=== PATIENT | male | born 1965 | race African-American/Black ===

== ENCOUNTER 2024-10-04 14:06 | Outpatient (NON) | payer SELFPAY ==
--- OUTSIDE RECORDS SUMMARY | 2024-10-04 14:43 | XMS_ITS | Encounter Summary ---
Author Organization [facility] Address [facility] [place] [address] Care Team Providers Care President Of [place] Name Role Phone Ngozi Collier NP Primary Care Provider [phone] Reason for Referral * Surgical (Routine) - New Request Specialty Diagnoses / Procedures Referred By Contac t Referred To Contact Diagnoses PVD (peripheral vascular disease) ([facility]) Procedures Case request operating room: AMPUTATION TOE (LEFT SECOND TOE) Dae Corrales MD [address] [address] Phone: tel: fax: Referral ID Status Reason Start Date Expiration Date V isits Requested Visits Authorized [id number] New Request 06/08/2024 06/08/2025 1 1 Encounter Details Date Type Department Care Team (Late st Contact Info) Description 06/08/2024 Prep for Procedure [facility] [address] [place], [place] [id number] Dae Corrales MD [facility] [address] [place] [address] Social History Tobacco Use Types Packs/Day Years Used Date Smoking Tobacco: Every Day Cigars Smokeless Tobacco: Never Alcohol Use Standard Drinks/Week Comments Not Currently 0 (1 standard drink = 0.6 oz pur e alcohol) [facility] Utilities Answer Date Recorded In the past 12 months has th e electric, gas, oil, or water company threatened to shut off services in your home? No 06/06/2024 Humiliation, Afraid, Rape, and Kick questionnair e Answer Date Recorded Within the last year, have y ou been afraid of your partner or ex-partner? No 06/06/2024 Within the last year, have y ou been humiliated or emotionally abused in other ways by your partner or ex-partner? No Within the last year, have y ou been kicked, hit, slapped, or otherwise physically hurt by your partner or ex-partner? No 06/06/2024 Within the last year, have y ou been raped or forced to have any kind of sexual activity by your partner or ex-partner? No 06/06/2024 Overall Financial Resource Strain (CARDIA) Answe r Date Recorded How hard is it for you to pa y for the very basics like food, housing, medical care, and heating? Not hard at all 06/06/2024 Hunger Vital Sign Answer Date Recorded Within the past 12 months, y ou worried that your food would run out before you got the money to buy more. Never true 06/06/20 24 Within the past 12 months, t he food you bought just didn't last and you didn't have money to get more. Never true 06/06/2024 PRAPARE - Transportation Answer Date Re corded In the past 12 months, has l ack of transportation kept you from medical appointments or from getting medications? No 05/25 In the past 12 months, has l ack of transportation kept you from meetings, work, or from getting things needed for daily living? No 06/06/2024 Housing Stability Vital Sign Answer Segundo e Recorded In the last 12 months, was t here a time when you were not able to pay the mortgage or rent on time? No 06/06/2024 In the past 12 months, how m any times have you moved where you were living? 0 06/06/2024 At any time in the past 12 m [facility], were you homeless or living in a detention (including now)? No 06/06/2024 Sex and Gender Information Value Date Recorded Sex Assigned at Male 09/23/2024 1:10 AM [employer] Legal Sex Male 8:29 PM CDT Gender Identity Not on file Sexual Orientation Not on file documented as of this encounter Functional Status * Are you deaf or do you have serious difficulty hearing Answer Date of Assessment Author Status No 06/06/2024 11:27 PM CDT Phong Whitney , RN Active * Are you blind or do you have serious difficulty seeing, even when wearing glasses? Answer Date of Assessment Author Status No 06/06/2024 11:27 PM KINGT Phong Whitney RN Active * Do you have serious difficulty walking or climbing stairs? Answer Date of Assessment Author Status No 06/06/2024 11:27 PM KINGT Phong Whitney RN Active * Do you have difficulty dressing or bathing? Answer Date of Assessment Author Status No 06/06/2024 11:27 PM KINGT Phong Whitney RN Active * Because of a physical, mental, or emotional condition, do you have difficulty doing errands alone such as visiting a doctor's office or shopping? Answer Date of Assessment Author Status No 06/06/2024 11:27 PM KINGT Phong Whitney RN Active documented as of this encounter Mental Status * Because of a physical, mental, or emotional condition, do you have serious difficulty concentrating, remembering, or making decisions? Answer Entry Date Author Status No 06/06/2024 11:27 PM Phong Maynard RN Active documented in this encounter Plan of Treatment Scheduled Orders Name Type Priority Associated Diagnoses Orde r Schedule Case request operating room: AMPUTATION TOE (LEFT SECOND TOE) Case Request Routine PVD (peripheral vascular disease) ([facility]) Once for 1 Occurrences starting 06/08/2024 until 06/08/2024 documented as of this encounter Goals Goal Patient Goal Type Associated Problems Recent Progress Patient-Stated? Author Health - patient able to perform ADLs independently Lifestyle No 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 RN documented as of this encounter Visit Diagnoses Diagnosis PVD (peripheral vascular disease) (CMS/HCC)- Primary Peripheral vascular disease, unspecified documented in this encounter Care Teams President [employer] [place] Relationship Specialty [place] [address] [place] [id number] PCP - General 02/13/18 documented as of this encounter
--- OUTSIDE RECORDS SUMMARY | 2024-10-04 14:43 | XMS_ITS | Clinical Summary ---
Author Organization [facility] Address [address] [place] [id number] Care Team Providers Care Pan Cleaner Name Role Phone Ngozi Collier NP Primary Care Provider [phone] Allergies Active Allergy Reactions Criticality Noted Date Comments Amoxicillin Nausea and Vomiting 11/25/2017 Amoxicillin-Pot Clavulanate Nausea and Vomiting 11/17/2017 Atorvastatin Nausea and Vomiting 05/11/2019 Clavulanic Acid Nausea and Vomiting 11/17/2017 Diclofenac Nausea and Vomiting 11/21/2017 Fentanyl Other (see comment) 11/25/2017 Can't see straight Gabapentin Nausea and Vomiting 11/21/2017 Meloxicam Anxiety Low 01/14/2019 Metformin Nausea and Vomiting 11/25/2017 Methadone Other (see comment) 11/25/2017 Can't see straight Morphine Other (see comment) 11/25/2017 Can't see straight Nortriptyline Nausea Only 07/10/2018 Pitavastatin Nausea and Vomiting 07/07/2023 Rosuvastatin Nausea Only Low 12/24/2022 Sildenafil Other (see comment) 05/28/2021 Medications capsaicin (ABSORBINE ARTHRITIS) 0.025 % cream Apply topically 4 (four) times daily as needed (pain). Active lidocaine (LIDODERM) 5 % Place 1 patch onto the skin every 12 (twelve) hours. APPLY 1 PATCH TO SKIN SITE ONCE A DAY APPLY PATCH AND PRESS FIRMLY FOR 10-15 SECONDS. KEEP ON FOR 12 HOURS THEN REMOVE PATCH FOR 12 HOURS. Active insulin degludec (TRESIBA) 100 UNIT/ML Solution Pen-injector injection Inject 80 Units into the skin every morning. Active Cholecalciferol 50 MCG (1999 UT) Cap Take 50 mcg by mouth daily. Active Multiple Vitamin (MULTIVITAMIN ADULT OR) Take 1 tablet by mouth daily. Active losartan (COZAAR) 50 MG tablet Take 1 tablet (50 mg total) by mouth daily. Replaces hctz/lisinopril Active vitamin B-12 (CYANOCOBALAMIN ) 100 MCG tablet Take 1 tablet (100 mcg total) by mouth daily. Active rivaroxaban (XARELTO) 20 MG Tab tabletIndicatio ns:Deep Vein Thrombosis,Adre nal infarct Take 1 tablet (20 mg total) by mouth daily with supper for 30 days. Indications: Blood Clot in a Deep Vein, Adrenal infarct Take with food 30 tablet 025 2024 Active cefTRIAXone 2 g in sodium chloride 0.9 % SOLN 50 mLIndications:O steomyelitis Inject 2 g into the vein daily for 36 days. Indications: Infection of Bone and Bone Marrow 1 Bag 025 2024 Active metroNIDAZOLE (FLAGYL) 500 MG tabletIndicatio ns:Osteomyeliti s Take 1 tablet (500 mg total) by mouth 2 (two) times a day for 13 days. Indications: Infection of Bone and Bone Marrow 26 tablet 025 2024 Active vancomycin 1,250 mg in sodium chloride 0.9 % SOLN 262.5 mLIndications:O steomyelitis Inject 1,250 mg into the vein every 12 (twelve) hours for 37 days. Indications: Infection of Bone and Bone Marrow 1 Bag 025 2024 Active oxyCODONE-aceta minophen (PERCOCET) 10-325 MG tabletIndicatio ns:Acute Pain < 7 Day Supply Take 1 tablet by mouth every 6 (six) hours as needed for Pain. Indications: Acute Pain < 7 Day Supply 15 tablet Active naloxone (NARCAN) 4 MG/0.1ML nasal sprayIndication s:Opioid Toxicity 1 spray by Nasal route as needed for Opioid reversal. Indications: Toxic Amount of Codeine/Morphine -Like Drugs in the Body may repeat every 2 to 3 minutes in alternating nostrils until medical assistance becomes available 1 each 025 2025 Active sildenafil 100 MG tablet Take 1 tablet (100 mg total) by mouth daily as needed for Erectile Dysfunction. 020 2024 Discontinued(E rror) venlafaxine XR (EFFEXOR-XR) 37.5 MG 24 hr capsule Take 1 capsule (37.5 mg total) by mouth daily. 024 2024 Discontinued(E rror) rivaroxaban (XARELTO) 20 MG Tab tablet Take 1 tablet (20 mg total) by mouth daily with supper. Take with food. Start on 06/18 30 tablet 2 2024 Discontinued(E rror) losartan (COZAAR) 25 MG tablet Take 1 tablet (25 mg total) by mouth daily. 30 tablet 2024 Discontinued(E rror) oxyCODONE immediate release (ROXICODONE) 10 MG immediate release tablet Take 1 tablet (10 mg total) by mouth every 6 (six) hours as needed for Pain. 2024 Discontinued(E rror) lisinopril-hydr oCHLOROthiazide (ZESTORETIC) 10-12.5 MG tablet Take 0.5 tablets by mouth every morning. 023 2024 Discontinued(E rror) oxyCODONE-aceta minophen (PERCOCET) 10-325 MG tablet Take 1 tablet by mouth every 6 (six) hours as needed for Pain. TAKE 1 TABLET BY MOUTH EVERY 6 HOURS NEEDED FOR 1 WEEK, THEN TAKE 1 TABLET THREE TIMES A DAY NEEDED - NOTE: DO NOT EXCEED 4000MG PER DAY ACETAMINOPHEN (APAP) 024 2024 Discontinued silver sulfADIAZINE (SILVADENE) 1 % cream APPLY LIGHTLY TO AFFECTED AREA(S) ONCE A DAY FOR WOUND CARE (EXTERNAL USE ONLY) 024 2024 Discontinued(E rror) Active Problems Problem Noted Date Diagnosed Date Osteomyelitis ([facility]) 09/23/2024 Osteomyelitis of foot, left, acute ([facility]) 09/23/2024 Abnormal liver function 06/28/2024 Acute osteomyelitis of phalanx of foot ([facility]) 06/28/2024 Overview (06/28/2024): Dec 22, 2019 Entered By: SOLEDAD MIRANDA Comment: R great toe amputation 10/2017 Age-related nuclear cataract, bilateral 06/28/20 Benign essential hypertension 06/28/2024 Carpal tunnel syndrome 06/28/2024 Complete traumatic amputatio n of left great toe, subsequent encounter ([facility]) 06/28/2024 Depression 06/28/2024 Encounter for observation fo r other suspected diseases and conditions ruled out 06/28/2024 Erectile dysfunction 06/28/2024 Exposure to potentially hazardous substance 11/2023 Gastroesophageal reflux disease 06/28/2024 History of total right knee replacement 06/28/20 Hyperlipidemia, unspecified 06/28/2024 Localized edema 06/28/2024 care home (current) use of opiate analgesic 11/2023 Narcotic drug use 06/28/2024 Non-pressure chronic ulcer o f other part of left foot limited to breakdown of skin ([facility]) 06/28/2024 Obesity 06/28/2024 Osteoarthritis of knee 06/28/2024 Other chronic pain 06/28/2024 Other specified diabetes marshall litus with unspecified complications ([facility]) 06/28/2024 Pain in right shoulder 06/28/2024 Type 1 diabetes mellitus wit h diabetic neuropathy, unspecified ([facility]) 06/28/2024 Type 2 diabetes 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 without macular edema, bilateral ([facility]) 06/28/2024 Type 2 diabetes mellitus wit h foot ulcer (CODE) ([facility]) 06/28/2024 Vitamin D deficiency 06/28/2024 Elevated liver function tests 06/21/2024 PVD (peripheral vascular disease) 06/08/2024 Osteomyelitis of left foot ([facility]) SIRS (systemic inflammatory response syndrome) ([facility]) 05/27/2024 Nausea and vomiting 03/20/2020 Open wound of left foot 03/17/2020 Nausea & vomiting 03/17/2020 S/P amputation of lesser toe, left ([facility]) 02/03/2018 Hypertension 07/14/2015 Low back pain 07/14/2015 Right knee pain 07/14/2015 Resolved Problems Problem Noted Date Diagnosed Date Resolved Date Encounter for other preprocedural examination 06/28/20 24 07/05/2024 Encounters Date Type Department Care Team Description 10/04/2024 Hospital Follow-up Call [facility] [place] [address] Melonie Mei LPN Follow Up Call ([facility] 09/23-10/01/24) 09/28/2024 9:45 AM POOL HAND Home Care Visit [facility] [address] [address] Trice Nava GENDER STUDIES PROFESSOR VISIT 09/25/2024 10:00 AM POOL HAND - 09/25/2024 11:03 AM POOL HAND [place] [address] Dae Marie DPM TRANS METATARSAL AMPUTATION; LEFT FOOT 09/25/2024 9:45 AM POOL HAND Anesthesia [place] [address] Alfonso Eagle MD 09/23/2024 1:45 AM POOL HAND - 10/01/2024 2:19 PM POOL HAND Hospital Encounter [facility] [place] [address] Lucius Johnson DO Malcolm, Ashley Helen, MD McHale, MD Antoinette Leblanc Gregory T, MD Suresh, MD Gil Vidal, Claudia Gill, Spencer Vergara PA Helmholt, Jennifer, NP Foot Swelling Discharge Disposition: Home with Home Health Care 09/23/2024 Travel 07/28/2024 Telephone [facility] Multispecialty Care - [facility] [address] [facility], [address] [place] [address] Negin Adkins NP Reschedule 07/23/2024 Telephone [facility], [address] [place] [address] Neema Hampton FNP Schedule Test 07/23/2024 Orders Only [facility], [address] [place] [address] Neema Hampton FNP from Last 3 Months Immunizations Name Administration Dates Next Due Influenza (Generic) 05/16/2015, 4,06/25/2013, 012,05/23/2011 Influenza Adult (Generic) 06/09/2017 PFIZER COVID-19 (ORIGINAL FORMULATION, PURPLE CAP) mRNA, LNP-S, PF, 30 MCG/0.3 ML DOSE 07/25/2021,11/23/2020,11/02/2020 Tdap (Generic) 11/27/2021,01/03/2011 Family History Medical History Relation Comments Diabetes Paternal Grandmother Relation Status Comments Paternal Grandmother Social History Tobacco Use Types Packs/Day Years Used Date Smoking Tobacco: Some Days Cigars Smokeless Tobacco: Never Tobacco Cessation:Ready to Q uit: Not Asked; Counseling Given: Not Answered Alcohol Use Standard Drinks/Week Comments Not Currently 0 (1 standard drink = 0.6 oz pur e alcohol) 2 bottles wine/month B1300 Health Literacy Answer Date Recor ded How often do you need to hav e someone help you when you read instructions, pamphlets, or other written material from your doctor or pharmacy? Never 09/23/2024 [facility] Utilities Answer Date Recorded In the past 12 months has e [employer], gas, oil, or water [employer] threatened to shut off services in your home? No 09/23/2024 Humiliation, Afraid, Rape, and Kick questionnair e Answer Date Recorded Within the last year, have y ou been afraid of your partner or ex-partner? No 09/23/2024 Within the last year, have y ou been humiliated or emotionally abused in other ways by your partner or ex-partner? No Within the last year, have y ou been kicked, hit, slapped, or otherwise physically hurt by your partner or ex-partner? No 09/23/2024 Within the last year, have y ou been raped or forced to have any kind of sexual activity by your partner or ex-partner? No 09/23/2024 Social Connection and Isolat ion Panel [NHANES] Answer Date Recorded In a typical week, how many times do you talk on the phone with family, friends, or neighbors? Never 09/23/2024 How often do you get togethe r with friends or relatives? Never 09/23/2024 How often do you attend chur ch or buddhist services? Never 09/23/2024 Do you belong to any clubs o r organizations such as pentecostal groups, unions, fraternal or athletic groups, or school groups? Yes 09/23/2024 How often do you attend meet ings of the clubs or organizations you belong to? More than 4 times per year 09/23/2024 Are you , , di vorced, , never , or living with a partner? Never 09/23/2024 AUDIT-C Answer Date Recorded Q1: How often do you have a drink containing alc ohol? 2-4 times a month 09/23/2024 Q2: How many drinks containi ng alcohol do you have on a typical day when you are drinking? 1 or 2 09/23/2024 Q3: How often do you have si x or more drinks on one occasion? Less than monthly 09/23/2024 Overall Financial Resource Strain (CARDIA) Answe r Date Recorded How hard is it for you to pa y for the very basics like food, housing, medical care, and heating? Not hard at all 09/23/2024 PHQ-2 Answer Date Recorded Patient Health Questionnaire-2 Score 0 09/23/2024 [facility] Occupat ional Health - Occupational Stress Questionnaire Answer Date Recorded Do you feel stress - tense, restless, nervous, or anxious, or unable to sleep at night because your mind is troubled all the time - these days? Only a little 09/23/2024 Exercise Vital Sign Answer Date Recorde d On average, how many days pe r week do you engage in moderate to strenuous exercise (like a brisk walk)? 3 days 09/23/2024 On average, how many minutes do you engage in exercise at this level? 30 min 09/23/2024 Hunger Vital Sign Answer Date Recorded Within the past 12 months, y ou worried that your food would run out before you got the money to buy more. Never true 09/23/19 25 Within the past 12 months, t he food you bought just didn't last and you didn't have money to get more. Never true 09/23/2024 PRAPARE - Transportation Answer Date Re corded In the past 12 months, has l ack of transportation kept you from medical appointments or from getting medications? No 08/27 In the past 12 months, has l ack of transportation kept you from meetings, work, or from getting things needed for daily living? No 09/23/2024 Housing Stability Vital Sign Answer Segundo e Recorded In the last 12 months, was t here a time when you were not able to pay the mortgage or rent on time? No 09/23/2024 In the past 12 months, how m any times have you moved where you were living? 0 09/23/2024 At any time in the past 12 m [facility], were you homeless or living in a alf (including now)? No 09/23/2024 Sex and Gender Information Value Date Recorded Sex Assigned at Male 09/23/2024 1:10 AM POOL HAND Legal Sex Male 8:29 PM CDT Gender Identity Not on file Sexual Orientation Not on file Last Filed Vital Signs Vital Sign Reading Time Taken Comments Blood Pressure 154/89 10/01/2024 11:15 AM POOL HAND Pulse 86 09/30/2024 7:40 PM POOL HAND Temperature 36.9 C (98.5 F) 10/01/2024 11:15 AM POOL HAND Respiratory Rate 17 10/01/2024 11:1 5 AM POOL HAND Oxygen Saturation 94% 10/01/2024 11: 15 AM POOL HAND Inhaled Oxygen Concentration - - Weight 119.2 kg (262 lb 12.6 oz) 09/29/2024 5:01 AM POOL HAND Height 182.9 cm (6') 09/23/2024 3:48 PM POOL HAND Body Mass Index 35.64 09/23/2024 3:48 PM POOL HAND Plan of Treatment Health Maintenance Due Date Last Done Comments Colorectal Cancer Screening Colonoscopy (10 Years) 1967 Kidney Health Evaluation 1967 Annual Physical 1970 Pneumococcal Vaccine: Pediatrics (0 to 5 Years) and At-Risk Patients (6 to 64 Years) (1 of 2 - PCV) 1973 Diabetes: Retinopathy Eye Exam 1985 Hepatitis B Vaccines (1 of 3 - 19+ 3-dose series) 1986 Zoster Vaccines (1 of 2) 2017 COVID-19 Vaccine ( season) 2024 07/25/2021, 11/23/2020, 11/02/2020 Influenza Adult (#1) 2024 06/09/2017, 05/16/2015, 05/19/2014, Additional history exists Hemoglobin A1C 03/25/2025 09/25/2024, 08/27, 05/27/2024, Additional history exists Lipid Panel 05/27/2025 05/27/2024 DTaP, Tdap and Td Vaccines (3 - Td or Tdap) 11/28/2031 11/27/2021, 01/03/2011 Hepatitis C Completed 06/01/2024 PHQ-2 (Physician [place]) Completed 09/23/2024 Meningococcal B Vaccine Aged Out No l onger eligible based on patient's age to complete this topic Meningococcal Vaccine Aged Out No ember malik eligible based on patient's age to complete this topic RSV Immunizations Under 20 Months Aged Out No longer eligible based on patient's age to complete this topic Goals Goal Patient Goal Type Associated Problems Recent Progress Patient-Stated? Author Health - patient able to perform ADLs independently Lifestyle No 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, client partner Procedure Name Priority Date/Time Associated Diagnosis Comments POCT GLUCOSE - MARIE DOCKED DEVICE Routine 10/01/2024 11:21 AM POOL HAND CBC W/DIFF AUTOMATED Routine 10/01/2024 5:44 AM POOL HAND BASIC METABOLIC PANEL Routine 10/01/2024 5:44 AM POOL HAND POCT GLUCOSE - MARIE DOCKED DEVICE Routine 10/01/2024 5:16 AM POOL HAND POCT GLUCOSE - MARIE DOCKED DEVICE Routine 09/30/2024 8:18 PM POOL HAND POCT GLUCOSE - MARIE DOCKED DEVICE Routine 09/30/2024 4:18 PM POOL HAND POCT GLUCOSE - MARIE DOCKED DEVICE Routine 09/30/2024 11:40 AM POOL HAND HC URINALYSIS AUTO W/O MICRO Routine 09/30/2024 10:13 AM POOL HAND POCT GLUCOSE - MARIE DOCKED DEVICE Routine 09/30/2024 6:06 AM POOL HAND CBC W/DIFF AUTOMATED Routine 09/30/2024 5:30 AM POOL HAND BASIC METABOLIC PANEL Routine 09/30/2024 5:30 AM POOL HAND POCT GLUCOSE - MARIE DOCKED DEVICE Routine 09/29/2024 8:20 PM POOL HAND POCT GLUCOSE - MARIE DOCKED DEVICE Routine 09/29/2024 4:35 PM POOL HAND POCT GLUCOSE - MARIE DOCKED DEVICE Routine 09/29/2024 11:32 AM POOL HAND BASIC METABOLIC PANEL Routine 09/29/2024 7:15 AM POOL HAND POCT GLUCOSE - MARIE DOCKED DEVICE Routine 09/29/2024 6:21 AM POOL HAND CBC W/DIFF AUTOMATED Routine 09/29/2024 5:05 AM POOL HAND BASIC METABOLIC PANEL Routine 09/29/2024 5:05 AM POOL HAND POCT GLUCOSE - MARIE DOCKED DEVICE Routine 09/28/2024 9:12 PM POOL HAND POCT GLUCOSE - MARIE DOCKED DEVICE Routine 09/28/2024 3:50 PM POOL HAND POCT GLUCOSE - MARIE DOCKED DEVICE Routine 09/28/2024 11:37 AM POOL HAND POCT GLUCOSE - MARIE DOCKED DEVICE Routine 09/28/2024 5:57 AM POOL HAND CBC W/DIFF AUTOMATED Routine 09/28/2024 4:48 AM POOL HAND BASIC METABOLIC PANEL Routine 09/28/2024 4:48 AM POOL HAND POCT GLUCOSE - MARIE DOCKED DEVICE Routine 09/27/2024 7:47 PM POOL HAND POCT GLUCOSE - MARIE DOCKED DEVICE Routine 09/27/2024 4:53 PM POOL HAND POCT GLUCOSE - MARIE DOCKED DEVICE Routine 09/27/2024 11:38 AM POOL HAND POCT GLUCOSE - MARIE DOCKED DEVICE Routine 09/27/2024 6:27 AM POOL HAND BASIC METABOLIC PANEL Routine 09/27/2024 5:27 AM POOL HAND CBC W/DIFF AUTOMATED Routine 09/27/2024 5:27 AM POOL HAND POCT GLUCOSE - MARIE DOCKED DEVICE Routine 09/26/2024 8:39 PM POOL HAND POCT GLUCOSE - MARIE DOCKED DEVICE Routine 09/26/2024 4:51 PM POOL HAND BASIC METABOLIC PANEL Routine 09/26/2024 1:28 PM POOL HAND CBC W/DIFF AUTOMATED Routine 09/26/2024 1:28 PM POOL HAND POCT GLUCOSE - MARIE DOCKED DEVICE Routine 09/26/2024 12:26 PM POOL HAND POCT GLUCOSE - MARIE DOCKED DEVICE Routine 09/26/2024 6:13 AM POOL HAND VANCOMYCIN Routine 09/26/2024 4:34 AM POOL HAND BASIC METABOLIC PANEL Routine 09/26/2024 4:34 AM POOL HAND CBC W/DIFF AUTOMATED Routine 09/26/2024 4:34 AM POOL HAND POCT GLUCOSE - MARIE DOCKED DEVICE Routine 09/25/2024 8:14 PM POOL HAND POCT GLUCOSE - MARIE DOCKED DEVICE Routine 09/25/2024 4:18 PM POOL HAND POCT GLUCOSE - MARIE DOCKED DEVICE Routine 09/25/2024 11:36 AM POOL HAND POCT GLUCOSE - MARIE DOCKED DEVICE Routine 09/25/2024 10:37 AM POOL HAND CULTURE, TISSUE W/GRAM STAIN Routine 09/25/2024 10:12 AM POOL HAND CULTURE, ANAEROBIC Routine 09/25/2024 10 :12 AM POOL HAND AMPUTATION TOE 09/25/2024 9:45 AM POOL HAND Osteomyelitis of foot, left, acute ([facility]) POCT GLUCOSE - MARIE DOCKED DEVICE Routine 09/25/2024 8:04 AM POOL HAND CBC W/DIFF AUTOMATED Routine 09/25/2024 5:43 AM POOL HAND BASIC METABOLIC PANEL Routine 09/25/2024 5:43 AM POOL HAND HEMOGLOBIN, GLYCOSYLATED Routine 09/25/2024 5:43 AM POOL HAND POCT GLUCOSE - MARIE DOCKED DEVICE Routine 09/25/2024 5:39 AM POOL HAND PATHOLOGY Routine 09/25/2024 12:00 AM POOL HAND POCT GLUCOSE - MARIE DOCKED DEVICE Routine 09/24/2024 8:10 PM POOL HAND POCT GLUCOSE - MARIE DOCKED DEVICE Routine 09/24/2024 3:46 PM POOL HAND POCT GLUCOSE - MARIE DOCKED DEVICE Routine 09/24/2024 11:20 AM POOL HAND VANCOMYCIN Routine 09/24/2024 6:00 AM POOL HAND C-REACTIVE PROTEIN Routine 09/24/2024 6: 00 AM POOL HAND HEMOGLOBIN, GLYCOSYLATED Routine 09/24/2024 6:00 AM POOL HAND MAGNESIUM Routine 09/24/2024 6:00 AM POOL HAND COMPREHENSIVE METABOLIC PANEL Routine 09/24/2024 6:00 AM POOL HAND CBC W/DIFF AUTOMATED Routine 09/24/2024 6:00 AM POOL HAND POCT GLUCOSE - MARIE DOCKED DEVICE Routine 09/24/2024 5:55 AM POOL HAND POCT GLUCOSE - MARIE DOCKED DEVICE Routine 09/23/2024 7:59 PM POOL HAND MRI FOOT LT WO CON Today 09/23/2024 6: 47 PM POOL HAND POCT GLUCOSE - MARIE DOCKED DEVICE Routine 09/23/2024 3:43 PM POOL HAND POCT GLUCOSE - MARIE DOCKED DEVICE Routine 09/23/2024 12:12 PM POOL HAND MRSA SCREENING STAT 09/23/2024 10:24 AM POOL HAND USV ART REST W BLANCO LOW EXT STAT 09/23/2024 10:09 AM POOL HAND CULTURE, BACTERIA, BLOOD STAT 09/23/2024 2:55 AM POOL HAND LACTIC ACID W REFLEX (SEPSIS) STAT 09/23/2024 2:55 AM POOL HAND HC BODY FLUID CULTURE STAT 09/23/2024 2:11 AM POOL HAND C-REACTIVE PROTEIN Routine 09/23/2024 2: 11 AM POOL HAND COMPREHENSIVE METABOLIC PANEL STAT 09/23/2024 2:11 AM POOL HAND CBC W/DIFF AUTOMATED STAT 09/23/2024 2:11 AM POOL HAND XR FOOT LT 3V STAT 09/23/2024 1:54 AM POOL HAND HC EIA QL HEPATITIS ABC B AG Routine 06/01/2024 3:47 AM CDT LIPID PANEL STAT 05/27/2024 8:35 AM CDT from Last 3 Months or Most Recently Relevant to Health Maintenance Results * (ABNORMAL) POCT glucose (10/01/2024 11:21 AM POOL HAND) Only the most recent of35 resultswithin the time period is included. GLUCOSE POC 201(H) 70 - 99 mg/dL 10/01/2024 11:[address] [facility] 10/01/2024 11:2 1 AM POOL HAND Ashtyn Lynch NP POCT ORDERABLES - DEVICE Fi nal Result [facility] [address] [place] [address], * (ABNORMAL) BASIC METABOLIC PANEL (10/01/2024 5:44 AM POOL HAND) Only the most recent of9 resultswithin the time period is included. GLUCOSE 90 70 - 99 MG/DL 10/01/2024 6:[address] [facility] BUN 13 7 - 18 MG/DL 10/01/2024 6:[address] [facility] CREATININE S/P/B 0.75 0.7 - 1.3 MG/DL 10/01/2024 6:30 AM [facility] SODIUM S/P/B 139 136 - 145 MMOL/L 10/01/2024 6:30 AM [facility] POTASSIUM S/P/B 4.0 3.5 - 5.1 MMOL/L 10/01/2024 6:30 AM [facility] CHLORIDE S/P/B 108 97 - 115 MMOL/L 10/01/2024 6:30 AM [facility] CO2 33.0(H) 21 - 32 MMOL/L 10/01/2024 6:30 AM [facility] CALCIUM S/P/B 8.5 8.5 - 10.1 MG/DL 10/01/2024 6:30 AM [facility] ANION GAP NOT CALCULATED 2 - 10 MMOL/L 10/01/2024 6:30 AM [facility] BUN CREATININE RATIO 17.3 6 - 26 10/01/2024 6:30 AM [facility] GFR ESTIMATE >90 >90 ML/MIN/1. 73 M2 10/01/2024 6:30 AM [facility] Comment: NOTE: eGFR is not calculated for patients <18 years of age or gender unknown. This is an estimated GFR calculation using the new CKD EPI creatinine equation without race and so does not require a correction factor for race. This estimated GFR should not be used for calculating drug doses. 10/01/2024 5:44 AM POOL HAND [facility] Final Result [facility] [address] [place] [address], [place] [phone] * (ABNORMAL) CBC W/DIFF AUTOMATED (10/01/2024 5:44 AM POOL HAND) Only the most recent of10 resultswithin the time period is included. [facility] Signature WBC 6.78 4.5 - 11.0 x10'3/uL 10/01/2024 6:18 AM [facility] RBC 3.24(L) 4.70 - 6.10 x10'6/uL 10/01/2024 6:18 AM [facility] HGB 9.8(L) 14.0 - 18.0 G/DL 10/01/2024 6:18 AM [facility] HCT 30.6(L) 43.0 - 54.0 % 10/01/2024 6:18 AM [facility] MCV 94.4(H) 80.0 - 94.0 FL 10/01/2024 6:18 AM [facility] MCH 30.2 27.0 - 31.0 PG 10/01/2024 6:18 AM [facility] MCHC 32.0 32.0 - 36.0 G/DL 10/01/2024 6:18 AM [facility] RDW 12.1 11.5 - 14.5 % 10/01/2024 6:18 AM [facility] PLT 374 130 - 400 x10'3/uL 10/01/2024 6:18 AM [facility] MPV 9.1(L) 9.3 - 12.2 FL 10/01/2024 6:18 AM [facility] DIFFERENTIAL TYPE AUTOMATED DIFFERENTIAL 10/01/2024 6:18 AM [facility] NEUTROPHILS % 75.0 % 10/01/2024 6:18 AM [facility] LYMPHOCYTES % 11.5 % 10/01/2024 6:18 AM [facility] MONOCYTES % 10.9 % 10/01/2024 6:18 AM [facility] EOSINOPHILS 1.6 % 10/01/2024 6:18 AM [facility] BASOPHILS 0.3 % 10/01/2024 6:18 AM [facility] IMMATURE GRANS % 0.7 % 10/01/19 6:18 AM [facility] ABS. NEUTROPHILS 5.08 1.80 - 7.70 x10'3/uL 10/01/2024 6:18 AM [facility] ABS. LYMPHOCYTES 0.78(L) 1.00 - 4.80 x10'3/uL 10/01/2024 6:18 AM [facility] ABS. MONOCYTES 0.74 0.30 - 0.82 x10'3/uL 10/01/2024 6:18 AM [facility] ABS. EOSINOPHILS 0.11 0.04 - 0.54 x10'3/uL 10/01/2024 6:18 AM [facility] ABS. BASOPHILS 0.02 0.01 - 0.08 x10'3/uL 10/01/2024 6:18 AM [facility] ABS. IMMATURE GRANULOCYTES 0.05 0.00 - 0.49 x10'3/uL 10/01/2024 6:18 AM [facility] 10/01/2024 5:44 AM POOL HAND us Spencer HENDERSON LABORATORY Final Result [facility] [address] [place] [address], [place] [phone] * (ABNORMAL) URINALYSIS (09/30/2024 10:13 AM POOL HAND) SPECIMEN TYPE URINE CLEAN CATCH 09/30/2024 10:14 AM [facility] COLOR (U) LIGHT YELLOW 09/30/2024 10:25 AM [facility] TRANSPARENCY CLEAR 09/30/2024 10:25 AM [facility] SPECIFIC GRAVITY (U) 1.011 1.001 - 1.030 09/30/2024 10:25 AM [facility] U PH 6.0 5.0 - 9.0 09/30/2024 10:25 AM [facility] LEUKOCYTES (U) NEGATIVE NEGATIVE 09/30/2024 10:25 AM [facility] NITRITES NEGATIVE NEGATIVE 09/30/2024 10:25 AM [facility] PROTEIN RANDOM (U) NEGATIVE <30 MG/DL 09/30/2024 10:25 AM [facility] GLUCOSE (U) NORMAL NORMAL MG/DL 09/30/2024 10:25 AM [facility] KETONES MG/DL (U) NEGATIVE NEGATIVE MG/DL 09/30/2024 10:25 AM [facility] UROBILINOGEN 2.0(A) NORMAL MG/DL 09/30/2024 10:25 AM [facility] BILIRUBIN (U) NEGATIVE NEGATIVE MG/DL 09/30/2024 10:25 AM [facility] BLOOD (U) NEGATIVE NEGATIVE 09/30/2024 10:25 AM [facility] URINE SPECIMEN OBTAINED BY CLEAN CATCH PROCEDURE / Unknown 09/30/2024 10:13 AM [facility] us Spencer HENDERSON URINE ORDERABLES Final Result [facility] [address] [place] [address], [place] [phone] * Vancomycin Random Level (09/26/2024 4:34 AM POOL HAND) Only the most recent of2 resultswithin the time period is included. VANCOMYCIN RANDOM 17.4 MCG/ML 09/26/2024 5:[address] [facility] Comment:NO THERAPEUTIC RANGE AVAILABLE LAST DOSE UNKNOWN LAST DOSE 09/26/2024 4:[address] [facility] 09/26/2024 4:34 AM POOL HAND [facility] Final Result [facility] [address] [place] [address], [place] [phone] * (ABNORMAL) CULTURE, TISSUE W/GRAM STAIN (09/25/2024 10:12 AM POOL HAND) SPEC DESCRIPTION FOOT,LEFT 09/25/2024 10:[address] [facility] SPECIAL REQUESTS NO SPECIAL REQUEST 09/25/2024 10:17 AM [facility] GRAM STAIN RESULT FEW WHITE BLOOD CELLS SEEN 09/25/2024 4:[address] [facility] GRAM STAIN RESULT MANY RED BLOOD CELLS SEEN 09/25/2024 4:58 PM [facility] GRAM STAIN RESULT MANY GRAM POSITIVE COCCI 09/25/2024 4:58 PM [facility] CULTURE RESULT LIGHT GROWTH OF ESCHERICHIA COLI (A) 09/27/2024 8:33 AM [facility] CULTURE RESULT MODERATE GROWTH OF STREPTOCOCCI, BETA HEMOLYTIC GROUP B SUSCEPTIBILTY NOT ROUTINELY PERFORMED. SAVING ISOLATE FOR 5 DAYS. CONTACT MICROBIOLOGY DEPARTMENT IF FURTHER WORKUP IS INDICATED. (A) 09/27/2024 8:[address] [facility] TISSUE STRUCTURE OF LEFT FOOT / Unknown 09/25/2024 10:12 AM POOL HAND Narrative Organism Antibiotic Method Susceptibility Escherichia coli AMPICILLIN REMY (VITEK) 4: Sensitive Escherichia coli AMPICILLIN/SULBACTAM REMY (VITEK) <=2: Sensitive Escherichia coli CEFTRIAXONE REMY (VITEK) <=1: Sensitive Escherichia coli CEFTAZIDIME REMY (VITEK) <=1: Sensitive Escherichia coli CEFAZOLIN REMY (VITEK) <=4: Sensitive Escherichia coli ESBL REMY (VITEK) NEG: Sensitive Escherichia coli GENTAMICIN REMY (VITEK) <=1: Sensitive Escherichia coli LEVOFLOXACIN REMY (VITEK) <=0.12: Sensitive Escherichia coli PIPRACIL/TAZO REMY (VITEK) <=4: Sensitive Escherichia coli TRIMETH-SULFAMETH. REMY (VITEK) <=20: Sensitive Dae Marie DPM MICROBIOLOGY - GENERAL OR DERABLES Final Result [facility] [address] [place] [address], * (ABNORMAL) CULTURE, ANAEROBIC (09/25/2024 10:12 AM POOL HAND) SPEC DESCRIPTION FOOT,LEFT 09/25/2024 10:17 AM [facility] SPECIAL REQUESTS NO SPECIAL REQUEST 09/25/2024 10:17 AM [facility] GRAM STAIN RESULT FEW WHITE BLOOD CELLS SEEN 09/25/2024 4:58 PM [facility] GRAM STAIN RESULT MANY RED BLOOD CELLS SEEN 09/25/2024 4:58 PM [facility] GRAM STAIN RESULT MANY GRAM POSITIVE COCCI 09/25/2024 4:58 PM [facility] CULTURE RESULT HEAVY GROWTH OF PREVOTELLA BIVIA BETA LACTAMASE POSITIVE SUSCEPTIBILTY NOT ROUTINELY PERFORMED. SAVING ISOLATE FOR 5 DAYS. CONTACT MICROBIOLOGY DEPARTMENT IF FURTHER WORKUP IS INDICATED. (A) 09/27/2024 11:[address] [facility] TISSUE STRUCTURE OF LEFT FOOT / Unknown 09/25/2024 10:12 AM POOL HAND Dae Marie DPM MICROBIOLOGY - GENERAL OR DERABLES Final Result Performing Organization Address [facility] Co de Phone Number [facility] [address] [place] [phone], * (ABNORMAL) HEMOGLOBIN, GLYCOSYLATED (09/25/2024 5:43 AM POOL HAND) Only the most recent of2 resultswithin the time period is included. HGB A1C 6.6(H) <5.7 % 09/25/2024 11:[address] [facility] Comment: ADA GUIDELINES 2010 5.7 TO 6.4% INCREASED RISK OF DIABETES > OR = 6.5% CONSISTENT WITH DIABETES ESTIMATED AVG GLUCOSE 143 mg/dL 09/25/2024 11:[address] [facility] 09/25/2024 5:43 AM POOL HAND Turner Curry MD LABORATORY Final Resul t Performing Organization Address [facility] Co de Phone Number [facility] [address] [place] [address], * Pathology (09/25/2024 12:00 AM POOL HAND) PATHOLOGY [facility] Department of Laboratory Medicine [address] [place] [address] , extension [phone] Pathology Report Surgical Pathology Report Name: TAJ SMITH Specimen #: [id number] Age: 2 1965 (Age: 58) Location: [facility] Sex: M Procedure Date: 09/25/2024 [facility] #: [id number] Date Received: 09/27/2024 Date Reported: 09/28/2024 Provider: DAE MARIE DPM Source: Left 5th metatarsal Clinical History: Osteomyelitis. FINAL DIAGNOSIS: Bone, left fifth metatarsal, excision: -Chronic osteomyelitis extending to the surgical margin. Gross Description: Received in formalin, labeled with a patient label and as left fifth metatarsal is a 2.7 x 1.2 x 1.2 cm piece of bone. 1 end is rounded and covered with smooth street cartilage. The opposite end is consistent with the surgical margin. The specimen is sectioned to reveal the bone is dusky lazcano and disrupted near the distal end. The surgical margin is shaved. Pump Tender tissue is submitted as follows: 1 section through distal end of bone 2 surgical margin. Cassettes 1 and 2 are submitted following decalcification in immuno decal. Gross examination (when applicable), interpretation, and sign out were performed at [facility], [address] [place] [address]. Electronically Signed Out LONNIE FARIAS MD [facility] TISSUE STRUCTURE OF LEFT FOOT / Unknown 09/25/2024 10:13 AM POOL HAND us Dae Marie DPM PATHOLOGY/CYTOLOGY ORDERA BLES Final Result [facility] [address] [place] [address], [id number] * (ABNORMAL) COMPREHENSIVE METABOLIC PANEL (09/24/2024 6:00 AM POOL HAND) Only the most recent of2 resultswithin the time period is included. GLUCOSE 203(H) 70 - 99 MG/DL 09/24/2024 6:[address] [facility] BUN 16 7 - 18 MG/DL 09/24/2024 6:[address] [facility] CREATININE S/P/B 1.02 0.7 - 1.3 MG/DL 09/24/2024 6:[address] [facility] SODIUM S/P/B 136 136 - 145 MMOL/L 09/24/2024 6:47 AM [facility] POTASSIUM S/P/B 4.2 3.5 - 5.1 MMOL/L 09/24/2024 6:47 AM [facility] CHLORIDE S/P/B 105 97 - 115 MMOL/L 09/24/2024 6:47 AM [facility] CO2 29.9 21 - 32 MMOL/L 09/24/2024 6:47 AM [facility] CALCIUM S/P/B 8.0(L) 8.5 - 10.1 MG/DL 09/24/2024 6:47 AM [facility] BILIRUBIN TOTAL S/P/B 0.9 0.2 - 1.2 MG/DL 09/24/2024 6:47 AM [facility] Comment: THIS ASSAY IS NOT RECOMMENDED FOR PATIENTS UNDERGOING TREATMENT WITH ELTROMBOPAG DUE TO THE POTENTIAL FOR FALSELY ELEVATED RESULTS. TOTAL PROTEIN S/P/B 5.6(L) 6.4 - 8.2 G/DL 09/24/2024 6:47 AM [facility] ALBUMIN S/P/B 1.8(L) 3.4 - 5.0 G/DL 09/24/2024 6:47 AM [facility] AST 114(H) 15 - 37 U/L 09/24/2024 6:47 AM [facility] ALT 61(H) 16 - 60 U/L 09/24/2024 6:47 AM [facility] ALKALINE PHOSPHATASE S/P/B 256(H) 50 - 136 U/L 09/24/2024 6:47 AM [facility] ANION GAP 1.1(L) 2 - 10 MMOL/L 09/24/2024 6:47 AM [facility] BUN CREATININE RATIO 15.7 6 - 26 09/24/2024 6:47 AM [facility] A/G RATIO 0.5(L) 1.0 - 2.0 RATIO 09/24/2024 6:47 AM [facility] GFR ESTIMATE 86(L) >90 ML/MIN/1.7 3 M2 09/24/2024 6:47 AM [facility] Comment: NOTE: eGFR is not calculated for patients <18 years of age or gender unknown. This is an estimated GFR calculation using the new CKD EPI creatinine equation without race and so does not require a correction factor for race. This estimated GFR should not be used for calculating drug doses. 09/24/2024 6:00 AM POOL HAND [facility]END[facility] Final Result Performing Organization Address City/[facility]/ZIP Co de Phone Number [facility] [address] [place] [address], [place] [phone] * (ABNORMAL) C-REACTIVE PROTEIN (09/24/2024 6:00 AM POOL HAND) Only the most recent of2 resultswithin the time period is included. C-REACTIVE PROTEIN 10.10(H) <0.29 mg/dL 09/24/2024 6:[address] [facility] 09/24/2024 6:00 AM POOL HAND [facility] Final Result [facility] [address] [place] [phone], * (ABNORMAL) MAGNESIUM (09/24/2024 6:00 AM POOL HAND) MAGNESIUM 2.5(H) 1.8 - 2.4 MG/DL 09/24/2024 6:[address] [facility] 09/24/2024 6:00 AM POOL HAND [facility] Final Result [facility] [address] [place] [address], * MRI FOOT LT WO CON (09/23/2024 6:47 PM POOL HAND) Anatomical Region Laterality Modality Foot Magnetic Resonan ce 09/24/2024 8:19 AM POOL HAND Impressions 09/24/2024 8:54 AM POOL HAND =====IMPRESSION:===== 1. Osteomyelitis greatest in the fifth digit throughout the metatarsal and proximal phalanx. Associated fifth MTP septic arthritis, overlying wound and associated sinus tract/fistula. 2. Osteomyelitis of the third digit proximal, middle and distal phalanges. Associated comminuted fracture of the middle phalanx, potentially pathologic or posttraumatic. 3. Also minimal osteomyelitis of the first, second and fourth metatarsal heads. 4. Marked diffuse soft tissue swelling/edema. 5. Degenerative and neuropathic changes. Ordered By: SPENCER OLIVEIRA Interpreted By: Dae Phillip MD, 09/24/2024 8:19 AM Narrative 09/24/2024 8:54 AM POOL HAND [facility] [address] [place], [place] [address] EXAMINATION: MRI left foot without contrast EXAM DATE/TIME: 09/23/2024 6:42 PM REASON FOR EXAM: Left foot osteomyelitis, left foot wound COMPARISON: Correlated with foot radiographs 09/23/2024, 06/06/2024. Prior MRI 06/08/2024 TECHNIQUE: Mutiplanar, multisequence MRI of the left foot was obtained without the use of an IV contrast agent. FINDINGS: First digit prior amputation at the level of the MTP joint. Residual mild contour deformity of the metatarsal head. Tiny focus of subcortical edema distally suggesting residual osteomyelitis. Overlying surgical wound extending to the bone surface. Second digit prior amputation at the level of the MTP joint. Mild bone marrow edema of the second metatarsal head compatible with osteomyelitis. Associated cortical erosion. Minimal overlying fluid and soft tissue swelling. Third digit abnormal bone marrow edema of the proximal, middle and distal phalanges compatible with osteomyelitis. Superimposed comminuted fracture of the middle phalanx, potentially pathologic. Metatarsal is relatively unremarkable. Small fluid of the MTP joint. Moderate diffuse soft tissue swelling. Fourth digit demonstrating mild edema of the fourth metatarsal head, likely very early osteomyelitis in this setting. The phalanges are relatively unremarkable. Moderate soft tissue swelling. Fifth digit demonstrating extensive bone marrow edema of the metatarsal and proximal phalanx compatible with osteomyelitis. Metatarsal and edema greatest in the head extending to the base. Associated septic arthritis of the fifth MTP with small erosions and joint effusion. Overlying ulcerated wound laterally with sinus tract/fistula from the joint to the skin surface. Moderate degenerative changes in the midfoot most severe in the tarsometatarsal joints where there are scattered subcortical cysts, patchy subcortical edema and osteophytes. Small joint effusion in the intertarsal joints. Moderate diffuse soft subcutaneous edema. 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 Procedure Note Dae Phillip MD - 09/24/[address] [address] EXAMINATION: MRI left foot without contrast EXAM DATE/TIME: 09/23/2024 6:42 PM REASON FOR EXAM: Left foot osteomyelitis, left foot wound COMPARISON: Correlated with foot radiographs 09/23/2024, 06/06/2024. PriorMRI 06/08/2024 TECHNIQUE: Mutiplanar, multisequence MRI of the left foot was obtainedwithout the use of an IV contrast agent. FINDINGS: First digit prior amputation at the level of the MTP joint. Residual mildcontour deformity of the metatarsal head. Tiny focus of subcortical edemadistally suggesting residual osteomyelitis. Overlying surgical woundextending to the bone surface. Second digit prior amputation at the level of the MTP joint. Mild bonemarrow edema of the second metatarsal head compatible with osteomyelitis.Associated cortical erosion. Minimal overlying fluid and soft tissueswelling. Third digit abnormal bone marrow edema of the proximal, middle and distalphalanges compatible with osteomyelitis. Superimposed comminuted fractureof the middle phalanx, potentially pathologic. Metatarsal is relativelyunremarkable. Small fluid of the MTP joint. Moderate diffuse soft tissueswelling. Fourth digit demonstrating mild edema of the fourth metatarsal head,likely very early osteomyelitis in this setting. The phalanges arerelatively unremarkable. Moderate soft tissue swelling. Fifth digit demonstrating extensive bone marrow edema of the metatarsaland proximal phalanx compatible with osteomyelitis. Metatarsal and edemagreatest in the head extending to the base. Associated septic arthritis ofthe fifth MTP with small erosions and joint effusion. Overlying ulceratedwound laterally with sinus tract/fistula from the joint to the skinsurface. Moderate degenerative changes in the midfoot most severe in thetarsometatarsal joints where there are scattered subcortical cysts, patchysubcortical edema and osteophytes. Small joint effusion in the intertarsaljoints. Moderate diffuse soft subcutaneous edema. 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 =====IMPRESSION:===== 1. Osteomyelitis greatest in the fifth digit throughout the metatarsal andproximal phalanx. Associated fifth MTP septic arthritis, overlying woundand associated sinus tract/fistula. 2. Osteomyelitis of the third digit proximal, middle and distal phalanges.Associated comminuted fracture of the middle phalanx, potentiallypathologic or posttraumatic. 3. Also minimal osteomyelitis of the first, second and fourth metatarsalheads. 4. Marked diffuse soft tissue swelling/edema. 5. Degenerative and neuropathic changes. Ordered By: SPENCER OLIVEIRA Interpreted By: Dae Phillip MD, 09/24/2024 8:19 AM us Spencer [facility]ENDERSON MRI Final Result * MRSA SCREENING (09/23/2024 10:24 AM POOL HAND) SPEC DESCRIPTION NASAL 09/23/2024 10:[address] [facility] SPECIAL REQUESTS NO SPECIAL REQUEST 09/23/2024 10:[address] [facility] CULTURE RESULT NO METHICILLIN RESISTANT STAPHYLOCOCCUS AUREUS ISOLATED 09/24/2024 6:[address] [facility] SPECIMEN FROM INTERNAL NOSE / Unknown 09/23/2024 10:24 AM POOL HAND 09/23/2024 10:36 AM POOL HAND Spencer HENDERSON MICROBIOLOGY - GENERAL ORDERAB LES Final Result [facility] [address] [place] [id number], * USV ART REST W BLANCO LOW EXT (09/23/2024 10:09 AM POOL HAND) Anatomical Region Laterality Modality Extremity Vascular Ultraso und 09/23/2024 9:38 AM POOL HAND Narrative 09/23/2024 11:10 AM POOL HAND ARTERIAL DOPPLER - BLANCO BILATERAL LOWER EXTREMITY [facility] Pat.Name: TAJ SMITH Pat.ID: [id number] .Date: 09/23/2024 Refer.MD: Ngozi Collier Exam Time: 9:38:00 AM Study Type:JORDAN VS Arterial Doppler Legs FORD Height: 72 in Age: 2 1965,58Y Sex: M Sonogrphr: Julito Parsons RVT Pat. Stat.:Inpatient Room: ER 22 History / Clinical:left lateral foot ulcer, DM, HTN, S/P left 1,2 toe amputation Procedures: Doppler waveforms, Digit PPG, Systolic Pressures w/BLANCO Race: B ++++++++++++++++++++++++++++++++++++ SUMMARY: ++++++++++++++++++++++++++++++++++++ Raine BLANCO Criteria: >1.30 = falsely elevated, calcified vessels; 1.00-1.29 = no signif ischemia at rest ; .80-.99 = mild PAD, asymptomatic; .50-.79 = moderate PAD, claudication; <.50 = severe PAD, rest pain; <.30 = critical PAD, necrosis, poor healing (Digits: DBI >.60 Normal; <.60 Abnormal) (Positive Stress eval: BLANCO decrease of >.20 or >20% pressure drop) Right leg: Common Femoral waveform is triphasic, high amplitude; Popliteal triphasic, high amplitude; Posterior Tibial triphasic, high amplitude with BLANCO 1.3 ; DP/Anterior Tibial triphasic, high amplitude with BLANCO 1.09 . Digit flow by PPG is high amplitude with DBI 1.29 . Left leg: Common Femoral waveform is triphasic, high amplitude; Popliteal triphasic, high amplitude; Posterior Tibial triphasic, high amplitude with BLANCO 1.34 ; DP/Anterior Tibial triphasic, high amplitude with BLANCO 1.2 . 3rd digit flow by PPG is high amplitude with DBI 0.906 . CONCLUSION: No evidence of hemodynamically significant lower extremity disease at rest. ++++++++++++++++++++++++++++++++++++ MEASUREMENTS: ++++++++++++++++++++++++++++++++++++ PRESSURES Right Brachial Brach P 128 mmHg Right Ankle DP AnkleDP P 140 mmHg Right Ankle PT AnklePT P 166 mmHg Right Great Toe GreatToe P 165 mmHg Right BLANCO PT BLANCO PT 1.3 Right BLANCO DP BLANCO DP 1.09 Right TBI TBI 1.29 Left Brachial Brach P 123 mmHg Left Ankle DP AnkleDP P 154 mmHg Left Ankle PT AnklePT P 171 mmHg Left Great Toe GreatToe P 116 mmHg Left BLANCO PT BLANCO PT 1.34 Left BLANCO DP BLANCO DP 1.2 Left TBI TBI 0.906 <Electronic Signature> 09/23/2024 11:10 AM Elle White M.D. Procedure Note Elle White MD - 01/30/2025 ARTERIAL DOPPLER - BLANCO BILATERAL LOWER EXTREMITY [facility]ASC[facility] LAB Pat.Name: TAJ SMITH Pat.ID: [id number] .Date: 09/23/2024 Refer.MD: Ngozi Collier Exam Time: 9:38:00 AM Study Type:JORDAN VS Arterial Doppler Legs FORD Height: 72 in Age: 2 1965,58Y Sex: M Sonogrphr: Julito Parsons RVT Pat. Stat.:Inpatient Room: ER 22 History / Clinical:left lateral foot ulcer, DM, HTN, S/P left 1,2 toe amputation Procedures: Doppler waveforms, Digit PPG, Systolic Pressures w/BLANCO Race: B ++++++++++++++++++++++++++++++++++++ SUMMARY: ++++++++++++++++++++++++++++++++++++ Raine BLANCO Criteria: >1.30 = falsely elevated, calcified vessels; 1.00-1.29 = no signif ischemia at rest ; .80-.99 = mild PAD, asymptomatic; .50-.79 = moderate PAD, claudication; <.50 = severe PAD, rest pain; <.30 = critical PAD, necrosis, poor healing (Digits: DBI >.60 Normal; <.60 Abnormal) (Positive Stress eval: BLANCO decrease of >.20 or >20% pressure drop) Right leg: Common Femoral waveform is triphasic, high amplitude; Popliteal triphasic, high amplitude; Posterior Tibial triphasic, high amplitude with BLANCO 1.3 ; DP/Anterior Tibial triphasic, high amplitude with BLANCO 1.09 . Digit flow by PPG is high amplitude with DBI 1.29 . Left leg: Common Femoral waveform is triphasic, high amplitude; Popliteal triphasic, high amplitude; Posterior Tibial triphasic, high amplitude with BLANCO 1.34 ; DP/Anterior Tibial triphasic, high amplitude with BLANCO 1.2 . 3rd digit flow by PPG is high amplitude with DBI 0.906 . CONCLUSION: No evidence of hemodynamically significant lower extremity disease at rest. ++++++++++++++++++++++++++++++++++++ MEASUREMENTS: ++++++++++++++++++++++++++++++++++++ PRESSURES Right Brachial Brach P 128 mmHg Right Ankle DP AnkleDP P 140 mmHg Right Ankle PT AnklePT P 166 mmHg Right Great Toe GreatToe P 165 mmHg Right BLANCO PT BLANCO PT 1.3 Right BLANCO DP BLANCO DP 1.09 Right TBI TBI 1.29 Left Brachial Brach P 123 mmHg Left Ankle DP AnkleDP P 154 mmHg Left Ankle PT AnklePT P 171 mmHg Left Great Toe GreatToe P 116 mmHg Left BLANCO PT BLANCO PT 1.34 Left BLANCO DP BLANCO DP 1.2 Left TBI TBI 0.906 <Electronic Signature> 09/23/2024 11:10 AM Elle White M.D. [facility] Final Result * LACTIC ACID W REFLEX (SEPSIS) (09/23/2024 2:55 AM POOL HAND) LACTIC ACID VENOUS 1.2 0.4 - 2.0 MMOL/L 09/23/2024 3:[address] [facility] 09/23/2024 2:55 AM POOL HAND Lucius Johnson DO LABORATORY Final Result [facility] [address] [place] [address], [place] [phone] * CULTURE BACTERIA, BLOOD (09/23/2024 2:55 AM POOL HAND) SPEC DESCRIPTION BLOOD 09/23/2024 2:[address] [facility] SPECIAL REQUESTS NO SPECIAL REQUEST 09/23/2024 2:[address] [facility] CULTURE RESULT NO GROWTH 5 DAYS 09/28/2024 7:[address] [facility] BLOOD SPECIMEN OBTAINED FOR BLOOD CULTURE / Unknown 09/23/2024 2:55 AM POOL HAND 09/23/2024 3:10 AM POOL HAND Lucius Johnson DO MICROBIOLOGY - GENERAL ORDERAB LES Final Result [facility] [address] [place] [address], * (ABNORMAL) CULTURE, WOUND, W/GRAM STAIN (09/23/2024 2:11 AM POOL HAND) SPEC DESCRIPTION FOOT,LEFT 09/23/2024 2:[address] [facility] SPECIAL REQUESTS NO SPECIAL REQUEST 09/23/2024 2:13 AM [facility] GRAM STAIN RESULT NO WHITE BLOOD CELLS SEEN 09/23/2024 1:[address] [facility] GRAM STAIN RESULT NO ORGANISMS SEEN 09/23/2024 1:18 PM [facility] CULTURE RESULT SPARSE GROWTH OF ESCHERICHIA COLI (A) 09/27/2024 7:[address] [facility] CULTURE RESULT SPARSE GROWTH OF STREPTOCOCCI, BETA HEMOLYTIC GROUP B SUSCEPTIBILTY NOT ROUTINELY PERFORMED. SAVING ISOLATE FOR 5 DAYS. CONTACT MICROBIOLOGY DEPARTMENT IF FURTHER WORKUP IS INDICATED. (A) 09/27/2024 7:[address] [facility] CULTURE RESULT SPARSE GROWTH OF STAPHYLOCOCCUS AUREUS (A) 09/27/2024 7:29 AM [facility] CULTURE RESULT SPARSE GROWTH OF STREPTOCOCCUS VIRIDANS SPECIES ORGANISM IS CONSISTENT WITH NORMAL SKIN BETTYE. SUSCEPTIBILITIES NOT ROUTINELY PERFORMED. (A) 09/27/2024 7:29 AM [facility] STRUCTURE OF LEFT FOOT / Unknown 09/23/2024 2:11 AM POOL HAND 09/23/2024 2:19 AM POOL HAND Narrative Organism Antibiotic Method Susceptibility Escherichia coli AMPICILLIN REMY (VITEK) 4: Sensitive Escherichia coli AMPICILLIN/SULBACTAM REMY (VITEK) <=2: Sensitive Escherichia coli CEFTRIAXONE REMY (VITEK) <=1: Sensitive Escherichia coli CEFTAZIDIME REMY (VITEK) <=1: Sensitive Escherichia coli CEFAZOLIN REMY (VITEK) <=4: Sensitive Escherichia coli ESBL REMY (VITEK) NEG: Sensitive Escherichia coli GENTAMICIN REMY (VITEK) <=1: Sensitive Escherichia coli LEVOFLOXACIN REMY (VITEK) <=0.12: Sensitive Escherichia coli PIPRACIL/TAZO REMY (VITEK) <=4: Sensitive Escherichia coli TRIMETH-SULFAMETH. REMY (VITEK) <=20: Sensitive Staphylococcus aureus CLINDAMYCIN REMY (VITEK) <=0.25: Sensitive Staphylococcus aureus ERYTHROMYCIN REMY (VITEK) 0.5: Sensitive Staphylococcus aureus OXACILLIN REMY (VITEK) 0.5: Sensitive Staphylococcus aureus PENICILLIN G REMY (VITEK) >=0.5: Resistant Staphylococcus aureus TRIMETH-SULFAMETH. REMY (VITEK) <=10: Sensitive Staphylococcus aureus TETRACYCLINE REMY (VITEK) <=1: Sensitive Gustavo Rivera PA-C MICROBIOLOGY - GENERAL ORDDenilson MCQUEEN Final Result [facility] [address] [place] [address], * XR FOOT LT 3V (09/23/2024 1:54 AM POOL HAND) Anatomical Region Laterality Modality Foot Radiographic Isis ging 09/23/2024 1:56 AM POOL HAND Impressions 09/23/2024 1:59 AM POOL HAND IMPRESSION: ===== 1. Comminuted fracture of third toe middle phalanx. 2. Subtle erosion of distal second metatarsal head medially. Osteomyelitis not excluded. 3. 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 4. 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 Prior trauma or infection not excluded. Referred By: Interpreted By: Nishant Urban MD, 09/23/2024 1:56 AM Narrative 09/23/2024 1:59 AM POOL HAND [address] [address] Examination: Left foot 3 views Exam Date/Time: 09/23/2024 1:32 AM Reason For Exam: wound Comparison: Left foot radiographs 06/06/2024 Technique: AP, oblique, and lateral views of the left foot were obtained. Findings: Interval amputation of the second ray at level of MTP joint since the comparison exam. Prior amputation of the first ray again noted. Acroosteolysis of distal phalanges of the remaining third fourth and fifth toes. Midfoot degenerative spurring. Comminuted fracture of the third toe middle phalanx. Subtle erosion of the distal second metatarsal head medially. No radiopaque foreign bodies. No ankle joint effusion. ===== Procedure Note Nishant Urban MD - 09/23/[address] [address] Examination: Left foot 3 views Exam Date/Time: 09/23/2024 1:32 AM Reason For Exam: wound Comparison: Left foot radiographs 06/06/2024 Technique: AP, oblique, and lateral views of the left foot wereobtained. Findings: Interval amputation of the second ray at level of MTP jointsince the comparison exam. Prior amputation of the first ray again noted.Acroosteolysis of distal phalanges of the remaining third fourth andfifth toes. Midfoot degenerative spurring. Comminuted fracture of thethird toe middle phalanx. Subtle erosion of the distal second metatarsalhead medially. No radiopaque foreign bodies. No ankle joint effusion. ===== IMPRESSION: ===== 1. Comminuted fracture of third toe middle phalanx. 2. Subtle erosion of distal second metatarsal head medially.Osteomyelitis not excluded. 3. 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 4. Acroosteolysis of remaining distal phalanges daryl of uncertainetiology. Prior trauma or infection not excluded. Referred By: Interpreted By: Nishant Urban MD, 09/23/2024 1:56 AM us Gustavo Rivera PA-C GENERAL IMAGING Final Resul t * HEPATITIS A,B,& C (06/01/2024 3:47 AM CDT) HEPATITIS B SURFACE AG NON-REACTI VE NON-REACTI VE 06/01/2024 7:[address] [facility] HEP B CORE TOTAL AB NON-REACTI VE NON-REACTI VE 06/01/2024 7:[address] [facility] HAV IGM NON-REACTI VE NON-REACTI VE 06/01/2024 7:[address] [facility] HEPATITIS C AB NON-REACTI VE NON-REACTI VE 06/01/2024 7:[address] [facility] 06/01/2024 3:47 AM CDT us William Del Rosario MD LABORATORY Final Result [facility] [address] [place] [address], [place] [phone] * LIPID PANEL (05/27/2024 8:35 AM CDT) CHOLESTEROL 145 <200 MG/DL 05/27/2024 9:[address] [facility] TRIGLYCERIDES 56 <150 MG/DL 05/27/2024 9:[address] [facility] HDL 72 >40.0 MG/DL 05/27/2024 9:[address] [facility] LDL (CALCULATED) 62 <100 MG/DL 05/27/20 9:[address] [facility] NON HDL CHOLESTEROL 73 <130 MG/DL 05/27 9:[address] [facility] CHOL/HDL RATIO 2.0 0.0 - 4.5 05/27/2024 9:[address] [facility] VLDL CALCULATION 11 5 - 55 MG/DL 05/27/2024 9:[address] [facility] LIPID INTERPRETATION 05/27/2024 9:[address] [facility] Comment: NIH CONCENSUS REPORT RECOMMENDATIONS: ADULT CHILD LOW RISK: CHOLESTEROL <200 <170 TRIGLYCERIDE <150 --- HDL >=60 --- LDL <100 <110 BORDERLINE: CHOLESTEROL 200-239 170-199 TRIGLYCERIDE 150-199 --- HDL 40-59 --- LDL 100-159 110-129 HIGH RISK: CHOLESTEROL >=240 >=200 TRIGLYCERIDE >=200 --- HDL <40 --- LDL >=160 >=130 05/27/2024 8:35 AM CDT Damon Mendez MD LABORATORY Final Resul t [facility] [address] [place] [address], from Last 3 Months or Most Recently Relevant to Health Maintenance Insurance [place] [address] Advance Directives * Full Code (Latest Code Status on File) Date Activated Date Inactivated Comments 09/23/2024 9:11 AM 10/01/2024 4:44 PM * Full Code Date Activated Date Inactivated Comments 06/06/2024 7:29 PM 06/11/2024 1:01 PM * Full Code Date Activated Date Inactivated Comments 05/27/2024 5:34 AM 06/02/2024 1:49 PM * Full Code Date Activated Date Inactivated Comments 03/17/2020 10:40 PM 03/21/2020 12:49 PM Care Teams Pan Cleaner Relationship Specialty Start Date End Date Ngozi Collier NP [address] [place] [address] PCP - General 02/13/18
--- OUTSIDE RECORDS SUMMARY | 2024-10-04 14:43 | XMS_ITS | Continuity of Care Document ---
Author Organization [facility] Address [address] [facility] [address] [place] [address] Phone Care Team Providers Care Reliability Technician Name Role Phone Gustavo Pires MD Unavailable Unavailable Allergies, Adverse Reactions, Alerts Substance Reaction Status Criticality No Known Allergies Active No Inform ation Medications Medication Instructions Dosage Effective Dates (start - stop) Status Comments Ultram 50 mg tablet take 1 tablet by oral route every 8 hours as needed - Active Ultram 50 mg tablet take 1 tablet by oral route every 6 hours as needed - Active Ultram 50 mg tablet take 1 tablet by oral route every 6 hours as needed - Active Ultram 50 mg tablet take 1 tablet by oral route every 6 hours as needed - Active Ultram 50 mg tablet 1-2 Q6H PRN PAIN - Active Ultram 50 mg tablet take 1 tablet by oral route every 6 hours as needed - Active Ultram 50 mg tablet take 1 tablet by oral route every 6 hours as needed - Active Ultram 50 mg tablet take 1 tablet by oral route every 6 hours as needed - Active Ultram 50 mg tablet 1-2 Q6H PRN PAIN - Active Ultram 50 mg tablet 2 TABS Q6H PRN PAIN - Active Ultram 50 mg tablet take 1 tablet by oral route every 6 hours as needed - Active Ultram 50 mg tablet take 1 tablet by oral route every 6 hours as needed - Active Ultram 50 mg tablet take 1 tablet by oral route every 6 hours as needed - Active METFORMIN HCL (unknown strength) Not Available - Active Advance Directives Directive Yes / No Effective Date File Name No Information Encounters Encounter Description Practice Location Reason(s) For Visit Diagnoses Date Provider Providers Copied on Encounter [facility], [address], [place], [address], [place] tel:[phone] [facility] Pain in right kneeQuadriceps weakness Jun- 2-201 6 Pranay Chen. [address] [place], [place], [id number] . tel: [phone] [facility], [address], [place], [address], [place] tel:[phone] [facility] [place] Status post total right knee replacement 3-201 6 Pranay Chen. [address] [place], [place], [id number] . tel: [phone] [facility], [address] [facility], [place], [address], [place] tel:[phone] [facility] [place] Status post total right knee replacement 6-201 6 Pranay Chen. [address] [place], [place], [id number] . tel: [phone] [facility], [address], [place], [address], [place] tel:[phone] [facility] Status post total right knee replacement 5 6 Pranay Chen. [address] [place], [place], [id number] . tel: [phone] [facility], [address], [place], [address], [place] tel:[phone] [facility] Pain in right kneeAftercare following right knee joint replacement surgeryStatus post total right knee replacement 0 8-201 5 Pranay Chen. [address] [place], [place], [id number] . tel: [phone] [facility], [address], [place], [address], [place] tel:[phone] [facility] [place] No Information Jul-0 5 Pranay Chen. [address] [place], [place], [id number] . tel:[phone] [facility], [address] [facility], [place], [address], [place] tel:[phone] [facility] [place] Status post total right knee replacementAfterc are following right knee joint replacement surgery 5 Pranay Chen. [address] [place], [place], [id number] . tel:[phone] [facility], [address] [address], [place], [address], [place] tel:[phone] [facility] [place] Pain in joint involving lower legKnee joint replacementPost Op joint replacement 5 Pranay Chen. [address], [place], [id number] . tel: [phone] [facility], [address] [facility], [place], [address], [place] tel:[phone] [facility] Pain in joint involving lower legKnee joint replacementPost Op joint replacement Apr-0 5 Pranay Cehn. [address] [place], [place], [id number] . tel: [phone] [facility], [address] [address], [place], [address], [place] tel:[phone] [facility] [place] Knee joint replacementPain in joint involving lower leg 5 Pranay Chen. [address], [place], [id number] . tel:[phone] Family History Family Member Type Diagnosis Age At Onset No Information Payers Payer name Insurance type Covered green party ID Authoriza tion(s) No Information Social History Type Description Quantity Date Captured Comments Sex Male Smoking Status No Information Chief Complaint And Reason For Visit No Information Reason For Referral Reason For Referral No Information History Of Present Illness Encounter Date Complaint History Of Prese nt Illness No Information Functional Status Date Functional Assessmen t No Information Instructions Date Instruction Additional Infor mation No Information Assessments Type Assessment Date No Information Patient Care Teams Name Effective Dates (start - stop) Status Members No Information
--- OUTSIDE RECORDS SUMMARY | 2024-10-04 14:43 | XMS_ITS | Encounter Summary ---
Author Organization [facility] Address [facility] [place] [address] Care Team Providers Care Consumer Education Specialist Name Role Phone Ngozi Collier NP Primary Care Provider [phone] Encounter Details Date Type Department Care Team (Late st Contact Info) Description 03/22/2020 Hospital Follow-up Call [facility] [place] [address] Ashley Lora RN Social History Tobacco Use Types Packs/Day Years Used Date Smoking Tobacco: Every Day Cigars Smokeless Tobacco: Never Sex and Gender Information Value Date Recorded Sex Assigned at Male 09/23/2024 1:10 AM EXTENSION COURSE COORDINATOR Legal Sex Male 8:29 PM CDT Gender Identity Not on file Sexual Orientation Not on file documented as of this encounter Functional Status * RETIRED Are you deaf or do you have serious difficulty hearing Answer Date of Assessment Author Status No 03/17/2020 11:54 PM CDT Acti ve * RETIRED Are you blind or do you have serious difficulty seeing, even when wearing glasses? Answer Date of Assessment Author Status No 03/17/2020 11:54 PM CDT Acti ve * Do you have serious difficulty walking or climbing stairs? Answer Date of Assessment Author Status No 03/17/2020 11:54 PM KINGT Chelo Jaffe RN Active * Do you have difficulty dressing or bathing? Answer Date of Assessment Author Status No 03/17/2020 11:54 PM KINGT Chelo Jaffe RN Active * Because of a physical, mental, or emotional condition, do you have difficulty doing errands alone such as visiting a doctor's office or shopping? Answer Date of Assessment Author Status No 03/17/2020 11:54 PM Chelo Mayers RN Active documented as of this encounter Mental Status * Because of a physical, mental, or emotional condition, do you have serious difficulty concentrating, remembering, or making decisions? Answer Entry Date Author Status No 03/17/2020 11:54 PM Chelo Mayers RN Active documented in this encounter Plan of Treatment Not on file documented as of this encounter Visit Diagnoses Not on filedocumented in this encounter Care Teams Consumer Education Specialist Relationship Specialty Start Date End Date Ngozi Collier NP [address] [place] [address] PCP - General 02/13/18 documented as of this encounter
--- OUTSIDE RECORDS SUMMARY | 2024-10-04 14:43 | XMS_ITS | Continuity of Care Document ---
Author Organization [facility] Address [address] [place] [address] Phone Care Team Providers Care Appointment Specialist Name Role Phone Administrative, Provider Unavailable Unavail able Allergies, Adverse Reactions, Alerts Substance Reaction Status Criticality No Known Drug Allergies Active No I nformation Medications Medication Instructions Dosage Effective Dates (start - stop) Status Comments cyclobenzaprine 10 mg tablet take 1 tablet by oral route qhs - Active tramadol 50 mg tablet take 1 - 2 (50MG) by oral route every 4 - 6 hours as needed 50 MG - Active Procedures Procedure Date Medical Record Copy Medical Record Copy Per Page Affidavit Xray Copy Xray Copy Office/outpatient visit,est, mod 2015 No Show Legal Established Patient Office/outpatient visit,est, mod 2015 X-ray exam both knees, standing 016 X-ray exam knee, 1 or 2 views 6 Independent Medical Examination ARGELIA Prolonged serv, w/o contact, 1st hr Prolonged serv, w/o contact, add'l 30 Mi n Office/outpatient visit,est, mod 2015 Office/outpatient visit,est, mod 2015 Medical Record Copy Medical Record Copy Per Page Affidavit Office/outpatient visit,est, mod 2015 Office/outpatient visit,est, mod 2014 Office/outpatient visit,est, mod 2014 No Show Legal Established Patient Office/outpatient visit,new, mod 2014 No Show Legal Established Patient Advance Directives Directive Yes / No Effective Date File Name No Information Encounters Encounter Description Practice Location Reason(s) For Visit Diagnoses Date Provider Providers Copied on Encounter [facility], [address] [place] [address], [id number], tel:[phone] [facility] No Information 8 Administrati ve Provider. [address] [place] [address], [id number], . tel:[phone] [facility], [address] [place] [address], [id number], tel:[phone] [facility] No Information 8 Administrati ve Provider. [address] [place] [address], [id number], [place]. tel:[phone] [facility], [address] [place] [address], [id number], [place] tel:[phone] [facility] No Information 6 Administrati ve Provider. [address] [place] [address], [id number], [place]. tel:[phone] Office/outpa tient visit,est, mod [facility], [address] [place] [address], [id number], tel:[phone] [facility] lumbar (chief complaint) Other intervertebral disc degeneration, lumbar region 6 Abeln Hallie. [address] [facility] [address], [place], [place], [id number], [place]. tel:[phone] No Show Legal Established Patient [facility], [address] [address], [place], [place], [id number], [place] tel:[phone] [facility] No Information 6 Lissett Thompson. [address] [address], [place], [place], [id number], [place]. tel:[phone] Office/outpa tient visit,est, mod [facility], [address] [address], [place], [place], [id number], [place] tel:[phone] [facility] lumbar spine (chief complaint) Other intervertebral disc degeneration, lumbar region 6 Abeln Hallie. [address], [id number], [place]. tel:[phone] Independent Medical Examination ARGELIA [facility], [address] [address], [place], [place], [id number], [place] tel:[phone] [facility] Pain in right knee 6 Nogalski Franky. [address], [id number], [place]. tel:[phone] Office/outpa tient visit,est, mod [facility], [address], [id number], [place] tel:[phone] [facility] Other intervertebral disc displacement, lumbar region 6 Lissett Thompson. [address], [id number], [place]. tel:[phone] [facility], [address], [id number], [place] tel:[phone] [facility] No Information 6 Lissett Thompson. [address] [place], [id number], [place]. tel:[phone] Office/outpa tient visit,est, Anne Fogarty [facility], [address] [address], [place], [place], [id number], [place] tel:[phone] [facility] Other intervertebral disc degeneration, lumbar regionOther intervertebral disc displacement, lumbar region 5 6 Abeln Hallie. [address] [address], [place], [place], [id number], [place]. tel:[phone] [facility], [address] [address], [place], [place], [id number], [place] tel:[phone] [facility] No Information 6 Administrati ve Provider. [address], [id number], [place]. tel:[phone] Office/outpa tient visit,est, Anne Fogarty [facility], [address] [address], [place], [place], [id number], [place] tel:[phone] [facility] Other intervertebral disc degeneration, lumbar region 6 Lissett Jay. [address] [address], [place], [place], [id number], [place]. tel:[phone] Office/outpa tient visit,est, Anne Fogarty [facility], [address] [address], [place], [place], [id number], [place] tel:[phone] [facility] [facility] Other intervertebral disc displacement, lumbar region 5 Abeln Hallie. [address] [address], [place], [place], [id number], [place]. tel:[phone] Office/outpa tient visit,est, Anne Fogarty [facility], [address], [id number], [place] tel:[phone] [facility] [facility] Other intervertebral disc displacement, lumbar region 8 5 Abeln Hallie. [address], [address], [id number], [place]. tel:[phone] No Show Legal Established Patient [facility], [facility] [address], [id number], tel:[phone] [facility] No Information 1 5 Ankit Sterling. [address] [place] [address], [address], [id number], [place]. tel:[phone] Office/outpa tient visit,new, [facility], [address], [id number], tel:[phone] [facility] Other intervertebral disc degeneration, lumbar region 0- 5 Lissett Jay. [address] [place] [address], [address], [id number], . tel:[phone] No Show Legal Established Patient [facility], [address], [id number], tel:[phone] [facility] No Information 5 Lissett Thompson. [address] [place] [address], [id number], [place]. tel:[phone] Family History Family Member Type Diagnosis Age At Onset No Information Immunizations Vaccine Date Status Comments Flu (split) (3 yrs or older) administered Source: Other Provider Payers Payer name Insurance type Covered constitution party ID Authoriza tion(s) No Information Social History Type Description Quantity Date Captured Comments Sex Male Smoking Status No Information Chief Complaint And Reason For Visit No Information Reason For Referral Reason For Referral No Information Plan Of Treatment Date Type Action Status Referral Ordered: X-ray exam knee, 1 or 2 views RT ordered Referral Ordered: X-ray exam both knees, standing ordered Referral Ordered: MRI lumbar spine Wo Contrast Appointment date/timeframe: 08/15/2015 ordered Referral Ordered: Other ordered Patient Education Body Mass Index: After Your Visit completed Patient Education Low Back Pain: Exercise s completed Patient Education Low Back Pain: Exercise s completed Patient Education Body Mass Index: After Your Visit completed Patient Education Body Mass Index: After Your Visit completed Patient Education Low Back Pain: Exercise s completed Patient Education Low Back Pain: Exercise s completed Patient Education Body Mass Index: After Your Visit completed Patient Education Body Mass Index: After Your Visit completed History Of Present Illness Encounter Date Complaint History Of Prese nt Illness lumbar Follows up lumba r spine lumbar spine Mr Burrows is a 6 8 year old male who complains of lumbar spine. He presents with pain. The problem is better. Functional Status Date Functional Assessmen t No Information Instructions Date Instruction Additional Infor mation No Information Assessments Type Assessment Date No Information Patient Care Teams Name Effective Dates (start - stop) Status Members No Information
--- OUTSIDE RECORDS SUMMARY | 2024-10-04 14:43 | XMS_ITS | Encounter Summary ---
Author Organization [facility] Address [facility] [place] [address] Care Team Providers Care Earth Sciences Professor Name Role Phone Ngozi Collier NP Primary Care Provider Reason for Visit * Reason Onset Date Comments Follow Up Call 09/23/2024 PETERSON 09/23-10/01/24 Encounter Details Date Type Department Care Team (Latest Contact Info) Description 10/04/2024 Hospital Follow-up Call [facility] [place] [address] Melonie Mei LPN Follow Up Call (PETERSON 09/23-10/01/24) Social History Tobacco Use Types Packs/Day Years Used Date Smoking Tobacco: Some Days Cigars Smokeless Tobacco: Never Alcohol Use Standard Drinks/Week Comments Not Currently 0 (1 standard drink = 0.6 oz pur e alcohol) 2 bottles wine/month B1300 Health Literacy Answer Date Recor ded How often do you need to hav e someone help you when you read instructions, pamphlets, or other written material from your doctor or pharmacy? Never 09/23/2024 [facility] Utilities Answer Date Recorded In the past 12 months has e electric, gas, oil, or water company [...] 09/23/2024 How often do you attend chur or confucianist services? Never 09/23/2024 Do you belong to any clubs o r organizations such as samaritan groups, unions, fraternal or athletic groups, or [...] Recorded Patient Health Questionnaire-2 Score 0 09/23/2024 [facility] of Occupat ional Health - Occupational Stress [...] any time in the past 12 m [facility], were you homeless or living in a custodial (including now)? 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 Answer Date of Assessment Author Status No 10/01/2024 1:31 PM Mamta Loredo RN Active * Do you have serious difficulty walking or climbing stairs? Answer Date of Assessment Author Status No 10/01/2024 1:31 PM Mamta Loredo RN Active * Do you have difficulty dressing or bathing? Answer Date of Assessment Author Status No 10/01/2024 1:31 PM Mamta Loredo RN Active * Because of a physical, mental, or emotional condition, do you have difficulty doing errands alone such as visiting a doctor's office or shopping? Answer Date of Assessment Author Status No 10/01/2024 1:31 PM Mamta Loredo RN Active documented as of this encounter Mental Status * Because of a physical, mental, or emotional condition, do you have serious difficulty concentrating, remembering, or making decisions? Answer Entry Date Author Status No 10/01/2024 1:31 PM Mamta Loredo RN Active documented in this encounter Plan of Treatment Not on file documented as of this encounter Goals Goal Patient Goal Type Associated Problems Recent Progress Patient-Stated? Author Health - patient able to perform ADLs independently Lifestyle No 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 RN documented as of this encounter Visit Diagnoses Not on filedocumented in this encounter Care Teams Earth Sciences Professor Relationship Specialty [place] [address] [place] [address] PCP - General 02/13/18 documented as of this encounter
[2024-10-04 15:22] LABS: Hematocrit 31.3 % (40.0-49.0); Hemoglobin 9.9 g/dL; Mean Corpuscular HGB Conc 31.6 g/dL (32-36); Mean Corpuscular Hemoglobin 30.4 pg (27.0-31.0); Mean Platelet Volume 9.6 fl (8.7-11.0); Platelet Count Result 237 K/mm3 (150-420); Red Blood Count 3.26 M/mm3 (4.70-6.10); Red Cell Distribution Width 12.9 % (11.6-14.4); White Blood Count 9.2 K/mm3 (4.8-10.8)
[2024-10-04 15:56] LABS: Alanine Aminotransferase 63 U/L (16-59); Alkaline Phosphatase 420 U/L; Anion Gap 6 mmol/L (4-12); Aspartate Amino Transferase 36 U/L (15-37); Bilirubin,Total 0.3 mg/dL (0.00-1.00); Blood Urea Nitrogen 11 mg/dL (7-18); Calcium 7.7 mg/dL (8.5-10.1); Carbon Dioxide 30 mmol/L (21-32); Chloride 106 mmol/L (98-108); Estimated Glomerular Filt Rate > 60; Glucose 203 mg/dL (70-99); Osmolality Calculated 299 mOsm/kg (285-295); Potassium 4.7 mmol/L (3.5-5.1); Sodium 142 mmol/L (136-145); Total Protein 5.5 g/dL (6.4-8.2); Vancomycin Trough 3.9 ug/mL (10.0-15.0)
== END 2024-10-04 14:07 | disposition home or self-care (01) ==
LOC: CHSLAB 14:27
DX: M86.172 Other acute osteomyelitis, left ankle and foot (principal)
CPT/HCPCS: 36415; 80053; 80202; 85027

== ENCOUNTER 2024-10-11 11:51 | Outpatient (NON) | payer SELFPAY ==
[2024-10-11 12:08] LABS: Hematocrit 38.1 % (40.0-49.0); Hemoglobin 12.1 g/dL; Mean Corpuscular HGB Conc 31.8 g/dL (32-36); Mean Corpuscular Hemoglobin 30.3 pg (27.0-31.0); Mean Corpuscular Volume 95.3 fL (78.0-102.0); Mean Platelet Volume 9.5 fl (8.7-11.0); Platelet Count Result 297 K/mm3 (150-420); White Blood Count 8.2 K/mm3 (4.8-10.8)
[2024-10-11 12:26] LABS: Alanine Aminotransferase 18 U/L (16-59); Albumin Level 2.1 g/dL (3.4-5.0); Alkaline Phosphatase 218 U/L; Anion Gap 7 mmol/L (4-12); Aspartate Amino Transferase 17 U/L (15-37); Bilirubin,Total 0.2 mg/dL (0.00-1.00); Blood Urea Nitrogen 15 mg/dL (7-18); Calcium 8.1 mg/dL (8.5-10.1); Carbon Dioxide 29 mmol/L (21-32); Chloride 107 mmol/L (98-108); Estimated Glomerular Filt Rate > 60; Glucose 195 mg/dL (70-99); Osmolality Calculated 301 mOsm/kg (285-295); Potassium 4.4 mmol/L (3.5-5.1); Sodium 143 mmol/L (136-145); Total Protein 5.8 g/dL (6.4-8.2); Vancomycin Random 25.1 ug/mL (10-20)
--- OUTSIDE RECORDS SUMMARY | 2024-10-11 14:38 | XMS_ITS | Continuity of Care Document ---
Author Organization [facility] Address [address] [place] [address] Phone Care Team Providers Care Hogshead Hand Name Role Phone Administrative, Provider Unavailable Unavail [...] Date Provider Providers Copied on Encounter [facility], [address] [place] [address], [id number], tel:[phone] [facility] No Information 8 Administrati ve Provider. [address] [place] [address], [id number], . tel:[phone] [facility], [address] [place] [address], [id number], tel:[phone] [facility] No Information 8 Administrati ve Provider. [address] [place] [address], [id number], [place]. tel:[phone] [facility], [address] [place] [address], [id number], [place] tel:[phone] [facility] No Information 6 Administrati ve Provider. [address] [place] [address], [id number], [place]. tel:[phone] Office/outpa tient visit,est, mod [facility], [address] [place] [address], [id number], tel:[phone] [facility] lumbar (chief complaint) Other intervertebral disc degeneration, lumbar region 6 Abeln Hallie. [address] [place] [place] [address], [place], [place], [id number], [place]. tel:[phone] No Show Legal Established Patient [facility], [address] [address], [place], [place], [id number], [place] tel:[phone] [facility] No Information 6 Lissett Thompson. [address] [address], [place], [place], [id number], [place]. tel:[phone] Office/outpa tient visit,est, mod [facility], [address] [address], [place], [place], [id number], [place] tel:[phone] [facility] lumbar spine (chief complaint) Other intervertebral disc degeneration, lumbar region 6 Abeln Hallie. [address], [id number], [place]. tel:[phone] Independent Medical Examination ARGELIA [facility], [address] [address], [place], [place], [id number], [place] tel:[phone] [facility] Pain in right knee 6 Nogalski Franky. [address], [id number], [place]. tel:[phone] Office/outpa tient visit,est, mod [facility], [address], [id number], [place] tel:[phone] [facility] Other intervertebral disc displacement, lumbar region 6 Lissett Thompson. [address], [id number], [place]. tel:[phone] [facility], [address], [id number], [place] tel:[phone] [facility] No Information 6 Lissett Thompson. [address] [place], [id number], [place]. tel:[phone] Office/outpa tient visit,est, [facility], [address] [address], [place], [place], [id number], [place] tel:[phone] [facility] Other intervertebral disc degeneration, lumbar regionOther intervertebral disc displacement, lumbar region 5 6 Abeln Hallie. [address] [address], [place], [place], [id number], [place]. tel:[phone] [facility], [address] [address], [place], [place], [id number], [place] tel:[phone] [facility] No Information 6 Administrati ve Provider. [address], [id number], [place]. tel:[phone] Office/outpa tient visit,est, [facility], [address] [address], [place], [place], [id number], [place] tel:[phone] [facility] Other intervertebral disc degeneration, lumbar region 6 Lissett Jay. [address] [address], [place], [place], [id number], [place]. tel:[phone] Office/outpa tient visit,est, [facility], [address] [address], [place], [place], [id number], [place] tel:[phone] [facility] Other intervertebral disc displacement, lumbar region 5 Abeln Hallie. [address] [address], [place], [place], [id number], [place]. tel:[phone] Office/outpa tient visit,est, [facility], [address], [id number], [place] tel:[phone] [facility] Other intervertebral disc displacement, lumbar region 8 5 Abeln Hallie. [address], [address], [id number], [place]. tel:[phone] No Show Legal Established Patient [facility], [facility] [address], [id number], tel:[phone] [facility] No Information 1 5 Ankit Sterling. [address] [place] [address], [address], [id number], [place]. tel:[phone] Office/outpa tient visit,new, [facility], [address], [id number], tel:[phone] [facility] Other intervertebral disc degeneration, lumbar region 0- 5 Lissett Jay. [address] [place] [address], [address], [id number], . tel:[phone] No Show Legal Established Patient [facility], [address], [id number], tel:[phone] [facility] No Information 5 Lissett Thompson. [address] [place] [address], [id number], [place]. tel:[phone] Family History Family Member Type Diagnosis Age At Onset No Information Immunizations Vaccine Date Status Comments Flu (split) (3 yrs or older) administered Source: Other Provider Payers Payer name Insurance type Covered green [...]
--- OUTSIDE RECORDS SUMMARY | 2024-10-11 14:38 | XMS_ITS | Continuity of Care Document ---
Author Organization [facility] Address [address] [facility] [address] [place] [address] Phone Care Team Providers Care Sinter Feeder Name Role Phone Gustavo Pires MD Unavailable [...] Providers Copied on Encounter [facility], [address], [place], [address], [place] tel:[phone] [facility] [place] Pain in right kneeQuadriceps weakness Jun- 2-201 6 Pranay Chen. [address] [place], [place], [id number] . tel: [phone] [facility], [address], [place], [address], [place] tel:[phone] [facility] [place] Status post total right knee replacement 3-201 6 Pranay Chen. [address] [place], [place], [id number] . tel: [phone] [facility], [address] [facility], [place], [address], [place] tel:[phone] [facility] [place] Status post total right knee replacement 6-201 6 Pranay Chen. [address] [place], [place], [id number] . tel: [phone] [facility], [address], [place], [address], [place] tel:[phone] [facility] [place] Status post total right knee replacement 5 6 Pranay Chen. [address] [place], [place], [id number] . tel: [phone] [facility], [address], [place], [address], [place] tel:[phone] [facility] [place] Pain in right kneeAftercare following right knee joint replacement surgeryStatus post total right knee replacement 0 8-201 5 Pranay Chne. [address] [place], [place], [id number] . tel: [phone] [facility], [address], [place], [address], [place] tel:[phone] [facility] [place] No Information Jul-0 5 Pranay Chen. [address] [place], [place], [id number] . tel:[phone] [facility], [address] [facility], [place], [address], [place] tel:[phone] [facility] [place] Status post total right knee replacementAfterc are following right knee joint replacement surgery 5 Pranay Chen. [address] [place], [place], [id number] . tel:[phone] [facility], [address] [address], [place], [address], [place] tel:[phone] [facility] [place] Pain in joint involving lower legKnee joint replacementPost Op joint replacement 5 Pranay Chen. [address] [place], [place], [id number] . tel: [phone] [facility], [address] [facility], [place], [address], [place] tel:[phone] [facility] [place] Pain in joint involving lower legKnee joint replacementPost Op joint replacement Apr-0 5 Pranay Chen. [address] [place], [place], [id number] . tel: [phone] [facility], [address] [address], [place], [address], [place] tel:[phone] [facility] [place] Knee joint replacementPain in joint involving lower leg 5 Pranay Chen. [address] [place], [place], [id number] . tel:[phone] Family History Family Member Type Diagnosis Age At Onset No Information Payers Payer name Insurance type Covered alliance party ID Authoriza tion(s) No Information Social [...]
--- OUTSIDE RECORDS SUMMARY | 2024-10-11 14:38 | XMS_ITS | Encounter Summary ---
Author Organization [facility] Address [facility] [place] [address] Care Team Providers Care Commercial Escrow Assistant Name Role Phone Ngozi Collier NP Primary Care Provider [phone] Reason for Referral * Surgical (Routine) - New Request Specialty Diagnoses / Procedures Referred By Contac t Referred To Contact Diagnoses PVD (peripheral vascular disease) ([facility]/HCC) Procedures Case request operating room: AMPUTATION TOE (LEFT SECOND TOE) Dae Corrales MD [address] [address] Phone: tel: fax: Referral ID Status Reason Start Date Expiration Date V isits Requested Visits Authorized [id number] New Request 06/08/2024 06/08/2025 1 1 Encounter Details Date Type Department Care Team (Late st Contact Info) Description 06/08/2024 Prep for Procedure [facility] [address] [place], [place] [id number] Dae Corrales MD [facility] [address] [place] [address] Social History Tobacco Use Types Packs/Day Years Used Date Smoking Tobacco: Every Day Cigars Smokeless Tobacco: Never Alcohol Use Standard Drinks/Week Comments Not Currently 0 (1 standard drink = 0.6 oz pur e alcohol) [facility] Utilities Answer Date Recorded In the [...] any time in the past 12 m [facility], were you homeless or living in a mcc (including now)? No 06/06/2024 Sex and Gender Information Value Date Recorded Sex Assigned at Male 09/23/2024 1:10 AM COURTESY VAN DRIVER Legal Sex Male 8:29 PM CDT Gender [...] CDT Phong Whitney , RN Active * Do you have serious difficulty walking or climbing stairs? Answer Date of Assessment Author Status No 06/06/2024 11:27 PM CDT Phong Whitney RN Active * Do you have difficulty dressing or bathing? Answer Date of Assessment Author Status No 06/06/2024 11:27 PM CDT Phong Whitney , RN Active * Because of a physical, mental, or emotional condition, do you have difficulty doing errands alone such as visiting a doctor's office or shopping? Answer Date of Assessment Author Status No 06/06/2024 11:27 PM CDT Phong Whitney , RN Active documented as of this encounter Mental Status * Because of a physical, mental, or emotional condition, do you have serious difficulty concentrating, remembering, or making decisions? Answer Entry Date Author Status No 06/06/2024 11:27 PM KINGT Phong Whitney , RN Active documented in this encounter Plan of Treatment Upcoming Encounters Date Type Department Care Team (Late st Contact Info) Description 10/18/2024 11:20 AM COURTESY VAN DRIVER Office Visit [facility] Medical Group Multispecialty Care - [facility] [address] [facility], [facility] [address] [place] [address] Negin Adkins NP 3 [facility]. [facility] [address] [place] [address] Scheduled Orders Name Type Priority Associated Diagnoses Orde r Schedule Case request operating room: AMPUTATION TOE (LEFT SECOND TOE) Case Request Routine PVD (peripheral vascular disease) ([facility]) Once for 1 Occurrences starting 06/08/2024 until 06/08/2024 documented as of this encounter Goals Goal Patient Goal Type Associated Problems Recent Progress Patient-Stated? Author Health - patient able to perform ADLs independently Lifestyle No 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 RN documented as of this encounter Visit Diagnoses Diagnosis PVD (peripheral vascular disease) ([facility])- Primary Peripheral vascular disease, unspecified documented in this encounter Care Teams Commercial Escrow Assistant Relationship Specialty Start Date End Date Ngozi Collier NP [address] [place] [address] PCP - General 02/13/18 documented as of this encounter
--- OUTSIDE RECORDS SUMMARY | 2024-10-11 14:38 | XMS_ITS | Encounter Summary ---
Author Organization [facility] Address [facility] [place] [address] Care Team Providers Care Branch Office Manager Name Role Phone Ngozi Collier NP Primary Care Provider [phone] Reason for Visit * Reason Comments Lab (SCAN) Encounter Details Date Type Department Care Team (Latest Contact Info) Description 10/04/2024 Scan [facility] Scanned, Doc [facility] Lab (SCAN) Social History Tobacco Use Types Packs/Day Years [...] from your doctor or pharmacy? Never 09/23/2024 [facility] Utilities Answer Date Recorded In the past 12 months has [facility] [employer], oil, or water [employer] threatened to shut off services in your [...] often do you attend chur ch or worship services? Never 09/23/2024 Do you belong to any clubs o r organizations such as synagogue groups, unions, fraternal or athletic groups, or [...] Recorded Patient Health Questionnaire-2 Score 0 09/23/2024 [facility] Health - Occupational Stress Questionnaire Answer Date [...] any time in the past 12 m [place], were you homeless or living in a skilled nursing (including now)? No 09/23/2024 Sex and Gender Information Value Date Recorded Sex Assigned at Male 09/23/2024 1:10 AM COMMUNICATIONS TOWER TECHNICIAN Legal Sex Male 8:29 PM CDT Gender [...] Assessment Author Status No 10/01/2024 1:31 PM Matma Loredo RN Active * Because of a [...] Date Author Status No 10/01/2024 1:31 PM COMMUNICATIONS TOWER TECHNICIAN Mamta Lyn RN Active documented in this encounter Plan of Treatment Upcoming Encounters Date Type Department Care Team (Late st Contact Info) Description 10/18/2024 11:20 AM COMMUNICATIONS TOWER TECHNICIAN Office Visit [facility] Medical Group Multispecialty Care - [facility] [address] [facility] [address] [place] [address] [place] [address] Negin Adkins NP 3 [facility]. [place] [address] [place] [address] documented as of this encounter Goals Goal Patient Goal Type Associated Problems Recent Progress Patient-Stated? Author Health - patient able to perform ADLs independently Lifestyle No 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 RN documented as of this encounter Procedures Procedure Name Priority Date/Time Associated Diagnosis Comments OUTSIDE LAB (SCAN ORDER) 10/04/2024 OUTSIDE LAB (SCAN ORDER) 10/04/2024 documented in this encounter Results * OUTSIDE LAB (SCAN ORDER) (10/04/2024) 10/04/2024 [facility] Scanned SCANNING Final Resu lt * OUTSIDE LAB (SCAN ORDER) (10/04/2024) 10/04/2024 [facility] Scanned SCANNING Final Resu lt documented in this encounter Visit Diagnoses Not on filedocumented in this encounter Care Teams Branch Office Manager Relationship Specialty Start Date End Date Ngozi Collier NP [address] [place] [address] PCP - General 02/13/18 documented as of this encounter
--- OUTSIDE RECORDS SUMMARY | 2024-10-11 14:38 | XMS_ITS | Encounter Summary ---
Author Organization [facility] Address [facility] [place] [address] Care Team Providers Care Bag Shaker Name Role Phone Ngozi Collier NP Primary Care Provider [phone] Encounter Details Date Type Department Care Team (Late st Contact Info) Description 03/22/2020 Hospital Follow-up Call [facility] [place] [address] Ashley Lora RN Social History Tobacco Use Types Packs/Day Years Used Date Smoking Tobacco: Every Day Cigars Smokeless Tobacco: Never Sex and Gender Information Value Date Recorded Sex Assigned at Male 09/23/2024 1:10 AM SUBSYSTEMS ENGINEER Legal Sex Male 8:29 PM CDT Gender [...] st Contact Info) Description 10/18/2024 11:20 AM SUBSYSTEMS ENGINEER Office Visit [facility] Medical Group Multispecialty Care - [facility] 3 [facility], [facility] [address] [place] [id number] Negin Adkins NP 3 [facility]. [facility] [address] [place] [address] documented as of this encounter Visit Diagnoses Not on filedocumented in this encounter Care Teams Bag Shaker Relationship Specialty Start Date End Date Ngozi Collier NP [address] [place], [place] [id number] PCP - General 02/13/18 documented as of this encounter
--- OUTSIDE RECORDS SUMMARY | 2024-10-11 14:38 | XMS_ITS | Encounter Summary ---
Author Organization [facility] Address [facility] [place] [address] Care Team Providers Care Salt Washer Name Role Phone Ngozi Collier NP Primary Care Provider [phone] Reason for Visit * Reason Comments Lab (SCAN) Encounter Details Date Type Department Care Team (Latest Contact Info) Description 10/07/2024 Scan [facility] SRV[facility] Scanned, Doc [...] from your doctor or pharmacy? Never 09/23/2024 [facility] Utilities Answer Date Recorded In the past 12 months has [facility] [employer], [employer], oil, or water [employer] threatened to shut off services in your [...] often do you attend chur ch or temple services? Never 09/23/2024 Do you belong to any clubs o r organizations such as sikhism groups, unions, fraternal or athletic groups, or [...] Recorded Patient Health Questionnaire-2 Score 0 09/23/2024 [facility] - Occupational Stress Questionnaire Answer Date [...] living in a detention (including now)? No 09/23/2024 Sex and Gender Information Value Date Recorded Sex Assigned at Male 09/23/2024 1:10 AM COMPOSITION STONE APPLICATOR Legal Sex Male 8:29 PM CDT Gender [...] Date Author Status No 10/01/2024 1:31 PM COMPOSITION STONE APPLICATOR Mamta Lyn RN Active documented in this encounter Plan of Treatment Upcoming Encounters Date Type Department Care Team (Late st Contact Info) Description 10/18/2024 11:20 AM COMPOSITION STONE APPLICATOR Office Visit [facility] - [facility] [address], [address] [place] [address] Negin Adkins NP [address] [facility] [place] [address] documented as of this encounter Goals Goal Patient Goal Type Associated Problems Recent Progress Patient-Stated? Author Health - patient able to perform ADLs independently Lifestyle No 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 RN documented as of this encounter Procedures Procedure Name Priority Date/Time Associated Diagnosis Comments OUTSIDE LAB (SCAN ORDER) 10/07/2024 documented in this encounter Results * OUTSIDE LAB (SCAN ORDER) (10/07/2024) 10/07/2024 [facility] Scanned SCANNING Final Resu lt documented in this encounter Visit Diagnoses Not on filedocumented in this encounter Care Teams Salt Washer Relationship Specialty Start Date End Date Ngozi Collier NP [address] [place] [address] PCP - General 02/13/18 documented as of this encounter
--- OUTSIDE RECORDS SUMMARY | 2024-10-11 14:38 | XMS_ITS | Clinical Summary ---
Author Organization Unknown Care Team Providers Care Investigator Claims Name Role Phone OMER ACUNA, SHARMILA Unavailable Unavailable KM BLACK, PETE Unavailable Unavailable Payers Payer Name Policy Type Policy Number Effective Date Expira tion Date [facility]UM PROGRAM - PDGM Problems Condition Name Condition Details Condition Category Status Onset Date Resolution Date Last Treatment Date Treating Clinician Comments TYPE 2 DIABETES MELLITUS WITH OTHER SPECIFIED COMPLICATION Active 08-25 00:00: 00 OTHER ACUTE OSTEOMYELITI S, LEFT ANKLE AND FOOT Active 08-25 00:00: 00 UNSP ESCHERICHIA COLI THE CAUSE OF DISEASES CLASSD ELSWHR Active 08-25 00:00: 00 TYPE 2 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 Active 08-25 00:00: 00 ENCOUNTER FOR ORTHOPEDIC AFTERCARE FOLLOWING SURGICAL AMP Active 08-25 00:00: 00 ACQUIRED ABSENCE OF LEFT FOOT Active 08-25 00:00: 00 ACQUIRED ABSENCE OF OTHER LEFT TOE(S) Active 08-25 00:00: 00 GROUP HOME (CURRENT) USE OF INSULIN Active 08-25 00:00: 00 DEPRESSION, UNSPECIFIED Active 08-25 00:00: 00 ESSENTIAL (PRIMARY) HYPERTENSION Active 08-25 00:00: 00 OBESITY, UNSPECIFIED Active 08-25 00:00: 00 HYPERKALEMIA Active 08-25 00:00: 00 BODY MASS INDEX [BMI] 35.0-35.9, ADULT Active 08-25 00:00: 00 ENCOUNTER FOR ADJUSTMENT AND MANAGEMENT OF VAD Active 08-25 00:00: 00 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 Active 08-25 00:00: 00 Allergies, Adverse Reactions, Alerts Allergy Name Allergy Type Status Severity Reaction(s) Onset Date Inactive Date Treating Clinician Comments AMOXICILLIN Propensity to adverse reactions Inactive 10-04 14:44: 26 2024-09-25 09:38:57 AMOXICILLIN /CLAVULANIC ACID Propensity to adverse reactions Inactive 10-04 14:45: 03 2024-09-25 09:38:57 ATROVASTATI N Propensity to adverse reactions Active 10-04 14:44: 43 DICLOFENAC Propensity to adverse reactions Active 10-04 14:45: 19 FENTANYL Propensity to adverse reactions Active 10-04 14:45: 29 GABAPENTIN Propensity to adverse reactions Active 10-04 14:45: 38 MELOXICAM Propensity to adverse reactions Active 10-04 14:57: 55 METHADONE Propensity to adverse reactions Active 10-04 14:56: 45 MORPHINE Propensity to adverse reactions Active 10-04 14:56: 57 PITAVASTATI N Propensity to adverse reactions Active 10-04 14:57: 28 ROSUVASTATI N Propensity to adverse reactions Active 10-04 14:58: 11 SILDENAFIL Propensity to adverse reactions Active 10-04 14:57: 46 VENLAFAXINE Propensity to adverse reactions Active 10-04 14:58: 58 METFORMIN Propensity to adverse reactions Active 10-05 08:24: 11 NORTRIPTYLI NE Propensity to adverse reactions Active 10-05 08:24: 21 AUGMENTIN Propensity to adverse reactions Active 10-05 09:38: 57 INSULIN GLARGINE Propensity to adverse reactions Active 10-05 09:38: 57 Immunizations Ordered Immunization Name Filled Immunization Name Date Status Comments Refusal Reason REFUSED PNEUMONIA, PPV 2024-10-04 00:00:00 INFLUENZA, TIV (INACTIVATED) 2024-05-19 00:00:00 Vital Signs Vital Name Observation Time Observation Value Commen ts Temperature 2024-10-07 09:47:00.000 98.2 [degF] Temperature 2024-10-04 14:38:00.000 98 [degF] BMI (%) 2024-10-04 09:41:54.000 35 kg/m2 Height 2024-10-04 09:41:38.000 72 [in_us] Pulse 2024-10-07 09:47:00.000 90 /min Pulse 2024-10-04 14:38:00.000 68 /min O2 Saturation (%) 2024-10-07 09:47:00.000 96 % O2 Saturation (%) 2024-10-04 14:38:00.000 97 % Respirations 2024-10-07 09:47:00.000 16 /min Respirations 2024-10-04 14:38:00.000 16 /min Weight (lbs) 2024-10-04 09:41:54.000 260 [lb_av] Systolic Blood Pressure 2024-10-07 09:47:00.000 140 mm [Hg] Systolic Blood Pressure 2024-10-04 14:38:00.000 160 mm [Hg] Diastolic Blood Pressure 2024-10-07 09:47:00.000 82 mm [Hg] Diastolic Blood Pressure 2024-10-04 14:38:00.000 62 mm [Hg] Plan of Treatment Planned Activity Planned Date Details Comments Future Scheduled Test SKILLED NU RSE TO EVALUATE PATIENT, IDENTIFY PRIMARY AND CO-MORBID CONDITIONS CODED PER CODING GUIDELINES, AND DEVELOP PATIENT SPECIFIC PLAN OF CARE THAT INCLUDES PATIENT GOAL FOR HOME HEALTH. [code = SKILLED NURSE TO EVALUATE PATIENT, IDENTIFY PRIMARY AND CO-MORBID CONDITIONS CODED PER CODING GUIDELINES, AND DEVELOP PATIENT SPECIFIC PLAN OF CARE THAT INCLUDES PATIENT GOAL FOR HOME HEALTH.] Future Scheduled Test HOME [facility] MAY ACCEPT ORDERS FROM THE FOLLOWING PHYSICIANS: PODIATRY: DR. ABEL HOMEMAKING REHABILITATION CONSULTANT/TREATING PROVIDERS [code = HOME HEALTH AGENCY MAY ACCEPT ORDERS FROM THE FOLLOWING PHYSICIANS: PODIATRY: DR. ABEL HOMEMAKING REHABILITATION CONSULTANT/TREATING PROVIDERS] Future Scheduled Test SKILLED NU RSE TO REVIEW PATIENT MEDICATIONS. INSTRUCT PATIENT/CAREGIVER ON MONITORING OF EFFECTIVENESS, ADVERSE DRUG REACTIONS, SIDE EFFECTS OF ALL MEDICATIONS (PRESCRIPTION/-OTC), AND HOW AND WHEN TO REPORT PROBLEMS. [code = SKILLED NURSE TO REVIEW PATIENT MEDICATIONS. INSTRUCT PATIENT/CAREGIVER ON MONITORING OF EFFECTIVENESS, ADVERSE DRUG REACTIONS, SIDE EFFECTS OF ALL MEDICATIONS (PRESCRIPTION/-OTC), AND HOW AND WHEN TO REPORT PROBLEMS.] Future Scheduled Test SKILLED NU RSE FOR INSTRUCTION/ REINFORCEMENT OF NEEDS RELATED TO NUTRITION/HYDRATION. [code = SKILLED NURSE FOR INSTRUCTION/ REINFORCEMENT OF NEEDS RELATED TO NUTRITION/HYDRATION. ] Future Scheduled Test SKILLED NU RSE FOR O/A AND SKILLED TEACHING RELATED TO SIGNS AND SYMPTOMS OF INFECTION AND INFECTION CONTROL MEASURES. [code = SKILLED NURSE FOR O/A AND SKILLED TEACHING RELATED TO SIGNS AND SYMPTOMS OF INFECTION AND INFECTION CONTROL MEASURES.] Future Scheduled Test NEED FOR S KILLED TEACHING AND INTERVENTION RELATED TO A SURGICAL WOUND TO LEFT FOOT. LEAVE DRESSING IN PLACE UNTIL F/U WITH PODIATRY. UPDATED ORDERS TO BE OBTAINED AFTER APPOINTMENT 10/08/24. [code = NEED FOR SKILLED TEACHING AND INTERVENTION RELATED TO A SURGICAL WOUND TO LEFT FOOT. LEAVE DRESSING IN PLACE UNTIL F/U WITH PODIATRY. UPDATED ORDERS TO BE OBTAINED AFTER APPOINTMENT 10/08/24.] Future Scheduled Test SKILLED NU RSE TO PERFORM AND RECORD BLOOD SUGAR READING PRN FOR SIGNS AND SYMPTOMS OF HYPO/HYPERGLYCEMIA. [code = SKILLED NURSE TO PERFORM AND RECORD BLOOD SUGAR READING PRN FOR SIGNS AND SYMPTOMS OF HYPO/HYPERGLYCEMIA.] Future Scheduled Test SKILLED NU RSE FOR O/A AND SKILLED TEACHING IN MANAGEMENT OF PVD. [code = SKILLED NURSE FOR O/A AND SKILLED TEACHING IN MANAGEMENT OF PVD.] Future Scheduled Test SKILLED NU RSE FOR O/A AND TEACHING OF DIABETIC MANAGEMENT INCLUDING BLOOD SUGAR MONITORING/USE OF GLUCOMETER, DIABETIC DIET, LOWER EXTREMITY SKIN INSPECTION, PROPER SKIN/FOOT CARE, AND SIGNS AND SYMPTOMS HYPO/HYPERGLYCEMIA TO REPORT. [code = SKILLED NURSE FOR O/A AND TEACHING OF DIABETIC MANAGEMENT INCLUDING BLOOD SUGAR MONITORING/USE OF GLUCOMETER, DIABETIC DIET, LOWER EXTREMITY SKIN INSPECTION, PROPER SKIN/FOOT CARE, AND SIGNS AND SYMPTOMS HYPO/HYPERGLYCEMIA TO REPORT.] Future Scheduled Test SKILLED NU RSE TO INSTRUCT PATIENT/CAREGIVER ON PREVENTION OF SEPSIS, AND SIGNS AND SYMPTOMS OF SEPSIS TO REPORT. [code = SKILLED NURSE TO INSTRUCT PATIENT/CAREGIVER ON PREVENTION OF SEPSIS, AND SIGNS AND SYMPTOMS OF SEPSIS TO REPORT.] Future Scheduled Test SKILLED NU RSE FOR O/A AND TEACHING ON IV SITE CARE, INFUSION PROCEDURE, SIGNS AND SYMPTOMS OF INFECTION/COMPLICATIONS. SKILLED NURSE TO OBTAIN IV ACCESS TO CENTRAL LINE VIA A DOUBLE-LUMEN PICC LINE TO RIGHT UPPER ARM. SKILLED NURSE OR TRAINED PATIENT/CAREGIVER TO ADMINISTER IV THERAPY OF VANCOMYCIN 1.25G EVERY 12 HOURS VIA ELASTOMERE DEVICE AND CEFTRIAXONE 2G EVERY 24 HOURS VIA IV PUSH OVER 10 MINUTES. FLUSH PICC LINE WITH 10ML NORMAL SALINE BEFORE/AFTER MEDICATIONS/LAB DRAWS AND 5ML HEPARIN AFTER LAST SALINE FLUSH. SKILLED NURSE TO CHANGE DRESSING USING STERILE TECHNIQUE WEEKLY AND PRN FOR SOILED OR LOOSE DRESSING. [code = SKILLED NURSE FOR O/A AND TEACHING ON IV SITE CARE, INFUSION PROCEDURE, SIGNS AND SYMPTOMS OF INFECTION/COMPLICATIONS. SKILLED NURSE TO OBTAIN IV ACCESS TO CENTRAL LINE VIA A DOUBLE-LUMEN PICC LINE TO RIGHT UPPER ARM. SKILLED NURSE OR TRAINED PATIENT/CAREGIVER TO ADMINISTER IV THERAPY OF VANCOMYCIN 1.25G EVERY 12 HOURS VIA ELASTOMERE DEVICE AND CEFTRIAXONE 2G EVERY 24 HOURS VIA IV PUSH OVER 10 MINUTES. FLUSH PICC LINE WITH 10ML NORMAL SALINE BEFORE/AFTER MEDICATIONS/LAB DRAWS AND 5ML HEPARIN AFTER LAST SALINE FLUSH. SKILLED NURSE TO CHANGE DRESSING USING STERILE TECHNIQUE WEEKLY AND PRN FOR SOILED OR LOOSE DRESSING.] Future Scheduled Test SKILLED NU RSE TO OBTAIN BLOOD SPECIMEN VIA PICC OR VENIPUNCTURE USING ASEPTIC TECHNIQUE: WEEKLY ON MONDAYS: CBC, CMP BIWEEKLY (FRIDAY AND FRIDAY OR FRIDAY): BMP AND VANCO TROUGH. OBTAIN LAB RESULTS AND REPORT TO PHYSICIAN NUPUR TELLO AT [phone] AND [phone]. [code = SKILLED NURSE TO OBTAIN BLOOD SPECIMEN VIA PICC OR VENIPUNCTURE USING ASEPTIC TECHNIQUE: WEEKLY ON MONDAYS: CBC, CMP BIWEEKLY (FRIDAY AND FRIDAY OR FRIDAY): BMP AND VANCO TROUGH. OBTAIN LAB RESULTS AND REPORT TO PHYSICIAN DOMINGUEZPAYTON HICKSI AT [phone] AND [phone].] Future Scheduled Test SKILLED NU RSE FOR O/A AND SKILLED TEACHING RELATED TO SIGNS AND SYMPTOMS AND MANAGEMENT OF LEFT FOOT OSTEOMYELITIS S/P TRANSMETATARSAL AMPUTATION. [code = SKILLED NURSE FOR O/A AND SKILLED TEACHING RELATED TO SIGNS AND SYMPTOMS AND MANAGEMENT OF LEFT FOOT OSTEOMYELITIS S/P TRANSMETATARSAL AMPUTATION.] Future Scheduled Test PATIENT EDGE S A RISK OF HOSPITALIZATION AND ED USE. SKILLED NURSE TO ESTABLISH SUPPORT MEASURES TO MINIMIZE RISK OF HOSPITALIZATION AND ED USE, AND INSTRUCT PATIENT/CAREGIVER ON METHODS TO REDUCE AVOIDABLE HOSPITALIZATION AND ED USE. [code = PATIENT HAS A RISK OF HOSPITALIZATION AND ED USE. SKILLED NURSE TO ESTABLISH SUPPORT MEASURES TO MINIMIZE RISK OF HOSPITALIZATION AND ED USE, AND INSTRUCT PATIENT/CAREGIVER ON METHODS TO REDUCE AVOIDABLE HOSPITALIZATION AND ED USE.] Future Scheduled Test SKILLED NU RSE TO PROVIDE INSTRUCTION TO PATIENT/CAREGIVER RELATED TO DISCHARGE PLANNING. [code = SKILLED NURSE TO PROVIDE INSTRUCTION TO PATIENT/CAREGIVER RELATED TO DISCHARGE PLANNING.] Future Scheduled Test SKILLED NU RSE TO PERFORM ENVIRONMENTAL SAFETY RISK ASSESSMENT AND FALL RISK ASSESSMENT AND PROVIDE INSTRUCTION TO IMPLEMENT ENVIRONMENTAL SAFETY AND FALL PREVENTION STRATEGIES THROUGHOUT THE CERTIFICATION PERIOD. SKILLED NURSE WILL MAINTAIN SITUATIONAL AWARENESS AND WILL NOTIFY CLINICAL DIRECTOR GLOBAL MARKET RESEARCH AND PHYSICIAN/PROVIDER WITH ANY CHANGE IN CONDITION. [code = SKILLED NURSE TO PERFORM ENVIRONMENTAL SAFETY RISK ASSESSMENT AND FALL RISK ASSESSMENT AND PROVIDE INSTRUCTION TO IMPLEMENT ENVIRONMENTAL SAFETY AND FALL PREVENTION STRATEGIES THROUGHOUT THE CERTIFICATION PERIOD. SKILLED NURSE WILL MAINTAIN SITUATIONAL AWARENESS AND WILL NOTIFY CLINICAL DIRECTOR GLOBAL MARKET RESEARCH AND PHYSICIAN/PROVIDER WITH ANY CHANGE IN CONDITION.] Future Scheduled Test SKILLED NU RSE FOR OBSERVATION AND ASSESSMENT OF PATIENTS PAIN LEVEL AND EFFECTIVENESS OF PAIN MANAGEMENT REGIMEN. SKILLED NURSE TO INSTRUCT PATIENT/CAREGIVER REGARDING PHARMACOLOGIC AND NON-PHARMACOLOGIC PAIN CONTROL MEASURES. SKILLED NURSE TO REPORT TO PHYSICIAN IF PAIN IS UNCONTROLLED WITH CURRENT PAIN MANAGEMENT REGIMEN. [code = SKILLED NURSE FOR OBSERVATION AND ASSESSMENT OF PATIENTS PAIN LEVEL AND EFFECTIVENESS OF PAIN MANAGEMENT REGIMEN. SKILLED NURSE TO INSTRUCT PATIENT/CAREGIVER REGARDING PHARMACOLOGIC AND NON-PHARMACOLOGIC PAIN CONTROL MEASURES. SKILLED NURSE TO REPORT TO PHYSICIAN IF PAIN IS UNCONTROLLED WITH CURRENT PAIN MANAGEMENT REGIMEN.] Future Scheduled Test SKILLED NU RSE TO ASSESS PATIENT'S SKIN INTEGRITY AND INSTRUCT PATIENT/CAREGIVER ON MEASURES TO PREVENT PRESSURE ULCERS. [code = SKILLED NURSE TO ASSESS PATIENT'S SKIN INTEGRITY AND INSTRUCT PATIENT/CAREGIVER ON MEASURES TO PREVENT PRESSURE ULCERS.] Future Scheduled Test SKILLED NU RSE TO PROVIDE ASSESSMENT AND TEACHING/REINFORCEMENT OF MANAGEMENT OF DEPRESSION INCLUDING DISEASE PROCESS, MEDICATION MANAGEMENT, COPING SKILLS AND IDENTIFY CHANGES ASSOCIATED WITH DEPRESSIVE DISORDERS FOR EARLY INTERVENTION. [code = SKILLED NURSE TO PROVIDE ASSESSMENT AND TEACHING/REINFORCEMENT OF MANAGEMENT OF DEPRESSION INCLUDING DISEASE PROCESS, MEDICATION MANAGEMENT, COPING SKILLS AND IDENTIFY CHANGES ASSOCIATED WITH DEPRESSIVE DISORDERS FOR EARLY INTERVENTION. ] Goal Patient Goal - T O GET BACK TO MY USUAL SELF Goal Provider Goal - A PLAN OF CARE WILL BE ESTABLISHED THAT MEETS PATIENT'S [facility] NEEDS AND INCLUDES PATIENT GOAL FOR HOME HEALTH. Goal Provider Goal - ADDITIONAL ORDERS WILL BE RECEIVED FROM ALTERNATE PHYSICIAN IN A TIMELY MANNER THROUGHOUT THE CERTIFICATION PERIOD. Goal Provider Goal - PATIENT/CAREGIVER WILL VERBALIZE UNDERSTANDING OF EDUCATION PROVIDED ON MEDICATIONS BY THE END OF THE CERTIFICATION PERIOD. Goal Provider Goal - PATIENT/CAREGIVER WILL DEMONSTRATE ABILITY TO SELF MANAGE NEEDS RELATED TO NUTRITION/HYDRATION THROUGHOUT THE EPISODE. Goal Provider Goal - PATIENT/CAREGIVER WILL VERBALIZE/DEMONSTRATE UNDERSTANDING OF S/S OF INFECTION AND INFECTION CONTROL MEASURES. SIGNS AND SYMPTOMS OF INFECTION WILL BE IDENTIFIED AND PHYSICIAN NOTIFIED FOR PROMPT INTERVENTION THROUGHOUT THE CERTIFICATION PERIOD. Goal Provider Goal - WOUND CARE WILL BE COMPLETED AND PATIENT WILL HAVE IMPROVED WOUND STATUS EVIDENCED BY NO SIGNS AND SYMPTOMS OF INFECTION, DECREASED WOUND SIZE, AND/OR NO COMPLICATIONS BY THE END OF THE CERTIFICATION PERIOD. Goal Provider Goal - BLOOD SUGAR READING WILL BE OBTAINED ORDERED THROUGHOUT CERTIFICATION PERIOD. Goal Provider Goal - PATIENT/CAREGIVER WILL VERBALIZE/DEMONSTRATE THE ABILITY TO MANAGE CIRCULATORY DISEASE PROCESS AND EXACERBATIONS WILL BE IDENTIFIED FOR EARLY INTERVENTION THROUGHOUT THE CERTIFICATION PERIOD. Goal Provider Goal - PATIENT/CAREGIVER WILL VERBALIZE/DEMONSTRATE KNOWLEDGE OF DIABETIC MANAGEMENT. CHANGES IN DIABETIC STATUS WILL BE IDENTIFIED AND REPORTED TO PHYSICIAN FOR PROMPT INTERVENTION THROUGHOUT THE CERTIFICATION PERIOD. Goal Provider Goal - PATIENT WILL BE FREE FROM INFECTION AND PATIENT/CAREGIVER WILL VERBALIZE UNDERSTANDING OF SIGNS AND SYMPTOMS AND METHODS TO PREVENT SEPSIS BY END OF THE EPISODE. Goal Provider Goal - PATIENT WILL VERBALIZE/DEMONSTRATE TOLERANCE TO CENTRAL LINE ACCESS PROCEDURE, IV MEDICATION ADMINISTRATION, AND DRESSING CHANGES ORDERED THROUGH CERTIFICATION PERIOD. Goal Provider Goal - SKILLED NURSE TO PERFORM LAB PROCEDURE AND REPORT RESULTS TO PHYSICIAN. Goal Provider Goal - PATIENT/CAREGIVER WILL VERBALIZE UNDERSTANDING OF MUSCULOSKELETAL DISEASE INCLUDING SIGNS AND SYMPTOMS, MANAGEMENT, AND PRESCRIBED TREATMENT REGIMEN BY END OF EPISODE. Goal Provider Goal - PATIENT WILL HAVE SUPPORT MEASURES ESTABLISHED TO PREVENT HOSPITALIZATION AND ED USE AND PATIENT/CAREGIVER WILL VERBALIZE/DEMONSTRATE METHODS TO REDUCE AVOIDABLE HOSPITALIZATION AND ED USE BY END OF EPISODE. Goal Provider Goal - PATIENT/CAREGIVER WILL VERBALIZE UNDERSTANDING OF DISCHARGE PLANNING INSTRUCTIONS BY DATE OF DISCHARGE. Goal Provider Goal - PATIENT/CAREGIVER WILL VERBALIZE/DEMONSTRATE EFFECTIVE ENVIRONMENTAL SAFETY AND FALL PREVENTION STRATEGIES, WILL REMAIN SAFE IN THE COMMUNITY, AND WILL BE FREE OF DANGER TO SELF AND OTHERS THROUGHOUT THE CERTIFICATION PERIOD. Goal Provider Goal - PATIENT/CAREGIVER WILL DEMONSTRATE UNDERSTANDING OF PHARMACOLOGIC AND NONPHARMACOLOGIC PAIN CONTROL MEASURES AND PATIENT WILL HAVE IMPROVEMENT IN PAIN INTERFERING WITH ACTIVITY EVIDENCED BY PAIN CONTROLLED AT LEVEL OF 7 OR LESS BY END OF CERTIFICATION PERIOD. Goal Provider Goal - PATIENT/CAREGIVER WILL VERBALIZE UNDERSTANDING OF PRESSURE ULCER PREVENTION BY END OF THE EPISODE. Goal Provider Goal - PATIENT/CAREGIVER WILL VERBALIZE/DEMONSTRATE UNDERSTANDING OF THE MANAGEMENT OF DEPRESSION THROUGHOUT THE CERTIFICATION PERIOD AND SYMPTOMS ARE IDENTIFIED AND MANAGED TO MAINTAIN PATIENT SAFETY IN THE HOME. Progress Notes Progress Notes <paragraph>[Visit Date: 2024 by PETE BARBOUR RN]:</paragraph><paragraph>PATIENT WAS SEEN TODAY FOR SKILLED NURSE VISIT. PATIENT INITIALLY OBSERVED SITTING ON COUCH IN NO ACUTE DISTRESS. PATIENT ALERT AND COOPERATIVE NURSE EXPLAINED THAT SHE WAS HERE TO COLLECT A VANCOMYCIN TROUGH THAT WE HAD DISCUSSED THE NIGHT BEFORE THAT MY VISIT WOULD BE QUIETER INFUSION OF 8 O'CLOCK NURSE OBTAINED ANKLE MYCIN TROUGH AND BMP USING A SEPTIC TECHNIQUE PATIENT TRANSFERRED THESE LABS AFTER COLLECTION TO [facility] AT [facility]. NURSE ALSO PERFORMED IV INFUSION OVER 10 MINUTES USING A SEPTIC TECHNIQUE.NURSE FLUSHED BEFORE AND AFTER INFUSION PER DOCTOR'S ORDER. USING STERILE TECHNIQUE, AND FACE MASK ON BOTH NURSE AND PATIENT, NURSE DONNED STERILE GLOVES AND REMOVED OLD DRESSING NURSE SCOURED WHERE PICC LINE INSERTION WAS WITH CLEANSER SWABS INCLUDED IN HY-VEE CHANGE PACK PROVIDED BY PHARMACY NURSE SECURED PICC LINE THAT HAD ADVANCED PRIOR TO NURSE PERFORMING DRESSING CHEST NURSE SECURED UNSUTURED PICC LINE. NURSE COVERED AREA WITH TEGADERM ALSO PROVIDED AN IV KIT 5 PHARMACY SHE DATED DATE CHANGE PATIENT STATES THAT HE TOLERATED IT WELL NURSE WENT OVER WHAT TYPES OF LABS WILL BE COLLECTED AT THE NEXT VISIT WHICH IS SCHEDULED FOR FRIDAY VITAL SIGNS WERE STABLE PAIN WAS 7 PATIENT HAD TAKEN PAIN MEDICATION STATING THAT ONCE HE TAKES IT KNOCKED OUT AFTER NURSE LEFT SHE REMINDED HIM TO MAKE SURE HE TAKES HIS PAIN MEDICATION. ...</paragraph> Encounters Start Date/Time End Date/Time Encounter Type Admission Type Attending Clinicians Care Facility Care Department Encounter ID Discharge Date Discharge Status Discharge Condition Discharge Reason Percent Goals Met 2024-10-04 00:00:00 2024-12-02 00:00:00 Outpatient NEW ADMISSION PETE BARBOUR [facility] [id number] 55.88
--- OUTSIDE RECORDS SUMMARY | 2024-10-11 14:38 | XMS_ITS | Clinical Summary ---
Author Organization [facility] Address [address] [place] [id number] Care Team Providers Care Lab Head Name Role Phone Ngozi Collier NP Primary Care Provider [phone] Allergies Active Allergy Reactions Criticality Noted Date [...] skin every morning. Active Cholecalciferol 50 MCG (2000 UT) Cap Take 50 mcg by mouth [...] Bone Marrow 26 tablet 025 2024 Active oxyCODONE-aceta minophen (PERCOCET) 10-325 [...] becomes available 1 each 025 2025 Active vancomycin 1,500 mg in sodium chloride 0.9 % SOLN 265 mLIndications:O steomyelitis Inject 1,500 mg into the vein every 12 (twelve) hours for 27 days. Indications: Infection of Bone and Bone Marrow 1 Bag 53 025 2024 Active sildenafil 100 MG tablet Take 1 [...] (EXTERNAL USE ONLY) 024 2024 Discontinued(E rror) vancomycin 1,250 mg in sodium chloride 0.9 % SOLN 262.5 mLIndications:O steomyelitis Inject 1,250 mg into the vein every 12 (twelve) hours for 37 days. Indications: Infection of Bone and Bone Marrow 1 Bag 025 2024 Discontinued(R eorder) Active Problems Problem Noted Date Diagnosed Date Osteomyelitis ([facility]) 09/23/2024 Osteomyelitis of foot, left, acute ([facility]) 09/23/2024 Abnormal liver function 06/28/2024 Acute osteomyelitis of phalanx of foot ([facility]) 06/28/2024 Overview (06/28/2024): Dec 22, 2019 Entered By: SOLEDAD MIRANDA Comment: R great toe amputation 10/2017 Age-related nuclear cataract, bilateral 06/28/20 24 Benign essential hypertension 06/28/2024 Carpal tunnel syndrome 06/28/2024 Complete traumatic amputatio n of left great toe, subsequent encounter ([facility]) 06/28/2024 Depression 06/28/2024 Encounter for observation fo r other suspected diseases and conditions ruled out 06/28/2024 Erectile dysfunction 06/28/2024 Exposure to potentially hazardous substance 11/2023 Gastroesophageal reflux disease 06/28/2024 History of total right knee replacement 06/28/20 Hyperlipidemia, unspecified 06/28/2024 Localized edema 06/28/2024 FPC (current) use of opiate analgesic 11/2023 Narcotic drug use 06/28/2024 Non-pressure chronic ulcer o f other part of left foot limited to breakdown of skin ([facility]) 06/28/2024 Obesity 06/28/2024 Osteoarthritis of knee 06/28/2024 Other chronic pain 06/28/2024 Other specified diabetes marshall litus with unspecified complications ([facility]) 06/28/2024 Pain in right shoulder 06/28/2024 Type 1 diabetes mellitus wit h diabetic neuropathy, unspecified ([facility]) 06/28/2024 Type 2 diabetes 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 without macular edema, bilateral ([facility]) 06/28/2024 Type 2 diabetes mellitus wit h foot ulcer (CODE) ([facility]) 06/28/2024 Vitamin D deficiency 06/28/2024 Elevated liver function tests 06/21/2024 PVD (peripheral vascular disease) 06/08/2024 Osteomyelitis of left foot ([facility]) SIRS (systemic inflammatory response syndrome) ([facility]) 05/27/2024 Nausea and vomiting 03/20/2020 Open wound of left foot 03/17/2020 Nausea & vomiting 03/17/2020 S/P amputation of lesser toe, left ([facility]) 02/03/2018 Hypertension 07/14/2015 Low back pain 07/14/2015 Right knee pain 07/14/2015 Resolved Problems Problem Noted Date Diagnosed Date Resolved Date Encounter for other preprocedural examination 06/28/2007/05/2024 Encounters Date Type Department Care Team Description 10/11/2024 Telephone [facility] - [facility] [address] [facility], [facility] [address] [place] [phone] Negin Adkins, ERAN Medication; Lab Results 10/07/2024 Scan HEALTH INFO SRVCS Scanned, [facility] (SCAN) 10/07/2024 Telephone [facility] [address] [facility], [facility] [address] [place] [phone] Negin Adkins, ERAN Lab Results 10/04/2024 Scan [facility] HEALTH INFO SRVCS Scanned, [facility] (SCAN) 10/04/2024 Hospital Follow-up Call [facility] [place] [address] Melonie Mei LPN Follow Up Call ([facility] 09/23-10/01/24) 09/28/2024 9:45 AM ELECTRIC BRAIN WAVE EQUIPMENT MECHANIC Home Care Visit [facility] Home Care [address] [place] [address] Trice Nava, CHIEF CLOTH FINISHING RANGE OPERATOR VISIT 09/25/2024 10:00 AM ELECTRIC BRAIN WAVE EQUIPMENT MECHANIC - 09/25/2024 11:03 AM ELECTRIC BRAIN WAVE EQUIPMENT MECHANIC Surgery [facility] OR [facility] [place] [phone] Dae Marie, NIM TRANS METATARSAL AMPUTATION; LEFT FOOT 09/25/2024 9:45 AM ELECTRIC BRAIN WAVE EQUIPMENT MECHANIC Anesthesia Event [facility] [place] [address] Alfonso Eagle MD 09/23/2024 1:45 AM ELECTRIC BRAIN WAVE EQUIPMENT MECHANIC - 10/01/2024 2:19 PM ELECTRIC BRAIN WAVE EQUIPMENT MECHANIC Hospital Encounter [facility] [place] [address] Lucius Johnson, DO Iraheta, MD Veronica Khan, MD Antoinette Leblanc, Turner Esqueda, MD Lake, Solomon Tyler, MD Cordero, Claudia Gill, BIAS CUTTER Spencer Oliveira, Ashtyn Ling NP Foot Swelling Discharge Disposition: Home with Home Health Care 09/23/2024 Travel 07/28/2024 Telephone [facility] Medical Group Multispecialty Care - [facility] 3 [facility], [facility] [address] [place] [phone] Negin Adkins NP Reschedule 07/23/2024 Telephone [facility] [address] [place] [address] Neema Hampton FNP Schedule Test 07/23/2024 Orders Only [facility] [address] [place] [address] Neema Hampton FNP from Last 3 Months [...] from your doctor or pharmacy? Never 09/23/2024 [facility] Utilities Answer Date Recorded In the past 12 months has e [employer], gas, oil, or water [employer] threatened to shut off services in your [...] often do you attend chur ch or faith services? Never 09/23/2024 Do you belong to any clubs o r organizations such as mu-ism groups, unions, fraternal or athletic groups, or [...] Recorded Patient Health Questionnaire-2 Score 0 09/23/2024 [facility] [place] [facility] Occup[facility] - Occupational Stress [...] any time in the past 12 m [facility], were you homeless or living in a skilled nursing (including now)? No 09/23/2024 Sex and Gender Information Value Date Recorded Sex Assigned at Male 09/23/2024 1:10 AM ELECTRIC BRAIN WAVE EQUIPMENT MECHANIC Legal Sex Male 8:29 PM CDT Gender Identity Not on file Sexual Orientation Not on file Last Filed Vital Signs Vital Sign Reading Time Taken Comments Blood Pressure 154/89 10/01/2024 11:15 AM ELECTRIC BRAIN WAVE EQUIPMENT MECHANIC Pulse 86 09/30/2024 7:40 PM ELECTRIC BRAIN WAVE EQUIPMENT MECHANIC Temperature 36.9 C (98.5 F) 10/01/2024 11:15 AM ELECTRIC BRAIN WAVE EQUIPMENT MECHANIC Respiratory Rate 17 10/01/2024 11:1 5 AM ELECTRIC BRAIN WAVE EQUIPMENT MECHANIC Oxygen Saturation 94% 10/01/2024 11: 15 AM ELECTRIC BRAIN WAVE EQUIPMENT MECHANIC Inhaled Oxygen Concentration - - Weight 119.2 kg (262 lb 12.6 oz) 09/29/2024 5:01 AM ELECTRIC BRAIN WAVE EQUIPMENT MECHANIC Height 182.9 cm (6') 09/23/2024 3:48 PM ELECTRIC BRAIN WAVE EQUIPMENT MECHANIC Body Mass Index 35.64 09/23/2024 3:48 PM ELECTRIC BRAIN WAVE EQUIPMENT MECHANIC Plan of Treatment Upcoming Encounters Date Type Department Care Team (Late st Contact Info) Description 10/18/2024 11:20 AM ELECTRIC BRAIN WAVE EQUIPMENT MECHANIC Office Visit [facility] Medical Group Multispecialty Care - [facility] 3 [facility], [address] [phone] Negin Adkins NP [facility]. 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 Procedure Name Priority Date/Time Associated Diagnosis Comments OUTSIDE LAB (SCAN ORDER) 10/07/2024 OUTSIDE LAB (SCAN ORDER) 10/04/2024 OUTSIDE LAB (SCAN ORDER) 10/04/2024 POCT GLUCOSE - MARIE DOCKED DEVICE Routine 10/01/2024 11:21 AM ELECTRIC BRAIN WAVE EQUIPMENT MECHANIC CBC W/DIFF AUTOMATED Routine 10/01/2024 5:44 AM ELECTRIC BRAIN WAVE EQUIPMENT MECHANIC BASIC METABOLIC PANEL Routine 10/01/2024 5:44 AM ELECTRIC BRAIN WAVE EQUIPMENT MECHANIC POCT GLUCOSE - MARIE DOCKED DEVICE Routine 10/01/2024 5:16 AM ELECTRIC BRAIN WAVE EQUIPMENT MECHANIC POCT GLUCOSE - MARIE DOCKED DEVICE Routine 09/30/2024 8:18 PM ELECTRIC BRAIN WAVE EQUIPMENT MECHANIC POCT GLUCOSE - MARIE DOCKED DEVICE Routine 09/30/2024 4:18 PM ELECTRIC BRAIN WAVE EQUIPMENT MECHANIC POCT GLUCOSE - MARIE DOCKED DEVICE Routine 09/30/2024 11:40 AM ELECTRIC BRAIN WAVE EQUIPMENT MECHANIC HC URINALYSIS AUTO W/O MICRO Routine 09/30/2024 10:13 AM ELECTRIC BRAIN WAVE EQUIPMENT MECHANIC POCT GLUCOSE - MARIE DOCKED DEVICE Routine 09/30/2024 6:06 AM ELECTRIC BRAIN WAVE EQUIPMENT MECHANIC CBC W/DIFF AUTOMATED Routine 09/30/2024 5:30 AM ELECTRIC BRAIN WAVE EQUIPMENT MECHANIC BASIC METABOLIC PANEL Routine 09/30/2024 5:30 AM ELECTRIC BRAIN WAVE EQUIPMENT MECHANIC POCT GLUCOSE - MARIE DOCKED DEVICE Routine 09/29/2024 8:20 PM ELECTRIC BRAIN WAVE EQUIPMENT MECHANIC POCT GLUCOSE - MARIE DOCKED DEVICE Routine 09/29/2024 4:35 PM ELECTRIC BRAIN WAVE EQUIPMENT MECHANIC POCT GLUCOSE - MARIE DOCKED DEVICE Routine 09/29/2024 11:32 AM ELECTRIC BRAIN WAVE EQUIPMENT MECHANIC BASIC METABOLIC PANEL Routine 09/29/2024 7:15 AM ELECTRIC BRAIN WAVE EQUIPMENT MECHANIC POCT GLUCOSE - MARIE DOCKED DEVICE Routine 09/29/2024 6:21 AM ELECTRIC BRAIN WAVE EQUIPMENT MECHANIC CBC W/DIFF AUTOMATED Routine 09/29/2024 5:05 AM ELECTRIC BRAIN WAVE EQUIPMENT MECHANIC BASIC METABOLIC PANEL Routine 09/29/2024 5:05 AM ELECTRIC BRAIN WAVE EQUIPMENT MECHANIC POCT GLUCOSE - MARIE DOCKED DEVICE Routine 09/28/2024 9:12 PM ELECTRIC BRAIN WAVE EQUIPMENT MECHANIC POCT GLUCOSE - MARIE DOCKED DEVICE Routine 09/28/2024 3:50 PM ELECTRIC BRAIN WAVE EQUIPMENT MECHANIC POCT GLUCOSE - MARIE DOCKED DEVICE Routine 09/28/2024 11:37 AM ELECTRIC BRAIN WAVE EQUIPMENT MECHANIC POCT GLUCOSE - MARIE DOCKED DEVICE Routine 09/28/2024 5:57 AM ELECTRIC BRAIN WAVE EQUIPMENT MECHANIC CBC W/DIFF AUTOMATED Routine 09/28/2024 4:48 AM ELECTRIC BRAIN WAVE EQUIPMENT MECHANIC BASIC METABOLIC PANEL Routine 09/28/2024 4:48 AM ELECTRIC BRAIN WAVE EQUIPMENT MECHANIC POCT GLUCOSE - MARIE DOCKED DEVICE Routine 09/27/2024 7:47 PM ELECTRIC BRAIN WAVE EQUIPMENT MECHANIC POCT GLUCOSE - MARIE DOCKED DEVICE Routine 09/27/2024 4:53 PM ELECTRIC BRAIN WAVE EQUIPMENT MECHANIC POCT GLUCOSE - MARIE DOCKED DEVICE Routine 09/27/2024 11:38 AM ELECTRIC BRAIN WAVE EQUIPMENT MECHANIC POCT GLUCOSE - MARIE DOCKED DEVICE Routine 09/27/2024 6:27 AM ELECTRIC BRAIN WAVE EQUIPMENT MECHANIC BASIC METABOLIC PANEL Routine 09/27/2024 5:27 AM ELECTRIC BRAIN WAVE EQUIPMENT MECHANIC CBC W/DIFF AUTOMATED Routine 09/27/2024 5:27 AM ELECTRIC BRAIN WAVE EQUIPMENT MECHANIC POCT GLUCOSE - MARIE DOCKED DEVICE Routine 09/26/2024 8:39 PM ELECTRIC BRAIN WAVE EQUIPMENT MECHANIC POCT GLUCOSE - MARIE DOCKED DEVICE Routine 09/26/2024 4:51 PM ELECTRIC BRAIN WAVE EQUIPMENT MECHANIC BASIC METABOLIC PANEL Routine 09/26/2024 1:28 PM ELECTRIC BRAIN WAVE EQUIPMENT MECHANIC CBC W/DIFF AUTOMATED Routine 09/26/2024 1:28 PM ELECTRIC BRAIN WAVE EQUIPMENT MECHANIC POCT GLUCOSE - MARIE DOCKED DEVICE Routine 09/26/2024 12:26 PM ELECTRIC BRAIN WAVE EQUIPMENT MECHANIC POCT GLUCOSE - MARIE DOCKED DEVICE Routine 09/26/2024 6:13 AM ELECTRIC BRAIN WAVE EQUIPMENT MECHANIC VANCOMYCIN Routine 09/26/2024 4:34 AM ELECTRIC BRAIN WAVE EQUIPMENT MECHANIC BASIC METABOLIC PANEL Routine 09/26/2024 4:34 AM ELECTRIC BRAIN WAVE EQUIPMENT MECHANIC CBC W/DIFF AUTOMATED Routine 09/26/2024 4:34 AM ELECTRIC BRAIN WAVE EQUIPMENT MECHANIC POCT GLUCOSE - MARIE DOCKED DEVICE Routine 09/25/2024 8:14 PM ELECTRIC BRAIN WAVE EQUIPMENT MECHANIC POCT GLUCOSE - MARIE DOCKED DEVICE Routine 09/25/2024 4:18 PM ELECTRIC BRAIN WAVE EQUIPMENT MECHANIC POCT GLUCOSE - MARIE DOCKED DEVICE Routine 09/25/2024 11:36 AM ELECTRIC BRAIN WAVE EQUIPMENT MECHANIC POCT GLUCOSE - MARIE DOCKED DEVICE Routine 09/25/2024 10:37 AM ELECTRIC BRAIN WAVE EQUIPMENT MECHANIC CULTURE, TISSUE W/GRAM STAIN Routine 09/25/2024 10:12 AM ELECTRIC BRAIN WAVE EQUIPMENT MECHANIC CULTURE, ANAEROBIC Routine 09/25/2024 10 :12 AM ELECTRIC BRAIN WAVE EQUIPMENT MECHANIC AMPUTATION TOE 09/25/2024 9:45 AM ELECTRIC BRAIN WAVE EQUIPMENT MECHANIC Osteomyelitis of foot, left, acute ([facility]) POCT GLUCOSE - MARIE DOCKED DEVICE Routine 09/25/2024 8:04 AM ELECTRIC BRAIN WAVE EQUIPMENT MECHANIC CBC W/DIFF AUTOMATED Routine 09/25/2024 5:43 AM ELECTRIC BRAIN WAVE EQUIPMENT MECHANIC BASIC METABOLIC PANEL Routine 09/25/2024 5:43 AM ELECTRIC BRAIN WAVE EQUIPMENT MECHANIC HEMOGLOBIN, GLYCOSYLATED Routine 09/25/2024 5:43 AM ELECTRIC BRAIN WAVE EQUIPMENT MECHANIC POCT GLUCOSE - MARIE DOCKED DEVICE Routine 09/25/2024 5:39 AM ELECTRIC BRAIN WAVE EQUIPMENT MECHANIC PATHOLOGY Routine 09/25/2024 12:00 AM ELECTRIC BRAIN WAVE EQUIPMENT MECHANIC POCT GLUCOSE - MARIE DOCKED DEVICE Routine 09/24/2024 8:10 PM ELECTRIC BRAIN WAVE EQUIPMENT MECHANIC POCT GLUCOSE - MARIE DOCKED DEVICE Routine 09/24/2024 3:46 PM ELECTRIC BRAIN WAVE EQUIPMENT MECHANIC POCT GLUCOSE - MARIE DOCKED DEVICE Routine 09/24/2024 11:20 AM ELECTRIC BRAIN WAVE EQUIPMENT MECHANIC VANCOMYCIN Routine 09/24/2024 6:00 AM ELECTRIC BRAIN WAVE EQUIPMENT MECHANIC C-REACTIVE PROTEIN Routine 09/24/2024 6: 00 AM ELECTRIC BRAIN WAVE EQUIPMENT MECHANIC HEMOGLOBIN, GLYCOSYLATED Routine 09/24/2024 6:00 AM ELECTRIC BRAIN WAVE EQUIPMENT MECHANIC MAGNESIUM Routine 09/24/2024 6:00 AM ELECTRIC BRAIN WAVE EQUIPMENT MECHANIC COMPREHENSIVE METABOLIC PANEL Routine 09/24/2024 6:00 AM ELECTRIC BRAIN WAVE EQUIPMENT MECHANIC CBC W/DIFF AUTOMATED Routine 09/24/2024 6:00 AM ELECTRIC BRAIN WAVE EQUIPMENT MECHANIC POCT GLUCOSE - MARIE DOCKED DEVICE Routine 09/24/2024 5:55 AM ELECTRIC BRAIN WAVE EQUIPMENT MECHANIC POCT GLUCOSE - MARIE DOCKED DEVICE Routine 09/23/2024 7:59 PM ELECTRIC BRAIN WAVE EQUIPMENT MECHANIC MRI FOOT LT WO CON Today 09/23/2024 6: 47 PM ELECTRIC BRAIN WAVE EQUIPMENT MECHANIC POCT GLUCOSE - MARIE DOCKED DEVICE Routine 09/23/2024 3:43 PM ELECTRIC BRAIN WAVE EQUIPMENT MECHANIC POCT GLUCOSE - MARIE DOCKED DEVICE Routine 09/23/2024 12:12 PM ELECTRIC BRAIN WAVE EQUIPMENT MECHANIC MRSA SCREENING STAT 09/23/2024 10:24 AM ELECTRIC BRAIN WAVE EQUIPMENT MECHANIC USV ART REST W BLANCO LOW EXT STAT 09/23/2024 10:09 AM ELECTRIC BRAIN WAVE EQUIPMENT MECHANIC CULTURE, BACTERIA, BLOOD STAT 09/23/2024 2:55 AM ELECTRIC BRAIN WAVE EQUIPMENT MECHANIC LACTIC ACID W REFLEX (SEPSIS) STAT 09/23/2024 2:55 AM ELECTRIC BRAIN WAVE EQUIPMENT MECHANIC HC BODY FLUID CULTURE STAT 09/23/2024 2:11 AM ELECTRIC BRAIN WAVE EQUIPMENT MECHANIC C-REACTIVE PROTEIN Routine 09/23/2024 2: 11 AM ELECTRIC BRAIN WAVE EQUIPMENT MECHANIC COMPREHENSIVE METABOLIC PANEL STAT 09/23/2024 2:11 AM ELECTRIC BRAIN WAVE EQUIPMENT MECHANIC CBC W/DIFF AUTOMATED STAT 09/23/2024 2:11 AM ELECTRIC BRAIN WAVE EQUIPMENT MECHANIC XR FOOT LT 3V STAT 09/23/2024 1:54 AM ELECTRIC BRAIN WAVE EQUIPMENT MECHANIC HC EIA QL HEPATITIS ABC B AG Routine 06/01/2024 3:47 AM CDT LIPID PANEL STAT 05/27/2024 8:35 AM CDT from Last 3 Months or Most Recently Relevant to Health Maintenance Results * OUTSIDE LAB (SCAN ORDER) (10/07/2024) Only the most recent of3 resultswithin the time period is included. 10/07/2024 [facility] Scanned SCANNING Final Resu lt * (ABNORMAL) POCT glucose (10/01/2024 11:21 AM ELECTRIC BRAIN WAVE EQUIPMENT MECHANIC) Only the most recent of35 resultswithin the time period is included. GLUCOSE POC 201(H) 70 - 99 mg/dL 10/01/2024 11:57 AM ELECTRIC BRAIN WAVE EQUIPMENT MECHANIC [facility] 10/01/2024 11:2 1 AM ELECTRIC BRAIN WAVE EQUIPMENT MECHANIC Ashtyn Lynch NP POCT ORDERABLES - DEVICE Fi nal Result [facility] [address] [place] [address], [place] [phone] * (ABNORMAL) BASIC METABOLIC PANEL (10/01/2024 5:44 AM ELECTRIC BRAIN WAVE EQUIPMENT MECHANIC) Only the most recent of9 resultswithin the time period is included. GLUCOSE 90 70 - 99 MG/DL 10/01/2024 6:30 AM ELECTRIC BRAIN WAVE EQUIPMENT MECHANIC [facility] BUN 13 7 - 18 MG/DL 10/01/2024 6:30 AM ELECTRIC BRAIN WAVE EQUIPMENT MECHANIC [facility] CREATININE S/P/B 0.75 0.7 - 1.3 MG/DL 10/01/2024 6:30 AM [facility] SODIUM S/P/B 139 136 - 145 MMOL/L 10/01/2024 6:30 AM [facility] POTASSIUM S/P/B 4.0 3.5 - 5.1 MMOL/L 10/01/2024 6:30 AM [facility] CHLORIDE S/P/B 108 97 - 115 MMOL/L 10/01/2024 6:30 AM [facility] CO2 33.0(H) 21 - 32 MMOL/L 10/01/2024 6:30 AM [facility] CALCIUM S/P/B 8.5 8.5 - 10.1 MG/DL 10/01/2024 6:30 AM [facility] ANION GAP NOT CALCULATED 2 - 10 MMOL/L 10/01/2024 6:30 AM [facility] BUN CREATININE RATIO 17.3 6 - 26 10/01/2024 6:30 AM [facility] GFR ESTIMATE >90 >90 ML/MIN/1. 73 M2 10/01/2024 6:30 AM [facility] Comment: NOTE: eGFR is not calculated for patients <18 years of age or gender unknown. This is an estimated GFR calculation using the new CKD EPI creatinine equation without race and so does not require a correction factor for race. This estimated GFR should not be used for calculating drug doses. 10/01/2024 5:44 AM ELECTRIC BRAIN WAVE EQUIPMENT MECHANIC us [facility] Final Result [facility] [address] [place] [address], [place] [phone] * (ABNORMAL) CBC W/DIFF AUTOMATED (10/01/2024 5:44 AM ELECTRIC BRAIN WAVE EQUIPMENT MECHANIC) Only the most recent of10 resultswithin the time period is included. WBC 6.78 4.5 - 11.0 x10'3/uL 10/01/2024 6:18 AM [facility] RBC 3.24(L) 4.70 - 6.10 x10'6/uL 10/01/2024 6:18 AM [facility] HGB 9.8(L) 14.0 - 18.0 G/DL 10/01/2024 6:18 AM [facility] HCT 30.6(L) 43.0 - 54.0 % 10/01/2024 6:18 AM [facility] MCV 94.4(H) 80.0 - 94.0 FL 10/01/2024 6:18 AM [facility] MCH 30.2 27.0 - 31.0 PG 10/01/2024 6:18 AM [facility] MCHC 32.0 32.0 - 36.0 G/DL 10/01/2024 6:18 AM [facility] RDW 12.1 11.5 - 14.5 % 10/01/2024 6:18 AM [facility] PLT 374 130 - 400 x10'3/uL 10/01/2024 6:18 AM [facility] MPV 9.1(L) 9.3 - 12.2 FL 10/01/2024 6:18 AM [facility] DIFFERENTIAL TYPE AUTOMATED DIFFERENTIAL 10/01/2024 6:18 AM [facility] NEUTROPHILS % 75.0 % 10/01/2024 6:18 AM [facility] LYMPHOCYTES % 11.5 % 10/01/2024 6:18 AM [facility] MONOCYTES % 10.9 % 10/01/2024 6:18 AM [facility] EOSINOPHILS 1.6 % 10/01/2024 6:18 AM [facility] BASOPHILS 0.3 % 10/01/2024 6:18 AM [facility] IMMATURE GRANS % 0.7 % 10/01/19 6:18 AM [facility] ABS. NEUTROPHILS 5.08 1.80 - 7.70 x10'3/uL 10/01/2024 6:18 AM [facility] ABS. LYMPHOCYTES 0.78(L) 1.00 - 4.80 x10'3/uL 10/01/2024 6:18 AM [facility] ABS. MONOCYTES 0.74 0.30 - 0.82 x10'3/uL 10/01/2024 6:18 AM [facility] ABS. EOSINOPHILS 0.11 0.04 - 0.54 x10'3/uL 10/01/2024 6:18 AM [facility] ABS. BASOPHILS 0.02 0.01 - 0.08 x10'3/uL 10/01/2024 6:18 AM [facility] ABS. IMMATURE GRANULOCYTES 0.05 0.00 - 0.49 x10'3/uL 10/01/2024 6:18 AM [facility] 10/01/2024 5:44 AM ELECTRIC BRAIN WAVE EQUIPMENT MECHANIC us [facility] Final Result [facility] [address] [place] [address], [place] [phone] * (ABNORMAL) URINALYSIS (09/30/2024 10:13 AM ELECTRIC BRAIN WAVE EQUIPMENT MECHANIC) SPECIMEN TYPE URINE CLEAN CATCH 09/30/2024 10:14 AM [facility] COLOR (U) LIGHT YELLOW 09/30/2024 10:25 AM [facility] TRANSPARENCY CLEAR 09/30/2024 10:25 AM [facility] SPECIFIC GRAVITY (U) 1.011 1.001 - 1.030 09/30/2024 10:25 AM [facility] U PH 6.0 5.0 - 9.0 09/30/2024 10:25 AM [facility] LEUKOCYTES (U) NEGATIVE NEGATIVE 09/30/2024 10:25 AM [facility] NITRITES NEGATIVE NEGATIVE 09/30/2024 10:25 AM [facility] PROTEIN RANDOM (U) NEGATIVE <30 MG/DL 09/30/2024 10:25 AM [facility] GLUCOSE (U) NORMAL NORMAL MG/DL 09/30/2024 10:25 AM [facility] KETONES MG/DL (U) NEGATIVE NEGATIVE MG/DL 09/30/2024 10:25 AM [facility] UROBILINOGEN 2.0(A) NORMAL MG/DL 09/30/2024 10:25 AM [facility] BILIRUBIN (U) NEGATIVE NEGATIVE MG/DL 09/30/2024 10:25 AM [facility] BLOOD (U) NEGATIVE NEGATIVE 09/30/2024 10:25 AM [facility] URINE SPECIMEN OBTAINED BY CLEAN CATCH PROCEDURE / Unknown 09/30/2024 10:13 AM [facility] us Spencer HENDERSON URINE ORDERABLES Final Result [facility] [address] [place] [address], [place] [phone] * Vancomycin Random Level (09/26/2024 4:34 AM [employer]) Only the most recent of2 resultswithin the time period is included. VANCOMYCIN RANDOM 17.4 MCG/ML 09/26/2024 5:29 AM [employer] [facility] Comment:NO THERAPEUTIC RANGE AVAILABLE LAST DOSE UNKNOWN LAST DOSE 09/26/2024 4:38 AM [employer] [facility] 09/26/2024 4:34 AM [employer] Spencer HENDERSON LABORATORY Final Result [facility] [address] [place] [address], [place] [phone] * (ABNORMAL) CULTURE, TISSUE W/GRAM STAIN (09/25/2024 10:12 AM [employer]) SPEC DESCRIPTION FOOT,LEFT 09/25/2024 10:17 AM [employer] [facility] SPECIAL REQUESTS NO SPECIAL REQUEST 09/25/2024 10:17 AM [facility] GRAM STAIN RESULT FEW WHITE BLOOD CELLS SEEN 09/25/2024 4:58 PM [employer] [facility] GRAM STAIN RESULT MANY RED BLOOD CELLS SEEN 09/25/2024 4:58 PM [employer] [facility] GRAM STAIN RESULT MANY GRAM POSITIVE COCCI 09/25/2024 4:58 PM [facility] CULTURE RESULT LIGHT GROWTH OF ESCHERICHIA COLI (A) 09/27/2024 8:33 AM [facility] CULTURE RESULT MODERATE GROWTH OF STREPTOCOCCI, BETA HEMOLYTIC GROUP B SUSCEPTIBILTY NOT ROUTINELY PERFORMED. SAVING ISOLATE FOR 5 DAYS. CONTACT MICROBIOLOGY DEPARTMENT IF FURTHER WORKUP IS INDICATED. (A) 09/27/2024 8:33 AM [facility] TISSUE STRUCTURE OF LEFT FOOT / Unknown 09/25/2024 10:12 AM [employer] Narrative Organism Antibiotic Method Susceptibility Escherichia coli [...] - GENERAL OR DERABLES Final Result [facility] [address] [place] [address], [place] [phone] * (ABNORMAL) CULTURE, ANAEROBIC (09/25/2024 10:12 AM [employer]) SPEC DESCRIPTION FOOT,LEFT 09/25/2024 10:17 AM [facility] SPECIAL REQUESTS NO SPECIAL REQUEST 09/25/2024 10:17 AM [facility] GRAM STAIN RESULT FEW WHITE BLOOD CELLS SEEN 09/25/2024 4:58 PM [employer] [facility] GRAM STAIN RESULT MANY RED BLOOD CELLS SEEN 09/25/2024 4:58 PM [employer] [facility] GRAM STAIN RESULT MANY GRAM POSITIVE COCCI 09/25/2024 4:58 PM [facility] CULTURE RESULT HEAVY GROWTH OF PREVOTELLA BIVIA BETA LACTAMASE POSITIVE SUSCEPTIBILTY NOT ROUTINELY PERFORMED. SAVING ISOLATE FOR 5 DAYS. CONTACT MICROBIOLOGY DEPARTMENT IF FURTHER WORKUP IS INDICATED. (A) 09/27/2024 11:12 AM ELECTRIC BRAIN WAVE EQUIPMENT MECHANIC [facility] TISSUE STRUCTURE OF LEFT FOOT / Unknown 09/25/2024 10:12 AM ELECTRIC BRAIN WAVE EQUIPMENT MECHANIC Dae Marie DPM MICROBIOLOGY - GENERAL OR DERABLES Final Result Performing Organization Address [facility] de Phone Number [facility] [address] [place] [phone], * (ABNORMAL) HEMOGLOBIN, GLYCOSYLATED (09/25/2024 5:43 AM ELECTRIC BRAIN WAVE EQUIPMENT MECHANIC) Only the most recent of2 resultswithin the time period is included. HGB A1C 6.6(H) <5.7 % 09/25/2024 11:14 AM ELECTRIC BRAIN WAVE EQUIPMENT MECHANIC [facility] Comment: ADA GUIDELINES 2010 5.7 TO 6.4% INCREASED RISK OF DIABETES > OR = 6.5% CONSISTENT WITH DIABETES ESTIMATED AVG GLUCOSE 143 mg/dL 09/25/2024 11:14 AM ELECTRIC BRAIN WAVE EQUIPMENT MECHANIC [facility] 09/25/2024 5:43 AM ELECTRIC BRAIN WAVE EQUIPMENT MECHANIC Turner Curry MD LABORATORY Final Resul t Performing Organization Address City/[facility] Co de Phone Number [facility] [address] [place] [phone], * Pathology (09/25/2024 12:00 AM ELECTRIC BRAIN WAVE EQUIPMENT MECHANIC) PATHOLOGY [facility] Department of Laboratory Medicine [address] [place] [address] , extension [phone] Pathology Report Surgical Pathology Report Name: TAJ SMITH Specimen #: [id number] Age: 2 1965 (Age: 58) Location: [facility] Sex: M Procedure Date: 09/25/2024 Hospital #: [id number] Date Received: 09/27/2024 Date Reported: 09/28/2024 Provider: [...] distal end. The surgical margin is shaved. Boring Machine Set Up Operator Jig tissue is submitted as follows: 1 section through distal end of bone 2 surgical margin. Cassettes 1 and 2 are submitted following decalcification in immuno decal. Gross examination (when applicable), interpretation, and sign out were performed at [facility], [address] [place] [address]. Electronically Signed Out LONNIE FARIAS MD [facility] TISSUE STRUCTURE OF LEFT FOOT / Unknown 09/25/2024 10:13 AM ELECTRIC BRAIN WAVE EQUIPMENT MECHANIC us Dae Marie DPM PATHOLOGY/CYTOLOGY ORDERA BLES Final Result [facility] [address] [place] [address], [id number] * (ABNORMAL) COMPREHENSIVE METABOLIC PANEL (09/24/2024 6:00 AM ELECTRIC BRAIN WAVE EQUIPMENT MECHANIC) Only the most recent of2 resultswithin the time period is included. GLUCOSE 203(H) 70 - 99 MG/DL 09/24/2024 6:47 AM ELECTRIC BRAIN WAVE EQUIPMENT MECHANIC [facility] BUN 16 7 - 18 MG/DL 09/24/2024 6:47 AM ELECTRIC BRAIN WAVE EQUIPMENT MECHANIC [facility] CREATININE S/P/B 1.02 0.7 - 1.3 MG/DL 09/24/2024 6:47 AM ELECTRIC BRAIN WAVE EQUIPMENT MECHANIC [facility] SODIUM S/P/B 136 136 - 145 MMOL/L 09/24/2024 6:47 AM [facility] POTASSIUM S/P/B 4.2 3.5 - 5.1 MMOL/L 09/24/2024 6:47 AM [facility] CHLORIDE S/P/B 105 97 - 115 MMOL/L 09/24/2024 6:47 AM [facility] CO2 29.9 21 - 32 MMOL/L 09/24/2024 6:47 AM [facility] CALCIUM S/P/B 8.0(L) 8.5 - 10.1 MG/DL 09/24/2024 6:47 AM [facility] BILIRUBIN TOTAL S/P/B 0.9 0.2 - 1.2 MG/DL 09/24/2024 6:47 AM [facility] Comment: THIS ASSAY IS NOT RECOMMENDED FOR PATIENTS UNDERGOING TREATMENT WITH ELTROMBOPAG DUE TO THE POTENTIAL FOR FALSELY ELEVATED RESULTS. TOTAL PROTEIN S/P/B 5.6(L) 6.4 - 8.2 G/DL 09/24/2024 6:47 AM [facility] ALBUMIN S/P/B 1.8(L) 3.4 - 5.0 G/DL 09/24/2024 6:47 AM [facility] AST 114(H) 15 - 37 U/L 09/24/2024 6:47 AM [facility] ALT 61(H) 16 - 60 U/L 09/24/2024 6:47 AM [facility] ALKALINE PHOSPHATASE S/P/B 256(H) 50 - 136 U/L 09/24/2024 6:47 AM [facility] ANION GAP 1.1(L) 2 - 10 MMOL/L 09/24/2024 6:47 AM [facility] BUN CREATININE RATIO 15.7 6 - 26 09/24/2024 6:47 AM ELECTRIC BRAIN WAVE EQUIPMENT MECHANIC [facility] A/G RATIO 0.5(L) 1.0 - 2.0 RATIO 09/24/2024 6:47 AM ELECTRIC BRAIN WAVE EQUIPMENT MECHANIC [facility] GFR ESTIMATE 86(L) >90 ML/MIN/1.7 3 M2 09/24/2024 6:47 AM ELECTRIC BRAIN WAVE EQUIPMENT MECHANIC [facility] Comment: NOTE: eGFR is not calculated for patients <18 years of age or gender unknown. This is an estimated GFR calculation using the new CKD EPI creatinine equation without race and so does not require a correction factor for race. This estimated GFR should not be used for calculating drug doses. 09/24/2024 6:00 AM ELECTRIC BRAIN WAVE EQUIPMENT MECHANIC Spencer HENDERSON LABORATORY Final Result [facility] [address] [place] [address], * (ABNORMAL) C-REACTIVE PROTEIN (09/24/2024 6:00 AM ELECTRIC BRAIN WAVE EQUIPMENT MECHANIC) Only the most recent of2 resultswithin the time period is included. C-REACTIVE PROTEIN 10.10(H) <0.29 mg/dL 09/24/2024 6:47 AM ELECTRIC BRAIN WAVE EQUIPMENT MECHANIC [facility] 09/24/2024 6:00 AM ELECTRIC BRAIN WAVE EQUIPMENT MECHANIC Spencer HENDERSON LABORATORY Final Result [facility] [address] [place] [address], * (ABNORMAL) MAGNESIUM (09/24/2024 6:00 AM ELECTRIC BRAIN WAVE EQUIPMENT MECHANIC) MAGNESIUM 2.5(H) 1.8 - 2.4 MG/DL 09/24/2024 6:47 AM ELECTRIC BRAIN WAVE EQUIPMENT MECHANIC [facility] 09/24/2024 6:00 AM ELECTRIC BRAIN WAVE EQUIPMENT MECHANIC Spencer HENDERSON LABORATORY Final Result [facility] [address] [place] [address], * MRI FOOT LT WO CON (09/23/2024 6:47 PM ELECTRIC BRAIN WAVE EQUIPMENT MECHANIC) Anatomical Region Laterality Modality Foot Magnetic Resonan ce 09/24/2024 8:19 AM ELECTRIC BRAIN WAVE EQUIPMENT MECHANIC Impressions 09/24/2024 8:54 AM ELECTRIC BRAIN WAVE EQUIPMENT MECHANIC =====IMPRESSION:===== 1. Osteomyelitis greatest in the fifth [...] 09/24/2024 8:19 AM Narrative 09/24/2024 8:54 AM ELECTRIC BRAIN WAVE EQUIPMENT MECHANIC [facility] [address] [place], [place] [address] EXAMINATION: MRI left foot without contrast EXAM [...] Procedure Note Dae Phillip MD - 09/24/[address] [address] EXAMINATION: MRI left foot without contrast EXAM [...] By: Dae Phillip MD, 09/24/2024 8:19 AM Spencer HENDERSON MRI Final Result * MRSA SCREENING (09/23/2024 10:24 AM ELECTRIC BRAIN WAVE EQUIPMENT MECHANIC) SPEC DESCRIPTION NASAL 09/23/2024 10:36 AM ELECTRIC BRAIN WAVE EQUIPMENT MECHANIC [facility] SPECIAL REQUESTS NO SPECIAL REQUEST 09/23/2024 10:36 AM ELECTRIC BRAIN WAVE EQUIPMENT MECHANIC [facility] CULTURE RESULT NO METHICILLIN RESISTANT STAPHYLOCOCCUS AUREUS ISOLATED 09/24/2024 6:41 AM ELECTRIC BRAIN WAVE EQUIPMENT MECHANIC [facility] SPECIMEN FROM INTERNAL NOSE / Unknown 09/23/2024 10:24 AM ELECTRIC BRAIN WAVE EQUIPMENT MECHANIC 09/23/2024 10:36 AM ELECTRIC BRAIN WAVE EQUIPMENT MECHANIC Spencer HENDERSON MICROBIOLOGY - GENERAL ORDERAB LES Final Result [facility] [address] [place] [address], * USV ART REST W BLANCO LOW EXT (09/23/2024 10:09 AM ELECTRIC BRAIN WAVE EQUIPMENT MECHANIC) Anatomical Region Laterality Modality Extremity Vascular Ultraso und 09/23/2024 9:38 AM ELECTRIC BRAIN WAVE EQUIPMENT MECHANIC Narrative 09/23/2024 11:10 AM ELECTRIC BRAIN WAVE EQUIPMENT MECHANIC ARTERIAL DOPPLER - BLANCO BILATERAL LOWER EXTREMITY VASCULAR LAB Pat.Name: TAJ SMITH Pat.ID: [id number] .Date: 09/23/2024 Refer.MD: Ngozi Collier Exam Time: 9:38:00 AM Study Type:JORDAN VS Arterial Doppler Legs OFRD Height: 72 in Age: 2 1965,58Y Sex: [...] M.D. Procedure Note Elle White MD - 09/23/2024 ARTERIAL DOPPLER - BLANCO BILATERAL LOWER EXTREMITY VASCULAR LAB Pat.Name: TAJ SMITH Pat.ID: [id number] .Date: 09/23/2024 Refer.MD: Ngozi Collier Exam Time: [...] ACID W REFLEX (SEPSIS) (09/23/2024 2:55 AM ELECTRIC BRAIN WAVE EQUIPMENT MECHANIC) LACTIC ACID VENOUS 1.2 0.4 - 2.0 MMOL/L 09/23/2024 3:40 AM ELECTRIC BRAIN WAVE EQUIPMENT MECHANIC [facility] 09/23/2024 2:55 AM ELECTRIC BRAIN WAVE EQUIPMENT MECHANIC Lucius Johnson DO LABORATORY Final Result [facility] [address] [place] [address], [place] [phone] * CULTURE BACTERIA, BLOOD (09/23/2024 2:55 AM ELECTRIC BRAIN WAVE EQUIPMENT MECHANIC) SPEC DESCRIPTION BLOOD 09/23/2024 2:33 AM ELECTRIC BRAIN WAVE EQUIPMENT MECHANIC [facility] SPECIAL REQUESTS NO SPECIAL REQUEST 09/23/2024 2:33 AM ELECTRIC BRAIN WAVE EQUIPMENT MECHANIC [facility] CULTURE RESULT NO GROWTH 5 DAYS 09/28/2024 7:14 AM ELECTRIC BRAIN WAVE EQUIPMENT MECHANIC [facility] BLOOD SPECIMEN OBTAINED FOR BLOOD CULTURE / Unknown 09/23/2024 2:55 AM ELECTRIC BRAIN WAVE EQUIPMENT MECHANIC 09/23/2024 3:10 AM ELECTRIC BRAIN WAVE EQUIPMENT MECHANIC Lucius Johnson DO MICROBIOLOGY - GENERAL ORDERAB LES Final Result [facility] [address] [place] [address], [place] [phone] * (ABNORMAL) CULTURE, WOUND, W/GRAM STAIN (09/23/2024 2:11 AM ELECTRIC BRAIN WAVE EQUIPMENT MECHANIC) SPEC DESCRIPTION FOOT,LEFT 09/23/2024 2:13 AM ELECTRIC BRAIN WAVE EQUIPMENT MECHANIC [facility] SPECIAL REQUESTS NO SPECIAL REQUEST 09/23/2024 2:13 AM ELECTRIC BRAIN WAVE EQUIPMENT MECHANIC [facility] GRAM STAIN RESULT NO WHITE BLOOD CELLS SEEN 09/23/2024 1:18 PM ELECTRIC BRAIN WAVE EQUIPMENT MECHANIC [facility] GRAM STAIN RESULT NO ORGANISMS SEEN 09/23/2024 1:18 PM [facility] CULTURE RESULT SPARSE GROWTH OF ESCHERICHIA COLI (A) 09/27/2024 7:29 AM ELECTRIC BRAIN WAVE EQUIPMENT MECHANIC [facility] CULTURE RESULT SPARSE GROWTH OF STREPTOCOCCI, BETA HEMOLYTIC GROUP B SUSCEPTIBILTY NOT ROUTINELY PERFORMED. SAVING ISOLATE FOR 5 DAYS. CONTACT MICROBIOLOGY DEPARTMENT IF FURTHER WORKUP IS INDICATED. (A) 09/27/2024 7:29 AM ELECTRIC BRAIN WAVE EQUIPMENT MECHANIC [facility] CULTURE RESULT SPARSE GROWTH OF STAPHYLOCOCCUS AUREUS (A) 09/27/2024 7:29 AM ELECTRIC BRAIN WAVE EQUIPMENT MECHANIC [facility] CULTURE RESULT SPARSE GROWTH OF STREPTOCOCCUS VIRIDANS SPECIES ORGANISM IS CONSISTENT WITH NORMAL SKIN BETTYE. SUSCEPTIBILITIES NOT ROUTINELY PERFORMED. (A) 09/27/2024 7:29 AM [facility] STRUCTURE OF LEFT FOOT / Unknown 09/23/2024 2:11 AM ELECTRIC BRAIN WAVE EQUIPMENT MECHANIC 09/23/2024 2:19 AM ELECTRIC BRAIN WAVE EQUIPMENT MECHANIC Narrative Organism Antibiotic Method Susceptibility Escherichia coli [...] MICROBIOLOGY - GENERAL ORDDenilson MCQUEEN Final Result [facility] [address] [place] [address], * XR FOOT LT 3V (09/23/2024 1:54 AM ELECTRIC BRAIN WAVE EQUIPMENT MECHANIC) Anatomical Region Laterality Modality Foot Radiographic Isis ging 09/23/2024 1:56 AM ELECTRIC BRAIN WAVE EQUIPMENT MECHANIC Impressions 09/23/2024 1:59 AM ELECTRIC BRAIN WAVE EQUIPMENT MECHANIC IMPRESSION: ===== 1. Comminuted fracture of third toe middle phalanx. 2. Subtle erosion of distal second metatarsal head medially. Osteomyelitis not excluded. 3. 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 4. 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 Prior trauma or infection not excluded. Referred By: Interpreted By: Nishant Urban MD, 09/23/2024 1:56 AM Narrative 09/23/2024 1:59 AM ELECTRIC BRAIN WAVE EQUIPMENT MECHANIC [address] [address] Examination: Left foot 3 views Exam Date/Time: [...] Procedure Note Nishant Urban MD - 09/23/[address] [address] Examination: Left foot 3 views Exam Date/Time: [...] NON-REACTI VE 06/01/2024 7:[address] [facility] HEP B CORE TOTAL AB NON-REACTI VE NON-REACTI VE 06/01/2024 7:[address] [facility] HAV IGM NON-REACTI VE NON-REACTI VE 06/01/2024 7:[address] [facility] HEPATITIS C AB NON-REACTI VE NON-REACTI VE 06/01/2024 7:[address] [facility] 06/01/2024 3:47 AM CDT us William Del Rosario MD LABORATORY Final Result [facility] [address] [place] [address], [place] [phone] * LIPID PANEL (05/27/2024 8:35 AM CDT) CHOLESTEROL 145 <200 MG/DL 05/27/2024 9:[address] [facility] TRIGLYCERIDES 56 <150 MG/DL 05/27/2024 9:[address] [facility] HDL 72 >40.0 MG/DL 05/27/2024 9:[address] [facility] LDL (CALCULATED) 62 <100 MG/DL 05/27/20 9:[address] [facility] NON HDL CHOLESTEROL 73 <130 MG/DL 05/27 9:[address] [facility] CHOL/HDL RATIO 2.0 0.0 - 4.5 05/27/2024 9:[address] [facility] VLDL CALCULATION 11 5 - 55 MG/DL 05/27/2024 9:[address] [facility] LIPID INTERPRETATION 05/27/2024 9:[address] [facility] Comment: NIH CONCENSUS REPORT RECOMMENDATIONS: ADULT CHILD LOW RISK: CHOLESTEROL <200 <170 TRIGLYCERIDE <150 --- HDL >=60 --- LDL <100 <110 BORDERLINE: CHOLESTEROL 200-239 170-199 TRIGLYCERIDE 150-199 --- HDL 40-59 --- LDL 100-159 110-129 HIGH RISK: CHOLESTEROL >=240 >=200 TRIGLYCERIDE >=200 --- HDL <40 --- LDL >=160 >=130 05/27/2024 8:35 AM CDT us Damon Mendez MD LABORATORY Final Resul t [facility] [address] [place] [address], [place] [phone] from Last 3 Months or Most Recently Relevant to Health Maintenance Insurance Advance Directives * Full Code (Latest Code [...] 10:40 PM 03/21/2020 12:49 PM Care Teams Lab Head Relationship Specialty Start Date End Date Ngozi Collier NP [address] [place] [address] PCP - General 02/13/18
--- OUTSIDE RECORDS SUMMARY | 2024-10-11 14:38 | XMS_ITS | Encounter Summary ---
Author Organization [facility] Address [facility] [place] [address] Care Team Providers Care Vehicle Cost Engineer Name Role Phone Ngozi Collier NP Primary Care Provider [phone] Reason for Visit * Reason Onset Date Comments Medication 10/11/2024 Lab Results 10/11/2024 Encounter Details Date Type Department Care Team (Late st Contact Info) Description 10/11/2024 Telephone [facility] Medical Group Multispecialty Care - [facility] 3 [facility], [address] [address] Negin Adkins NP [address] [place] [address]. [address] [address] Medication; Lab Results Social History Tobacco Use Types Packs/Day Years [...] doctor or pharmacy? Never 09/23/[address] [facility] Utilities Answer Date Recorded In [...] often do you attend chur ch or advent services? Never 09/23/2024 Do you belong to any clubs o r organizations such as methodist groups, unions, fraternal or athletic groups, or [...] Recorded Patient Health Questionnaire-2 Score 0 09/23/2024 [facility] - Occupational Stress [...] any time in the past 12 m [facility], were you homeless or living in a senior living (including now)? No 09/23/2024 Sex and Gender Information Value Date Recorded Sex Assigned at Male 09/23/2024 1:10 AM VEHICLE DYNAMICS ENGINEER Legal Sex Male 8:29 PM CDT [...] Assessment Author Status No 10/01/2024 1:31 PM VEHICLE DYNAMICS ENGINEER Mamta Lyn RN Active * Because of a physical, mental, or emotional condition, do you have difficulty doing errands alone such as visiting a doctor's office or shopping? Answer Date of Assessment Author Status No 10/01/2024 1:31 PM VEHICLE DYNAMICS ENGINEER Mamta Lyn RN Active documented as of this encounter Mental Status * Because of a physical, mental, or emotional condition, do you have serious difficulty concentrating, remembering, or making decisions? Answer Entry Date Author Status No 10/01/2024 1:31 PM VEHICLE DYNAMICS ENGINEER Mamta Lyn RN Active documented in this encounter Progress Notes * Negin Adkins NP - 10/11/2024 7:48 AM CST Demetrius Bustillo D [facility] care called to discuss vancomycin trough of <5, she spoke with pt who notes he has been compliant to the medication and wanted vancomycin changed to 1.5 g every 12 hrs. This was agreed upone CLE DYNAMICS ENGINEER * Negin Adkins NP - 10/11/2024 7:46 AM CST ----- Message from Brigida Ndiaye sent at 10/08/2024 3:33 PM VEHICLE DYNAMICS ENGINEER ----- Lab just came in. BUN 11 Creatine 0.81 Potassium 4.3 VANC T <5.0 ----- Message ----- From: Negin Adkins NP Sent: 10/07/2024 3:42 PM VEHICLE DYNAMICS ENGINEER To: Brigida Armstrong LPN CLE DYNAMICS ENGINEER documented in this encounter Plan of Treatment Upcoming Encounters Date Type Department Care Team (Late st Contact Info) Description 10/18/2024 11:20 AM VEHICLE DYNAMICS ENGINEER Office Visit [facility] Medical Group Multispecialty Care - [facility] 3 [facility], [address] [phone] Negin Adkins NP 3 [facility] [address] [place] [address] documented as of this encounter Goals Goal Patient Goal Type Associated Problems Recent Progress Patient-Stated? Author Health - patient able to perform ADLs independently Lifestyle No 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 RN documented as of this encounter Visit Diagnoses Diagnosis Other acute osteomyelitis of left foot ([facility])- Primary documented in this encounter Care Teams Vehicle Cost Engineer Relationship Specialty Start Date End Date Ngozi Collier NP [address] [place] [address] PCP - General 02/13/18 documented as of this encounter
== END 2024-10-11 11:52 | disposition home or self-care (01) ==
LOC: CHSLAB 11:57
DX: M86.172 Other acute osteomyelitis, left ankle and foot (principal)
CPT/HCPCS: 36415; 80053; 80202; 85027

== ENCOUNTER 2024-10-18 12:35 | Outpatient (NON) | payer OTHER, SELFPAY ==
[2024-10-18 13:34] LABS: Hematocrit 34.8 % (40.0-49.0); Hemoglobin 10.9 g/dL; Mean Corpuscular HGB Conc 31.3 g/dL (32-36); Mean Corpuscular Hemoglobin 30.4 pg (27.0-31.0); Mean Corpuscular Volume 96.9 fL (78.0-102.0); Mean Platelet Volume 9.8 fl (8.7-11.0); Platelet Count Result 283 K/mm3 (150-420); Red Blood Count 3.59 M/mm3 (4.70-6.10); Red Cell Distribution Width 13.2 % (11.6-14.4); White Blood Count 6.1 K/mm3 (4.8-10.8)
[2024-10-18 13:59] LABS: Alanine Aminotransferase 20 U/L (16-59); Albumin Level 2.1 g/dL (3.4-5.0); Alkaline Phosphatase 162 U/L; Anion Gap 6 mmol/L (4-12); Aspartate Amino Transferase 16 U/L (15-37); Bilirubin,Total 0.3 mg/dL (0.00-1.00); Blood Urea Nitrogen 14 mg/dL (7-18); Calcium 7.7 mg/dL (8.5-10.1); Carbon Dioxide 29 mmol/L (21-32); Chloride 107 mmol/L (98-108); Estimated Glomerular Filt Rate > 60; Glucose 231 mg/dL (70-99); Osmolality Calculated 301 mOsm/kg (285-295); Potassium 4.6 mmol/L (3.5-5.1); Sodium 142 mmol/L (136-145); Total Protein 5.2 g/dL (6.4-8.2); Vancomycin Trough 10.1 ug/mL (10.0-15.0)
--- OUTSIDE RECORDS SUMMARY | 2024-10-18 14:15 | XMS_ITS | Continuity of Care Document ---
Author Organization [facility] Address [address] [place] [address] Phone Care Team Providers Care Run Lead Name Role Phone Administrative, Provider Unavailable Unavail [...] Date Provider Providers Copied on Encounter [facility], [address] [place] [address], [id number], tel:[phone] [facility] No Information 8 Administrati ve Provider. [address] [place] [address], [id number], . tel:[phone] [facility], [address] [place] [address], [id number], tel:[phone] [facility] No Information 8 Administrati ve Provider. [address] [place] [address], [id number], [place]. tel:[phone] [facility], [address] [place] [address], [id number], [place] tel:[phone] [facility] No Information 6 Administrati ve Provider. [address] [place] [address], [id number], [place]. tel:[phone] Office/outpa tient visit,est, mod [facility], [address] [place] [address], [id number], tel:[phone] [facility] lumbar (chief complaint) Other intervertebral disc degeneration, lumbar region 6 Abeln Hallie. [address] [facility] [place] [address], [place], [place], [id number], [place]. tel:[phone] No Show Legal Established Patient [facility], [address] [address], [place], [place], [id number], [place] tel:[phone] [facility] No Information 6 Lissett Thompson. [address] [address], [place], [place], [id number], [place]. tel:[phone] Office/outpa tient visit,est, mod [facility], [address] [address], [place], [place], [id number], [place] tel:[phone] [facility] lumbar spine (chief complaint) Other intervertebral disc degeneration, lumbar region 6 Abeln Hallie. [address], [id number], [place]. tel:[phone] Independent Medical Examination ARGELIA [facility], [address] [address], [place], [place], [id number], [place] tel:[phone] [facility] Pain in right knee 6 Nogalski Franky. [address], [id number], [place]. tel:[phone] Office/outpa tient visit,est, mod [facility], [address], [id number], [place] tel:[phone] [facility] Other intervertebral disc displacement, lumbar region 6 Lissett Thompson. [address], [id number], [place]. tel:[phone] [facility], [address], [id number], [place] tel:[phone] [facility] No Information 6 Lissett Thompson. [address] [place], [id number], [place]. tel:[phone] Office/outpa tient visit,est, [facility], [address] [address], [place], [place], [id number], [place] tel:[phone] [facility] Other intervertebral disc degeneration, lumbar regionOther intervertebral disc displacement, lumbar region 5 6 Abeln Hallie. [address] [address], [place], [place], [id number], [place]. tel:[phone] [facility], [address] [address], [place], [place], [id number], [place] tel:[phone] [facility] No Information 6 Administrati ve Provider. [address], [id number], [place]. tel:[phone] Office/outpa tient visit,est, [facility], [address] [address], [place], [place], [id number], [place] tel:[phone] [facility] Other intervertebral disc degeneration, lumbar region 6 Lissett Jay. [address] [address], [place], [place], [id number], [place]. tel:[phone] Office/outpa tient visit,est, [facility], [address] [address], [place], [place], [id number], [place] tel:[phone] [email or web address] Other intervertebral disc displacement, lumbar region 5 Abeln Hallie. [address] [address], [place], [place], [id number], [place]. tel:[phone] Office/outpa tient visit,est, [facility], [address], [id number], [place] tel:[phone] [email or web address] Other intervertebral disc displacement, lumbar region 8 5 Abeln Hallei. [address], [address], [id number], [place]. tel:[phone] No Show Legal Established Patient [facility], [facility] [address], [id number], tel:[phone] [facility] No Information 1 5 Ankit Sterling. [address] [place] [address], [address], [id number], [place]. tel:[phone] Office/outpa tient visit,new, [facility], [address], [id number], tel:[phone] [facility] Other intervertebral disc degeneration, lumbar region 0- 5 Lissett Jay. [address] [place] [address], [address], [id number], . tel:[phone] No Show Legal Established Patient [facility], [address], [id number], tel:[phone] [facility] No Information 5 Lissett Thompson. [address] [place] [address], [id number], [place]. tel:[phone] Family History Family Member Type Diagnosis Age [...]
--- OUTSIDE RECORDS SUMMARY | 2024-10-18 14:15 | XMS_ITS | Clinical Summary ---
Author Organization Unknown Care Team Providers Care Commercial Makeup Artist Name Role Phone OMER ACUNA, SHARMILA Unavailable Unavailable KM BLACK, PETE Unavailable Unavailable Payers Payer Name Policy Type Policy Number Effective Date Expira tion Date [facility] OPTUM PROGRAM - PDGM Problems Condition Name [...] OTHER LEFT TOE(S) Active 08-25 00:00: 00 CUSTODIAL (CURRENT) USE OF INSULIN Active 08-25 00:00: 00 DEPRESSION, UNSPECIFIED Active 08-25 00:00: 00 ESSENTIAL (PRIMARY) HYPERTENSION Active 08-25 00:00: 00 OBESITY, UNSPECIFIED Active 08-25 00:00: 00 HYPERKALEMIA Active 08-25 00:00: 00 BODY MASS INDEX [BMI] 35.0-35.9, ADULT Active 08-25 00:00: 00 ENCOUNTER FOR ADJUSTMENT AND MANAGEMENT OF VAD Active 08-25 00:00: 00 MANAGER QUALITY COMPLIANCE (CURRENT) USE OF ANTIBIOTICS Active 08-25 00:00: [...] to adverse reactions Active 10-05 09:38: 57 Medications Ordered Medication Name Filled Medication Name Start Date Stop Date Current Medication? Ordering Clinician Indication Dosage Frequency Signature (SIG) Comments Components capsaicin 0.025 % topical cream 10-04 00:00: 00 Yes [id number] 1 inch 4 TIMES DAILY 1 inch 4 TIMES DAILY (route: topical) Med Classific ation: Dermatolo gical ceftriaxone 2 gram intravenous solution 10-01 00:00: 00 Yes [id number] 2 g DAILY 2 g DAILY (route: intravenou s) Med Classific ation: Anti-Infe ctive Agents cholecalcif neftali (vitamin D3) 50 mcg (2,000 unit) capsule 2- 00:00: 00 Yes [id number] 1 capsule DAILY 1 capsule DAILY (route: oral) Med Classific ation: Electroly te Balance-N utritiona l Products cyanocobala min (vit B-12) 100 mcg tablet - 00:00: 00 Yes [id number] 1 tablet DAILY 1 tablet DAILY (route: oral) Med Classific ation: Electroly te Balance-N utritiona l Products insulin degludec (U-100) 100 unit/mL subcutaneou s solution - 00:00: 00 Yes [id number] 80 unit DAILY 80 unit DAILY (route: subcutaneo us) Med Classific ation: Endocrine lidocaine 5 % topical patch - 00:00: 00 Yes [id number] 1 adhesiv e patch, medicat ed DAILY 1 adhesive patch, medicated DAILY (route: topical) Med Classific ation: Dermatolo gical losartan 50 mg tablet 10-04 00:00: 00 Yes [id number] 1 tablet DAILY 1 tablet DAILY (route: oral) Med Classific ation: Cardiovas cular Therapy Agents metronidazo le 500 mg tablet 10-01 00:00: 00 10-14 23:59 :00 No [id number] 500 mg 2 TIMES DAILY 500 mg 2 TIMES DAILY (route: oral) Med Classific ation: Anti-Infe ctive Agents Multivitami n 50 Plus tablet - 00:00: 00 Yes [id number] 1 tablet DAILY 1 tablet DAILY (route: oral) Med Classific ation: Electroly te Balance-N utritiona l Products Narcan 4 mg/actuatio n nasal spray 2- 00:00: 00 Yes [id number] 1 spray NEEDED 1 spray A S NEEDED (route: nasal) Med Classific ation: Antidotes and other Reversal Agents oxycodone-a cetaminophe n 10 mg-325 mg tablet 10-04 00:00: 00 10-11 23:59 :00 No [id number] 1 tablet EVERY 6 HOURS 1 tablet EVERY 6 HOURS (route: oral) Med Classific ation: Analgesic , Anti-infl ammatory or Antipyret ic vancomycin 1.25 gram intravenous solution 10-01 00:00: 00 Yes [id number] 1.25 g 2 TIMES DAILY 1.25 g 2 TIMES DAILY (route: intravenou s) Med Classific ation: Anti-Infe ctive Agents Xarelto 20 mg tablet 10-04 00:00: 00 Yes [id number] 1 tablet EVERY PM 1 tablet EVERY PM (route: oral) Med Classific ation: Hematolog ical Agents Normal Saline Flush 0.9 % injection syringe 10-04 00:00: 00 Yes [id number] 10 mL DIRECTED 10 mL DIRECTED (route: injection) Med Classific ation: Electroly te Balance-N utritiona l Products heparin lock flush (porcine) 10 unit/mL intravenous solution 10-04 00:00: 00 Yes [id number] 5 mL DIRECTED 5 mL DIRECTED (route: intravenou s) Med Classific ation: Hematolog ical Agents Betadine 10 % topical solution 10-12 00:00: 00 Yes [id number] Per instruc tions DIRECTED Per instructio ns DIRECTED (route: topical) Med Classific ation: Dermatolo gical Immunizations Ordered Immunization Name Filled Immunization Name Date Status Comments Refusal Reason PNEUMOCOCCAL (PPV), PPV 2024-10-11 00:00:00 REFUSED PNEUMONIA, PPV 2024-10-04 00:00:00 INFLUENZA, TIV (INACTIVATED) 2024-05-19 00:00:00 INFLUENZA, TIV (INACTIVATED) 2024-05-12 00:00:00 Vital Signs Vital Name Observation Time Observation Value Commen ts Temperature 2024 09:37:00.000 97.1 [degF] Temperature 2024-10-11 10:34:00.000 98 [degF] Temperature 2024-10-07 09:47:00.000 98.2 [degF] Temperature 2024-10-04 14:38:00.000 98 [degF] BMI (%) 2024-10-04 09:41:54.000 35 kg/m2 Height 2024-10-04 09:41:38.000 72 [in_us] Pulse 2024 09:37:00.000 82 /min Pulse 2024-10-11 10:34:00.000 80 /min Pulse 2024-10-07 09:47:00.000 90 /min Pulse 2024-10-04 14:38:00.000 68 /min O2 Saturation (%) 2024 09:37:00.000 95 % O2 Saturation (%) 2024-10-11 10:34:00.000 99 % O2 Saturation (%) 2024-10-07 09:47:00.000 96 % O2 Saturation (%) 2024-10-04 14:38:00.000 97 % Respirations 2024 09:37:00.000 18 /min Respirations 2024-10-11 10:34:00.000 16 /min Respirations 2024-10-07 09:47:00.000 16 /min Respirations 2024-10-04 14:38:00.000 16 /min Weight (lbs) 2024-10-04 09:41:54.000 260 [lb_av] Systolic Blood Pressure 2024 09:37:00.000 128 mm [Hg] Systolic Blood Pressure 2024-10-11 10:34:00.000 142 mm [Hg] Systolic Blood Pressure 2024-10-07 09:47:00.000 140 mm [Hg] Systolic Blood Pressure 2024-10-04 14:38:00.000 160 mm [Hg] Diastolic Blood Pressure 2024 09:37:00.000 80 mm [Hg] Diastolic Blood Pressure 2024-10-11 10:34:00.000 64 mm [Hg] Diastolic Blood Pressure 2024-10-07 09:47:00.000 [...] FOR HOME HEALTH.] Future Scheduled Test HOME [facility] AGENCY MAY ACCEPT ORDERS FROM THE FOLLOWING PHYSICIANS: PODIATRY: DR. ABEL [employer] OPERATIONS MANAGER/TREATING PROVIDERS [code = HOME HEALTH AGENCY MAY ACCEPT ORDERS FROM THE FOLLOWING PHYSICIANS: PODIATRY: DR. ABEL [employer] OPERATIONS MANAGER/TREATING PROVIDERS] Future Scheduled Test SKILLED NU RSE [...] AND REPORT TO PHYSICIAN NUPUR TELLO AT [phone] AND [phone]. [code = SKILLED NURSE TO OBTAIN BLOOD SPECIMEN VIA PICC OR VENIPUNCTURE USING ASEPTIC TECHNIQUE: WEEKLY ON MONDAYS: CBC, CMP BIWEEKLY (FRIDAY AND FRIDAY OR FRIDAY): BMP AND VANCO TROUGH. OBTAIN LAB RESULTS AND REPORT TO PHYSICIAN NUPUR TELLO AT [phone] AND [phone].] Future Scheduled Test SKILLED NU RSE FOR [...] MAINTAIN SITUATIONAL AWARENESS AND WILL NOTIFY CLINICAL JUNIOR LOAN PROCESSOR AND PHYSICIAN/PROVIDER WITH ANY CHANGE IN CONDITION. [code = SKILLED NURSE TO PERFORM ENVIRONMENTAL SAFETY RISK ASSESSMENT AND FALL RISK ASSESSMENT AND PROVIDE INSTRUCTION TO IMPLEMENT ENVIRONMENTAL SAFETY AND FALL PREVENTION STRATEGIES THROUGHOUT THE CERTIFICATION PERIOD. SKILLED NURSE WILL MAINTAIN SITUATIONAL AWARENESS AND WILL NOTIFY CLINICAL JUNIOR LOAN PROCESSOR AND PHYSICIAN/PROVIDER WITH ANY CHANGE IN CONDITION.] [...] Notes <paragraph>[Visit Date: 2024 by PETE BARBOUR RN]:</paragraph><paragraph>RN VISIT TO PATIENT'S HOME FOR SN VISIT. PATIENT INITALLY OBSERVED SITTING ON LIVING ROOM COUCH. BOX CONTAINING ICED IV SOLUTIONS STILL IN BOX DELIVERED 10/13 IN THE EVENING. NURSE ASSISTED PATIENT IN REMOVAL OF ELASTOMERIC BALL VANCOMYCIN BALL AND CEFTRIAXONE IV PUSH SYRINGE FOR MORNING INFUSION. NURSE RE-EDUCATED PATIENT THAT IV SOLUTIONS WHEN DELIVERED WOULD NEED TO GO DIRECTLY INTO THE REFRIGERATOR AND TAKEN OUT 1 HR PRIOR TO ADMINISTRATION. HE WAITED INTIL BALL WAS AT ROOM TEMPERATURE. NURSE OBTAINED VANC TROUGH IN RED TUBING FROM [facility] AND GOLD TOP FROM CAR STOCK. USING ASECPTIC TECHNIQUE WITH GLOVES, NURSE FLUSHED RED LUMEN, WASTED 6ML OF BLOOD, WITHDREW 8 ML OF BLOOD AND USING 10ML SYRINGE AND . NURSE WASHED HANDS WITH SOAP AND WATER. USING STERILE TECHNIQUE, NURSE AND PATIENT DONNED FACE MASK. DONNED 1ST PAIR OF STERILE GLOVES, REMOVED OLD DRESSING, STABALIZED IV CATHETER, REMOVED STAT LOC. CLEANSED HANDS DONNED 2ND PAIR OF STERILE GLOVES NURSE REMOVED OLD DRESSING. CLEANSED UP AND DOWN WITH CLOROHEXIDINE AND BETADINE SWABS. APPLIED STAT LOC APPLIED SKIN PROTECTIVE BOARDER TRANSPARENT DRESSING. DISPOSED OF WASTE. PATIENT INFORMED NURSE THAT FRIDAY HE HAD A NEW ORDER FOR WOUND CARE FROM MENTAL HEALTH AIDES TEACHER. PATIENT THOUGHT THAT WOUND CARE SHOULD BE 3 X WEEKLY, NURSE LOOKED AT ORDER, NURSE INFORMED PATIENT THAT ORDER IS DAILY. NURSE STATED SHE NEEDED TO DROP OFF LABS AT [facility] 5 MILES AWAY. NURSE ALSO ADD SHE WOULD RETURN TO DO DRESSING CHANGE. NURSE WENT TO [facility] PICKED UP BETADINE WOUND ANTISEPTIC, AND DROVE TO [facility]. UPON ARRIVAL, INFORMED BY [employer] THAT CAR STOCK GOLD GEL HAD 09/24 AND WOULD HAVE TO BE REDRAWN. NURSE ASKED [facility] FOR SOME TUBES AND NURSE RETURNED TO PATIENT'S HOME. [facility] LAB USING ASEPTIC TECHNIQUE. PROCEEDED TO [facility]. LABS ACCEPTED,. NURSE PICKED UP BETADINE AT [facility] AND RETURNED TO PATIENT'S HOME. OUTSIDE UPON NURSE RETURN WAS BOX OF SUPPLIES FROM [facility]. NURSE SET UP NEEDED SUPPLIES, WITH THE HELP OF PATIENT AND WHAT MENTAL HEALTH AIDES TEACHER HAD TOLD HIM TO DO WELL, NURSE REMOVED OUTER DRESSING NEPTALI WRAP, USED NS FLUSH TO LOOSEN DRIED DRESSING. SKIN AROUND FOOT EXTREMELY DRY AND SHEDING DRY SKIN. NURSE WASHED AROUND FOOT APPLYING VASOLINE AT PATIENT REQUEST. TO HEEL AND DORSUM FOOT. NURSE REMOVED DRIED 4X4 DRESSING TO REVIEW AMPUTATED TOES REVEALING A PARTIAL SUTURED WOUND. BETADINE SOAKED 4X4 SATURATED THE TOP OF THE FOOT. REMOVED AND DISPOSED. APPLIED LAYERED GUAZE FOR DRAINAGE, WRAPPED AND SECURED WITH SARAH DRESSING, PRIMARY DRESSING 2 SMALL NEPTALI WRAPS. PLACED SOCK. PATIENT CALLED NEIGHBOR WHO IS A NURSE, IF SHE WOULD HELP WITH WOUND CARE. SHE AGREED TO HELP 4X WEEKLY UNTIL PATIENT CAN DO HIMSELF. PATIENT STATES HE DOES NOT WANT TO MESS UP ANYTHING. NURSE PUT UP SUPPLIES AND WISHED PATIENT WELL ON HIS BIRTHDAY. CARE FOR NEXT VISIT - FRIDAY VANC TROUGH LAB (PRIOR TO MORNING INFUSION. USUALLY AT 8:15 AM), CBC W DIF, CMP. WOUND CARE.</paragraph> Encounters Start Date/Time End Date/Time Encounter Type Admission Type Attending Clinicians Care Facility Care Department Encounter ID Discharge Date Discharge Status Discharge Condition Discharge Reason Percent Goals Met 2024-10-04 00:00:00 2024-12-02 00:00:00 Outpatient NEW ADMISSION PETE BARBOUR [facility] [id number] 68.57
--- OUTSIDE RECORDS SUMMARY | 2024-10-18 14:15 | XMS_ITS | Encounter Summary ---
Author Organization [facility] Address [facility] [place] [address] Care Team Providers Care Marketing Production Manager Name Role Phone Ngozi Collier NP Primary Care Provider [phone] Reason for Referral * Surgical (Routine) - New Request Specialty Diagnoses / Procedures Referred By Contac t Referred To Contact Diagnoses PVD (peripheral vascular disease) ([facility]) Procedures Case request operating room: AMPUTATION TOE (LEFT SECOND TOE) Dae Corrales MD [address] [address] Phone: tel: fax: Referral ID Status Reason Start Date Expiration Date V isits Requested Visits Authorized [id number] New Request 06/08/2024 06/08/2025 1 1 Encounter Details Date Type Department Care Team (Late st Contact Info) Description 06/08/2024 Prep for Procedure [facility] [address] [place], [place] [id number] Dae Corrales MD [facility] [address] [place] [address] Social History Tobacco Use Types Packs/Day Years Used Date Smoking Tobacco: Every Day Cigars Smokeless Tobacco: Never Alcohol Use Standard Drinks/Week Comments Not Currently 0 (1 standard drink = 0.6 oz pur e alcohol) [facility] Utilities Answer Date Recorded In [...] any time in the past 12 m [facility], were you homeless or living in a fpc (including now)? No 06/06/2024 Sex and Gender Information Value Date Recorded Sex Assigned at Male 09/23/2024 1:10 AM MEDICAL OFFICER Legal Sex Male 8:29 PM CDT Gender [...] Care Team (Late st Contact Info) Description 10/19/2024 11:20 AM MEDICAL OFFICER Office Visit [facility] Multispecialty Care - [facility] [address] [facility], [facility] [address] [place] [address] Negin Adkins NP 3 [facility]. [facility] [address] [place] [address] Scheduled Orders Name Type Priority Associated Diagnoses Orde r Schedule Case request operating room: AMPUTATION TOE (LEFT SECOND TOE) Case Request Routine PVD (peripheral vascular disease) ([facility]) Once for 1 Occurrences starting 06/08/2024 until 06/08/2024 documented as of this encounter Goals Goal Patient Goal Type Associated Problems Recent Progress Patient-Stated? Author Health - patient able to perform ADLs independently Lifestyle No 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 RN documented as of this encounter Visit Diagnoses Diagnosis PVD (peripheral vascular disease) ([facility])- Primary Peripheral vascular disease, unspecified documented in this encounter Care Teams Marketing Production Manager Relationship Specialty Start Date End Date Ngozi Collier NP [address] [place] [address] PCP - General 02/13/18 documented as of this encounter
--- OUTSIDE RECORDS SUMMARY | 2024-10-18 14:16 | XMS_ITS | Encounter Summary ---
Author Organization [facility] Address [facility] [place] [address] Care Team Providers Care Product Accountant Name Role Phone Ngozi Collier NP Primary Care Provider [phone] Encounter Details Date Type Department Care Team (Late st Contact Info) Description 03/22/2020 Hospital Follow-up Call [facility] [place] [address] Ashley Lora RN Social History Tobacco Use Types Packs/Day Years Used Date Smoking Tobacco: Every Day Cigars Smokeless Tobacco: Never Sex and Gender Information Value Date Recorded Sex Assigned at Male 09/23/2024 1:10 AM CONTRACT MANAGER Legal Sex Male 8:29 PM CDT Gender [...] st Contact Info) Description 10/19/2024 11:20 AM CONTRACT MANAGER Office Visit [facility] Multispecialty Care - [facility] 3 [facility], [facility] [address] [place] [id number] Negin Adkins NP 3 [facility]. [facility] [address] [place] [address] documented as of this encounter Visit Diagnoses Not on filedocumented in this encounter Care Teams Product Accountant Relationship Specialty Start Date End Date Ngozi Collier NP [address] [place], [place] [id number] PCP - General 02/13/18 documented as of this encounter
--- OUTSIDE RECORDS SUMMARY | 2024-10-18 14:16 | XMS_ITS | Continuity of Care Document ---
Author Organization [facility] Address [address] [facility] [address] [place] [address] Phone Care Team Providers Care Core Composer Feeder Name Role Phone Gustavo Pires MD [...] Providers Copied on Encounter [facility], [address], [place], [address], [place] tel:[phone] [facility] [place] Pain in right kneeQuadriceps weakness Jun- 2-201 6 Pranay Chen. [address] [place], [place], [id number] . tel: [phone] [facility], [address], [place], [address], [place] tel:[phone] [facility] [place] Status post total right knee replacement 3-201 6 Pranay Chen. [address] [place], [place], [id number] . tel: [phone] [facility], [address] [facility], [place], [address], [place] tel:[phone] [facility] [place] Status post total right knee replacement 6-201 6 Pranay Chen. [address] [place], [place], [id number] . tel: [phone] [facility], [address], [place], [address], [place] tel:[phone] [facility] [place] Status post total right knee replacement 5 6 Pranay Chen. [address] [place], [place], [id number] . tel: [phone] [facility], [address], [place], [address], [place] tel:[phone] [facility] [place] Pain in right kneeAftercare following right knee joint replacement surgeryStatus post total right knee replacement 0 8-201 5 Pranay Chen. [address] [place], [place], [id number] . tel: [phone] [facility], [address], [place], [address], [place] tel:[phone] [facility] [place] No Information Jul-0 5 Pranay Chen. [address] [place], [place], [id number] . tel:[phone] [facility], [address] [facility], [place], [address], [place] tel:[phone] [facility] [place] Status post total right knee replacementAfterc are following right knee joint replacement surgery 5 Pranay Chen. [address] [place], [place], [id number] . tel:[phone] [facility], [address] [address], [place], [address], [place] tel:[phone] [facility] [place] Pain in joint involving lower legKnee joint replacementPost Op joint replacement 5 Pranay Chen. [address] [place], [place], [id number] . tel: [phone] [facility], [address], [place], [address], [place] tel:[phone] [facility] [place] Pain in joint involving lower legKnee joint replacementPost Op joint replacement Apr-0 5 Pranay Chen. [address] [place], [place], [id number] . tel: [phone] [facility], [address] [address], [place], [address], [place] tel:[phone] [facility] [place] Knee joint replacementPain in joint involving lower leg 5 Pranay Chen. [address] [place], [place], [id number] . tel:[phone] Family History Family Member Type Diagnosis Age At Onset No Information Payers Payer name Insurance type Covered libertarian ID Authoriza tion(s) No Information Social History [...]
--- OUTSIDE RECORDS SUMMARY | 2024-10-18 14:16 | XMS_ITS | Clinical Summary ---
Author Organization [facility] Address [address] [place] [id number] Care Team Providers Care Boom Boss Name Role Phone Ngozi Collier NP Primary Care Provider [phone] Allergies Active Allergy Reactions Criticality Noted Date [...] mouth daily. Replaces hctz/lisinopril Active vitamin B-12 (CYANOCOBALAMIN) 100 MCG tablet Take 1 tablet (100 mcg total) by mouth daily. Active rivaroxaban (XARELTO) 20 MG Tab tabletIndication s:Deep Vein Thrombosis,Adren al infarct Take 1 tablet (20 mg total) by mouth daily with supper for 30 days. Indications: Blood Clot in a Deep Vein, Adrenal infarct Take with food 30 tablet 025 2024 Active cefTRIAXone 2 g in sodium chloride 0.9 % SOLN 50 mLIndications:Os teomyelitis Inject 2 g into the vein daily for 36 days. Indications: Infection of Bone and Bone Marrow 1 Bag 025 2024 Active oxyCODONE-acetam inophen (PERCOCET) 10-325 MG tabletIndication s:Acute Pain < 7 Day Supply Take 1 tablet by mouth every 6 (six) hours as needed for Pain. Indications: Acute Pain < 7 Day Supply 15 tablet Active naloxone (NARCAN) 4 MG/0.1ML nasal sprayIndications :Opioid Toxicity 1 spray by Nasal route as needed for Opioid reversal. Indications: Toxic Amount of Codeine/Morphine -Like Drugs in the Body may repeat every 2 to 3 minutes in alternating nostrils until medical assistance becomes available 1 each 025 2025 Active Vancomycin HCl 1.75 g Recon SolnIndications: Other acute osteomyelitis of left foot ([facility]) Inject 1.75 g into the vein every 12 (twelve) hours for 3 days. Dose change per [place], Pharm D on 10/15/2024 with anticipated stop date of 11/07/2024 1 each 45 025 2024 Active sildenafil 100 MG tablet [...] as needed for Pain. 2024 Discontinued(E rror) lisinopril-hydro CHLOROthiazide (ZESTORETIC) 10-12.5 MG tablet Take 0.5 tablets by mouth every morning. 023 2024 Discontinued(E rror) oxyCODONE-acetam inophen (PERCOCET) 10-325 MG tablet Take 1 tablet [...] (EXTERNAL USE ONLY) 024 2024 Discontinued(E rror) metroNIDAZOLE (FLAGYL) 500 MG tabletIndication s:Osteomyelitis Take 1 tablet (500 mg total) by mouth 2 (two) times a day for 13 days. Indications: Infection of Bone and Bone Marrow 26 tablet 025 2024 vancomycin 1,250 mg in sodium chloride 0.9 % SOLN 262.5 mLIndications:Os teomyelitis Inject 1,250 mg into the vein every 12 (twelve) hours for 37 days. Indications: Infection of Bone and Bone Marrow 1 Bag 10/01/2 025 2024 Discontinued(R eorder) vancomycin 1,500 mg in sodium chloride 0.9 % SOLN 265 mLIndications:Os teomyelitis Inject 1,500 mg into the vein every 12 (twelve) hours for 27 days. Indications: Infection of Bone and Bone Marrow 1 Bag 53 025 2024 Discontinued(A lternate therapy) Active Problems Problem Noted Date Diagnosed Date Osteomyelitis ([facility]) 09/23/2024 Osteomyelitis of foot, left, acute ([facility]) 09/23/2024 Abnormal liver function 06/28/2024 Acute osteomyelitis of phalanx of foot ([facility]) 06/28/2024 Overview (06/28/2024): Dec 22, 2019 Entered By: SOLEDAD MIRANDA Comment: R great toe amputation 10/2017 Age-related nuclear cataract, bilateral 06/28/20 Benign essential hypertension 06/28/2024 Carpal tunnel syndrome 06/28/2024 Complete traumatic amputatio n of left great toe, subsequent encounter ([facility]) 06/28/2024 Depression 06/28/2024 Encounter for observation fo r other suspected diseases and conditions ruled out 06/28/2024 Erectile dysfunction 06/28/2024 Exposure to potentially hazardous substance 11/2023 Gastroesophageal reflux disease 06/28/2024 History of total right knee replacement 06/28/20 Hyperlipidemia, unspecified 06/28/2024 Localized edema 06/28/2024 retirement (current) use of opiate analgesic 11/2023 Narcotic drug use 06/28/2024 Non-pressure chronic ulcer o f other part of left foot limited to breakdown of skin ([facility]) 06/28/2024 Obesity 06/28/2024 Osteoarthritis of knee 06/28/2024 Other chronic pain 06/28/2024 Other specified diabetes marshall litus with unspecified complications ([facility]) 06/28/2024 Pain in right shoulder 06/28/2024 Type 1 diabetes mellitus wit h diabetic neuropathy, unspecified ([facility]) 06/28/2024 Type 2 diabetes 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 without macular edema, bilateral ([facility]) 06/28/2024 Type 2 diabetes mellitus wit h foot ulcer (CODE) ([facility]) 06/28/2024 Vitamin D deficiency 06/28/2024 Elevated liver function tests 06/21/2024 PVD (peripheral vascular disease) 06/08/2024 Osteomyelitis of left foot ([facility]) SIRS (systemic inflammatory response syndrome) ([facility]) 05/27/2024 Nausea and vomiting 03/20/2020 Open wound of left foot 03/17/2020 Nausea & vomiting 03/17/2020 S/P amputation of lesser toe, left ([facility]) 02/03/2018 Hypertension 07/14/2015 Low back pain 07/14/2015 Right knee pain 07/14/2015 Resolved Problems Problem Noted Date Diagnosed Date Resolved Date Encounter for other preprocedural examination 06/28/2007/05/2024 Encounters Date Type Department Care Team Description 10/18/2024 Telephone [facility] - [address], [facility] [address] [place] [address] eNgin Adkins, ERAN Orders 10/11/2024 Telephone [facility] - [address], [place] [address] [place] [address] Negin Adkins, ERAN Medication; Lab Results 10/07/2024 Scan [facility] SRV[facility] Scanned, [facility] (SCAN) 10/07/2024 Telephone [facility] - [address], [place] [address] [place] [address] Negin Adkins, ERAN Lab Results 10/04/2024 Scan [facility] INFO SRVCS Scanned, [facility] (SCAN) 10/04/2024 Hospital Follow-up Call [facility] [place] [address] Melonie Mei LPN Follow Up Call ([place] 09/23-10/01/24) 09/28/2024 9:45 AM [facility] Home Care Visit [facility] Home Care [address] [place] [address] Trice Nava, ADMINISTRATIVE ASSISTANT COORDINATOR VISIT 09/25/2024 10:00 AM [facility] - 09/25/2024 11:03 AM [facility] [place] [address] Dae Marie DPM TRANS METATARSAL AMPUTATION; LEFT FOOT 09/25/2024 9:45 AM [facility] Anesthesia Event [place] [address] Alfonso Eagle MD 09/23/2024 1:45 AM [facility] - 10/01/2024 2:19 PM [facility] Hospital Encounter [facility] [place] [address] Lucius Johnson, Yamileth Melchor MD McHale, Sara A, MD Bismack, MD Jaya Del Angel, MD Gil Vidal, Claudia Gill, JOINERY SETTER OUT Spencer Oliveira PA Helmholt, Jennifer, NP Foot Swelling Discharge Disposition: Home with Home Health Care 09/23/2024 Travel 07/28/2024 Telephone [facility] Medical Group Multispecialty Care - [facility] [address], [facility] [address] [place] [phone] Negin Adkins NP Reschedule 07/23/2024 Telephone [facility], [facility] [address] [place] [address] Neema Hampton FNP Schedule Test 07/23/2024 Orders Only [facility], [place] [address] [place] [address] Neema Hampton FNP from Last 3 Months [...] from your doctor or pharmacy? Never 09/23/2024 [facility] Utilities Answer Date Recorded In the past 12 months has [facility] [employer], gas, oil, or water [employer] threatened to shut off services in your [...] often do you attend chur ch or evangelical services? Never 09/23/2024 Do you belong to any clubs o r organizations such as tenriism groups, unions, fraternal or athletic groups, or [...] Recorded Patient Health Questionnaire-2 Score 0 09/23/2024 [facility] Answer Date Recorded [...] money to buy more. Never true 09/23/19 Within the past 12 months, t he [...] any time in the past 12 m [facility], were you homeless or living in a halfway (including now)? No 09/23/2024 Sex and Gender Information Value Date Recorded Sex Assigned at Male 09/23/2024 1:10 AM [facility] Legal Sex Male 8:29 PM CDT Gender Identity Not on file Sexual Orientation Not on file Last Filed Vital Signs Vital Sign Reading Time Taken Comments Blood Pressure 154/89 10/01/2024 11:15 AM [facility] Pulse 86 09/30/2024 7:40 PM [facility] Temperature 36.9 C (98.5 F) 10/01/2024 11:15 AM [facility] Respiratory Rate 17 10/01/2024 11:1 5 AM [facility] Oxygen Saturation 94% 10/01/2024 11: 15 AM [facility] Inhaled Oxygen Concentration - - Weight 119.2 kg (262 lb 12.6 oz) 09/29/2024 5:01 AM [facility] Height 182.9 cm (6') 09/23/2024 3:48 PM [facility] Body Mass Index 35.64 09/23/2024 3:48 PM [facility] Plan of Treatment Upcoming Encounters Date Type Department Care Team (Late st Contact Info) Description 10/19/2024 11:20 AM [facility] Office Visit [facility] Medical Group Multispecialty Care - [facility] [address] [facility] [address], [place] [address] [place] [phone] Negin Adkins, ERAN [address] [id number] Health Maintenance Due Date Last Done Comments [...] 01/03/2011 Hepatitis C Completed 06/01/2024 PHQ-2 (Physician [place]) Completed 09/23/2024 Meningococcal B Vaccine Aged Out [...] perform ADLs independently Lifestyle No 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, 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 Procedure Name Priority Date/Time Associated Diagnosis Comments OUTSIDE LAB (SCAN ORDER) 10/07/2024 OUTSIDE LAB (SCAN ORDER) 10/04/2024 OUTSIDE LAB (SCAN ORDER) 10/04/2024 POCT GLUCOSE - MARIE DOCKED DEVICE Routine 10/01/2024 11:21 AM [facility] CBC W/DIFF AUTOMATED Routine 10/01/2024 5:44 AM [facility] BASIC METABOLIC PANEL Routine 10/01/2024 5:44 AM [facility] POCT GLUCOSE - MARIE DOCKED DEVICE Routine 10/01/2024 5:16 AM [facility] POCT GLUCOSE - MARIE DOCKED DEVICE Routine 09/30/2024 8:18 PM [facility] POCT GLUCOSE - MARIE DOCKED DEVICE Routine 09/30/2024 4:18 PM [facility] POCT GLUCOSE - MARIE DOCKED DEVICE Routine 09/30/2024 11:40 AM [facility] HC URINALYSIS AUTO W/O MICRO Routine 09/30/2024 10:13 AM [facility] POCT GLUCOSE - MARIE DOCKED DEVICE Routine 09/30/2024 6:06 AM [facility] CBC W/DIFF AUTOMATED Routine 09/30/2024 5:30 AM [facility] BASIC METABOLIC PANEL Routine 09/30/2024 5:30 AM [facility] POCT GLUCOSE - MARIE DOCKED DEVICE Routine 09/29/2024 8:20 PM [facility] POCT GLUCOSE - MARIE DOCKED DEVICE Routine 09/29/2024 4:35 PM [facility] POCT GLUCOSE - MARIE DOCKED DEVICE Routine 09/29/2024 11:32 AM [facility] BASIC METABOLIC PANEL Routine 09/29/2024 7:15 AM [facility] POCT GLUCOSE - MARIE DOCKED DEVICE Routine 09/29/2024 6:21 AM [facility] CBC W/DIFF AUTOMATED Routine 09/29/2024 5:05 AM [facility] BASIC METABOLIC PANEL Routine 09/29/2024 5:05 AM [facility] POCT GLUCOSE - MARIE DOCKED DEVICE Routine 09/28/2024 9:12 PM [facility] POCT GLUCOSE - MARIE DOCKED DEVICE Routine 09/28/2024 3:50 PM [facility] POCT GLUCOSE - MARIE DOCKED DEVICE Routine 09/28/2024 11:37 AM [facility] POCT GLUCOSE - MARIE DOCKED DEVICE Routine 09/28/2024 5:57 AM [facility] CBC W/DIFF AUTOMATED Routine 09/28/2024 4:48 AM [facility] BASIC METABOLIC PANEL Routine 09/28/2024 4:48 AM [facility] POCT GLUCOSE - MARIE DOCKED DEVICE Routine 09/27/2024 7:47 PM [facility] POCT GLUCOSE - MARIE DOCKED DEVICE Routine 09/27/2024 4:53 PM [facility] POCT GLUCOSE - MARIE DOCKED DEVICE Routine 09/27/2024 11:38 AM [facility] POCT GLUCOSE - MARIE DOCKED DEVICE Routine 09/27/2024 6:27 AM [facility] BASIC METABOLIC PANEL Routine 09/27/2024 5:27 AM [facility] CBC W/DIFF AUTOMATED Routine 09/27/2024 5:27 AM [facility] POCT GLUCOSE - MARIE DOCKED DEVICE Routine 09/26/2024 8:39 PM [facility] POCT GLUCOSE - MARIE DOCKED DEVICE Routine 09/26/2024 4:51 PM [facility] BASIC METABOLIC PANEL Routine 09/26/2024 1:28 PM [facility] CBC W/DIFF AUTOMATED Routine 09/26/2024 1:28 PM [facility] POCT GLUCOSE - MARIE DOCKED DEVICE Routine 09/26/2024 12:26 PM [facility] POCT GLUCOSE - MARIE DOCKED DEVICE Routine 09/26/2024 6:13 AM [facility] VANCOMYCIN Routine 09/26/2024 4:34 AM [facility] BASIC METABOLIC PANEL Routine 09/26/2024 4:34 AM [facility] CBC W/DIFF AUTOMATED Routine 09/26/2024 4:34 AM [facility] POCT GLUCOSE - MARIE DOCKED DEVICE Routine 09/25/2024 8:14 PM [facility] POCT GLUCOSE - MARIE DOCKED DEVICE Routine 09/25/2024 4:18 PM [facility] POCT GLUCOSE - MARIE DOCKED DEVICE Routine 09/25/2024 11:36 AM [facility] POCT GLUCOSE - MARIE DOCKED DEVICE Routine 09/25/2024 10:37 AM [facility] CULTURE, TISSUE W/GRAM STAIN Routine 09/25/2024 10:12 AM [facility] CULTURE, ANAEROBIC Routine 09/25/2024 10 :12 AM [facility] AMPUTATION TOE 09/25/2024 9:45 AM [facility] Osteomyelitis of foot, left, acute ([facility]) POCT GLUCOSE - MARIE DOCKED DEVICE Routine 09/25/2024 8:04 AM [facility] CBC W/DIFF AUTOMATED Routine 09/25/2024 5:43 AM [facility] BASIC METABOLIC PANEL Routine 09/25/2024 5:43 AM [facility] HEMOGLOBIN, GLYCOSYLATED Routine 09/25/2024 5:43 AM [facility] POCT GLUCOSE - MARIE DOCKED DEVICE Routine 09/25/2024 5:39 AM [facility] PATHOLOGY Routine 09/25/2024 12:00 AM [facility] POCT GLUCOSE - MARIE DOCKED DEVICE Routine 09/24/2024 8:10 PM [facility] POCT GLUCOSE - MARIE DOCKED DEVICE Routine 09/24/2024 3:46 PM [facility] POCT GLUCOSE - MARIE DOCKED DEVICE Routine 09/24/2024 11:20 AM [facility] VANCOMYCIN Routine 09/24/2024 6:00 AM [facility] C-REACTIVE PROTEIN Routine 09/24/2024 6: 00 AM [facility] HEMOGLOBIN, GLYCOSYLATED Routine 09/24/2024 6:00 AM [facility] MAGNESIUM Routine 09/24/2024 6:00 AM [facility] COMPREHENSIVE METABOLIC PANEL Routine 09/24/2024 6:00 AM [facility] CBC W/DIFF AUTOMATED Routine 09/24/2024 6:00 AM [facility] POCT GLUCOSE - MARIE DOCKED DEVICE Routine 09/24/2024 5:55 AM [facility] POCT GLUCOSE - MARIE DOCKED DEVICE Routine 09/23/2024 7:59 PM [facility] MRI FOOT LT WO CON Today 09/23/2024 6: 47 PM [facility] POCT GLUCOSE - MARIE DOCKED DEVICE Routine 09/23/2024 3:43 PM [facility] POCT GLUCOSE - MARIE DOCKED DEVICE Routine 09/23/2024 12:12 PM [facility] MRSA SCREENING STAT 09/23/2024 10:24 AM [facility] USV ART REST W BLANCO LOW EXT STAT 09/23/2024 10:09 AM [facility] CULTURE, BACTERIA, BLOOD STAT 09/23/2024 2:55 AM [facility] LACTIC ACID W REFLEX (SEPSIS) STAT 09/23/2024 2:55 AM [facility] HC BODY FLUID CULTURE STAT 09/23/2024 2:11 AM [facility] C-REACTIVE PROTEIN Routine 09/23/2024 2: 11 AM [facility] COMPREHENSIVE METABOLIC PANEL STAT 09/23/2024 2:11 AM [facility] CBC W/DIFF AUTOMATED STAT 09/23/2024 2:11 AM [facility] XR FOOT LT 3V STAT 09/23/2024 1:54 AM [facility] HC EIA QL HEPATITIS ABC B AG Routine 06/01/2024 3:47 AM CDT LIPID PANEL STAT 05/27/2024 8:35 AM CDT from Last 3 Months or Most Recently Relevant to Health Maintenance Results * OUTSIDE LAB (SCAN ORDER) (10/07/2024) Only the most recent of3 resultswithin the time period is included. 10/07/2024 us [facility] Scanned SCANNING Final Resu lt * (ABNORMAL) POCT glucose (10/01/2024 11:21 AM [facility]) Only the most recent of35 resultswithin the time period is included. GLUCOSE POC 201(H) 70 - 99 mg/dL 10/01/2024 11:57 AM [facility] 10/01/2024 11:2 1 AM [facility] Ashtyn Lynch JOINERY SETTER OUT POCT ORDERABLES - DEVICE Fi nal Result [facility] [address] [place] [address], [place] [phone] * (ABNORMAL) BASIC METABOLIC PANEL (10/01/2024 5:44 AM [facility]) Only the most recent of9 resultswithin the time period is included. [facility] GLUCOSE 90 70 - 99 MG/DL 10/01/2024 6:30 AM [facility] BUN 13 7 - 18 MG/DL 10/01/2024 6:30 AM [facility] CREATININE S/P/B 0.75 0.7 - 1.3 MG/DL 10/01/2024 6:30 AM [facility] SODIUM S/P/B 139 136 - 145 MMOL/L 10/01/2024 6:30 AM [facility] POTASSIUM S/P/B 4.0 3.5 - 5.1 MMOL/L 10/01/2024 6:30 AM [facility] CHLORIDE S/P/B 108 97 - 115 MMOL/L 10/01/2024 6:30 AM [facility] CO2 33.0(H) 21 - 32 MMOL/L 10/01/2024 6:30 AM [facility] CALCIUM S/P/B 8.5 8.5 - 10.1 MG/DL 10/01/2024 6:30 AM [facility] ANION GAP NOT CALCULATED 2 - 10 MMOL/L 10/01/2024 6:30 AM [facility] BUN CREATININE RATIO 17.3 6 - 26 10/01/2024 6:30 AM [facility] GFR ESTIMATE >90 >90 ML/MIN/1. 73 M2 10/01/2024 6:30 AM [facility] Comment: NOTE: eGFR is not calculated for patients <18 years of age or gender unknown. This is an estimated GFR calculation using the new CKD EPI creatinine equation without race and so does not require a correction factor for race. This estimated GFR should not be used for calculating drug doses. 10/01/2024 5:44 AM [facility] Final Result [facility] [address] [place] [address], * (ABNORMAL) CBC W/DIFF AUTOMATED (10/01/2024 5:44 AM [facility]) Only the most recent of10 resultswithin the time period is included. WBC 6.78 4.5 - 11.0 x10'3/uL 10/01/2024 6:18 AM [facility] RBC 3.24(L) 4.70 - 6.10 x10'6/uL 10/01/2024 6:18 AM [facility] HGB 9.8(L) 14.0 - 18.0 G/DL 10/01/2024 6:18 AM [facility] HCT 30.6(L) 43.0 - 54.0 % 10/01/2024 6:18 AM [facility] MCV 94.4(H) 80.0 - 94.0 FL 10/01/2024 6:18 AM [facility] MCH 30.2 27.0 - 31.0 PG 10/01/2024 6:18 AM [facility] MCHC 32.0 32.0 - 36.0 G/DL 10/01/2024 6:18 AM [facility] RDW 12.1 11.5 - 14.5 % 10/01/2024 6:18 AM [facility] PLT 374 130 - 400 x10'3/uL 10/01/2024 6:18 AM [facility] MPV 9.1(L) 9.3 - 12.2 FL 10/01/2024 6:18 AM [facility] DIFFERENTIAL TYPE AUTOMATED DIFFERENTIAL 10/01/2024 6:18 AM [facility] NEUTROPHILS % 75.0 % 10/01/2024 6:18 AM [facility] LYMPHOCYTES % 11.5 % 10/01/2024 6:18 AM [facility] MONOCYTES % 10.9 % 10/01/2024 6:18 AM [facility] EOSINOPHILS 1.6 % 10/01/2024 6:18 AM [facility] BASOPHILS 0.3 % 10/01/2024 6:18 AM [facility] IMMATURE GRANS % 0.7 % 10/01/19 6:18 AM [facility] ABS. NEUTROPHILS 5.08 1.80 - 7.70 x10'3/uL 10/01/2024 6:18 AM [facility] ABS. LYMPHOCYTES 0.78(L) 1.00 - 4.80 x10'3/uL 10/01/2024 6:18 AM [facility] ABS. MONOCYTES 0.74 0.30 - 0.82 x10'3/uL 10/01/2024 6:18 AM [facility] ABS. EOSINOPHILS 0.11 0.04 - 0.54 x10'3/uL 10/01/2024 6:18 AM [facility] ABS. BASOPHILS 0.02 0.01 - 0.08 x10'3/uL 10/01/2024 6:18 AM [facility] ABS. IMMATURE GRANULOCYTES 0.05 0.00 - 0.49 x10'3/uL 10/01/2024 6:18 AM [facility] 10/01/2024 5:44 AM [facility] Final Result [facility] [address] [place] [address], * (ABNORMAL) URINALYSIS (09/30/2024 10:13 AM [facility]) SPECIMEN TYPE URINE CLEAN CATCH 09/30/2024 10:14 AM [facility] COLOR (U) LIGHT YELLOW 09/30/2024 10:25 AM [facility] TRANSPARENCY CLEAR 09/30/2024 10:25 AM [facility] SPECIFIC GRAVITY (U) 1.011 1.001 - 1.030 09/30/2024 10:25 AM [facility] U PH 6.0 5.0 - 9.0 09/30/2024 10:25 AM [facility] LEUKOCYTES (U) NEGATIVE NEGATIVE 09/30/2024 10:25 AM [facility] NITRITES NEGATIVE NEGATIVE 09/30/2024 10:25 AM [facility] PROTEIN RANDOM (U) NEGATIVE <30 MG/DL 09/30/2024 10:25 AM [facility] GLUCOSE (U) NORMAL NORMAL MG/DL 09/30/2024 10:25 AM [facility] KETONES MG/DL (U) NEGATIVE NEGATIVE MG/DL 09/30/2024 10:25 AM [facility] UROBILINOGEN 2.0(A) NORMAL MG/DL 09/30/2024 10:25 AM [facility] BILIRUBIN (U) NEGATIVE NEGATIVE MG/DL 09/30/2024 10:25 AM [facility] BLOOD (U) NEGATIVE NEGATIVE 09/30/2024 10:25 AM [facility] URINE SPECIMEN OBTAINED BY CLEAN CATCH PROCEDURE / Unknown 09/30/2024 10:13 AM [facility] URINE ORDERABLES Final Result [facility] [address] [place] [address], [place] [phone] * Vancomycin Random Level (09/26/2024 4:34 AM [facility]) Only the most recent of2 resultswithin the time period is included. VANCOMYCIN RANDOM 17.4 MCG/ML 09/26/2024 5:29 AM [facility] Comment:NO THERAPEUTIC RANGE AVAILABLE LAST DOSE UNKNOWN LAST DOSE 09/26/2024 4:38 AM [facility] 09/26/2024 4:34 AM [facility] LAB[facility] Final Result Performing Organization Address City/[facility]/ZIP Co de Phone Number [facility] [address] [place] [address], [place] [phone] * (ABNORMAL) CULTURE, TISSUE W/GRAM STAIN (09/25/2024 10:12 AM [facility]) SPEC DESCRIPTION FOOT,LEFT 09/25/2024 10:17 AM [facility] SPECIAL REQUESTS NO SPECIAL REQUEST 09/25/2024 10:17 AM [facility] GRAM STAIN RESULT FEW WHITE BLOOD CELLS SEEN 09/25/2024 4:58 PM [facility] GRAM STAIN RESULT MANY RED BLOOD CELLS SEEN 09/25/2024 4:58 PM [facility] GRAM STAIN RESULT MANY GRAM POSITIVE COCCI 09/25/2024 4:58 PM [facility] [employer] [employer] CULTURE RESULT LIGHT GROWTH OF ESCHERICHIA COLI (A) 09/27/2024 8:33 AM [facility] [employer] CULTURE RESULT MODERATE GROWTH OF STREPTOCOCCI, BETA HEMOLYTIC GROUP B SUSCEPTIBILTY NOT ROUTINELY PERFORMED. SAVING ISOLATE FOR 5 DAYS. CONTACT MICROBIOLOGY DEPARTMENT IF FURTHER WORKUP IS INDICATED. (A) 09/27/2024 8:33 AM [facility] TISSUE STRUCTURE OF LEFT FOOT / Unknown 09/25/2024 10:12 AM [facility] [employer] [facility] Narrative Organism Antibiotic Method Susceptibility Escherichia coli [...] MICROBIOLOGY - GENERAL OR DERABLES Final Result [facility] [address] [place] [address], [place] [phone] * (ABNORMAL) CULTURE, ANAEROBIC (09/25/2024 10:12 AM [facility]) SPEC DESCRIPTION FOOT,LEFT 09/25/2024 10:17 AM [facility] [employer] [facility] SPECIAL REQUESTS NO SPECIAL REQUEST 09/25/2024 10:17 AM [facility] [employer] GRAM STAIN RESULT FEW WHITE BLOOD CELLS SEEN 09/25/2024 4:58 PM [facility] [employer] [facility] GRAM STAIN RESULT MANY RED BLOOD CELLS SEEN 09/25/2024 4:58 PM [facility] GRAM STAIN RESULT MANY GRAM POSITIVE COCCI 09/25/2024 4:58 PM [facility] CULTURE RESULT HEAVY GROWTH OF PREVOTELLA BIVIA BETA LACTAMASE POSITIVE SUSCEPTIBILTY NOT ROUTINELY PERFORMED. SAVING ISOLATE FOR 5 DAYS. CONTACT MICROBIOLOGY DEPARTMENT IF FURTHER WORKUP IS INDICATED. (A) 09/27/2024 11:12 AM [facility] TISSUE STRUCTURE OF LEFT FOOT / Unknown 09/25/2024 10:12 AM [facility] [employer] [facility] us aDe Marie DPM MICROBIOLOGY - GENERAL OR DERABLES Final Result [facility] [address] [place] [address], [place] [phone] * (ABNORMAL) HEMOGLOBIN, GLYCOSYLATED (09/25/2024 5:43 AM [facility] [employer] [facility]) Only the most recent of2 resultswithin the time period is included. HGB A1C 6.6(H) <5.7 % 09/25/2024 11:14 AM [facility] [employer] Comment: ADA GUIDELINES 2010 5.7 TO 6.4% INCREASED RISK OF DIABETES > OR = 6.5% CONSISTENT WITH DIABETES ESTIMATED AVG GLUCOSE 143 mg/dL 09/25/2024 11:14 AM [facility] 09/25/2024 5:43 AM [facility] [employer] us Turner Curry MD LABORATORY Final Resul t [facility] [address] [place] [address], * Pathology (09/25/2024 12:00 AM [facility] [employer] [facility]) PATHOLOGY [facility] Department of Laboratory Medicine [address] [place] [address] , extension [phone] Pathology Report Surgical Pathology Report Name: TAJ SMITH Specimen #: [id number] Age: 2 1965 (Age: 58) Location: [facility] Sex: M Procedure Date: 09/25/2024 Hospital #: [id number] Date Received: 09/27/2024 Date Reported: 09/28/2024 Provider: [...] distal end. The surgical margin is shaved. Toy Assembler Wood tissue is submitted as follows: 1 section through distal end of bone 2 surgical margin. Cassettes 1 and 2 are submitted following decalcification in immuno decal. Gross examination (when applicable), interpretation, and sign out were performed at [facility], [address] [place] [address], [place] [address]. Electronically Signed Out LONNIE FARIAS MD [facility] TISSUE STRUCTURE OF LEFT FOOT / Unknown 09/25/2024 10:13 AM [facility] [employer] Dae Marie DPM PATHOLOGY/CYTOLOGY ORDERA BLES Final Result [facility] [address] [place] [address], [id number] * (ABNORMAL) COMPREHENSIVE METABOLIC PANEL (09/24/2024 6:00 AM [facility]) Only the most recent of2 resultswithin the time period is included. GLUCOSE 203(H) 70 - 99 MG/DL 09/24/2024 6:47 AM [facility] BUN 16 7 - 18 MG/DL 09/24/2024 6:47 AM [facility] CREATININE S/P/B 1.02 0.7 - 1.3 MG/DL 09/24/2024 6:47 AM [facility] SODIUM S/P/B 136 136 - 145 MMOL/L 09/24/2024 6:47 AM [facility] POTASSIUM S/P/B 4.2 3.5 - 5.1 MMOL/L 09/24/2024 6:47 AM [facility] CHLORIDE S/P/B 105 97 - 115 MMOL/L 09/24/2024 6:47 AM [facility] CO2 29.9 21 - 32 MMOL/L 09/24/2024 6:47 AM [facility] CALCIUM S/P/B 8.0(L) 8.5 - 10.1 MG/DL 09/24/2024 6:47 AM [facility] BILIRUBIN TOTAL S/P/B 0.9 0.2 - 1.2 MG/DL 09/24/2024 6:47 AM [facility] Comment: THIS ASSAY IS NOT RECOMMENDED FOR PATIENTS UNDERGOING TREATMENT WITH ELTROMBOPAG DUE TO THE POTENTIAL FOR FALSELY ELEVATED RESULTS. TOTAL PROTEIN S/P/B 5.6(L) 6.4 - 8.2 G/DL 09/24/2024 6:47 AM [facility] ALBUMIN S/P/B 1.8(L) 3.4 - 5.0 G/DL 09/24/2024 6:47 AM [facility] AST 114(H) 15 - 37 U/L 09/24/2024 6:47 AM [facility] ALT 61(H) 16 - 60 U/L 09/24/2024 6:47 AM [facility] ALKALINE PHOSPHATASE S/P/B 256(H) 50 - 136 U/L 09/24/2024 6:47 AM [facility] ANION GAP 1.1(L) 2 - 10 MMOL/L 09/24/2024 6:47 AM [facility] BUN CREATININE RATIO 15.7 6 - 26 09/24/2024 6:47 AM [facility] A/G RATIO 0.5(L) 1.0 - 2.0 RATIO 09/24/2024 6:47 AM [facility] GFR ESTIMATE 86(L) >90 ML/MIN/1.7 3 M2 09/24/2024 6:47 AM [facility] Comment: NOTE: eGFR is not calculated for patients <18 years of age or gender unknown. This is an estimated GFR calculation using the new CKD EPI creatinine equation without race and so does not require a correction factor for race. This estimated GFR should not be used for calculating drug doses. 09/24/2024 6:00 AM [facility] Spencer HENDERSON LABORATORY Final Result [facility] [address] [place] [address], [place] [phone] * (ABNORMAL) C-REACTIVE PROTEIN (09/24/2024 6:00 AM [facility]) Only the most recent of2 resultswithin the time period is included. C-REACTIVE PROTEIN 10.10(H) <0.29 mg/dL 09/24/2024 6:47 AM [facility] 09/24/2024 6:00 AM [facility] [employer] [facility] Spencer HENDERSON LABORATORY Final Result Performing Organization Address City/State/[facility] Co de Phone Number [address] [address], [place] [phone] * (ABNORMAL) MAGNESIUM (09/24/2024 6:00 AM [facility]) MAGNESIUM 2.5(H) 1.8 - 2.4 MG/DL 09/24/2024 6:47 AM [facility] [employer] [facility] 09/24/2024 6:00 AM [facility] [employer] [facility] Spencer HENDERSON LABORATORY Final Result Performing Organization Address [facility] de Phone Number [address] [address], [place] [phone] * MRI FOOT LT WO CON (09/23/2024 6:47 PM [facility] [employer] [facility]) Anatomical Region Laterality Modality Foot Magnetic Resonan ce 09/24/2024 8:19 AM [facility] [employer] [facility] Impressions 09/24/2024 8:54 AM [facility] [employer] [facility] =====IMPRESSION:===== 1. Osteomyelitis greatest in the fifth [...] 09/24/2024 8:19 AM Narrative 09/24/2024 8:54 AM [facility] [address] [address] EXAMINATION: MRI left foot without contrast EXAM [...] Procedure Note Dae Phillip MD - 09/24/2024 [facility] [address] [place], [place] [address] EXAMINATION: MRI left foot without contrast EXAM [...] Result * MRSA SCREENING (09/23/2024 10:24 AM [facility]) SPEC DESCRIPTION NASAL 09/23/2024 10:36 AM [facility] [employer] [facility] SPECIAL REQUESTS NO SPECIAL REQUEST 09/23/2024 10:36 AM [facility] [employer] [facility] CULTURE RESULT NO METHICILLIN RESISTANT STAPHYLOCOCCUS AUREUS ISOLATED 09/24/2024 6:41 AM [facility] [employer] SPECIMEN FROM INTERNAL NOSE / Unknown 09/23/2024 10:24 AM [facility] 09/23/2024 10:36 AM [facility] Spencer HENDERSON MICROBIOLOGY - GENERAL ORDERAB LES Final Result [facility] [address] [place] [address], * USV ART REST W BLANCO LOW EXT (09/23/2024 10:09 AM [facility]) Anatomical Region Laterality Modality Extremity Vascular Ultraso und 09/23/2024 9:38 AM [facility] [employer] [facility] Narrative 09/23/2024 11:10 AM [facility] [employer] [facility] ARTERIAL DOPPLER - BLANCO BILATERAL LOWER EXTREMITY VASCULAR LAB Pat.Name: TAJ SMITH Pat.ID: [id number] St.Date: 09/23/2024 Refer.MD: Ngozi Collier Exam Time: 9:38:00 [...] LOWER EXTREMITY VASCULAR LAB Pat.Name: TAJ SMITH Jairo Pat.ID: [id number] .Date: 09/23/2024 Refer.MD: Ngozi Collier Exam Time: [...] Signature> 09/23/2024 11:10 AM Elle White M.D. us [facility] VAS Final Result * LACTIC ACID W REFLEX (SEPSIS) (09/23/2024 2:55 AM [facility] [employer] [facility]) Pathologist [facility] LACTIC ACID VENOUS 1.2 0.4 - 2.0 MMOL/L 09/23/2024 3:40 AM [facility] [employer] [facility] 09/23/2024 2:55 AM [facility] [employer] [facility] us Lucius Johnson DO LABORATORY Final Result [facility] [address] [place] [address], [place] [phone] * CULTURE BACTERIA, BLOOD (09/23/2024 2:55 AM [facility]) SPEC DESCRIPTION BLOOD 09/23/2024 2:33 AM [facility] [employer] [facility] SPECIAL REQUESTS NO SPECIAL REQUEST 09/23/2024 2:33 AM [facility] [employer] CULTURE RESULT NO GROWTH 5 DAYS 09/28/2024 7:14 AM [facility] [employer] BLOOD SPECIMEN OBTAINED FOR BLOOD CULTURE / Unknown 09/23/2024 2:55 AM [facility] 09/23/2024 3:10 AM [facility] [employer] [facility] Lucius Johnson DO MICROBIOLOGY - GENERAL ORDERAB LES Final Result [facility] [address] [place] [address], * (ABNORMAL) CULTURE, WOUND, W/GRAM STAIN (09/23/2024 2:11 AM [facility] [employer] [facility]) SPEC DESCRIPTION FOOT,LEFT 09/23/2024 2:13 AM [facility] [employer] [facility] SPECIAL REQUESTS NO SPECIAL REQUEST 09/23/2024 2:13 AM [facility] [employer] [facility] GRAM STAIN RESULT NO WHITE BLOOD CELLS SEEN 09/23/2024 1:18 PM [facility] [employer] [facility] GRAM STAIN RESULT NO ORGANISMS SEEN 09/23/2024 1:18 PM [facility] [employer] CULTURE RESULT SPARSE GROWTH OF ESCHERICHIA COLI (A) 09/27/2024 7:29 AM [facility] CULTURE RESULT SPARSE GROWTH OF STREPTOCOCCI, BETA HEMOLYTIC GROUP B SUSCEPTIBILTY NOT ROUTINELY PERFORMED. SAVING ISOLATE FOR 5 DAYS. CONTACT MICROBIOLOGY DEPARTMENT IF FURTHER WORKUP IS INDICATED. (A) 09/27/2024 7:29 AM [facility] [employer] CULTURE RESULT SPARSE GROWTH OF STAPHYLOCOCCUS AUREUS (A) 09/27/2024 7:29 AM [facility] [employer] [facility] CULTURE RESULT SPARSE GROWTH OF STREPTOCOCCUS VIRIDANS SPECIES ORGANISM IS CONSISTENT WITH NORMAL SKIN BETTYE. SUSCEPTIBILITIES NOT ROUTINELY PERFORMED. (A) 09/27/2024 7:29 AM [facility] [employer] [facility] STRUCTURE OF LEFT FOOT / Unknown 09/23/2024 2:11 AM [facility] 09/23/2024 2:19 AM [facility] Narrative Organism Antibiotic Method Susceptibility Escherichia coli [...] Staphylococcus aureus TETRACYCLINE REMY (VITEK) <=1: Sensitive us Gustavo Rivera PA-C MICROBIOLOGY - GENERAL ORDE CHARISSE Final Result [facility] [address] [place] [address], [place] [phone] * XR FOOT LT 3V (09/23/2024 1:54 AM [facility]) Anatomical Region Laterality Modality Foot Radiographic Isis ging 09/23/2024 1:56 AM [facility] Impressions 09/23/2024 1:59 AM [facility] IMPRESSION: ===== 1. Comminuted fracture of third toe middle phalanx. 2. Subtle erosion of distal second metatarsal head medially. Osteomyelitis not excluded. 3. 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 4. 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 Prior trauma or infection not excluded. Referred By: Interpreted By: Nishant Urban MD, 09/23/2024 1:56 AM Narrative 09/23/2024 1:59 AM [facility] [address] [address] Examination: Left foot 3 views Exam Date/Time: [...] Procedure Note Nishant Urban MD - 09/23/[address] [address] Examination: Left foot 3 views Exam Date/Time: [...] VE NON-REACTI VE 06/01/2024 7:01 AM CDT [facility] HEP B CORE TOTAL AB NON-REACTI VE NON-REACTI VE 06/01/2024 7:01 AM CDT [facility] HAV IGM NON-REACTI VE NON-REACTI VE 06/01/2024 7:01 AM CDT [facility] HEPATITIS C AB NON-REACTI VE NON-REACTI VE 06/01/2024 7:01 AM CDT [facility] 06/01/2024 3:47 AM CDT us William Del Rosario MD LABORATORY Final Result [facility] [address] [place] [address], [place] [phone] * LIPID PANEL (05/27/2024 8:35 AM CDT) CHOLESTEROL 145 <200 MG/DL 05/27/2024 9:24 AM CDT [facility] TRIGLYCERIDES 56 <150 MG/DL 05/27/2024 9:24 AM CDT [facility] HDL 72 >40.0 MG/DL 05/27/2024 9:24 AM CDT [facility] LDL (CALCULATED) 62 <100 MG/DL 05/27/20 9:24 AM CDT [facility] NON HDL CHOLESTEROL 73 <130 MG/DL 05/27 9:24 AM CDT [facility] CHOL/HDL RATIO 2.0 0.0 - 4.5 05/27/2024 9:24 AM CDT [facility] VLDL CALCULATION 11 5 - 55 MG/DL 05/27/2024 9:24 AM CDT [facility] LIPID INTERPRETATION 05/27/2024 9:24 AM CDT [facility] Comment: NIH CONCENSUS REPORT RECOMMENDATIONS: ADULT CHILD LOW RISK: CHOLESTEROL <200 <170 TRIGLYCERIDE <150 --- HDL >=60 --- LDL <100 <110 BORDERLINE: CHOLESTEROL 200-239 170-199 TRIGLYCERIDE 150-199 --- HDL 40-59 --- LDL 100-159 110-129 HIGH RISK: CHOLESTEROL >=240 >=200 TRIGLYCERIDE >=200 --- HDL <40 --- LDL >=160 >=130 05/27/2024 8:35 AM CDT us Damon Mendez MD LABORATORY Final Resul t [facility] [address] [place] [address], from Last 3 Months or Most Recently Relevant to Health Maintenance Insurance [facility] Advance Directives * Full Code (Latest Code [...] 10:40 PM 03/21/2020 12:49 PM Care Teams Boom Boss Relationship Specialty Start Date End Date Ngozi Collier NP [address] [place] [address] PCP - General 02/13/18
--- OUTSIDE RECORDS SUMMARY | 2024-10-18 14:16 | XMS_ITS | Encounter Summary ---
Author Organization [facility] Address [facility]ly [facility] [place] [address] Care Team Providers Care Car Rental Agency Manager Name Role Phone Ngozi Collier NP Primary Care Provider [phone] Reason for Visit * Reason Onset Date Comments Orders 10/18/2024 Encounter Details Date Type Department Care Team (Late st Contact Info) Description 10/18/2024 Telephone [facility] Medical [facility] Multispecialty Care - [facility] 3 [facility], [address] [address] Negin Adkins NP 3 [facility]. [address] [phone] Orders Social History Tobacco Use Types Packs/Day Years [...] How often do you attend chur or jehovah's witness services? Never 09/23/2024 Do you belong to any clubs o r organizations such as confucianist groups, unions, fraternal or athletic groups, or [...] Recorded Patient Health Questionnaire-2 Score 0 09/23/2024 [facility] - Occupational [...] any time in the past 12 m [facility], were you homeless or living in a assisted (including now)? No 09/23/2024 Sex and Gender Information Value Date Recorded Sex Assigned at Male 09/23/2024 1:10 AM CHIEF MEDICAL TECHNOLOGIST Legal Sex Male 8:29 PM CDT Gender [...] Loredo RN Active documented in this encounter Progress Notes * Negin Adkins NP - 10/18/2024 7:52 AM CST 10/15/2024 Vancomycin trough was 9.2 on 2024 changes per pharmacy [place], Pharm D. - Vancomycin 1.75 g every 12 hrs per [facility] with [facility] Anticipated stop date November 07 F MEDICAL TECHNOLOGIST documented in this encounter Plan of Treatment Upcoming Encounters Date Type Department Care Team (Late st Contact Info) Description 10/19/2024 11:20 AM CHIEF MEDICAL TECHNOLOGIST Office Visit [facility] Medical [facility] Multispecialty Care - [facility] 3 [facility], [address] [address] Negin Adkins NP [address] [place] [address]. [facility] [address] [place] [address] documented as of this encounter Goals Goal Patient Goal Type Associated Problems Recent Progress Patient-Stated? Author Health - patient able to perform ADLs independently Lifestyle No 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 RN documented as of this encounter Visit Diagnoses Diagnosis Other acute osteomyelitis of left foot ([facility])- Primary documented in this encounter Care Teams Car Rental Agency Manager Relationship Specialty Start Date End Date Ngozi Collier NP [address] [place] [address] PCP - General 02/13/18 documented as of this encounter
[2024-10-18 14:21] LABS: Basophils Absolute Auto 0.02 K/mm3 (0.00-0.10); Basophils Percent Auto 0.3 % (0.0-1.0); Eosinophils Absolute Auto 0.11 K/mm3 (0.02-0.50); Eosinophils Percent Auto 1.8 % (1.0-6.0); Immature Granulocyte Absolute 0.03 K/mm3 (0.00-0.00); Immature Granulocyte Percent A 0.5 % (0.0-0.0); Lymphocytes Absolute Auto 0.64 K/mm3 (1.10-4.50); Lymphocytes Percent Auto 10.4 % (18.0-42.0); Monocytes Absolute Auto 0.41 K/mm3 (0.10-0.90); Monocytes Percent Auto 6.6 % (2.0-11.0); Neutrophils Absolute Auto 4.96 K/mm3 (1.70-7.20); Neutrophils Percent Auto 80.4 % (50.0-70.0)
== END 2024-10-18 12:36 | disposition home or self-care (01) ==
LOC: CHSLAB 12:39
DX: M86.172 Other acute osteomyelitis, left ankle and foot (principal); Z79.2 Long term (current) use of antibiotics
CPT/HCPCS: 36415; 80053; 80202; 85025; 85027

== ENCOUNTER 2024-10-21 14:10 | Outpatient (NON) | payer OTHER, SELFPAY ==
[2024-10-21 14:38] LABS: Anion Gap 9 mmol/L (4-12); Blood Urea Nitrogen 12 mg/dL (7-18); Calcium 8.1 mg/dL (8.5-10.1); Carbon Dioxide 28 mmol/L (21-32); Chloride 107 mmol/L (98-108); Estimated Glomerular Filt Rate > 60; Glucose 187 mg/dL (70-99); Osmolality Calculated 302 mOsm/kg (285-295); Potassium 4.4 mmol/L (3.5-5.1); Sodium 144 mmol/L (136-145); Vancomycin Trough 9.8 ug/mL (10.0-15.0)
== END 2024-10-21 14:11 | disposition home or self-care (01) ==
LOC: CHSLAB 14:13
DX: M86.172 Other acute osteomyelitis, left ankle and foot (principal); Z79.2 Long term (current) use of antibiotics
CPT/HCPCS: 80048; 80202

== ENCOUNTER 2024-10-28 13:33 | Outpatient (NON) | payer OTHER, SELFPAY ==
[2024-10-28 14:18] LABS: Anion Gap 7 mmol/L (4-12); Blood Urea Nitrogen 15 mg/dL (7-18); Calcium 8.8 mg/dL (8.5-10.1); Carbon Dioxide 29 mmol/L (21-32); Chloride 108 mmol/L (98-108); Estimated Glomerular Filt Rate > 60; Glucose 138 mg/dL (70-99); Osmolality Calculated 300 mOsm/kg (285-295); Potassium 4.9 mmol/L (3.5-5.1); Sodium 144 mmol/L (136-145); Vancomycin Trough 11.5 ug/mL (10.0-15.0)
--- OUTSIDE RECORDS SUMMARY | 2024-10-28 14:53 | XMS_ITS | Encounter Summary ---
Author Organization [facility] Address [facility] [place] [address] Care Team Providers Care Rotary Drier Feeder Name Role Phone Ngozi Collier NP Primary Care Provider [phone] Reason for Referral * Surgical (Routine) - New Request Specialty Diagnoses / Procedures Referred By Contac t Referred To Contact Diagnoses PVD (peripheral vascular disease) ([facility]/HCC) Procedures Case request operating room: AMPUTATION TOE (LEFT SECOND TOE) Dae Corrales MD [address] [address] Phone: tel: fax: Referral ID Status Reason Start Date Expiration Date V isits Requested Visits Authorized [id number] New Request 06/08/2024 06/08/2025 1 1 Encounter Details Date Type Department Care Team (Late st Contact Info) Description 06/08/2024 Prep for Procedure [facility] [address] [place], [place] [id number] Dae Corrales MD [facility] [address] [place] [address] Social History Tobacco Use Types Packs/Day Years Used Date Smoking Tobacco: Every Day Cigars Smokeless Tobacco: Never Alcohol Use Standard Drinks/Week Comments Not Currently 0 (1 standard drink = 0.6 oz pur e alcohol) [facility] Utilities Answer Date Recorded In the [...] any time in the past 12 m [facility], were you homeless or living in a half-way (including now)? No 06/06/2024 Sex and Gender Information Value Date Recorded Sex Assigned at Male 09/23/2024 1:10 AM VALUE STREAM MANAGER Legal Sex Male 8:29 PM CDT [...] 06/06/2024 11:27 PM CDT Phong Whitney , SOFIA Active * Because of a physical, mental, [...] Date Author Status No 06/06/2024 11:27 PM CDT Phong Whitney , RN Active documented in this encounter Plan of Treatment Upcoming Encounters Date Type Department Care Team (Late st Contact Info) Description 11/02/2024 2:20 PM CDT Office Visit [facility] Medical Group Multispecialty Care - [facility] 3 [facility], [facility] [address] [place] [address] Negin Adkins NP 3 [facility]. [facility] [address] [place] [address] Scheduled Orders Name Type Priority Associated Diagnoses Orde r Schedule Case request operating room: AMPUTATION TOE (LEFT SECOND TOE) Case Request Routine PVD (peripheral vascular disease) ([facility]) Once for 1 Occurrences starting 06/08/2024 until 06/08/2024 documented as of this encounter Goals Goal Patient Goal Type Associated Problems Recent Progress Patient-Stated? Author Health - patient able to perform ADLs independently Lifestyle No 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 RN documented as of this encounter Visit Diagnoses Diagnosis PVD (peripheral vascular disease) ([facility])- Primary Peripheral vascular disease, unspecified documented in this encounter Care Teams Rotary Drier Feeder Relationship Specialty [place] [address] [place] [address] PCP - General 02/13/18 documented as of this encounter
--- OUTSIDE RECORDS SUMMARY | 2024-10-28 14:53 | XMS_ITS | Continuity of Care Document ---
Author Organization [facility] Address [address] [facility] [address] [place] [address] Phone Care Team Providers Care Aerobics Teacher Name Role Phone Gustavo Pires MD Unavailable [...] Providers Copied on Encounter [facility], [address], [place], [address], [place] tel:[phone] [facility] Pain in right kneeQuadriceps weakness Jun- 2-201 6 Pranay Chen. [address] [place], [place], [id number] . tel: [phone] [facility], [address], [place], [address], [place] tel:[phone] [facility] [place] Status post total right knee replacement 3-201 6 Pranay Chen. [address] [place], [place], [id number] . tel: [phone] [facility], [address] [facility], [place], [address], [place] tel:[phone] [facility] [place] Status post total right knee replacement 6-201 6 Pranay Chen. [address] [place], [place], [id number] . tel: [phone] [facility], [address], [place], [address], [place] tel:[phone] [facility] [place] Status post total right knee replacement 5 6 Pranay Chen. [address] [place], [place], [id number] . tel: [phone] [facility], [address], [place], [address], [place] tel:[phone] [facility] [place] Pain in right kneeAftercare following right knee joint replacement surgeryStatus post total right knee replacement 0 8-201 5 Pranay Chen. [address] [place], [place], [address] . tel: [phone] [facility], [address], [place], [address], [place] tel:[phone] [facility] [place] No Information Jul-0 5 Pranay Chen. [address] [place], [place], [id number] . tel:[phone] [facility], [address] [facility], [place], [address], [place] tel:[phone] [facility] Jen Status post total right knee replacementAfterc are following right knee joint replacement surgery 5 Pranay Chen. [address] [place], [place], [id number] . tel:[phone] [facility], [address] [address], [place], [address], [place] tel:[phone] [facility] [place] Pain in joint involving lower legKnee joint replacementPost Op joint replacement 5 Pranay Chen. [address] [place], [place], [address] . tel: [phone] [facility], [address] [facility] [facility], [place], [address], [place] tel:[phone] [facility] [place] Pain in joint involving lower legKnee joint replacementPost Op joint replacement Apr-0 5 Pranay Chen. [address] [place], [place], [id number] . tel: [phone] [facility], [address] [address], [place], [address], [place] tel:[phone] [facility] [place] Knee joint replacementPain in joint involving lower leg 5 Pranay Chen. [address] [place], [place], [address] . tel:[phone] Family History Family Member Type Diagnosis Age At Onset No Information Payers Payer name Insurance type Covered constitution [...]
--- OUTSIDE RECORDS SUMMARY | 2024-10-28 14:53 | XMS_ITS | Encounter Summary ---
Author Organization [facility] Address [facility] [place] [address] Care Team Providers Care Acrobatic Rigger Name Role Phone Ngozi Collier NP Primary Care Provider [phone] Encounter Details Date Type Department Care Team (Latest Contact Info) Description 10/19/2024 Scan [facility] Scanned, Doc Med Group Social History Tobacco Use Types Packs/Day Years [...] from your doctor or pharmacy? Never 09/23/2024 [facility] Utilities Answer Date Recorded In the past 12 months has e [employer] gas, oil, or water [employer] threatened to shut off services in your [...] often do you attend chur ch or mosque services? Never 09/23/2024 Do you belong to any clubs o r organizations such as catholic groups, unions, fraternal or athletic groups, or [...] Date Recorded Patient Health Questionnaire-2 Score 0 10/19/2024 [facility] Answer Date [...] any time in the past 12 m [facility], were you homeless or living in a alf (including now)? No 09/23/2024 Sex and Gender Information Value Date Recorded Sex Assigned at Male 09/23/2024 1:10 AM GUT CLEANER Legal Sex Male 8:29 PM CDT Gender [...] Date Author Status No 10/01/2024 1:31 PM GUT CLEANER Mamta Lyn RN Active documented in this encounter Plan of Treatment Upcoming Encounters Date Type Department Care Team (Late st Contact Info) Description 11/02/2024 2:20 PM CDT Office Visit [facility] Mult[facility]pec[facility]ty Care - [facility] [address] [facility], [address] [place] [address] Negin Adkins NP 3 [facility]. [facility] [address] [place] [address] documented as of this encounter Goals Goal Patient Goal Type Associated Problems Recent Progress Patient-Stated? Author Health - patient able to perform ADLs independently Lifestyle No 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 RN documented as of this encounter Visit Diagnoses Not on filedocumented in this encounter Additional Health Concerns Assessment Noted Time PHQ-9 Depression Total Score: 0 10/19/19 25 11:33 AM GUT CLEANER documented as of this encounter Care Teams Acrobatic Rigger Relationship Specialty Start Date End Date Ngozi Collier NP [address] [place] [address] PCP - General 02/13/18 documented as of this encounter
--- OUTSIDE RECORDS SUMMARY | 2024-10-28 14:53 | XMS_ITS | Encounter Summary ---
Author Organization [facility] Address [facility] [place] [address] Care Team Providers Care Sales Development Coordinator Name Role Phone Ngozi Collier NP Primary Care Provider [phone] Encounter Details Date Type Department Care Team (Late st Contact Info) Description 03/22/2020 Hospital Follow-up Call [facility] [place] [address] Ashley Lora RN Social History Tobacco Use Types Packs/Day Years Used Date Smoking Tobacco: Every Day Cigars Smokeless Tobacco: Never Sex and Gender Information Value Date Recorded Sex Assigned at Male 09/23/2024 1:10 AM PERIOPERATIVE ASSISTANT Legal Sex Male 8:29 PM CDT Gender [...] Author Status No 03/17/2020 11:54 PM CDT Chelo Jaffe RN Active documented as of this encounter Mental Status * Because of a physical, mental, or emotional condition, do you have serious difficulty concentrating, remembering, or making decisions? Answer Entry Date Author Status No 03/17/2020 11:54 PM CDT Chelo Jaffe RN Active documented in this encounter Plan of Treatment Upcoming Encounters Date Type Department Care Team (Late st Contact Info) Description 11/02/2024 2:20 PM CDT Office Visit [facility] Multispecialty Care - [facility] [address] [facility], [facility] [address] [place] [id number] Negin Adkins NP 3 [facility]. [facility] [address] [place] [address] documented as of this encounter Visit Diagnoses Not on filedocumented in this encounter Care Teams Sales Development Coordinator Relationship Specialty Start Date End Date Ngozi Collier NP [address] [place], [place] [id number] PCP - General 02/13/18 documented as of this encounter
--- OUTSIDE RECORDS SUMMARY | 2024-10-28 14:53 | XMS_ITS | Clinical Summary ---
Author Organization [facility] Address [address] [place] [id number] Care Team Providers Care Vascular Physician Name Role Phone Ngozi Collier NP Primary Care Provider [phone] Allergies Active Allergy Reactions Criticality Noted Date [...] becomes available 1 each 025 2025 Active oxyCODONE-acetam inophen (PERCOCET) 10-325 MG tablet Take 1 tablet by mouth every 6 (six) hours as needed for Pain. TAKE 1 TABLET BY MOUTH EVERY 6 HOURS NEEDED FOR 1 WEEK, THEN TAKE 1 TABLET THREE TIMES A DAY NEEDED - NOTE: DO NOT EXCEED 4000MG PER DAY ACETAMINOPHEN (APAP) 2024 Discontinued metroNIDAZOLE (FLAGYL) 500 MG tabletIndication s:Osteomyelitis Take 1 tablet (500 mg total) by mouth 2 (two) times a day for 13 days. Indications: Infection of Bone and Bone Marrow 26 tablet 2 025 2024 vancomycin 1,250 mg in sodium chloride 0.9 % SOLN 262.5 mLIndications:Os teomyelitis Inject 1,250 mg into the vein every 12 (twelve) hours for 37 days. Indications: Infection of Bone and Bone Marrow 1 Bag 025 2024 Discontinued(R eorder) vancomycin 1,500 mg in sodium chloride 0.9 % SOLN 265 mLIndications:Os teomyelitis Inject 1,500 mg into the vein every 12 (twelve) hours for 27 days. Indications: Infection of Bone and Bone Marrow 1 Bag 53 025 2024 Discontinued(A lternate therapy) Vancomycin HCl 1.75 g Recon SolnIndications: Other acute osteomyelitis of left foot ([facility]) Inject 1.75 g into the vein every 12 (twelve) hours for 3 days. Dose change per Demetrius Bustillo D on 10/15/2024 with anticipated stop date of 11/07/2024 1 each 45 025 2024 Active Problems Problem Noted Date Diagnosed Date Osteomyelitis ([facility]) 09/23/2024 Osteomyelitis of foot, left, acute ([facility]) 09/23/2024 Abnormal liver function 06/28/2024 Acute osteomyelitis of phalanx of foot ([facility]) 06/28/2024 Overview (06/28/2024): Dec 22, 2019 Entered By: SOLEDAD MIRANDA Comment: R great toe amputation 10/2017 Age-related nuclear cataract, bilateral 06/28/20 Benign essential hypertension 06/28/2024 Carpal tunnel syndrome 06/28/2024 Complete traumatic amputatio n of left great toe, subsequent encounter ([facility]) 06/28/2024 Depression 06/28/2024 Encounter for observation fo r other suspected diseases and conditions ruled out 06/28/2024 Erectile dysfunction 06/28/2024 Exposure to potentially hazardous substance 11/2023 Gastroesophageal reflux disease 06/28/2024 History of total right knee replacement 06/28/20 Hyperlipidemia, unspecified 06/28/2024 Localized edema 06/28/2024 [facility] (current) use of opiate analgesic 11/2023 Narcotic drug use 06/28/2024 Non-pressure chronic ulcer o f other part of left foot limited to breakdown of skin ([facility]) 06/28/2024 Obesity 06/28/2024 Osteoarthritis of knee 06/28/2024 Other chronic pain 06/28/2024 Other specified diabetes marshall litus with unspecified complications ([facility]) 06/28/2024 Pain in right shoulder 06/28/2024 Type 1 diabetes mellitus wit h diabetic neuropathy, unspecified ([facility]) 06/28/2024 Type 2 diabetes 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 without macular edema, bilateral ([facility]) 06/28/2024 Type 2 diabetes mellitus wit h foot ulcer (CODE) ([facility] 06/28/2024 Vitamin D deficiency 06/28/2024 Elevated liver function tests 06/21/2024 PVD (peripheral vascular disease) 06/08/2024 Osteomyelitis of left foot ([facility]) SIRS (systemic inflammatory response syndrome) ([facility]) 05/27/2024 Nausea and vomiting 03/20/2020 Open wound of left foot 03/17/2020 Nausea & vomiting 03/17/2020 S/P amputation of lesser toe, left ([facility]) 02/03/2018 Hypertension 07/14/2015 Low back pain 07/14/2015 Right knee pain 07/14/2015 Resolved Problems Problem Noted Date Diagnosed Date Resolved Date Encounter for other preprocedural examination 06/28/2007/05/2024 Encounters Date Type Department Care Team Description 10/25/2024 12:56 PM OFFICE PROFESSIONAL - 10/25/2024 11:59 PM OFFICE PROFESSIONAL Hospital [place] [address] Alexys Dow MD Discharge Disposition: Home or Self Care (Routine Discharge) 10/25/[address] [place] [address] Alexys Dow MD 10/21/2024 Scan [facility] SRVCS Scanned, [facility] (SCAN) 10/19/2024 11:20 AM OFFICE PROFESSIONAL Office Visit [facility] [address] [facility], [address] [place] [phone] Negin Adkins, ERAN Osteomyelitis (L foot OM) 10/19/2024 Scan [facility] HE[facility] INFO SRVCS Scanned, [facility] 10/19/2024 Travel 10/18/2024 Scan [facility] INFO SRVCS Scanned, [facility] (SCAN) 10/18/[address], [address] [place] [phone] Negin Adkins, ERAN Orders 2024 Scan [facility] INFO SRVCS Scanned, [facility] (SCAN) 10/11/2024 Scan [facility] INFO SRVCS Scanned, [facility] (SCAN) 10/11/2024 Telephone [facility] - [address], [address] [place] [phone] Negin Adkins, ERAN Medication; Lab Results 10/07/2024 Scan [facility] HEALTH INFO SRVCS Scanned, [facility] (SCAN) 10/07/2024 Telephone [facility] - [facility] [address] [facility], [address] [place] [phone] Negin Adkins NP Lab Results 10/04/2024 Scan [facility] HE[facility] INFO SRVCS Scanned, [facility] (SCAN) 10/04/2024 Hospital Follow-up Call [facility] [place], [place] [phone] Melonie Mei LPN Follow Up Call ([facility] 09/23-10/01/24) 09/28/2024 9:45 AM OFFICE PROFESSIONAL Home Care Visit [facility] [address] [place] [address] Trice Nava, LEAD CUSTODIAN VISIT 09/25/2024 10:00 AM OFFICE PROFESSIONAL - 09/25/2024 11:03 AM OFFICE PROFESSIONAL Surgery [facility] [place] [address] Dae Marie DPM TRANS METATARSAL AMPUTATION; LEFT FOOT 09/25/2024 9:45 AM OFFICE PROFESSIONAL Anesthesia Event [facility] [place] [address] Alfonso Eagle MD 09/23/2024 1:45 AM OFFICE PROFESSIONAL - 10/01/2024 2:19 PM OFFICE PROFESSIONAL Hospital Encounter [facility] [place] [address] Lucius Johnson, Yamileth Melchor MD McHale, MD Antoinette Leblanc, MD Jaya Del Angel, MD Gil Vidal, Claudia Gill, SELF STORAGE MANAGER Spencer Oliveira, Ashtyn Ling NP Foot Swelling Discharge Disposition: Home with Home Health Care 09/23/2024 Travel from Last 3 Months Immunizations Name Administration [...] Tobacco: Never Tobacco Cessation:Ready to Q uit: No; Counseling Given: No Alcohol Use Standard Drinks/Week Comments Not Currently [...] In the past 12 months has e [employer], gas, oil, or water [employer] threatened to shut off services in your [...] any clubs o r organizations such as zoroastrianism groups, unions, fraternal or athletic groups, or [...] Recorded Patient Health Questionnaire-2 Score 0 10/19/2024 [facility] - Occupational Stress Questionnaire Answer Date [...] any time in the past 12 m [facility], were you homeless or living in a correction (including now)? No 09/23/2024 Sex and Gender Information Value Date Recorded Sex Assigned at Male 09/23/2024 1:10 AM OFFICE PROFESSIONAL Legal Sex Male 8:29 PM CDT Gender Identity Not on file Sexual Orientation Not on file Last Filed Vital Signs Vital Sign Reading Time Taken Comments Blood Pressure 117/49 10/19/2024 11:28 AM OFFICE PROFESSIONAL Pulse 80 10/19/2024 11:28 AM OFFICE PROFESSIONAL Temperature 36.6 C (97.8 F) 10/19/2024 11:28 AM OFFICE PROFESSIONAL Respiratory Rate 18 10/19/2024 11:28 AM OFFICE PROFESSIONAL Oxygen Saturation 99% 10/19/2024 11:28 AM OFFICE PROFESSIONAL Inhaled Oxygen Concentration - - Weight 114.8 kg (253 lb) 10/19/2024 11:28 AM OFFICE PROFESSIONAL Height 182.9 cm (6') 10/19/2024 11:28 AM OFFICE PROFESSIONAL Body Mass Index 34.31 10/19/2024 11:28 AM OFFICE PROFESSIONAL Plan of Treatment Upcoming Encounters Date Type Department Care Team (Late st Contact Info) Description 11/02/2024 2:20 PM CDT Office Visit [facility] Multispecialty [facility] - [facility] [address] [facility], [address] [place] [phone] Negin Adkins NP [address] 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, vermin exterminator Procedure Name Priority Date/Time Associated Diagnosis Comments COMPREHENSIVE METABOLIC PANEL Routine 10/25/2024 10:25 AM OFFICE PROFESSIONAL Acute osteomyelitis of left ankle or foot ([facility]) Encounter for long-term (current) use of antibiotics CBC W/DIFF AUTOMATED Routine 10/25/2024 10:25 AM OFFICE PROFESSIONAL Acute osteomyelitis of left ankle or foot ([facility]) Encounter for long-term (current) use of antibiotics VANCOMYCIN TROUGH Routine 10/25/2024 10: 25 AM OFFICE PROFESSIONAL Acute osteomyelitis of left ankle or foot ([facility]) Encounter for long-term (current) use of antibiotics OUTSIDE LAB (SCAN ORDER) 10/21/2024 OUTSIDE LAB (SCAN ORDER) 10/18/2024 OUTSIDE LAB (SCAN ORDER) 10/18/2024 OUTSIDE LAB (SCAN ORDER) 2024 OUTSIDE LAB (SCAN ORDER) 10/11/2024 OUTSIDE LAB (SCAN ORDER) 10/07/2024 OUTSIDE LAB (SCAN ORDER) 10/04/2024 OUTSIDE LAB (SCAN ORDER) 10/04/2024 POCT GLUCOSE - MARIE DOCKED DEVICE Routine 10/01/2024 11:21 AM OFFICE PROFESSIONAL CBC W/DIFF AUTOMATED Routine 10/01/2024 5:44 AM OFFICE PROFESSIONAL BASIC METABOLIC PANEL Routine 10/01/2024 5:44 AM OFFICE PROFESSIONAL POCT GLUCOSE - MARIE DOCKED DEVICE Routine 10/01/2024 5:16 AM OFFICE PROFESSIONAL POCT GLUCOSE - MARIE DOCKED DEVICE Routine 09/30/2024 8:18 PM OFFICE PROFESSIONAL POCT GLUCOSE - MARIE DOCKED DEVICE Routine 09/30/2024 4:18 PM OFFICE PROFESSIONAL POCT GLUCOSE - MARIE DOCKED DEVICE Routine 09/30/2024 11:40 AM OFFICE PROFESSIONAL HC URINALYSIS AUTO W/O MICRO Routine 09/30/2024 10:13 AM OFFICE PROFESSIONAL POCT GLUCOSE - MARIE DOCKED DEVICE Routine 09/30/2024 6:06 AM OFFICE PROFESSIONAL CBC W/DIFF AUTOMATED Routine 09/30/2024 5:30 AM OFFICE PROFESSIONAL BASIC METABOLIC PANEL Routine 09/30/2024 5:30 AM OFFICE PROFESSIONAL POCT GLUCOSE - MARIE DOCKED DEVICE Routine 09/29/2024 8:20 PM OFFICE PROFESSIONAL POCT GLUCOSE - MARIE DOCKED DEVICE Routine 09/29/2024 4:35 PM OFFICE PROFESSIONAL POCT GLUCOSE - MARIE DOCKED DEVICE Routine 09/29/2024 11:32 AM OFFICE PROFESSIONAL BASIC METABOLIC PANEL Routine 09/29/2024 7:15 AM OFFICE PROFESSIONAL POCT GLUCOSE - MARIE DOCKED DEVICE Routine 09/29/2024 6:21 AM OFFICE PROFESSIONAL CBC W/DIFF AUTOMATED Routine 09/29/2024 5:05 AM OFFICE PROFESSIONAL BASIC METABOLIC PANEL Routine 09/29/2024 5:05 AM OFFICE PROFESSIONAL POCT GLUCOSE - MARIE DOCKED DEVICE Routine 09/28/2024 9:12 PM OFFICE PROFESSIONAL POCT GLUCOSE - MARIE DOCKED DEVICE Routine 09/28/2024 3:50 PM OFFICE PROFESSIONAL POCT GLUCOSE - MARIE DOCKED DEVICE Routine 09/28/2024 11:37 AM OFFICE PROFESSIONAL POCT GLUCOSE - MARIE DOCKED DEVICE Routine 09/28/2024 5:57 AM OFFICE PROFESSIONAL CBC W/DIFF AUTOMATED Routine 09/28/2024 4:48 AM OFFICE PROFESSIONAL BASIC METABOLIC PANEL Routine 09/28/2024 4:48 AM OFFICE PROFESSIONAL POCT GLUCOSE - MARIE DOCKED DEVICE Routine 09/27/2024 7:47 PM OFFICE PROFESSIONAL POCT GLUCOSE - MARIE DOCKED DEVICE Routine 09/27/2024 4:53 PM OFFICE PROFESSIONAL POCT GLUCOSE - MARIE DOCKED DEVICE Routine 09/27/2024 11:38 AM OFFICE PROFESSIONAL POCT GLUCOSE - MARIE DOCKED DEVICE Routine 09/27/2024 6:27 AM OFFICE PROFESSIONAL BASIC METABOLIC PANEL Routine 09/27/2024 5:27 AM OFFICE PROFESSIONAL CBC W/DIFF AUTOMATED Routine 09/27/2024 5:27 AM OFFICE PROFESSIONAL POCT GLUCOSE - MARIE DOCKED DEVICE Routine 09/26/2024 8:39 PM OFFICE PROFESSIONAL POCT GLUCOSE - MARIE DOCKED DEVICE Routine 09/26/2024 4:51 PM OFFICE PROFESSIONAL BASIC METABOLIC PANEL Routine 09/26/2024 1:28 PM OFFICE PROFESSIONAL CBC W/DIFF AUTOMATED Routine 09/26/2024 1:28 PM OFFICE PROFESSIONAL POCT GLUCOSE - MARIE DOCKED DEVICE Routine 09/26/2024 12:26 PM OFFICE PROFESSIONAL POCT GLUCOSE - MARIE DOCKED DEVICE Routine 09/26/2024 6:13 AM OFFICE PROFESSIONAL VANCOMYCIN Routine 09/26/2024 4:34 AM OFFICE PROFESSIONAL BASIC METABOLIC PANEL Routine 09/26/2024 4:34 AM OFFICE PROFESSIONAL CBC W/DIFF AUTOMATED Routine 09/26/2024 4:34 AM OFFICE PROFESSIONAL POCT GLUCOSE - MARIE DOCKED DEVICE Routine 09/25/2024 8:14 PM OFFICE PROFESSIONAL POCT GLUCOSE - MARIE DOCKED DEVICE Routine 09/25/2024 4:18 PM OFFICE PROFESSIONAL POCT GLUCOSE - MARIE DOCKED DEVICE Routine 09/25/2024 11:36 AM OFFICE PROFESSIONAL POCT GLUCOSE - MARIE DOCKED DEVICE Routine 09/25/2024 10:37 AM OFFICE PROFESSIONAL CULTURE, TISSUE W/GRAM STAIN Routine 09/25/2024 10:12 AM OFFICE PROFESSIONAL CULTURE, ANAEROBIC Routine 09/25/2024 10 :12 AM OFFICE PROFESSIONAL AMPUTATION TOE 09/25/2024 9:45 AM OFFICE PROFESSIONAL Osteomyelitis of foot, left, acute ([facility]) POCT GLUCOSE - MARIE DOCKED DEVICE Routine 09/25/2024 8:04 AM OFFICE PROFESSIONAL CBC W/DIFF AUTOMATED Routine 09/25/2024 5:43 AM OFFICE PROFESSIONAL BASIC METABOLIC PANEL Routine 09/25/2024 5:43 AM OFFICE PROFESSIONAL HEMOGLOBIN, GLYCOSYLATED Routine 09/25/2024 5:43 AM OFFICE PROFESSIONAL POCT GLUCOSE - MARIE DOCKED DEVICE Routine 09/25/2024 5:39 AM OFFICE PROFESSIONAL PATHOLOGY Routine 09/25/2024 12:00 AM OFFICE PROFESSIONAL POCT GLUCOSE - MARIE DOCKED DEVICE Routine 09/24/2024 8:10 PM OFFICE PROFESSIONAL POCT GLUCOSE - MARIE DOCKED DEVICE Routine 09/24/2024 3:46 PM OFFICE PROFESSIONAL POCT GLUCOSE - MARIE DOCKED DEVICE Routine 09/24/2024 11:20 AM OFFICE PROFESSIONAL VANCOMYCIN Routine 09/24/2024 6:00 AM OFFICE PROFESSIONAL C-REACTIVE PROTEIN Routine 09/24/2024 6: 00 AM OFFICE PROFESSIONAL HEMOGLOBIN, GLYCOSYLATED Routine 09/24/2024 6:00 AM OFFICE PROFESSIONAL MAGNESIUM Routine 09/24/2024 6:00 AM OFFICE PROFESSIONAL COMPREHENSIVE METABOLIC PANEL Routine 09/24/2024 6:00 AM OFFICE PROFESSIONAL CBC W/DIFF AUTOMATED Routine 09/24/2024 6:00 AM OFFICE PROFESSIONAL POCT GLUCOSE - MARIE DOCKED DEVICE Routine 09/24/2024 5:55 AM OFFICE PROFESSIONAL POCT GLUCOSE - MARIE DOCKED DEVICE Routine 09/23/2024 7:59 PM OFFICE PROFESSIONAL MRI FOOT LT WO CON Today 09/23/2024 6: 47 PM OFFICE PROFESSIONAL POCT GLUCOSE - MARIE DOCKED DEVICE Routine 09/23/2024 3:43 PM OFFICE PROFESSIONAL POCT GLUCOSE - MARIE DOCKED DEVICE Routine 09/23/2024 12:12 PM OFFICE PROFESSIONAL MRSA SCREENING STAT 09/23/2024 10:24 AM OFFICE PROFESSIONAL USV ART REST W BLANCO LOW EXT STAT 09/23/2024 10:09 AM OFFICE PROFESSIONAL CULTURE, BACTERIA, BLOOD STAT 09/23/2024 2:55 AM OFFICE PROFESSIONAL LACTIC ACID W REFLEX (SEPSIS) STAT 09/23/2024 2:55 AM OFFICE PROFESSIONAL HC BODY FLUID CULTURE STAT 09/23/2024 2:11 AM OFFICE PROFESSIONAL C-REACTIVE PROTEIN Routine 09/23/2024 2: 11 AM OFFICE PROFESSIONAL COMPREHENSIVE METABOLIC PANEL STAT 09/23/2024 2:11 AM OFFICE PROFESSIONAL CBC W/DIFF AUTOMATED STAT 09/23/2024 2:11 AM OFFICE PROFESSIONAL XR FOOT LT 3V STAT 09/23/2024 1:54 AM OFFICE PROFESSIONAL HC EIA QL HEPATITIS ABC B AG Routine 06/01/2024 3:47 AM CDT LIPID PANEL STAT 05/27/2024 8:35 AM CDT from Last 3 Months or Most Recently Relevant to Health Maintenance Results * VANCOMYCIN TROUGH (10/25/2024 10:25 AM OFFICE PROFESSIONAL) VANCOMYCIN TROUGH 16.4 10.0 - 20.0 MCG/ML 10/25/2024 3:18 PM OFFICE PROFESSIONAL [facility] Comment: THERAPEUTIC: 10.0-20.0 TOXIC: >25.0 LAST DOSE UNKNOWN LAST DOSE 10/25/2024 3:40 PM OFFICE PROFESSIONAL [facility] 10/25/2024 10:2 5 AM OFFICE PROFESSIONAL us Alexys Dow MD LABORATORY Final Result [facility] [address] [place] [address], [place] [phone] * (ABNORMAL) COMPREHENSIVE METABOLIC PANEL (10/25/2024 10:25 AM [facility]) Only the most recent of3 resultswithin the time period is included. [facility] Signature GLUCOSE 207(H) 70 - 99 MG/DL 10/25/2024 1:47 PM [facility] BUN 13 7 - 18 MG/DL 10/25/2024 1:47 PM [facility] CREATININE S/P/B 0.82 0.7 - 1.3 MG/DL 10/25/2024 1:47 PM [facility] SODIUM S/P/B 137 136 - 145 MMOL/L 10/25/2024 1:47 PM [facility] POTASSIUM S/P/B 4.2 3.5 - 5.1 MMOL/L 10/25/2024 1:47 PM [facility] CHLORIDE S/P/B 106 97 - 115 MMOL/L 10/25/2024 1:47 PM [facility] CO2 26.2 21 - 32 MMOL/L 10/25/2024 1:47 PM [facility] CALCIUM S/P/B 8.7 8.5 - 10.1 MG/DL 10/25/2024 1:47 PM [facility] BILIRUBIN TOTAL S/P/B 0.3 0.2 - 1.2 MG/DL 10/25/2024 1:47 PM [facility] Comment: THIS ASSAY IS NOT RECOMMENDED FOR PATIENTS UNDERGOING TREATMENT WITH ELTROMBOPAG DUE TO THE POTENTIAL FOR FALSELY ELEVATED RESULTS. TOTAL PROTEIN S/P/B 6.3(L) 6.4 - 8.2 G/DL 10/25/2024 1:47 PM [facility] ALBUMIN S/P/B 2.5(L) 3.4 - 5.0 G/DL 10/25/2024 1:47 PM [facility] AST 39(H) 15 - 37 U/L 10/25/2024 1:47 PM OFFICE PROFESSIONAL [facility] ALT 46 16 - 60 U/L 10/25/2024 1:47 PM [facility] ALKALINE PHOSPHATASE S/P/B 173(H) 50 - 136 U/L 10/25/2024 1:47 PM OFFICE PROFESSIONAL [facility] ANION GAP 4.8 2 - 10 MMOL/L 10/25/2024 1:47 PM [facility] BUN CREATININE RATIO 15.9 6 - 26 10/25/2024 1:47 PM [facility] A/G RATIO 0.7(L) 1.0 - 2.0 RATIO 10/25/2024 1:47 PM [facility] GFR ESTIMATE >90 >90 ML/MIN/1.7 3 M2 10/25/2024 1:47 PM [facility] Comment: NOTE: eGFR is not calculated for patients <18 years of age or gender unknown. This is an estimated GFR calculation using the new CKD EPI creatinine equation without race and so does not require a correction factor for race. This estimated GFR should not be used for calculating drug doses. 10/25/2024 10:2 5 AM OFFICE PROFESSIONAL Alexys Dow MD LABORATORY Final Result [facility] [address] [place] [address], [place] [phone] * (ABNORMAL) CBC W/DIFF AUTOMATED (10/25/2024 10:25 AM OFFICE PROFESSIONAL) Only the most recent of11 resultswithin the time period is included. WBC 6.95 4.5 - 11.0 x10'3/uL 10/25/2024 1:44 PM OFFICE PROFESSIONAL [facility] RBC 4.45(L) 4.70 - 6.10 x10'6/uL 10/25/2024 1:44 PM [facility] HGB 13.5(L) 14.0 - 18.0 G/DL 10/25/2024 1:44 PM [facility] HCT 41.6(L) 43.0 - 54.0 % 10/25/2024 1:44 PM [facility] MCV 93.5 80.0 - 94.0 FL 10/25/2024 1:44 PM [facility] MCH 30.3 27.0 - 31.0 PG 10/25/2024 1:44 PM [facility] MCHC 32.5 32.0 - 36.0 G/DL 10/25/2024 1:44 PM [facility] RDW 13.0 11.5 - 14.5 % 10/25/2024 1:44 PM [facility] PLT 295 130 - 400 x10'3/uL 10/25/2024 1:44 PM [facility] MPV 9.8 9.3 - 12.2 FL 10/25/2024 1:44 PM [facility] DIFFERENTIAL TYPE AUTOMATED DIFFERENTIAL 10/25/2024 1:44 PM [facility] NEUTROPHILS % 75.2 % 10/25/2024 1:44 PM [facility] LYMPHOCYTES % 14.1 % 10/25/2024 1:44 PM [facility] MONOCYTES % 8.1 % 10/25/2024 1:44 PM [facility] EOSINOPHILS 1.9 % 10/25/2024 1:44 PM [facility] BASOPHILS 0.6 % 10/25/2024 1:44 PM [facility] IMMATURE GRANS % 0.1 % 10/26/19 25 1:44 PM OFFICE PROFESSIONAL [facility] ABS. NEUTROPHILS 5.23 1.80 - 7.70 x10'3/uL 10/25/2024 1:44 PM OFFICE PROFESSIONAL [facility] ABS. LYMPHOCYTES 0.98(L) 1.00 - 4.80 x10'3/uL 10/25/2024 1:44 PM OFFICE PROFESSIONAL [facility] ABS. MONOCYTES 0.56 0.30 - 0.82 x10'3/uL 10/25/2024 1:44 PM OFFICE PROFESSIONAL [facility] ABS. EOSINOPHILS 0.13 0.04 - 0.54 x10'3/uL 10/25/2024 1:44 PM OFFICE PROFESSIONAL [facility] ABS. BASOPHILS 0.04 0.01 - 0.08 x10'3/uL 10/25/2024 1:44 PM OFFICE PROFESSIONAL [facility] ABS. IMMATURE GRANULOCYTES 0.01 0.00 - 0.49 x10'3/uL 10/25/2024 1:44 PM OFFICE PROFESSIONAL [facility] 10/25/2024 10:2 5 AM OFFICE PROFESSIONAL Alexys Dow MD LABORATORY Final Result [facility] [address] [place] [address], [place] [phone] * OUTSIDE LAB (SCAN ORDER) (10/21/2024) Only the most recent of8 resultswithin the time period is included. 10/21/2024 us [facility] Scanned SCANNING Final Resu lt * (ABNORMAL) POCT glucose (10/01/2024 11:21 AM OFFICE PROFESSIONAL) Only the most recent of35 resultswithin the time period is included. GLUCOSE POC 201(H) 70 - 99 mg/dL 10/01/2024 11:57 AM [facility] 10/01/2024 11:2 1 AM OFFICE PROFESSIONAL Ashtyn Lynch SELF STORAGE MANAGER POCT ORDERABLES - DEVICE Fi nal Result [facility] [address] [place] [address], [place] [phone] * (ABNORMAL) BASIC METABOLIC PANEL (10/01/2024 5:44 AM OFFICE PROFESSIONAL) Only the most recent of9 resultswithin the time period is included. GLUCOSE 90 70 - 99 MG/DL 10/01/2024 6:30 AM [facility] BUN 13 7 - 18 MG/DL 10/01/2024 6:30 AM [facility] CREATININE S/P/B 0.75 0.7 - 1.3 MG/DL 10/01/2024 6:30 AM [facility] SODIUM S/P/B 139 136 - 145 MMOL/L 10/01/2024 6:30 AM [facility] POTASSIUM S/P/B 4.0 3.5 - 5.1 MMOL/L 10/01/2024 6:30 AM [facility] CHLORIDE S/P/B 108 97 - 115 MMOL/L 10/01/2024 6:30 AM [facility] CO2 33.0(H) 21 - 32 MMOL/L 10/01/2024 6:30 AM [facility] CALCIUM S/P/B 8.5 8.5 - 10.1 MG/DL 10/01/2024 6:30 AM [facility] ANION GAP NOT CALCULATED 2 - 10 MMOL/L 10/01/2024 6:30 AM [facility] BUN CREATININE RATIO 17.3 6 - 26 10/01/2024 6:30 AM [facility] GFR ESTIMATE >90 >90 ML/MIN/1. 73 M2 10/01/2024 6:30 AM [facility] Comment: NOTE: eGFR is not calculated for patients <18 years of age or gender unknown. This is an estimated GFR calculation using the new CKD EPI creatinine equation without race and so does not require a correction factor for race. This estimated GFR should not be used for calculating drug doses. 10/01/2024 5:44 AM OFFICE PROFESSIONAL [facility] Final Result [facility] [address] [place] [address], * (ABNORMAL) URINALYSIS (09/30/2024 10:13 AM OFFICE PROFESSIONAL) SPECIMEN TYPE URINE CLEAN CATCH 09/30/2024 10:14 AM [facility] COLOR (U) LIGHT YELLOW 09/30/2024 10:25 AM [facility] TRANSPARENCY CLEAR 09/30/2024 10:25 AM [facility] SPECIFIC GRAVITY (U) 1.011 1.001 - 1.030 09/30/2024 10:25 AM [facility] U PH 6.0 5.0 - 9.0 09/30/2024 10:25 AM [facility] LEUKOCYTES (U) NEGATIVE NEGATIVE 09/30/2024 10:25 AM [facility] NITRITES NEGATIVE NEGATIVE 09/30/2024 10:25 AM [facility] PROTEIN RANDOM (U) NEGATIVE <30 MG/DL 09/30/2024 10:25 AM OFFICE PROFESSIONAL [facility] GLUCOSE (U) NORMAL NORMAL MG/DL 09/30/2024 10:25 AM [facility] KETONES MG/DL (U) NEGATIVE NEGATIVE MG/DL 09/30/2024 10:25 AM [facility] UROBILINOGEN 2.0(A) NORMAL MG/DL 09/30/2024 10:25 AM OFFICE PROFESSIONAL [facility] LAB BILIRUBIN (U) NEGATIVE NEGATIVE MG/DL 09/30/2024 10:25 AM [facility] BLOOD (U) NEGATIVE NEGATIVE 09/30/2024 10:25 AM [facility] URINE SPECIMEN OBTAINED BY CLEAN CATCH PROCEDURE / Unknown 09/30/2024 10:13 AM OFFICE PROFESSIONAL [place] HENDERSON URINE ORDERABLES Final Result Performing Organization Address [facility] Co de Phone Number [address] [address], [place] [phone] * Vancomycin Random Level (09/26/2024 4:34 AM OFFICE PROFESSIONAL) Only the most recent of2 resultswithin the time period is included. VANCOMYCIN RANDOM 17.4 MCG/ML 09/26/2024 5:29 AM OFFICE PROFESSIONAL [facility] Comment:NO THERAPEUTIC RANGE AVAILABLE LAST DOSE UNKNOWN LAST DOSE 09/26/2024 4:38 AM OFFICE PROFESSIONAL [facility] 09/26/2024 4:34 AM OFFICE PROFESSIONAL [place] HENDERSON LABORATORY Final Result [facility] [address] [place] [address], [place] [address], [place] [phone] * (ABNORMAL) CULTURE, TISSUE W/GRAM STAIN (09/25/2024 10:12 AM OFFICE PROFESSIONAL) SPEC DESCRIPTION FOOT,LEFT 09/25/2024 10:17 AM OFFICE PROFESSIONAL [facility] SPECIAL REQUESTS NO SPECIAL REQUEST 09/25/2024 10:17 AM OFFICE PROFESSIONAL [facility] GRAM STAIN RESULT FEW WHITE BLOOD CELLS SEEN 09/25/2024 4:58 PM OFFICE PROFESSIONAL [facility] GRAM STAIN RESULT MANY RED BLOOD CELLS SEEN 09/25/2024 4:58 PM OFFICE PROFESSIONAL [facility] GRAM STAIN RESULT MANY GRAM POSITIVE COCCI 09/25/2024 4:58 PM [facility] CULTURE RESULT LIGHT GROWTH OF ESCHERICHIA COLI (A) 09/27/2024 8:33 AM [facility] CULTURE RESULT MODERATE GROWTH OF STREPTOCOCCI, BETA HEMOLYTIC GROUP B SUSCEPTIBILTY NOT ROUTINELY PERFORMED. SAVING ISOLATE FOR 5 DAYS. CONTACT MICROBIOLOGY DEPARTMENT IF FURTHER WORKUP IS INDICATED. (A) 09/27/2024 8:33 AM [facility] TISSUE STRUCTURE OF LEFT FOOT / Unknown 09/25/2024 10:12 AM OFFICE PROFESSIONAL Narrative Organism Antibiotic Method Susceptibility Escherichia coli [...] OR DERABLES Final Result Performing Organization Address City/[facility]/ZIP Co de Phone Number [facility] [address] [place] [address], * (ABNORMAL) CULTURE, ANAEROBIC (09/25/2024 10:12 AM OFFICE PROFESSIONAL) SPEC DESCRIPTION FOOT,LEFT 09/25/2024 10:17 AM OFFICE PROFESSIONAL [facility] SPECIAL REQUESTS NO SPECIAL REQUEST 09/25/2024 10:17 AM OFFICE PROFESSIONAL [facility] GRAM STAIN RESULT FEW WHITE BLOOD CELLS SEEN 09/25/2024 4:58 PM OFFICE PROFESSIONAL [facility] GRAM STAIN RESULT MANY RED BLOOD CELLS SEEN 09/25/2024 4:58 PM OFFICE PROFESSIONAL [facility] GRAM STAIN RESULT MANY GRAM POSITIVE COCCI 09/25/2024 4:58 PM OFFICE PROFESSIONAL [facility] CULTURE RESULT HEAVY GROWTH OF PREVOTELLA BIVIA BETA LACTAMASE POSITIVE SUSCEPTIBILTY NOT ROUTINELY PERFORMED. SAVING ISOLATE FOR 5 DAYS. CONTACT MICROBIOLOGY DEPARTMENT IF FURTHER WORKUP IS INDICATED. (A) 09/27/2024 11:12 AM OFFICE PROFESSIONAL [facility] TISSUE STRUCTURE OF LEFT FOOT / Unknown 09/25/2024 10:12 AM OFFICE PROFESSIONAL Dae Marie DPM MICROBIOLOGY - GENERAL OR DERABLES Final Result [facility] [address] [place] [address], * (ABNORMAL) HEMOGLOBIN, GLYCOSYLATED (09/25/2024 5:43 AM OFFICE PROFESSIONAL) Only the most recent of2 resultswithin the time period is included. HGB A1C 6.6(H) <5.7 % 09/25/2024 11:14 AM OFFICE PROFESSIONAL [facility] Comment: ADA GUIDELINES 2010 5.7 TO 6.4% INCREASED RISK OF DIABETES > OR = 6.5% CONSISTENT WITH DIABETES ESTIMATED AVG GLUCOSE 143 mg/dL 09/25/2024 11:14 AM OFFICE PROFESSIONAL [facility] 09/25/2024 5:43 AM OFFICE PROFESSIONAL us Turner Curry MD LABORATORY Final Resul t [facility] [address] [place] [address], * Pathology (09/25/2024 12:00 AM OFFICE PROFESSIONAL) PATHOLOGY [facility] Department of Laboratory Medicine [address] [place] [address] , extension [phone] Pathology Report Surgical Pathology Report Name: TAJ SMITH Specimen #: [id number] Age: 2 1965 (Age: 58) Location: [facility] Sex: M Procedure Date: 09/25/2024 Hospital #: [id number] Date Received: 09/27/2024 Date Reported: 09/28/2024 Provider: DAE MRAIE DPM Source: Left 5th metatarsal Clinical History: [...] distal end. The surgical margin is shaved. [employer] tissue is submitted as follows: 1 section through distal end of bone 2 surgical margin. Cassettes 1 and 2 are submitted following decalcification in immuno decal. Gross examination (when applicable), interpretation, and sign out were performed at [facility], [address] [place] [address]. Electronically Signed Out LONNIE FARIAS MD [facility] TISSUE STRUCTURE OF LEFT FOOT / Unknown 09/25/2024 10:13 AM OFFICE PROFESSIONAL Dae Marie DPJami PATHOLOGY/CYTOLOGY ORDERA BLES Final Result [facility] [address] [place] [address], [place] [phone] [id number] * (ABNORMAL) C-REACTIVE PROTEIN (09/24/2024 6:00 AM OFFICE PROFESSIONAL) Only the most recent of2 resultswithin the time period is included. C-REACTIVE PROTEIN 10.10(H) <0.29 mg/dL 09/24/2024 6:47 AM OFFICE PROFESSIONAL [facility] 09/24/2024 6:00 AM OFFICE PROFESSIONAL [place] HENDERSON LABORATORY Final Result [facility] [address] [place] [address], [place] [phone] * (ABNORMAL) MAGNESIUM (09/24/2024 6:00 AM OFFICE PROFESSIONAL) MAGNESIUM 2.5(H) 1.8 - 2.4 MG/DL 09/24/2024 6:47 AM OFFICE PROFESSIONAL [facility] 09/24/2024 6:00 AM OFFICE PROFESSIONAL [place] HENDERSON LABORATORY Final Result [facility] [address] [place] [address], [place] [phone] * MRI FOOT LT WO CON (09/23/2024 6:47 PM OFFICE PROFESSIONAL) Anatomical Region Laterality Modality Foot Magnetic Resonan ce 09/24/2024 8:19 AM OFFICE PROFESSIONAL Impressions 09/24/2024 8:54 AM OFFICE PROFESSIONAL =====IMPRESSION:===== 1. Osteomyelitis greatest in the fifth [...] 09/24/2024 8:19 AM Narrative 09/24/2024 8:54 AM OFFICE PROFESSIONAL [address] [address] EXAMINATION: MRI left foot without contrast EXAM [...] Procedure Note Dae Phillip MD - 09/24/[address] [address] EXAMINATION: MRI left foot without contrast EXAM [...] Dae Phillip MD, 09/24/2024 8:19 AM [place] MRI Final Result * MRSA SCREENING (09/23/2024 10:24 AM OFFICE PROFESSIONAL) SPEC DESCRIPTION NASAL 09/23/2024 10:36 AM [facility] SPECIAL REQUESTS NO SPECIAL REQUEST 09/23/2024 10:36 AM [facility] CULTURE RESULT NO METHICILLIN RESISTANT STAPHYLOCOCCUS AUREUS ISOLATED 09/24/2024 6:41 AM [facility] SPECIMEN FROM INTERNAL NOSE / Unknown 09/23/2024 10:24 AM OFFICE PROFESSIONAL 09/23/2024 10:36 AM OFFICE PROFESSIONAL us [place] HENDERSON MICROBIOLOGY - GENERAL ORDERAB LES Final Result [facility] [address] [place] [address], [place] [phone] * USV ART REST W BLANCO LOW EXT (09/23/2024 10:09 AM OFFICE PROFESSIONAL) Anatomical Region Laterality Modality Extremity Vascular Ultraso und 09/23/2024 9:38 AM OFFICE PROFESSIONAL Narrative 09/23/2024 11:10 AM OFFICE PROFESSIONAL ARTERIAL DOPPLER - BLANCO BILATERAL LOWER EXTREMITY VASCULAR LAB Pat.Name: TAJ SMITH Jairo Pat.ID: [id number] .Date: 09/23/2024 Refer.MD: Ngozi Collier Exam Time: [...] EXTREMITY VASCULAR LAB Pat.Name: TAJ SMITH Pat.ID: [id number] .Date: 09/23/2024 Refer.: Ngozi Collier Exam Time: 9:38:00 AM Study [...] 11:10 AM Elle White M.D. [place] [facility] VAS Final Result * LACTIC ACID W REFLEX (SEPSIS) (09/23/2024 2:55 AM OFFICE PROFESSIONAL) LACTIC ACID VENOUS 1.2 0.4 - 2.0 MMOL/L 09/23/2024 3:40 AM OFFICE PROFESSIONAL [facility] 09/23/2024 2:55 AM OFFICE PROFESSIONAL us Lucius Johnson DO LABORATORY Final Result Performing Organization Address [facility] Co de Phone Number [facility] [address] [place] [address], * CULTURE BACTERIA, BLOOD (09/23/2024 2:55 AM OFFICE PROFESSIONAL) SPEC DESCRIPTION BLOOD 09/23/2024 2:33 AM OFFICE PROFESSIONAL [facility] SPECIAL REQUESTS NO SPECIAL REQUEST 09/23/2024 2:33 AM OFFICE PROFESSIONAL [facility] CULTURE RESULT NO GROWTH 5 DAYS 09/28/2024 7:14 AM OFFICE PROFESSIONAL [facility] BLOOD SPECIMEN OBTAINED FOR BLOOD CULTURE / Unknown 09/23/2024 2:55 AM OFFICE PROFESSIONAL 09/23/2024 3:10 AM OFFICE PROFESSIONAL us Lucius Johnson DO MICROBIOLOGY - GENERAL ORDERAB LES Final Result Performing Organization Address City/[facility]/ZIP Co de Phone Number [facility] [address] [place] [address], [place] [phone] * (ABNORMAL) CULTURE, WOUND, W/GRAM STAIN (09/23/2024 2:11 AM OFFICE PROFESSIONAL) SPEC DESCRIPTION FOOT,LEFT 09/23/2024 2:13 AM [facility] SPECIAL REQUESTS NO SPECIAL REQUEST 09/23/2024 2:13 AM [facility] GRAM STAIN RESULT NO WHITE BLOOD CELLS SEEN 09/23/2024 1:18 PM [facility] GRAM STAIN RESULT NO ORGANISMS SEEN 09/23/2024 1:18 PM [facility] CULTURE RESULT SPARSE GROWTH OF ESCHERICHIA COLI (A) 09/27/2024 7:29 AM [facility] CULTURE RESULT SPARSE GROWTH OF STREPTOCOCCI, BETA HEMOLYTIC GROUP B SUSCEPTIBILTY NOT ROUTINELY PERFORMED. SAVING ISOLATE FOR 5 DAYS. CONTACT MICROBIOLOGY DEPARTMENT IF FURTHER WORKUP IS INDICATED. (A) 09/27/2024 7:29 AM [facility] CULTURE RESULT SPARSE GROWTH OF STAPHYLOCOCCUS AUREUS (A) 09/27/2024 7:29 AM [facility] CULTURE RESULT SPARSE GROWTH OF STREPTOCOCCUS VIRIDANS SPECIES ORGANISM IS CONSISTENT WITH NORMAL SKIN BETTYE. SUSCEPTIBILITIES NOT ROUTINELY PERFORMED. (A) 09/27/2024 7:29 AM [facility] STRUCTURE OF LEFT FOOT / Unknown 09/23/2024 2:11 AM OFFICE PROFESSIONAL 09/23/2024 2:19 AM OFFICE PROFESSIONAL Narrative Organism Antibiotic Method Susceptibility Escherichia coli [...] MICROBIOLOGY - GENERAL ORDDenilson MCQUEEN Final Result [facility] [address] [place] [address], * XR FOOT LT 3V (09/23/2024 1:54 AM OFFICE PROFESSIONAL) Anatomical Region Laterality Modality Foot Radiographic Isis ging 09/23/2024 1:56 AM OFFICE PROFESSIONAL Impressions 09/23/2024 1:59 AM OFFICE PROFESSIONAL IMPRESSION: ===== 1. Comminuted fracture of third toe middle phalanx. 2. Subtle erosion of distal second metatarsal head medially. Osteomyelitis not excluded. 3. 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 4. 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 Prior trauma or infection not excluded. Referred By: Interpreted By: Nishant Urban MD, 09/23/2024 1:56 AM Narrative 09/23/2024 1:[address] [facility] [address] [place], [place] [address] Examination: Left foot 3 views Exam Date/Time: [...] Procedure Note Nishant Urban MD - 09/23/2024 [facility] [address] [place], [place] [address] Examination: Left foot 3 views Exam Date/Time: [...] By: Nishant Urban MD, 09/23/2024 1:56 AM Gustavo Rivera PA-C GENERAL IMAGING Final Resul t * HEPATITIS A,B,& C (06/01/2024 3:47 AM CDT) HEPATITIS B SURFACE AG NON-REACTI VE NON-REACTI VE 06/01/2024 7:01 AM CDT [facility] HEP B CORE TOTAL AB NON-REACTI VE NON-REACTI VE 06/01/2024 7:01 AM CDT [facility] HAV IGM NON-REACTI VE NON-REACTI VE 06/01/2024 7:01 AM CDT [facility] HEPATITIS C AB NON-REACTI VE NON-REACTI VE 06/01/2024 7:01 AM CDT [facility] 06/01/2024 3:47 AM CDT us William Del Rosario MD LABORATORY Final Result [facility] [address] [place] [address], * LIPID PANEL (05/27/2024 8:35 AM CDT) CHOLESTEROL 145 <200 MG/DL 05/27/2024 9:24 AM CDT [facility] TRIGLYCERIDES 56 <150 MG/DL 05/27/2024 9:24 AM CDT [facility] HDL 72 >40.0 MG/DL 05/27/2024 9:24 AM CDT [facility] LDL (CALCULATED) 62 <100 MG/DL 05/27/20 9:24 AM CDT [facility] NON HDL CHOLESTEROL 73 <130 MG/DL 05/27 9:24 AM CDT [facility] CHOL/HDL RATIO 2.0 0.0 - 4.5 05/27/2024 9:24 AM CDT [facility] VLDL CALCULATION 11 5 - 55 MG/DL 05/27/2024 9:24 AM CDT [facility] LIPID INTERPRETATION 05/27/2024 9:24 AM CDT [facility] Comment: NIH CONCENSUS REPORT RECOMMENDATIONS: ADULT CHILD LOW RISK: CHOLESTEROL <200 <170 TRIGLYCERIDE <150 --- HDL >=60 --- LDL <100 <110 BORDERLINE: CHOLESTEROL 200-239 170-199 TRIGLYCERIDE 150-199 --- HDL 40-59 --- LDL 100-159 110-129 HIGH RISK: CHOLESTEROL >=240 >=200 TRIGLYCERIDE >=200 --- HDL <40 --- LDL >=160 >=130 05/27/2024 8:35 AM CDT us Damon Mendez MD LABORATORY Final Resul t [facility] [address] [place] [address], [place] [phone] from Last 3 Months or Most Recently Relevant to Health Maintenance Insurance [facility] Advance Directives * Full Code (Latest Code [...] 10:40 PM 03/21/2020 12:49 PM Care Teams Vascular Physician Relationship Specialty Start Date End Date Ngozi Collier NP [address] [place] [address] PCP - General 02/13/18
--- OUTSIDE RECORDS SUMMARY | 2024-10-28 14:53 | XMS_ITS | Encounter Summary ---
Author Organization [facility] Address [facility] [place] [address] Care Team Providers Care Charge Authorizer Name Role Phone Ngozi Collier NP Primary Care Provider [phone] Reason for Visit * Reason Comments Lab (SCAN) Encounter Details Date Type Department Care Team (Latest Contact Info) Description 10/21/2024 Scan [facility] SRV[facility] Scanned, [...] from your doctor or pharmacy? Never 09/23/2024 [facility] Utilities Answer Date Recorded In the past 12 months has [facility] [employer], [employer], oil, or water [employer] threatened to shut off services in your [...] often do you attend chur ch or mu-ism services? Never 09/23/2024 Do you belong to [...] Recorded Patient Health Questionnaire-2 Score 0 10/19/2024 [facility] - Occupational Stress Questionnaire Answer Date [...] were you homeless or living in a jail (including now)? No 09/23/2024 Sex and Gender Information Value Date Recorded Sex Assigned at Male 09/23/2024 1:10 AM HEAVY EQUIPMENT SUPERVISOR Legal Sex Male 8:29 PM CDT Gender [...] Date Author Status No 10/01/2024 1:31 PM HEAVY EQUIPMENT SUPERVISOR Mamta Lyn RN Active documented in this encounter Plan of Treatment Upcoming Encounters Date Type Department Care Team (Late st Contact Info) Description 11/02/2024 2:20 PM CDT Office Visit [facility] - [facility] [address], [address] [place] [address] Negin Adkins NP [address] [facility] [place] [address] documented as of this encounter Goals Goal Patient Goal Type Associated Problems Recent Progress Patient-Stated? Author Health - patient able to perform ADLs independently Lifestyle No 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 RN documented as of this encounter Procedures Procedure Name Priority Date/Time Associated Diagnosis Comments OUTSIDE LAB (SCAN ORDER) 10/21/2024 documented in this encounter Results * OUTSIDE LAB (SCAN ORDER) (10/21/2024) 10/21/2024 [facility] Scanned SCANNING Final Resu lt documented in this encounter Visit Diagnoses Not on filedocumented in this encounter Additional Health Concerns Assessment Noted Time PHQ-9 Depression Total Score: 0 10/19/19 25 11:33 AM HEAVY EQUIPMENT SUPERVISOR documented as of this encounter Care Teams Charge Authorizer Relationship Specialty Start Date End Date Ngozi Collier NP [address] [place] [address] PCP - General 02/13/18 documented as of this encounter
--- OUTSIDE RECORDS SUMMARY | 2024-10-28 14:53 | XMS_ITS | Clinical Summary ---
Author Organization [facility] Address [address] [place] [address] Phone Care Team Providers Care Supervisor Wool Shearing Name Role Phone Unavailable Primary Care Provider Unavailabl e Allergies Active Allergy Reactions Criticality Noted Date Comments Amoxicillin Nausea and Vomiting Low 11/25/2017 Fentanyl Other (See Comments) 11/25/2017 Can't see straight Metformin Nausea and Vomiting Low 11/25/2017 Methadone Other (See Comments) 11/25/2017 Can't see straight Morphine Other (See Comments) 11/25/2017 Can't see straight Oxycodone Nausea and Vomiting Low 11/25/2017 Medications insulin glargine (LANTUS) 100 unit/mL injection Inject 15 Units by subcutaneous injection daily at bedtime . Active sAXagliptin (ONGLYZA) 5 mg tablet Take 5 mg by mouth daily with breakfast. Active hydroCHLOROthia zide (MICROZIDE) 12.5 mg capsule Take 12.5 mg by mouth daily. Active naproxen (NAPROSYN) 500 mg tablet Take 500 mg by mouth 2 times daily with meals. Active oxyCODONE (ROXICODONE) 5 mg tablet Take 5 mg by mouth every 8 hours as needed for Pain. Active Active Problems Patient Care Coordination No te Formatting of this note migh t be different from the original. Patient sees Dr. Ngozi Collier Problem Noted Date Diagnosed Date S/P amputation of large toe of left foot 018 Open wound of left foot Family History Relation Name Status Comments Father Alive Mother Alive Social History Tobacco Use Types Packs/Day Years Used Date Smoking Tobacco: Former Cigarettes Q uit: 01/13/1995 Smokeless Tobacco: Never Alcohol Use Standard Drinks/Week Comments Yes 0 (1 standard drink = 0.6 oz pure alcohol) a couple times a moth drinks wine Sex and Gender Information Value Date Recorded Sex Assigned at Not on file Legal Sex Male 1:13 PM CDT Gender Identity Not on file Sexual Orientation Not on file Last Filed Vital Signs Vital Sign Reading Time Taken Comments Blood Pressure 132/74 09/04/2018 11:39 AM FOOD SERVICE ORDER CLERK Pulse 92 02/09/2018 11:36 AM CDT Temperature 36.8 C (98.2 F) 02/09/2018 11:36 AM CDT Respiratory Rate 20 01/26/2018 3:00 PM CDT Oxygen Saturation 98% 02/09/2018 11:36 AM CDT Inhaled Oxygen Concentration - - Weight 113.4 kg (250 lb) 09/04/2018 11:39 AM FOOD SERVICE ORDER CLERK Height 185.4 cm (6' 1 ) 09/04/2018 11:39 AM FOOD SERVICE ORDER CLERK Body Mass Index 32.98 09/04/2018 11:39 AM FOOD SERVICE ORDER CLERK Plan of Treatment Health Maintenance Due Date Last Done Comments DTAP/TDAP/TD VACCINES (1 - Tdap) 1986 HEPATITIS B VACCINES (1 of 3 - 19+ 3-dose series) 09/26 COLORECTAL SCREENING 2012 Colorectal Cancer Screening 2012 FIT-DNA Q 3 years 2012 FIT/FOBT Q 1 year 2012 Flex Sig/CT Colonography Q 5 years 2012 ZOSTER VACCINE (1 of 2) 2017 INFLUENZA VACCINE (#1) 2024 Medical Devices Implanted Type Area Aircraft Powertrain Repairer Device Identifier Shelf Expiration Date Model / Serial / Lot Right Knee Titanium Advance Directives For more information, please contact: [phone] * Full Code (Latest Code Status on File) Date Activated Date Inactivated Comments 12/26/2017 12:12 PM 12/26/2017 6:47 PM
--- OUTSIDE RECORDS SUMMARY | 2024-10-28 14:53 | XMS_ITS | Clinical Summary ---
Author Organization Unknown Care Team Providers Care Subway Train Driver Name Role Phone OMER ACUNA, SHARMILA Unavailable Unavailable KM BLACK, PETE Unavailable Unavailable Payers Payer Name Policy Type Policy Number Effective Date Expira tion Date [facility] - [facility]GM Problems Condition Name [...] OTHER LEFT TOE(S) Active 08-25 00:00: 00 [facility] (CURRENT) USE OF INSULIN Active 08-25 00:00: 00 DEPRESSION, UNSPECIFIED Active 08-25 00:00: 00 ESSENTIAL (PRIMARY) HYPERTENSION Active 08-25 00:00: 00 OBESITY, UNSPECIFIED Active 08-25 00:00: 00 HYPERKALEMIA Active 08-25 00:00: 00 BODY MASS INDEX [BMI] 35.0-35.9, ADULT Active 08-25 00:00: 00 ENCOUNTER FOR ADJUSTMENT AND MANAGEMENT OF VAD Active 08-25 00:00: 00 [facility] (CURRENT) USE OF ANTIBIOTICS Active 08-25 00:00: [...] % topical cream 10-04 00:00: 00 Yes [id number] 1 inch 4 TIMES DAILY 1 inch 4 TIMES DAILY (route: topical) Med Classific ation: Dermatolo gical ceftriaxone 2 gram intravenous solution 10-01 00:00: 00 Yes [id number] 2 g DAILY 2 g DAILY (route: intravenou s) Med Classific ation: Anti-Infe ctive Agents cholecalcif neftali (vitamin D3) 50 mcg (2,000 unit) capsule 2- 00:00: 00 Yes [id number] 1 capsule DAILY 1 capsule DAILY (route: oral) Med Classific ation: Electroly te Balance-N utritiona l Products cyanocobala min (vit B-12) 100 mcg tablet - 00:00: 00 Yes [id number] 1 tablet DAILY 1 tablet DAILY (route: oral) Med Classific ation: Electroly te Balance-N utritiona l Products insulin degludec (U-100) 100 unit/mL subcutaneou s solution - 00:00: 00 Yes [id number] 80 unit DAILY 80 unit DAILY (route: subcutaneo us) Med Classific ation: Endocrine lidocaine 5 % topical patch - 00:00: 00 Yes [id number] 1 adhesiv e patch, medicat ed DAILY 1 adhesive patch, medicated DAILY (route: topical) Med Classific ation: Dermatolo gical losartan 50 mg tablet 10-04 00:00: 00 Yes [id number] 1 tablet DAILY 1 tablet DAILY (route: oral) Med Classific ation: Cardiovas cular Therapy Agents metronidazo le 500 mg tablet 10-01 00:00: 00 10-14 23:59 :00 No [id number] 500 mg 2 TIMES DAILY 500 mg 2 TIMES DAILY (route: oral) Med Classific ation: Anti-Infe ctive Agents Multivitami n 50 Plus tablet - 00:00: 00 Yes [id number] 1 tablet DAILY 1 tablet DAILY (route: oral) Med Classific ation: Electroly te Balance-N utritiona l Products Narcan 4 mg/actuatio n nasal spray 2- 00:00: 00 Yes [id number] 1 spray NEEDED 1 spray A S NEEDED (route: nasal) Med Classific ation: Antidotes and other Reversal Agents oxycodone-a cetaminophe n 10 mg-325 mg tablet -10 00:00: 00 10-11 23:59 :00 No [id number] 1 tablet EVERY 6 HOURS 1 tablet EVERY 6 HOURS (route: oral) Med Classific ation: Analgesic , Anti-infl ammatory or Antipyret ic vancomycin 1.25 gram intravenous solution 10-01 00:00: 00 10-15 23:59 :00 No [id number] 1.25 g 2 TIMES DAILY 1.25 g 2 TIMES DAILY (route: intravenou s) Med Classific ation: Anti-Infe ctive Agents Xarelto 20 mg tablet 10-04 00:00: 00 10-27 23:59 :00 No [id number] 1 tablet EVERY PM 1 tablet EVERY PM (route: oral) Med Classific ation: Hematolog ical Agents Normal Saline Flush 0.9 % injection syringe 10-04 00:00: 00 Yes [id number] 10 mL DIRECTED 10 mL DIRECTED (route: injection) Med Classific ation: Electroly te Balance-N utritiona l Products heparin lock flush (porcine) 10 unit/mL intravenous solution 10-04 00:00: 00 Yes [id number] 5 mL DIRECTED 5 mL DIRECTED (route: intravenou s) Med Classific ation: Hematolog ical Agents Betadine 10 % topical solution 10-12 00:00: 00 Yes [id number] Per instruc tions DIRECTED Per instructio ns DIRECTED (route: topical) Med Classific ation: Dermatolo gical vancomycin 1.75 gram intravenous solution 10-15 00:00: 00 Yes [id number] 1.75 g EVERY 12 HOURS 1.75 g EVERY 12 HOURS (route: intravenou s) Med Classific ation: Anti-Infe ctive Agents Immunizations Ordered Immunization Name Filled Immunization Name Date Status Comments Refusal Reason REFUSED PNEUMONIA, PPV 2024-10-18 00:00:00 PNEUMOCOCCAL (PPV), PPV 2024-10-11 00:00:00 REFUSED PNEUMONIA, PPV 2024-10-04 00:00:00 INFLUENZA, TIV (INACTIVATED) 2024-05-19 00:00:00 INFLUENZA, TIV (INACTIVATED) 2024-05-12 00:00:00 Vital Signs Vital Name Observation Time Observation Value Commen ts Temperature 2024-10-25 10:21:00.000 97.6 [degF] Temperature 2024-10-21 15:25:00.000 97.9 [degF] Temperature 2024-10-18 14:23:00.000 98 [degF] Temperature 2024 09:37:00.000 97.1 [degF] Temperature 2024-10-11 10:34:00.000 98 [degF] Temperature 2024-10-07 09:47:00.000 98.2 [degF] Temperature 2024-10-04 14:38:00.000 98 [degF] BMI (%) 2024-10-04 09:41:54.000 35 kg/m2 Height 2024-10-04 09:41:38.000 72 [in_us] Pulse 2024-10-25 10:21:00.000 89 /min Pulse 2024-10-21 15:25:00.000 80 /min Pulse 2024-10-18 14:23:00.000 80 /min Pulse 2024 09:37:00.000 82 /min Pulse 2024-10-11 10:34:00.000 80 /min Pulse 2024-10-07 09:47:00.000 90 /min Pulse 2024-10-04 14:38:00.000 68 /min O2 Saturation (%) 2024-10-25 10:21:00.000 97 % O2 Saturation (%) 2024-10-21 15:25:00.000 100 % O2 Saturation (%) 2024-10-18 14:23:00.000 98 % O2 Saturation (%) 2024 09:37:00.000 95 % O2 Saturation (%) 2024-10-11 10:34:00.000 99 % O2 Saturation (%) 2024-10-07 09:47:00.000 96 % O2 Saturation (%) 2024-10-04 14:38:00.000 97 % Respirations 2024-10-25 10:21:00.000 18 /min Respirations 2024-10-21 15:25:00.000 16 /min Respirations 2024-10-18 14:23:00.000 18 /min Respirations 2024 09:37:00.000 18 /min Respirations 2024-10-11 10:34:00.000 16 /min Respirations 2024-10-07 09:47:00.000 16 /min Respirations 2024-10-04 14:38:00.000 16 /min Weight (lbs) 2024-10-04 09:41:54.000 260 [lb_av] Systolic Blood Pressure 2024-10-25 10:21:00.000 140 mm [Hg] Systolic Blood Pressure 2024-10-21 15:25:00.000 146 mm [Hg] Systolic Blood Pressure 2024-10-18 14:23:00.000 142 mm [Hg] Systolic Blood Pressure 2024 09:37:00.000 128 mm [Hg] Systolic Blood Pressure 2024-10-11 10:34:00.000 142 mm [Hg] Systolic Blood Pressure 2024-10-07 09:47:00.000 140 mm [Hg] Systolic Blood Pressure 2024-10-04 14:38:00.000 160 mm [Hg] Diastolic Blood Pressure 2024-10-25 10:21:00.000 80 mm [Hg] Diastolic Blood Pressure 2024-10-21 15:25:00.000 78 mm [Hg] Diastolic Blood Pressure 2024-10-18 14:23:00.000 66 mm [Hg] Diastolic Blood Pressure 2024 09:37:00.000 [...] FOR HOME HEALTH.] Future Scheduled Test HOME [facility]ENC[facility] MAY ACCEPT ORDERS FROM THE FOLLOWING PHYSICIANS: PODIATRY: DR. ABEL RHEOLOGIST/TREATING PROVIDERS [code = HOME HEALTH AGENCY MAY ACCEPT ORDERS FROM THE FOLLOWING PHYSICIANS: PODIATRY: DR. ABEL RHEOLOGIST/TREATING PROVIDERS] Future Scheduled Test SKILLED NU RSE [...] LAB RESULTS AND REPORT TO PHYSICIAN NUPUR HICKSI AT [phone] AND [phone]. [code = SKILLED NURSE TO OBTAIN BLOOD SPECIMEN VIA PICC OR VENIPUNCTURE USING ASEPTIC TECHNIQUE: WEEKLY ON MONDAYS: CBC, CMP BIWEEKLY (FRIDAY AND FRIDAY OR FRIDAY): BMP AND VANCO TROUGH. OBTAIN LAB RESULTS AND REPORT TO PHYSICIAN NUPUR HICKSI AT [phone] AND [phone].] Future Scheduled Test SKILLED NU RSE FOR [...] MAINTAIN SITUATIONAL AWARENESS AND WILL NOTIFY CLINICAL TRIMMER MEAT AND PHYSICIAN/PROVIDER WITH ANY CHANGE IN CONDITION. [code = SKILLED NURSE TO PERFORM ENVIRONMENTAL SAFETY RISK ASSESSMENT AND FALL RISK ASSESSMENT AND PROVIDE INSTRUCTION TO IMPLEMENT ENVIRONMENTAL SAFETY AND FALL PREVENTION STRATEGIES THROUGHOUT THE CERTIFICATION PERIOD. SKILLED NURSE WILL MAINTAIN SITUATIONAL AWARENESS AND WILL NOTIFY CLINICAL TRIMMER MEAT AND PHYSICIAN/PROVIDER WITH ANY CHANGE IN CONDITION.] [...] CARE WILL BE ESTABLISHED THAT MEETS PATIENT'S [facility] NEEDS AND INCLUDES PATIENT GOAL FOR HOME [...] Notes Progress Notes <paragraph>[Visit Date: 2024 by BRIANA BROWN RN]:</paragraph><paragraph>SKILLED NURSE VISIT COMPLETED TODAY, PATIENT WAS SEEN FOR ROUTINE NURSING VISIT, LABS, AND WOUND CARE. UPON ARRIVAL PATIENT HOLLERED TO COME IN. PATIENT FOUND SITTING ON THE COUCH. PATIENT IS PLEASANT AND COOPERATIVE, ALERT AND ORIENTED X4. VITAL SIGNS WERE OBTAINED AND WITHIN NORMAL LIMITS, HEART RATE AND RHYTHM REGULAR, PATIENT DENIES ANY CHEST PAIN PALPITATIONS OR DIZZINESS, LUNG SOUNDS CLEAR TO ALL LOBES, NO COUGH CONGESTION OR SHORTNESS OF BREATH NOTED/REPORTED. ABDOMEN SOFT AND NONTENDER. BOWEL SOUNDS POSITIVE X4 QUADRANTS, HE DENIES ANY DIARRHEA OR CONSTIPATION AT THIS VISIT. EDEMA NOTED TO HIS LEFT LOWER LEG WITH INSTRUCTION COMPLETED TO ELEVATE THROUGHOUT THE DAY WHEN SITTING. PATIENT DENIES ANY FALLS, MEDICATION CHANGES OR EMERGENCY ROOM VISITS SINCE THE LAST VISIT. TODAY WE ALSO DISCUSSED PURPOSE, DOSE, AND SIDE EFFECTS ON BETADINE AND PATIENT VERBALIZES UNDERSTANDING. THE CALENDAR WAS REVIEWED REGARDING THE NEXT VISIT, HE WAS REMINDED TO CALL [facility] FIRST WITH ANY QUESTIONS CONCERNS OR CHANGES IN CONDITIONS. CBC CMP AND VANCOMYCIN LEVELS ATTEMPTED VIA PICC LINE USING ASEPTIC TECHNIQUE. LINE IS FLUSHING EASILY BUT LITTLE BLOOD RETURN TODAY, FOLLOWED FLUSH WITH 5 ML OF HEPARIN 10 U/ML. NO PICC LINE DRESSING KIT AVAILABLE. PATIENT INSTRUCTED TO LET INFUSION KNOW THAT HE NEEDS 2 KITS FOR THIS WEEK'S DELIVERY. DRESSING WAS CHANGED AT LAST VISIT AND IS NOT DUE TO BE CHANGED TODAY. OLY PICC LINE X2 LUMEN DRESSING CLEAN DRY AND INTACT. INSTRUCTED PATIENT TO FLUSH LINE THAT IS NOT BEING USED DAILY WITH SALINE AND HEPARIN. LABS OBTAINED USING ASEPTIC TECHNIQUE #23 BUTTERFLY [id number] TO LAC, LABS OBTAINED, BUTTERFLY REMOVED, PRESSURE HELD X2 MIND, BANDAID APPLIED. PATIENT TOLERATED WITH NO COMPLAINTS OF PAIN OR DISCOMFORT. DRESSING CHANGE COMPLETED TO LEFT FOOT PER ICC AND METZGER USING ASEPTIC TECHNIQUE. NO CHANGE TO MEASUREMENTS NO SIGNS AND SYMPTOMS OF INFECTION NOTED. PATIENT TOLERATED DRESSING CHANGE WITH NO COMPLAINTS OF PAIN OR DISCOMFORT. PATIENT HAS A NEIGHBOR WHO IS A NURSE WHO COMPLETES DRESSING CHANGE EVERY DAY.</paragraph> Encounters Start Date/Time End Date/Time Encounter Type Admission Type Attending [facility] Care Department Encounter ID Discharge Date Discharge Status Discharge Condition Discharge Reason Percent Goals Met 2024-10-04 00:00:00 2024-12-02 00:00:00 Outpatient NEW ADMISSION PETE [facility]BOUR [facility] [id number]
--- OUTSIDE RECORDS SUMMARY | 2024-10-28 14:53 | XMS_ITS | Continuity of Care Document ---
Author Organization [facility] Address [address] [place] [address] Phone Care Team Providers Care Nursery Nurse Name Role Phone Administrative, Provider Unavailable Unavail [...] Date Provider Providers Copied on Encounter [facility], [address] [place] [address], [id number], tel:[phone] [facility] No Information 8 Administrati ve Provider. [address] [place] [address], [id number], . tel:[phone] [facility], [address] [place] [address], [id number], tel:[phone] [facility] No Information 8 Administrati ve Provider. [address] [place] [address], [id number], [place]. tel:[phone] [facility], [address] [place] [address], [id number], [place] tel:[phone] [facility] No Information 6 Administrati ve Provider. [address] [place] [address], [id number], [place]. tel:[phone] Office/outpa tient visit,est, mod [facility], [address] [place] [address], [id number], tel:[phone] [facility] lumbar (chief complaint) Other intervertebral disc degeneration, lumbar region 6 Abeln Hallie. [address] [facility] [address], [place], [place], [id number], [place]. tel:[phone] No Show Legal Established Patient [facility], [address] [address], [place], [place], [id number], [place] tel:[phone] [facility] No Information 6 Lissett Thompson. [address] [address], [place], [place], [id number], [place]. tel:[phone] Office/outpa tient visit,est, mod [facility], [address] [address], [place], [place], [id number], [place] tel:[phone] [facility] lumbar spine (chief complaint) Other intervertebral disc degeneration, lumbar region 6 Abeln Hallie. [address], [id number], [place]. tel:[phone] Independent Medical Examination ARGELIA [facility], [address] [address], [place], [place], [id number], [place] tel:[phone] [facility] Pain in right knee 6 Nogalski Franky. [address], [id number], [place]. tel:[phone] Office/outpa tient visit,est, mod [facility], [address], [id number], [place] tel:[phone] [facility] Other intervertebral disc displacement, lumbar region 6 Lissett Thompson. [address], [id number], [place]. tel:[phone] [facility], [address], [id number], [place] tel:[phone] [facility] No Information 6 Lissett Thompson. [address] [place], [id number], [place]. tel:[phone] Office/outpa tient visit,est, [facility], [address] [address], [place], [place], [id number], [place] tel:[phone] [facility] Other intervertebral disc degeneration, lumbar regionOther intervertebral disc displacement, lumbar region 5 6 Abeln Hallie. [address] [address], [place], [place], [id number], [place]. tel:[phone] [facility], [address] [address], [place], [place], [id number], [place] tel:[phone] [facility] No Information 6 Administrati ve Provider. [address], [id number], [place]. tel:[phone] Office/outpa tient visit,est, [facility], [address] [address], [place], [place], [id number], [place] tel:[phone] [facility] Other intervertebral disc degeneration, lumbar region 6 Lissett Jay. [address] [address], [place], [place], [id number], [place]. tel:[phone] Office/outpa tient visit,est, [facility], [address] [address], [place], [place], [id number], [place] tel:[phone] [facility] Other intervertebral disc displacement, lumbar region 5 Abeln Hallie. [address] [address], [place], [place], [id number], [place]. tel:[phone] Office/outpa tient visit,est, [facility], [address], [id number], [place] tel:[phone] [facility] Other intervertebral disc displacement, lumbar region 8 5 Abeln Hallie. [address], [address], [id number], [place]. tel:[phone] No Show Legal Established Patient [facility], [facility] [address], [id number], tel:[phone] [facility] No Information 1 5 Ankit Sterling. [address] [place] [address], [address], [id number], [place]. tel:[phone] Office/outpa tient visit,new, [facility], [address], [id number], tel:[phone] [facility] Other intervertebral disc degeneration, lumbar region 0- 5 Lissett Jay. [address] [place] [address], [address], [id number], . tel:[phone] No Show Legal Established Patient [facility], [address], [id number], tel:[phone] [facility] No Information 5 Lissett Thompson. [address] [place] [address], [id number], [place]. tel:[phone] Family History Family Member Type Diagnosis Age At Onset No Information Immunizations Vaccine Date Status Comments Flu (split) (3 yrs or older) administered Source: Other Provider Payers Payer name Insurance type Covered democrat ID Authoriza tion(s) No Information Social History [...]
== END 2024-10-28 13:34 | disposition home or self-care (01) ==
LOC: CHSLAB 13:36
DX: M86.172 Other acute osteomyelitis, left ankle and foot (principal); Z47.81 Encounter for orthopedic aftercare following surgical amputation; Z45.2 Encounter for adjustment and management of vascular access device
CPT/HCPCS: 36415; 80048; 80202

== ENCOUNTER 2024-11-04 12:24 | Outpatient (NON) | payer OTHER, SELFPAY ==
[2024-11-04 13:52] LABS: Anion Gap 4 mmol/L (4-12); Blood Urea Nitrogen 15 mg/dL (7-18); Calcium 8.4 mg/dL (8.5-10.1); Carbon Dioxide 30 mmol/L (21-32); Chloride 109 mmol/L (98-108); Estimated Glomerular Filt Rate > 60; Glucose 274 mg/dL (70-99); Osmolality Calculated 306 mOsm/kg (285-295); Potassium 4.9 mmol/L (3.5-5.1); Sodium 143 mmol/L (136-145); Vancomycin Trough 13.5 ug/mL (10.0-15.0)
--- OUTSIDE RECORDS SUMMARY | 2024-11-04 13:58 | XMS_ITS | Clinical Summary ---
Author Organization Unknown Care Team Providers Care School Principal Name Role Phone OMER ACUNA, SHARMILA Unavailable Unavailable KM BLACK, PETE Unavailable Unavailable Payers Payer Name Policy Type Policy Number Effective Date Expira tion Date [facility] OPTUM PROGRAM - PDGM Problems Condition [...] OTHER LEFT TOE(S) Active 08-25 00:00: 00 CARE HOME (CURRENT) USE OF INSULIN Active 08-25 00:00: 00 DEPRESSION, UNSPECIFIED Active 08-25 00:00: 00 ESSENTIAL (PRIMARY) HYPERTENSION Active 08-25 00:00: 00 OBESITY, UNSPECIFIED Active 08-25 00:00: 00 HYPERKALEMIA Active 08-25 00:00: 00 BODY MASS INDEX [BMI] 35.0-35.9, ADULT Active 08-25 00:00: 00 ENCOUNTER FOR ADJUSTMENT AND MANAGEMENT OF VAD Active 08-25 00:00: 00 CARE HOME (CURRENT) USE OF ANTIBIOTICS Active 08-25 00:00: [...] % topical cream 10-04 00:00: 00 Yes [id number] 1 inch 4 TIMES DAILY 1 inch 4 TIMES DAILY (route: topical) Med Classific ation: Dermatolo gical ceftriaxone 2 gram intravenous solution 10-01 00:00: 00 Yes [id number] 2 g DAILY 2 g DAILY (route: intravenou s) Med Classific ation: Anti-Infe ctive Agents cholecalcif neftali (vitamin D3) 50 mcg (2,000 unit) capsule 2- 00:00: 00 Yes [id number] 1 capsule DAILY 1 capsule DAILY (route: oral) Med Classific ation: Electroly te Balance-N utritiona l Products cyanocobala min (vit B-12) 100 mcg tablet - 00:00: 00 Yes [id number] 1 tablet DAILY 1 tablet DAILY (route: oral) Med Classific ation: Electroly te Balance-N utritiona l Products insulin degludec (U-100) 100 unit/mL subcutaneou s solution - 00:00: 00 Yes [id number] 80 unit DAILY 80 unit DAILY (route: subcutaneo us) Med Classific ation: Endocrine lidocaine 5 % topical patch - 00:00: 00 Yes [id number] 1 adhesiv e patch, medicat ed DAILY 1 adhesive patch, medicated DAILY (route: topical) Med Classific ation: Dermatolo gical losartan 50 mg tablet 10-04 00:00: 00 Yes [id number] 1 tablet DAILY 1 tablet DAILY (route: oral) Med Classific ation: Cardiovas cular Therapy Agents metronidazo le 500 mg tablet 10-01 00:00: 00 10-14 23:59 :00 No [id number] 500 mg 2 TIMES DAILY 500 mg 2 TIMES DAILY (route: oral) Med Classific ation: Anti-Infe ctive Agents Multivitami n 50 Plus tablet - 00:00: 00 Yes [id number] 1 tablet DAILY 1 tablet DAILY (route: oral) Med Classific ation: Electroly te Balance-N utritiona l Products Narcan 4 mg/actuatio n nasal spray 2- 00:00: 00 Yes [id number] 1 spray NEEDED 1 spray A S NEEDED (route: nasal) Med Classific ation: Antidotes and other Reversal Agents oxycodone-a cetaminophe n 10 mg-325 mg tablet -10 00:00: 00 10-11 23:59 :00 No [id number] 1 tablet EVERY 6 HOURS 1 tablet EVERY 6 HOURS (route: oral) Med Classific ation: Analgesic , Anti-infl ammatory or Antipyret ic vancomycin 1.25 gram intravenous solution 10-01 00:00: 00 10-15 23:59 :00 No [id number] 1.25 g 2 TIMES DAILY 1.25 g 2 TIMES DAILY (route: intravenou s) Med Classific ation: Anti-Infe ctive Agents Xarelto 20 mg tablet 10-04 00:00: 00 10-27 23:59 :00 No [id number] 1 tablet EVERY PM 1 tablet EVERY PM (route: oral) Med Classific ation: Hematolog ical Agents Normal Saline Flush 0.9 % injection syringe 10-04 00:00: 00 Yes [id number] 10 mL DIRECTED 10 mL DIRECTED (route: injection) Med Classific ation: Electroly te Balance-N utritiona l Products heparin lock flush (porcine) 10 unit/mL intravenous solution 10-04 00:00: 00 Yes [id number] 5 mL DIRECTED 5 mL DIRECTED (route: intravenou s) Med Classific ation: Hematolog ical Agents Betadine 10 % topical solution 10-12 00:00: 00 Yes [id number] Per instruc tions DIRECTED Per instructio ns DIRECTED (route: topical) Med Classific ation: Dermatolo gical vancomycin 1.75 gram intravenous solution 10-15 00:00: 00 Yes [id number] 1.75 g EVERY 12 HOURS 1.75 g [...] Observation Time Observation Value Commen ts Temperature 2024-11-01 12:24:00.000 97.8 [degF] Temperature 2024-10-28 14:32:00.000 98 [degF] Temperature 2024-10-25 10:21:00.000 97.6 [degF] Temperature 2024-10-21 15:25:00.000 97.9 [degF] Temperature 2024-10-18 14:23:00.000 98 [degF] Temperature 2024 09:37:00.000 97.1 [degF] Temperature 2024-10-11 10:34:00.000 98 [degF] Temperature 2024-10-07 09:47:00.000 98.2 [degF] Temperature 2024-10-04 14:38:00.000 98 [degF] BMI (%) 2024-10-04 09:41:54.000 35 kg/m2 Height 2024-10-04 09:41:38.000 72 [in_us] Pulse 2024-11-01 12:24:00.000 82 /min Pulse 2024-10-28 14:32:00.000 80 /min Pulse 2024-10-25 10:21:00.000 89 /min Pulse 2024-10-21 15:25:00.000 80 /min Pulse 2024-10-18 14:23:00.000 80 /min Pulse 2024 09:37:00.000 82 /min Pulse 2024-10-11 10:34:00.000 80 /min Pulse 2024-10-07 09:47:00.000 90 /min Pulse 2024-10-04 14:38:00.000 68 /min O2 Saturation (%) 2024-11-01 12:24:00.000 96 % O2 Saturation (%) 2024-10-28 14:32:00.000 97 % O2 Saturation (%) 2024-10-25 10:21:00.000 97 % O2 Saturation (%) 2024-10-21 15:25:00.000 100 % O2 Saturation (%) 2024-10-18 14:23:00.000 98 % O2 Saturation (%) 2024 09:37:00.000 95 % O2 Saturation (%) 2024-10-11 10:34:00.000 99 % O2 Saturation (%) 2024-10-07 09:47:00.000 96 % O2 Saturation (%) 2024-10-04 14:38:00.000 97 % Respirations 2024-11-01 12:24:00.000 18 /min Respirations 2024-10-28 14:32:00.000 16 /min Respirations 2024-10-25 10:21:00.000 18 /min Respirations 2024-10-21 15:25:00.000 16 /min Respirations 2024-10-18 14:23:00.000 18 /min Respirations 2024 09:37:00.000 18 /min Respirations 2024-10-11 10:34:00.000 16 /min Respirations 2024-10-07 09:47:00.000 16 /min Respirations 2024-10-04 14:38:00.000 16 /min Weight (lbs) 2024-10-04 09:41:54.000 260 [lb_av] Systolic Blood Pressure 2024-11-01 12:24:00.000 140 mm [Hg] Systolic Blood Pressure 2024-10-28 14:32:00.000 140 mm [Hg] Systolic Blood Pressure 2024-10-25 10:21:00.000 140 mm [Hg] Systolic Blood Pressure 2024-10-21 15:25:00.000 146 mm [Hg] Systolic Blood Pressure 2024-10-18 14:23:00.000 142 mm [Hg] Systolic Blood Pressure 2024 09:37:00.000 128 mm [Hg] Systolic Blood Pressure 2024-10-11 10:34:00.000 142 mm [Hg] Systolic Blood Pressure 2024-10-07 09:47:00.000 140 mm [Hg] Systolic Blood Pressure 2024-10-04 14:38:00.000 160 mm [Hg] Diastolic Blood Pressure 2024-11-01 12:24:00.000 88 mm [Hg] Diastolic Blood Pressure 2024-10-28 14:32:00.000 72 mm [Hg] Diastolic Blood Pressure 2024-10-25 10:21:00.000 [...] FOR HOME HEALTH.] Future Scheduled Test [facility] MAY ACCEPT ORDERS FROM THE FOLLOWING PHYSICIANS: PODIATRY: DR. ABEL TELEPHONE SERVICES SALES REPRESENTATIVE/TREATING PROVIDERS [code = HOME HEALTH AGENCY MAY ACCEPT ORDERS FROM THE FOLLOWING PHYSICIANS: PODIATRY: DR. ABEL TELEPHONE SERVICES SALES REPRESENTATIVE/TREATING PROVIDERS] Future Scheduled Test SKILLED NU RSE [...] AND REPORT TO PHYSICIAN NUPUR TELLO AT [phone] AND [phone]. [code = SKILLED NURSE TO OBTAIN BLOOD SPECIMEN VIA PICC OR VENIPUNCTURE USING ASEPTIC TECHNIQUE: WEEKLY ON MONDAYS: CBC, CMP BIWEEKLY (FRIDAY AND FRIDAY OR FRIDAY): BMP AND VANCO TROUGH. OBTAIN LAB RESULTS AND REPORT TO PHYSICIAN NUPUR HICKSI AT [phone] AND [phone].] Future Scheduled Test SKILLED NU RSE FOR [...] MAINTAIN SITUATIONAL AWARENESS AND WILL NOTIFY CLINICAL NANOTECHNOLOGIST AND PHYSICIAN/PROVIDER WITH ANY CHANGE IN CONDITION. [code = SKILLED NURSE TO PERFORM ENVIRONMENTAL SAFETY RISK ASSESSMENT AND FALL RISK ASSESSMENT AND PROVIDE INSTRUCTION TO IMPLEMENT ENVIRONMENTAL SAFETY AND FALL PREVENTION STRATEGIES THROUGHOUT THE CERTIFICATION PERIOD. SKILLED NURSE WILL MAINTAIN SITUATIONAL AWARENESS AND WILL NOTIFY CLINICAL NANOTECHNOLOGIST AND PHYSICIAN/PROVIDER WITH ANY CHANGE IN CONDITION.] [...] CARE WILL BE ESTABLISHED THAT MEETS PATIENT'S SHELTER NEEDS AND INCLUDES PATIENT GOAL FOR HOME [...] <paragraph>[Visit Date: 2024 by PETE BARBOUR RN]:</paragraph><paragraph>PATIENT SEEN TODAY FOR SN VISIT. PATIENT AOX4, PLESANT AND COOPERATIVE. LABS AT [facility] PRIOR TO START OF VANCOMYCIN. WOUND CARE PREFORMED ORDERED. NO SIGNS OF INFECTION - NO ODOR, NO EXCUDATE, NO NECROTIC TISSUE ON LEFT FOOT. BS 148MG/DL, VS ALONG BASELINE AND WITHIN PARAMETERS. PAIN DESCRIBED PHANTOM PAIN FOR PROFOUND DURING THE NIGHT IT WOKE PATIENT OUT OF HIS SLEEP LASTING A FEW MIN. PRESENT AGAIN THIS AM AT LEVEL6. PATIENT OBSERVED TAKING PAIN MEDICATION. PAIN IS MANAGED WITH PERCOCET. PATIENT STATES THAT HE IS AWARE THAT ON 11/07 (FRIDAY HE WILL FINISH HIS LAST DOSE OF ANTIBIOTICS. PATIENT INSTRUCTED TO CONTINUE DRESSING CHANGES DAILY HE IS. MONITOR FOR SIGNS AND SYMPTOMS OF INFECTION. USE ASEPTIC TECHNIQUE FOR WOUND CARE DONNING GLOVES. TAKE MEDICATION PRESCRIBED SPACE OUT ANTIBIOTIC 12 HRS PRECISELY. CALL [facility] FOR QUESTIONS OR CONCERNS.</paragraph> Encounters Start Date/Time End Date/Time Encounter Type Admission Type [facility] Care Department Encounter ID Discharge Date Discharge Status Discharge Condition Discharge Reason Percent Goals Met 2024-10-04 00:00:00 2024-12-02 00:00:00 Outpatient NEW ADMISSION PETE BARBOUR [facility] [id number] 94.29
--- OUTSIDE RECORDS SUMMARY | 2024-11-04 13:58 | XMS_ITS | Encounter Summary ---
Author Organization [facility] Address [facility] [place] [address] Care Team Providers Care Model Set Artist Name Role Phone Ngozi Collier NP Primary Care Provider [phone] Encounter Details Date Type Department Care Team (Late st Contact Info) Description 03/22/2020 Hospital Follow-up Call [facility] [place] [address] Ashley Lora RN Social History Tobacco Use Types Packs/Day Years Used Date Smoking Tobacco: Every Day Cigars Smokeless Tobacco: Never Sex and Gender Information Value Date Recorded Sex Assigned at Male 09/23/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 [facility] [address] [place] [address] documented as of this encounter Visit Diagnoses Not on filedocumented in this encounter Care Teams Model Set Artist Relationship Specialty Start Date End Date Ngozi Collier NP [address] [place], [place] [id number] PCP - General 02/13/18 documented as of this encounter
--- OUTSIDE RECORDS SUMMARY | 2024-11-04 13:58 | XMS_ITS | Encounter Summary ---
Author Organization [facility] Address [facility] [place] [address] Care Team Providers Care Gas Station Operator Name Role Phone Ngozi Collier NP Primary Care Provider [phone] Reason for Referral * Surgical (Routine) - New Request Specialty Diagnoses / Procedures Referred By Justin buckley Referred To Contact Diagnoses PVD (peripheral vascular disease) Procedures Case request operating room: AMPUTATION TOE (LEFT SECOND TOE) Dae Corrales MD [address] [address] Phone: tel: fax: Referral ID Status Reason Start Date Expiration Date V isits Requested Visits Authorized [id number] New Request 06/08/2024 06/08/2025 1 1 Encounter Details Date Type Department Care Team (Late st Contact Info) Description 06/08/2024 Prep for Procedure [facility] [address] [place], [place] [address] Dae Corrales MD [id number] [place] [address] Social History Tobacco Use Types Packs/Day Years Used Date Smoking Tobacco: Every Day Cigars Smokeless Tobacco: Never Alcohol Use Standard Drinks/Week Comments Not Currently 0 (1 standard drink = 0.6 oz pur e alcohol) [facility] Utilities Answer Date Recorded In the past 12 months has th e [employer], gas, oil, or water [employer] threatened to shut off services in your [...] any time in the past 12 [facility], were you homeless or living in a assisted (including now)? 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 Answer Entry Date Author Status No 06/06/2024 11:27 PM CDT Phong Whitney RN Active documented in this encounter Plan of Treatment Upcoming Encounters Date Type Department Care Team (Late st Contact Info) Description 11/17/2024 10:40 AM CDT Office Visit [facility] Multispecialty Care - [facility] 3 [facility], [facility] [address] [place] [address] Negin Adkins NP 3 [facility]. [facility] [address] [place] [address] Scheduled Orders Name Type Priority Associated Diagnoses Orde r Schedule Case request operating room: AMPUTATION TOE (LEFT SECOND TOE) Case Request Routine PVD (peripheral vascular disease) Once for 1 Occurrences starting 06/08/2024 until 06/08/2024 documented as of this encounter Goals Goal Patient Goal Type Associated Problems Recent Progress Patient-Stated? Author Health - patient able to perform ADLs independently Lifestyle No 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, RN documented as of this encounter Visit Diagnoses Diagnosis PVD (peripheral vascular disease)- Primary Peripheral vascular disease, unspecified documented in this encounter Care Teams Gas Station Operator Relationship Specialty Start Date End Date Ngozi Collier NP [address] [place] [address] PCP - General 02/13/18 documented as of this encounter
--- OUTSIDE RECORDS SUMMARY | 2024-11-04 13:58 | XMS_ITS | Continuity of Care Document ---
Author Organization [facility] Address [address] [facility] [address] [place] [address] Phone Care Team Providers Care Delivery Clerk Name Role Phone Gustavo Pires MD Unavailable [...] Providers Copied on Encounter [facility], [address], [place], [address], [place] tel:[phone] [facility] [place] Pain in right kneeQuadriceps weakness Jun- 2-201 6 Pranay Chen. [address] [place], [place], [id number] . tel: [phone] [facility], [address], [place], [address], [place] tel:[phone] [facility] [place] Status post total right knee replacement 3-201 6 Pranay Chen. [address] [place], [place], [id number] . tel: [phone] [facility], [address] [facility], [place], [address], [place] tel:[phone] [facility] [place] Status post total right knee replacement 6-201 6 Pranay Chen. [address] [place], [place], [id number] . tel: [phone] [facility], [address], [place], [address], [place] tel:[phone] [facility] [place] Status post total right knee replacement 5 6 Pranay Chen. [address] [place], [place], [id number] . tel: [phone] [facility], [address], [place], [address], [place] tel:[phone] [facility] [place] Pain in right kneeAftercare following right knee joint replacement surgeryStatus post total right knee replacement 0 8-201 5 Pranay Chen. [address] [place], [place], [id number] . tel: [phone] [facility], [address], [place], [address], [place] tel:[phone] [facility] [place] No Information Jul-0 5 Pranay Chen. [address] [place], [place], [id number] . tel:[phone] [facility], [address] [facility], [place], [address], [place] tel:[phone] [facility] [place] Status post total right knee replacementAfterc are following right knee joint replacement surgery 5 Pranay Chen. [address] [place], [place], [id number] . tel:[phone] [facility], [address] [address], [place], [address], [place] tel:[phone] [facility] [place] Pain in joint involving lower legKnee joint replacementPost Op joint replacement 5 Pranay Chen. [address] [place], [place], [id number] . tel: [phone] [facility], [address] [facility], [place], [address], [place] tel:[phone] [facility] [place] Pain in joint involving lower legKnee joint replacementPost Op joint replacement Apr-0 5 Pranay Chen. [address] [place], [place], [id number] . tel: [phone] [facility], [address] [address], [place], [address], [place] tel:[phone] [facility] [place] Knee joint replacementPain in joint involving lower leg 5 Pranay Chen. [address] [place], [place], [id number] . tel:[phone] Family History Family Member Type Diagnosis Age [...]
--- OUTSIDE RECORDS SUMMARY | 2024-11-04 13:58 | XMS_ITS | Clinical Summary ---
Author Organization [facility] Address [address] [place] [address] Care Team Providers Care Clothing Consultant Name Role Phone Ngozi Collier NP Primary Care Provider [phone] Allergies Active Allergy Reactions Criticality Noted Date [...] 4 (four) times daily as needed (pain). 05/12/20 24 Active lidocaine (LIDODERM) 5 % Place 1 patch onto the skin every 12 (twelve) hours. APPLY 1 PATCH TO SKIN SITE ONCE A DAY APPLY PATCH AND PRESS FIRMLY FOR 10-15 SECONDS. KEEP ON FOR 12 HOURS THEN REMOVE PATCH FOR 12 HOURS. 05/12/20 24 Active insulin degludec (TRESIBA) 100 UNIT/ML Solution Pen-injector injection Inject 80 Units into the skin every morning. 08/04/20 24 Active Cholecalciferol 50 MCG (2000 UT) Cap Take 50 mcg by mouth daily. 07/12/20 24 Active Multiple Vitamin (MULTIVITAMIN ADULT OR) Take 1 tablet by mouth daily. 07/12/20 Active losartan (COZAAR) 50 MG tablet Take 1 tablet (50 mg total) by mouth daily. Replaces hctz/lisinopril 07/12/20 Active vitamin B-12 (CYANOCOBALAMIN) 100 MCG tablet Take 1 tablet (100 mcg total) by mouth daily. Active cefTRIAXone 2 g in sodium chloride 0.9 % SOLN 50 mLIndications:Ost eomyelitis Inject 2 g into the vein daily for 36 days. Indications: Infection of Bone and Bone Marrow 1 Bag 10/02/19 25 025 Active oxyCODONE-acetami nophen (PERCOCET) 10-325 MG tabletIndications :Acute Pain < 7 Day Supply Take 1 tablet by mouth every 6 (six) hours as needed for Pain. Indications: Acute Pain < 7 Day Supply 15 tablet 10/01/19 25 Active naloxone (NARCAN) 4 MG/0.1ML nasal sprayIndications: Opioid Toxicity 1 spray by Nasal route as needed for Opioid reversal. Indications: Toxic Amount of Codeine/Morphin e-Like Drugs in the Body may repeat every 2 to 3 minutes in alternating nostrils until medical assistance becomes available 1 each 10/01/19 25 026 Active rivaroxaban (XARELTO) 20 MG Tab tabletIndications :Deep Vein Thrombosis,Adrena l infarct Take 1 tablet (20 mg total) by mouth daily with supper for 30 days. Indications: Blood Clot in a Deep Vein, Adrenal infarct Take with food 30 tablet 10/01/19 25 025 metroNIDAZOLE (FLAGYL) 500 MG tabletIndications :Osteomyelitis Take 1 tablet (500 mg total) by mouth 2 (two) times a day for 13 days. Indications: Infection of Bone and Bone Marrow 26 tablet 10/01/19 25 025 vancomycin 1,250 mg in sodium chloride 0.9 % SOLN 262.5 mLIndications:Ost eomyelitis Inject 1,250 mg into the vein every 12 (twelve) hours for 37 days. Indications: Infection of Bone and Bone Marrow 1 Bag 10/01/19 25 025 Discontinu ed(Reorder ) vancomycin 1,500 mg in sodium chloride 0.9 % SOLN 265 mLIndications:Ost eomyelitis Inject 1,500 mg into the vein every 12 (twelve) hours for 27 days. Indications: Infection of Bone and Bone Marrow 1 Bag 53 10/11/19 25 025 Discontinu ed(Alterna te therapy) Vancomycin HCl 1.75 g Recon SolnIndications:O ther acute osteomyelitis of left foot ([facility]) Inject 1.75 g into the vein every 12 (twelve) hours for 3 days. Dose change per [place] Pharm D on 10/15/2024 with anticipated stop date of 11/07/2024 1 each 45 10/15/19 25 025 Active Problems Problem Noted Date Diagnosed Date Osteomyelitis ([facility]) 09/23/2024 Osteomyelitis of foot, left, acute ([facility]) 09/23/2024 Abnormal liver function 06/28/2024 Acute osteomyelitis of phalanx of foot ([facility]) 06/28/2024 Overview (06/28/2024): Dec 22, 2019 Entered By: SOLEDAD MIRANDA Comment: R great toe amputation 10/2017 Age-related nuclear cataract, bilateral 06/28/20 Benign essential hypertension 06/28/2024 Carpal tunnel syndrome 06/28/2024 Complete traumatic amputatio n of left great toe, subsequent encounter ([facility]) 06/28/2024 Depression 06/28/2024 Encounter for observation fo r other suspected diseases and conditions ruled out 06/28/2024 Erectile dysfunction 06/28/2024 Exposure to potentially hazardous substance 11/2023 Gastroesophageal reflux disease 06/28/2024 History of total right knee replacement 06/28/20 Hyperlipidemia, unspecified 06/28/2024 Localized edema 06/28/2024 correction (current) use of opiate analgesic 11/2023 Narcotic drug use 06/28/2024 Non-pressure chronic ulcer o f other part of left foot limited to breakdown of skin ([facility]) 06/28/2024 Obesity 06/28/2024 Osteoarthritis of knee 06/28/2024 Other chronic pain 06/28/2024 Other specified diabetes marshall litus with unspecified complications ([facility]) 06/28/2024 Pain in right shoulder 06/28/2024 Type 1 diabetes mellitus wit h diabetic neuropathy, unspecified ([facility]) 06/28/2024 Type 2 diabetes 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 without macular edema, bilateral ([facility]) 06/28/2024 Type 2 diabetes mellitus wit h foot ulcer (CODE) ([facility]) 06/28/2024 Vitamin D deficiency 06/28/2024 Elevated liver function tests 06/21/2024 PVD (peripheral vascular disease) 06/08/2024 Osteomyelitis of left foot ([facility]) SIRS (systemic inflammatory response syndrome) ([facility]) 05/27/2024 Nausea and vomiting 03/20/2020 Open wound of left foot 03/17/2020 Nausea & vomiting 03/17/2020 S/P amputation of lesser toe, left ([facility]) 07/2018 Hypertension 07/14/2015 Low back pain 07/14/2015 Right knee pain 07/14/2015 Resolved Problems Problem Noted Date Diagnosed Date Resolved Date Encounter for other preprocedural examination 06/28/2007/05/2024 Encounters Date Type Department Care Team Description 11/02/2024 2:20 PM CDT [facility] - [address], [facility] [address] [place] [address] Negin Adkins NP Osteomyelitis (OM L Foot F/u) 11/02/2024 Travel 11/01/2024 Orders Only [facility]-[address] [address] Alexys Dow MD 11/01/2024 Telephone [facility] - [address], [facility] [address] [place] [address] Negin Adkins, ERAN Medication 10/28/2024 Scan [facility] SRVCS Scanned, [facility] (SCAN) 10/25/2024 12:56 PM PARACHUTE OFFICER - 10/25/2024 11:59 PM PARACHUTE OFFICER Hospital Encounter [facility] Laboratory [address] [facility] [place] [address] Alexys Dow MD Discharge Disposition: Home or Self Care (Routine Discharge) 10/25/2024 Scan [facility] SRVCS Scanned, [facility] (SCAN) 10/25/[address] [facility] [place] [address] Alexys Dow MD 10/21/2024 Scan [facility] SRVCS Scanned, [facility] (SCAN) 10/19/2024 11:20 AM PARACHUTE OFFICER [facility] [address] [facility], [address] [place] [id number] Negin Adkins, ERAN Osteomyelitis (L foot OM) 10/19/2024 Scan [facility] INFO SRVCS Scanned, [facility] 10/19/2024 Travel 10/18/2024 Scan [facility] INFO SRVCS Scanned, [facility] (SCAN) 10/18/2024 [facility] [address] [facility], [address] [place] [address] Negin Adkins, ERAN Orders 2024 Scan [facility] INFO SRVCS Scanned, [facility] (SCAN) 10/11/2024 Scan [facility] INFO SRVCS Scanned, [facility] (SCAN) 10/11/2024 [facility] [address], [address] [place] [address] Negin Adkins, ERAN Medication; Lab Results 10/07/2024 Scan HEALTH INFO SRVCS Scanned, [facility] (SCAN) 10/07/2024 Telephone [facility] Medical Group Multispecialty Care - [facility] [address] [facility], [address] [address] Negin Adkins, FOOD OPERATIONS MANAGER Lab Results 10/04/2024 Scan [facility] INFO SRVCS Scanned, [facility] (SCAN) 10/04/2024 Hospital Follow-up Call [facility] [place] [address] Melonie Mei LPN Follow Up Call ([facility] 09/23-10/01/24) 09/28/2024 9:45 AM PARACHUTE OFFICER Home Care Visit [address] [address] Trice Nava, FAMILY RESOURCE COORDINATOR VISIT 09/25/2024 10:00 AM PARACHUTE OFFICER - 09/25/2024 11:03 AM PARACHUTE OFFICER Surgery [facility] [place] [address] Dae Marie DPM TRANS METATARSAL AMPUTATION; LEFT FOOT 09/25/2024 9:45 AM PARACHUTE OFFICER Anesthesia Event [facility] [place] [address] Alfonso Eagle MD 09/23/2024 1:45 AM PARACHUTE OFFICER - 10/01/2024 2:19 PM PARACHUTE OFFICER Hospital Encounter [facility] [place] [address] Lucius Johnson, Yamileth Melchor MD McHale, MD Antoinette Leblanc Gregory T, MD Suresh, Solomon Tyler, Claudia Lord, Spencer Vergara PA Helmholt, Jennifer, NP Foot [...] from your doctor or pharmacy? Never 09/23/2024 [facility] Utilities Answer Date Recorded In the past 12 months has e [employer], oil, or water [employer] threatened to shut off services in your [...] often do you attend chur ch or orthodox services? Never 09/23/2024 Do you belong to any clubs o r organizations such as cheondoism groups, unions, fraternal or athletic groups, or [...] Recorded Patient Health Questionnaire-2 Score 0 10/19/2024 [facility] - Occupational Stress [...] any time in the past 12 m [facility], were you homeless or living in a retirement (including now)? No 09/23/2024 Sex and Gender Information Value Date Recorded Sex Assigned at Male 09/23/2024 1:10 AM PARACHUTE OFFICER Legal Sex Male 8:29 PM CDT Gender Identity Not on file Sexual Orientation Not on file Last Filed Vital Signs Vital Sign Reading Time Taken Comments Blood Pressure 119/80 11/02/2024 2:27 PM CDT Pulse 94 11/02/2024 2:27 PM CDT Temperature 36.7 C (98 F) 11/02/2024 2:27 PM CDT Respiratory Rate 18 11/02/2024 2:27 PM CDT Oxygen Saturation 98% 11/02/2024 2:27 PM CDT Inhaled Oxygen Concentration - - Weight 114.8 kg (253 lb) 10/19/2024 11:28 AM PARACHUTE OFFICER Height 182.9 cm (6') 10/19/2024 11:28 AM PARACHUTE OFFICER Body Mass Index 34.31 10/19/2024 11:28 AM PARACHUTE OFFICER Plan of Treatment Upcoming Encounters Date Type Department Care Team (Late st Contact Info) Description 11/17/2024 10:40 AM CDT Office Visit [facility] Medical Group Multispecialty Care - [facility] [address] [facility], [address] [place] [address] Negin Adkins NP [address] [facility]. [address] [place] [address] Health Maintenance Due Date Last Done Comments [...] 01/03/2011 Hepatitis C Completed 06/01/2024 PHQ-2 (Physician [place]) Completed 10/19/2024 Meningococcal B Vaccine Aged Out [...] perform ADLs independently Lifestyle No 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, parcel post delivery Procedure Name Priority Date/Time Associated Diagnosis Comments VANCOMYCIN TROUGH Routine 11/01/2024 12: 02 PM CDT CBC W/DIFF AUTOMATED Routine 11/01/2024 12:02 PM CDT COMPREHENSIVE METABOLIC PANEL Routine 11/01/2024 12:02 PM CDT OUTSIDE LAB (SCAN ORDER) 10/28/2024 COMPREHENSIVE METABOLIC PANEL Routine 10/25/2024 10:25 AM PARACHUTE OFFICER Acute osteomyelitis of left ankle or foot ([facility]) Encounter for long-term (current) use of antibiotics CBC W/DIFF AUTOMATED Routine 10/25/2024 10:25 AM PARACHUTE OFFICER Acute osteomyelitis of left ankle or foot ([facility]) Encounter for long-term (current) use of antibiotics VANCOMYCIN TROUGH Routine 10/25/2024 10: 25 AM PARACHUTE OFFICER Acute osteomyelitis of left ankle or foot ([facility]) Encounter for long-term (current) use of antibiotics OUTSIDE LAB (SCAN ORDER) 10/25/2024 OUTSIDE LAB (SCAN ORDER) 10/21/2024 OUTSIDE LAB (SCAN ORDER) 10/18/2024 OUTSIDE LAB (SCAN ORDER) 10/18/2024 OUTSIDE LAB (SCAN ORDER) 2024 OUTSIDE LAB (SCAN ORDER) 10/11/2024 OUTSIDE LAB (SCAN ORDER) 10/07/2024 OUTSIDE LAB (SCAN ORDER) 10/04/2024 OUTSIDE LAB (SCAN ORDER) 10/04/2024 POCT GLUCOSE - MARIE DOCKED DEVICE Routine 10/01/2024 11:21 AM PARACHUTE OFFICER CBC W/DIFF AUTOMATED Routine 10/01/2024 5:44 AM PARACHUTE OFFICER BASIC METABOLIC PANEL Routine 10/01/2024 5:44 AM PARACHUTE OFFICER POCT GLUCOSE - MARIE DOCKED DEVICE Routine 10/01/2024 5:16 AM PARACHUTE OFFICER POCT GLUCOSE - MARIE DOCKED DEVICE Routine 09/30/2024 8:18 PM PARACHUTE OFFICER POCT GLUCOSE - MARIE DOCKED DEVICE Routine 09/30/2024 4:18 PM PARACHUTE OFFICER POCT GLUCOSE - MARIE DOCKED DEVICE Routine 09/30/2024 11:40 AM PARACHUTE OFFICER HC URINALYSIS AUTO W/O MICRO Routine 09/30/2024 10:13 AM PARACHUTE OFFICER POCT GLUCOSE - MARIE DOCKED DEVICE Routine 09/30/2024 6:06 AM PARACHUTE OFFICER CBC W/DIFF AUTOMATED Routine 09/30/2024 5:30 AM PARACHUTE OFFICER BASIC METABOLIC PANEL Routine 09/30/2024 5:30 AM PARACHUTE OFFICER POCT GLUCOSE - MARIE DOCKED DEVICE Routine 09/29/2024 8:20 PM PARACHUTE OFFICER POCT GLUCOSE - MARIE DOCKED DEVICE Routine 09/29/2024 4:35 PM PARACHUTE OFFICER POCT GLUCOSE - MARIE DOCKED DEVICE Routine 09/29/2024 11:32 AM PARACHUTE OFFICER BASIC METABOLIC PANEL Routine 09/29/2024 7:15 AM PARACHUTE OFFICER POCT GLUCOSE - MARIE DOCKED DEVICE Routine 09/29/2024 6:21 AM PARACHUTE OFFICER CBC W/DIFF AUTOMATED Routine 09/29/2024 5:05 AM PARACHUTE OFFICER BASIC METABOLIC PANEL Routine 09/29/2024 5:05 AM PARACHUTE OFFICER POCT GLUCOSE - MARIE DOCKED DEVICE Routine 09/28/2024 9:12 PM PARACHUTE OFFICER POCT GLUCOSE - MARIE DOCKED DEVICE Routine 09/28/2024 3:50 PM PARACHUTE OFFICER POCT GLUCOSE - MARIE DOCKED DEVICE Routine 09/28/2024 11:37 AM PARACHUTE OFFICER POCT GLUCOSE - MARIE DOCKED DEVICE Routine 09/28/2024 5:57 AM PARACHUTE OFFICER CBC W/DIFF AUTOMATED Routine 09/28/2024 4:48 AM PARACHUTE OFFICER BASIC METABOLIC PANEL Routine 09/28/2024 4:48 AM PARACHUTE OFFICER POCT GLUCOSE - MARIE DOCKED DEVICE Routine 09/27/2024 7:47 PM PARACHUTE OFFICER POCT GLUCOSE - MARIE DOCKED DEVICE Routine 09/27/2024 4:53 PM PARACHUTE OFFICER POCT GLUCOSE - MARIE DOCKED DEVICE Routine 09/27/2024 11:38 AM PARACHUTE OFFICER POCT GLUCOSE - MARIE DOCKED DEVICE Routine 09/27/2024 6:27 AM PARACHUTE OFFICER BASIC METABOLIC PANEL Routine 09/27/2024 5:27 AM PARACHUTE OFFICER CBC W/DIFF AUTOMATED Routine 09/27/2024 5:27 AM PARACHUTE OFFICER POCT GLUCOSE - MARIE DOCKED DEVICE Routine 09/26/2024 8:39 PM PARACHUTE OFFICER POCT GLUCOSE - MARIE DOCKED DEVICE Routine 09/26/2024 4:51 PM PARACHUTE OFFICER BASIC METABOLIC PANEL Routine 09/26/2024 1:28 PM PARACHUTE OFFICER CBC W/DIFF AUTOMATED Routine 09/26/2024 1:28 PM PARACHUTE OFFICER POCT GLUCOSE - MARIE DOCKED DEVICE Routine 09/26/2024 12:26 PM PARACHUTE OFFICER POCT GLUCOSE - MARIE DOCKED DEVICE Routine 09/26/2024 6:13 AM PARACHUTE OFFICER VANCOMYCIN Routine 09/26/2024 4:34 AM PARACHUTE OFFICER BASIC METABOLIC PANEL Routine 09/26/2024 4:34 AM PARACHUTE OFFICER CBC W/DIFF AUTOMATED Routine 09/26/2024 4:34 AM PARACHUTE OFFICER POCT GLUCOSE - MARIE DOCKED DEVICE Routine 09/25/2024 8:14 PM PARACHUTE OFFICER POCT GLUCOSE - MARIE DOCKED DEVICE Routine 09/25/2024 4:18 PM PARACHUTE OFFICER POCT GLUCOSE - MARIE DOCKED DEVICE Routine 09/25/2024 11:36 AM PARACHUTE OFFICER POCT GLUCOSE - MARIE DOCKED DEVICE Routine 09/25/2024 10:37 AM PARACHUTE OFFICER CULTURE, TISSUE W/GRAM STAIN Routine 09/25/2024 10:12 AM PARACHUTE OFFICER CULTURE, ANAEROBIC Routine 09/25/2024 10 :12 AM PARACHUTE OFFICER AMPUTATION TOE 09/25/2024 9:45 AM PARACHUTE OFFICER Osteomyelitis of foot, left, acute ([facility]) POCT GLUCOSE - MARIE DOCKED DEVICE Routine 09/25/2024 8:04 AM PARACHUTE OFFICER CBC W/DIFF AUTOMATED Routine 09/25/2024 5:43 AM PARACHUTE OFFICER BASIC METABOLIC PANEL Routine 09/25/2024 5:43 AM PARACHUTE OFFICER HEMOGLOBIN, GLYCOSYLATED Routine 09/25/2024 5:43 AM PARACHUTE OFFICER POCT GLUCOSE - MARIE DOCKED DEVICE Routine 09/25/2024 5:39 AM PARACHUTE OFFICER PATHOLOGY Routine 09/25/2024 12:00 AM PARACHUTE OFFICER POCT GLUCOSE - MARIE DOCKED DEVICE Routine 09/24/2024 8:10 PM PARACHUTE OFFICER POCT GLUCOSE - MARIE DOCKED DEVICE Routine 09/24/2024 3:46 PM PARACHUTE OFFICER POCT GLUCOSE - MARIE DOCKED DEVICE Routine 09/24/2024 11:20 AM PARACHUTE OFFICER VANCOMYCIN Routine 09/24/2024 6:00 AM PARACHUTE OFFICER C-REACTIVE PROTEIN Routine 09/24/2024 6: 00 AM PARACHUTE OFFICER HEMOGLOBIN, GLYCOSYLATED Routine 09/24/2024 6:00 AM PARACHUTE OFFICER MAGNESIUM Routine 09/24/2024 6:00 AM PARACHUTE OFFICER COMPREHENSIVE METABOLIC PANEL Routine 09/24/2024 6:00 AM PARACHUTE OFFICER CBC W/DIFF AUTOMATED Routine 09/24/2024 6:00 AM PARACHUTE OFFICER POCT GLUCOSE - MARIE DOCKED DEVICE Routine 09/24/2024 5:55 AM PARACHUTE OFFICER POCT GLUCOSE - MARIE DOCKED DEVICE Routine 09/23/2024 7:59 PM PARACHUTE OFFICER MRI FOOT LT WO CON Today 09/23/2024 6: 47 PM PARACHUTE OFFICER POCT GLUCOSE - MARIE DOCKED DEVICE Routine 09/23/2024 3:43 PM PARACHUTE OFFICER POCT GLUCOSE - MARIE DOCKED DEVICE Routine 09/23/2024 12:12 PM PARACHUTE OFFICER MRSA SCREENING STAT 09/23/2024 10:24 AM PARACHUTE OFFICER USV ART REST W BLANCO LOW EXT STAT 09/23/2024 10:09 AM PARACHUTE OFFICER CULTURE, BACTERIA, BLOOD STAT 09/23/2024 2:55 AM PARACHUTE OFFICER LACTIC ACID W REFLEX (SEPSIS) STAT 09/23/2024 2:55 AM PARACHUTE OFFICER HC BODY FLUID CULTURE STAT 09/23/2024 2:11 AM PARACHUTE OFFICER C-REACTIVE PROTEIN Routine 09/23/2024 2: 11 AM PARACHUTE OFFICER COMPREHENSIVE METABOLIC PANEL STAT 09/23/2024 2:11 AM PARACHUTE OFFICER CBC W/DIFF AUTOMATED STAT 09/23/2024 2:11 AM PARACHUTE OFFICER XR FOOT LT 3V STAT 09/23/2024 1:54 AM PARACHUTE OFFICER HC EIA QL HEPATITIS ABC B AG Routine 06/01/2024 3:47 AM CDT LIPID PANEL STAT 05/27/2024 8:35 AM CDT from Last 3 Months or Most Recently Relevant to Health Maintenance Results * VANCOMYCIN TROUGH (11/01/2024 12:02 PM CDT) Only the most recent of2 resultswithin the time period is included. Pathologist [facility] VANCOMYCIN TROUGH 10.5 10.0 - 20.0 mg/L [facility] [place] Comment: Vancomycin trough concentrations should be at least 10.0 mg/L. For invasive infections or when bacterial isolates exhibit vancomycin MICs between 1 and 2 mcg/mL, trough concentrations of 15.0 to 20.0 mg/L should be considered. When MICs are greater than or equal to 2 mcg/mL, alternate therapies should be considered. 11/01/2024 12:0 2 PM CDT 11/01/2024 2:22 PM CDT Narrative Resulting Agency Comment Performing Organization Information: Site ID: [id number] Name: [email or web address] Address: [address] [place] [id number] Director: Hannah Bean Alexys Dow MD LABORATORY Final Result [facility] [address] [address], * (ABNORMAL) COMPREHENSIVE METABOLIC PANEL (11/01/2024 12:02 PM CDT) Only the most recent of4 resultswithin the time period is included. [facility] GLUCOSE 250(H) 65 - 99 mg/dL [place] Comment: Fasting reference interval For someone without known diabetes, a glucose value >125 mg/dL indicates that they may have diabetes and this should be confirmed with a follow-up test. BUN 13 7 - 25 mg/dL [place] CREATININE S/P/B 0.92 0.70 - 1.30 mg/dL [place] GFR ESTIMATE 97 > OR = 60 mL/min/1. 73m2 [place] BUN CREATININE RATIO SEE NOTE: 6 - 22 (calc) [place] Comment: Not Reported: BUN and Creatinine are within reference range. SODIUM S/P/B 136 135 - 146 mmol/L [place] POTASSIUM S/P/B 4.6 3.5 - 5.3 mmol/L [place] CHLORIDE S/P/B 104 98 - 110 mmol/L [place] CO2 27 20 - 32 mmol/L [place] CALCIUM S/P/B 8.7 8.6 - 10.3 mg/dL [place] TOTAL PROTEIN S/P/B 5.8(L) 6.1 - 8.1 g/dL [place] ALBUMIN S/P/B 3.4(L) 3.6 - 5.1 g/dL [place] GLOBULIN 2.4 1.9 - 3.7 g/dL (calc) [place] ALBUMIN/GLOBULIN RATIO 1.4 1.0 - 2.5 (calc) [place] BILIRUBIN TOTAL S/P/B 0.3 0.2 - 1.2 mg/dL [place] ALKALINE PHOSPHATASE S/P/B 126 35 - 144 U/L [place] AST 23 10 - 35 U/L [place] ALT 23 9 - 46 U/L [place] 11/01/2024 12:0 2 PM CDT 11/01/2024 2:22 PM CDT Narrative Resulting Agency Comment Performing Organization Information: Site ID: [id number] Name: [email or web address] Address: [address] [place] [address] Director: Hannah Bean us Alexys Dow MD LABORATORY Final Result [facility] [place], [place] [address] [place] [address], * CBC W/DIFF AUTOMATED (11/01/2024 12:02 PM CDT) Only the most recent of12 resultswithin the time period is included. WBC 8.1 3.8 - 10.8 Thousand/u L [place], [place] RBC 4.38 4.20 - 5.80 Million/uL [facility] [place] HGB 13.5 13.2 - 17.1 g/dL [place] HCT 41.1 38.5 - 50.0 % [place] MCV 93.8 80.0 - 100.0 fL [place] MCH 30.8 27.0 - 33.0 pg [place] MCHC 32.8 32.0 - 36.0 g/dL [facility] [place] Comment: For adults, a slight decrease in the calculated MCHC value (in the range of 30 to 32 g/dL) is most likely not clinically significant; however, it should be interpreted with caution in correlation with other red cell parameters and the patient's clinical condition. RDW 12.4 11.0 - 15.0 % [place] PLT 254 140 - 400 Thousand/u L [facility] [place] MPV 9.9 7.5 - 12.5 fL [facility] [place] ABS. NEUTROPHILS 6,318 1,500 - 7,800 cells/uL [place] ABS. LYMPHOCYTES 1,077 850 - 3,900 cells/uL [facility] [place] ABS. MONOCYTES 559 200 - 950 cells/uL [place] ABS. EOSINOPHILS 97 15 - 500 cells/uL [place] ABS. BASOPHILS 49 0 - 200 cells/uL [place] SEG NEUTROPHILS 78 % QUES [place] LYMPHOCYTES 13.3 % [place] MONOCYTES 6.9 % [place] EOSINOPHILS 1.2 % [place] BASOPHILS 0.6 % [place] 11/01/2024 12:0 2 PM CDT 11/01/2024 2:22 PM CDT Narrative Resulting Agency Comment Performing Organization Information: Site ID: [id number] Name: [email or web address] Address: [address] [place] [address] Director: Hannah Bean us Alexys Dow MD LABORATORY Final Result Performing Organization Address City/[facility]/ZIP Co de Phone Number [facility] [address] [place] [address], [place] * OUTSIDE LAB (SCAN ORDER) (10/28/2024) Only the most recent of10 resultswithin the time period is included. 10/28/2024 [facility] Scanned SCANNING Final Resu lt * (ABNORMAL) POCT glucose (10/01/2024 11:21 AM PARACHUTE OFFICER) Only the most recent of35 resultswithin the time period is included. GLUCOSE POC 201(H) 70 - 99 mg/dL 10/01/2024 11:57 AM PARACHUTE OFFICER [facility] 10/01/2024 11:2 1 AM PARACHUTE OFFICER Ashtyn Lynch NP POCT ORDERABLES - DEVICE Fi nal Result Performing Organization Address City/[facility] Co de Phone Number [facility] [address] [place] [address], [place] [phone] * (ABNORMAL) BASIC METABOLIC PANEL (10/01/2024 5:44 AM [employer]) Only the most recent of9 resultswithin the time period is included. GLUCOSE 90 70 - 99 MG/DL 10/01/2024 6:30 AM [employer] [facility] BUN 13 7 - 18 MG/DL 10/01/2024 6:30 AM [employer] [facility] CREATININE S/P/B 0.75 0.7 - 1.3 MG/DL 10/01/2024 6:30 AM PARACHUTE OFFICER [facility] SODIUM S/P/B 139 136 - 145 MMOL/L 10/01/2024 6:30 AM [facility] POTASSIUM S/P/B 4.0 3.5 - 5.1 MMOL/L 10/01/2024 6:30 AM [facility] CHLORIDE S/P/B 108 97 - 115 MMOL/L 10/01/2024 6:30 AM [facility] CO2 33.0(H) 21 - 32 MMOL/L 10/01/2024 6:30 AM [facility] CALCIUM S/P/B 8.5 8.5 - 10.1 MG/DL 10/01/2024 6:30 AM [facility] ANION GAP NOT CALCULATED 2 - 10 MMOL/L 10/01/2024 6:30 AM [facility] BUN CREATININE RATIO 17.3 6 - 26 10/01/2024 6:30 AM [facility] GFR ESTIMATE >90 >90 ML/MIN/1. 73 M2 10/01/2024 6:30 AM [facility] Comment: NOTE: eGFR is not calculated for patients <18 years of age or gender unknown. This is an estimated GFR calculation using the new CKD EPI creatinine equation without race and so does not require a correction factor for race. This estimated GFR should not be used for calculating drug doses. 10/01/2024 5:44 AM PARACHUTE OFFICER us Spencer HENDERSON LABORATORY Final Result [facility] [address] [place] [address], [place] [phone] * (ABNORMAL) URINALYSIS (09/30/2024 10:13 AM PARACHUTE OFFICER) SPECIMEN TYPE URINE CLEAN CATCH 09/30/2024 10:14 AM [facility] COLOR (U) LIGHT YELLOW 09/30/2024 10:25 AM [facility] TRANSPARENCY CLEAR 09/30/2024 10:25 AM [facility] SPECIFIC GRAVITY (U) 1.011 1.001 - 1.030 09/30/2024 10:25 AM [facility] U PH 6.0 5.0 - 9.0 09/30/2024 10:25 AM [facility] LEUKOCYTES (U) NEGATIVE NEGATIVE 09/30/2024 10:25 AM [facility] NITRITES NEGATIVE NEGATIVE 09/30/2024 10:25 AM [facility] PROTEIN RANDOM (U) NEGATIVE <30 MG/DL 09/30/2024 10:25 AM [facility] GLUCOSE (U) NORMAL NORMAL MG/DL 09/30/2024 10:25 AM [facility] KETONES MG/DL (U) NEGATIVE NEGATIVE MG/DL 09/30/2024 10:25 AM [facility] UROBILINOGEN 2.0(A) NORMAL MG/DL 09/30/2024 10:25 AM [facility] BILIRUBIN (U) NEGATIVE NEGATIVE MG/DL 09/30/2024 10:25 AM [facility] BLOOD (U) NEGATIVE NEGATIVE 09/30/2024 10:25 AM [facility] URINE SPECIMEN OBTAINED BY CLEAN CATCH PROCEDURE / Unknown 09/30/2024 10:13 AM [facility] us Spencer HENDERSON URINE ORDERABLES Final Result [facility] [address] [place] [address], [place] [phone] * Vancomycin Random Level (09/26/2024 4:34 AM PARACHUTE OFFICER) Only the most recent of2 resultswithin the time period is included. VANCOMYCIN RANDOM 17.4 MCG/ML 09/26/2024 5:29 AM PARACHUTE OFFICER [facility] Comment:NO THERAPEUTIC RANGE AVAILABLE LAST DOSE UNKNOWN LAST DOSE 09/26/2024 4:38 AM PARACHUTE OFFICER [facility] 09/26/2024 4:34 AM PARACHUTE OFFICER Spencer HENDERSON [facility] Final Result [facility] [address] [place] [address], * (ABNORMAL) CULTURE, TISSUE W/GRAM STAIN (09/25/2024 10:12 AM PARACHUTE OFFICER) SPEC DESCRIPTION FOOT,LEFT 09/25/2024 10:17 AM PARACHUTE OFFICER [facility] SPECIAL REQUESTS NO SPECIAL REQUEST 09/25/2024 10:17 AM [facility] GRAM STAIN RESULT FEW WHITE BLOOD CELLS SEEN 09/25/2024 4:58 PM PARACHUTE OFFICER [facility] GRAM STAIN RESULT MANY RED BLOOD CELLS SEEN 09/25/2024 4:58 PM PARACHUTE OFFICER [facility] GRAM STAIN RESULT MANY GRAM POSITIVE COCCI 09/25/2024 4:58 PM [facility] CULTURE RESULT LIGHT GROWTH OF ESCHERICHIA COLI (A) 09/27/2024 8:33 AM [facility] CULTURE RESULT MODERATE GROWTH OF STREPTOCOCCI, BETA HEMOLYTIC GROUP B SUSCEPTIBILTY NOT ROUTINELY PERFORMED. SAVING ISOLATE FOR 5 DAYS. CONTACT MICROBIOLOGY DEPARTMENT IF FURTHER WORKUP IS INDICATED. (A) 09/27/2024 8:33 AM [facility] TISSUE STRUCTURE OF LEFT FOOT / Unknown 09/25/2024 10:12 AM PARACHUTE OFFICER Narrative Organism Antibiotic Method Susceptibility Escherichia coli [...] MICROBIOLOGY - GENERAL OR DERABLES Final Result [facility] [address] [place] [address], * (ABNORMAL) CULTURE, ANAEROBIC (09/25/2024 10:12 AM PARACHUTE OFFICER) SPEC DESCRIPTION FOOT,LEFT 09/25/2024 10:17 AM PARACHUTE OFFICER [facility] SPECIAL REQUESTS NO SPECIAL REQUEST 09/25/2024 10:17 AM PARACHUTE OFFICER [facility] GRAM STAIN RESULT FEW WHITE BLOOD CELLS SEEN 09/25/2024 4:58 PM PARACHUTE OFFICER [facility] GRAM STAIN RESULT MANY RED BLOOD CELLS SEEN 09/25/2024 4:58 PM PARACHUTE OFFICER [facility] GRAM STAIN RESULT MANY GRAM POSITIVE COCCI 09/25/2024 4:58 PM [facility] CULTURE RESULT HEAVY GROWTH OF PREVOTELLA BIVIA BETA LACTAMASE POSITIVE SUSCEPTIBILTY NOT ROUTINELY PERFORMED. SAVING ISOLATE FOR 5 DAYS. CONTACT MICROBIOLOGY DEPARTMENT IF FURTHER WORKUP IS INDICATED. (A) 09/27/2024 11:12 AM PARACHUTE OFFICER [facility] TISSUE STRUCTURE OF LEFT FOOT / Unknown 09/25/2024 10:12 AM PARACHUTE OFFICER Dae Marie DPM MICROBIOLOGY - GENERAL OR DERABLES Final Result Performing Organization Address [facility]/ZIP Co de Phone Number [facility] [address] [place] [address], * (ABNORMAL) HEMOGLOBIN, GLYCOSYLATED (09/25/2024 5:43 AM PARACHUTE OFFICER) Only the most recent of2 resultswithin the time period is included. HGB A1C 6.6(H) <5.7 % 09/25/2024 11:14 AM PARACHUTE OFFICER [facility] Comment: ADA GUIDELINES 2010 5.7 TO 6.4% INCREASED RISK OF DIABETES > OR = 6.5% CONSISTENT WITH DIABETES ESTIMATED AVG GLUCOSE 143 mg/dL 09/25/2024 11:14 AM PARACHUTE OFFICER [facility] 09/25/2024 5:43 AM PARACHUTE OFFICER us Turner Curry MD LABORATORY Final Resul t Performing Organization Address City/[facility]/ZIP Co de Phone Number [facility] [address] [place] [address], * Pathology (09/25/2024 12:00 AM PARACHUTE OFFICER) PATHOLOGY [facility] Department of Laboratory Medicine [address] [place] [address] , extension [phone] Pathology Report Surgical Pathology Report Name: TAJ SMITH Specimen #: [id number] Age: 2 1965 (Age: 58) Location: [facility] Sex: M Procedure Date: 09/25/2024 Hospital #: [id number] Date Received: 09/27/2024 Date Reported: 09/28/2024 Provider: [...] distal end. The surgical margin is shaved. Event Producer tissue is submitted as follows: 1 section through distal end of bone 2 surgical margin. Cassettes 1 and 2 are submitted following decalcification in immuno decal. Gross examination (when applicable), interpretation, and sign out were performed at [facility], [address] [place] [address]. Electronically Signed Out LONNIE FARIAS MD [facility] TISSUE STRUCTURE OF LEFT FOOT / Unknown 09/25/2024 10:13 AM PARACHUTE OFFICER Dae Marie DPM PATHOLOGY/CYTOLOGY ORDERA BLES Final Result Performing Organization Address City/[facility]/ZIP Co de Phone Number [facility] [address] [place] [address], [phone] * (ABNORMAL) C-REACTIVE PROTEIN (09/24/2024 6:00 AM PARACHUTE OFFICER) Only the most recent of2 resultswithin the time period is included. C-REACTIVE PROTEIN 10.10(H) <0.29 mg/dL 09/24/2024 6:47 AM PARACHUTE OFFICER [facility] 09/24/2024 6:00 AM PARACHUTE OFFICER us Spencer HENDERSON LABORAT[facility] Final Result [facility] [address] [place] [address], [place] [phone] * (ABNORMAL) MAGNESIUM (09/24/2024 6:00 AM PARACHUTE OFFICER) MAGNESIUM 2.5(H) 1.8 - 2.4 MG/DL 09/24/2024 6:47 AM PARACHUTE OFFICER [facility] 09/24/2024 6:00 AM PARACHUTE OFFICER Spencer HENDERSON LABORAT[facility] Final Result [facility] [address] [place] [address], * MRI FOOT LT WO CON (09/23/2024 6:47 PM PARACHUTE OFFICER) Anatomical Region Laterality Modality Foot Magnetic Resonan ce 09/24/2024 8:19 AM PARACHUTE OFFICER Impressions 09/24/2024 8:54 AM PARACHUTE OFFICER =====IMPRESSION:===== 1. Osteomyelitis greatest in the fifth [...] 09/24/2024 8:19 AM Narrative 09/24/2024 8:54 AM PARACHUTE OFFICER [facility] [address] [place], [place] [address] EXAMINATION: MRI left foot without contrast EXAM [...] Procedure Note Dae Phillip MD - 09/24/[address] [address] EXAMINATION: MRI left foot without contrast EXAM [...] Result * MRSA SCREENING (09/23/2024 10:24 AM PARACHUTE OFFICER) SPEC DESCRIPTION NASAL 09/23/2024 10:36 AM PARACHUTE OFFICER [facility] SPECIAL REQUESTS NO SPECIAL REQUEST 09/23/2024 10:36 AM PARACHUTE OFFICER [facility] CULTURE RESULT NO METHICILLIN RESISTANT STAPHYLOCOCCUS AUREUS ISOLATED 09/24/2024 6:41 AM PARACHUTE OFFICER [facility] SPECIMEN FROM INTERNAL NOSE / Unknown 09/23/2024 10:24 AM PARACHUTE OFFICER 09/23/2024 10:36 AM PARACHUTE OFFICER Spencer HENDERSON MICROBIOLOGY - GENERAL ORDERAB LES Final Result [facility] [address] [place] [id number], * USV ART REST W BLANCO LOW EXT (09/23/2024 10:09 AM PARACHUTE OFFICER) Anatomical Region Laterality Modality Extremity Vascular Ultraso und 09/23/2024 9:38 AM PARACHUTE OFFICER Narrative 09/23/2024 11:10 AM PARACHUTE OFFICER ARTERIAL DOPPLER - BLANCO BILATERAL LOWER EXTREMITY VASCULAR LAB Pat.Name: LUISTAJ Pat.ID: [id number] St.Date: 09/23/2024 Refer.MD: Ngozi Collier Exam Time: [...] EXTREMITY VASCULAR LAB Pat.Name: TAJ SMITH Pat.ID: [id number] .Date: 09/23/2024 Refer.MD: Ngozi Collier Exam Time: [...] amplitude; Posterior Tibial triphasic, high amplitude with BLACNO 1.34 ; DP/Anterior Tibial triphasic, high amplitude [...] 11:10 AM Elle White M.D. Spencer HENDERSON [facility] Final Result * LACTIC ACID W REFLEX (SEPSIS) (09/23/2024 2:55 AM PARACHUTE OFFICER) [facility] LACTIC ACID VENOUS 1.2 0.4 - 2.0 MMOL/L 09/23/2024 3:40 AM PARACHUTE OFFICER [facility] 09/23/2024 2:55 AM PARACHUTE OFFICER Lucius Johnson DO LABORATORY Final Result [facility] [address] [place] [address], [place] [phone] * CULTURE BACTERIA, BLOOD (09/23/2024 2:55 AM PARACHUTE OFFICER) [facility] SPEC DESCRIPTION BLOOD 09/23/2024 2:33 AM PARACHUTE OFFICER [facility] SPECIAL REQUESTS NO SPECIAL REQUEST 09/23/2024 2:33 AM PARACHUTE OFFICER [facility] CULTURE RESULT NO GROWTH 5 DAYS 09/28/2024 7:14 AM PARACHUTE OFFICER [facility] BLOOD SPECIMEN OBTAINED FOR BLOOD CULTURE / Unknown 09/23/2024 2:55 AM PARACHUTE OFFICER 09/23/2024 3:10 AM PARACHUTE OFFICER Lucius Johnson DO MICROBIOLOGY - GENERAL ORDERAB LES Final Result [facility] [address] [place] [address], * (ABNORMAL) CULTURE, WOUND, W/GRAM STAIN (09/23/2024 2:11 AM PARACHUTE OFFICER) SPEC DESCRIPTION FOOT,LEFT 09/23/2024 2:13 AM PARACHUTE OFFICER [facility] SPECIAL REQUESTS NO SPECIAL REQUEST 09/23/2024 2:13 AM [facility] GRAM STAIN RESULT NO WHITE BLOOD CELLS SEEN 09/23/2024 1:18 PM [facility] GRAM STAIN RESULT NO ORGANISMS SEEN 09/23/2024 1:18 PM [facility] CULTURE RESULT SPARSE GROWTH OF ESCHERICHIA COLI (A) 09/27/2024 7:29 AM [facility] CULTURE RESULT SPARSE GROWTH OF STREPTOCOCCI, BETA HEMOLYTIC GROUP B SUSCEPTIBILTY NOT ROUTINELY PERFORMED. SAVING ISOLATE FOR 5 DAYS. CONTACT MICROBIOLOGY DEPARTMENT IF FURTHER WORKUP IS INDICATED. (A) 09/27/2024 7:29 AM [facility] CULTURE RESULT SPARSE GROWTH OF STAPHYLOCOCCUS AUREUS (A) 09/27/2024 7:29 AM [facility] CULTURE RESULT SPARSE GROWTH OF STREPTOCOCCUS VIRIDANS SPECIES ORGANISM IS CONSISTENT WITH NORMAL SKIN BETTYE. SUSCEPTIBILITIES NOT ROUTINELY PERFORMED. (A) 09/27/2024 7:29 AM [facility] STRUCTURE OF LEFT FOOT / Unknown 09/23/2024 2:11 AM PARACHUTE OFFICER 09/23/2024 2:19 AM PARACHUTE OFFICER Narrative Organism Antibiotic Method Susceptibility Escherichia coli [...] aureus TETRACYCLINE REMY (VITEK) <=1: Sensitive Gustavo Rviera PA-C MICROBIOLOGY - GENERAL ORDE CHARISSE Final Result [facility] [address] [place] [address], [place] [phone] * XR FOOT LT 3V (09/23/2024 1:54 AM PARACHUTE OFFICER) Anatomical Region Laterality Modality Foot Radiographic Isis ging 09/23/2024 1:56 AM PARACHUTE OFFICER Impressions 09/23/2024 1:59 AM PARACHUTE OFFICER IMPRESSION: ===== 1. Comminuted fracture of third toe middle phalanx. 2. Subtle erosion of distal second metatarsal head medially. Osteomyelitis not excluded. 3. 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 4. 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 Prior trauma or infection not excluded. Referred By: Interpreted By: Nishant Urban MD, 09/23/2024 1:56 AM Narrative 09/23/2024 1:59 AM PARACHUTE OFFICER [address] [address] Examination: Left foot 3 views Exam Date/Time: [...] Procedure Note Nishant Urban MD - 09/23/[address] [address] Examination: Left foot 3 views Exam Date/Time: [...] VE NON-REACTI VE 06/01/2024 7:01 AM CDT [facility] HEP B CORE TOTAL AB NON-REACTI VE NON-REACTI VE 06/01/2024 7:01 AM CDT [facility] HAV IGM NON-REACTI VE NON-REACTI VE 06/01/2024 7:01 AM CDT [facility] HEPATITIS C AB NON-REACTI VE NON-REACTI VE 06/01/2024 7:01 AM CDT [facility] 06/01/2024 3:47 AM CDT us William Del Rosario MD LABORATORY Final Result [facility] [address] [place] [address], [place] [phone] * LIPID PANEL (05/27/2024 8:35 AM CDT) CHOLESTEROL 145 <200 MG/DL 05/27/2024 9:24 AM CDT [facility] TRIGLYCERIDES 56 <150 MG/DL 05/27/2024 9:24 AM CDT [facility] HDL 72 >40.0 MG/DL 05/27/2024 9:24 AM CDT [facility] LDL (CALCULATED) 62 <100 MG/DL 05/27/20 9:24 AM CDT [facility] NON HDL CHOLESTEROL 73 <130 MG/DL 05/27 9:24 AM CDT [facility] CHOL/HDL RATIO 2.0 0.0 - 4.5 05/27/2024 9:24 AM CDT [facility] VLDL CALCULATION 11 5 - 55 MG/DL 05/27/2024 9:24 AM CDT [facility] LIPID INTERPRETATION 05/27/2024 9:24 AM CDT [facility] Comment: [facility] CONCENSUS REPORT RECOMMENDATIONS: ADULT CHILD LOW RISK: CHOLESTEROL <200 <170 TRIGLYCERIDE <150 --- HDL >=60 --- LDL <100 <110 BORDERLINE: CHOLESTEROL 200-239 170-199 TRIGLYCERIDE 150-199 --- HDL 40-59 --- LDL 100-159 110-129 HIGH RISK: CHOLESTEROL >=240 >=200 TRIGLYCERIDE >=200 --- HDL <40 --- LDL >=160 >=130 05/27/2024 8:35 AM CDT us Damon Mendez MD LABORATORY Final Resul t [facility] [address] [place] [address], [place] [phone] from Last 3 Months or Most Recently Relevant to Health Maintenance Insurance [facility] Advance Directives * Full Code (Latest Code [...] 10:40 PM 03/21/2020 12:49 PM Care Teams Clothing Consultant Relationship Specialty Start Date End Date Ngozi Collier NP [address] [place] [address] PCP - General 02/13/18
--- OUTSIDE RECORDS SUMMARY | 2024-11-04 13:59 | XMS_ITS | Clinical Summary ---
Author Organization Unknown Care Team Providers Care Crab Backer Name Role Phone OMER ACUNA, SHARMILA Unavailable Unavailable KM BLACK, PETE Unavailable Unavailable Payers Payer Name Policy Type Policy Number Effective Date Expira tion Date [facility] OPTUM PROGRAM - PDGM Problems Condition Name [...] OTHER LEFT TOE(S) Active 08-25 00:00: 00 MCC (CURRENT) USE OF INSULIN Active 08-25 00:00: 00 DEPRESSION, UNSPECIFIED Active 08-25 00:00: 00 ESSENTIAL (PRIMARY) HYPERTENSION Active 08-25 00:00: 00 OBESITY, UNSPECIFIED Active 08-25 00:00: 00 HYPERKALEMIA Active 08-25 00:00: 00 BODY MASS INDEX [BMI] 35.0-35.9, ADULT Active 08-25 00:00: 00 ENCOUNTER FOR ADJUSTMENT AND MANAGEMENT OF VAD Active 08-25 00:00: 00 MCC (CURRENT) USE OF ANTIBIOTICS Active 08-25 00:00: [...] % topical cream 10-04 00:00: 00 Yes [id number] 1 inch 4 TIMES DAILY 1 inch 4 TIMES DAILY (route: topical) Med Classific ation: Dermatolo gical ceftriaxone 2 gram intravenous solution 10-01 00:00: 00 Yes [id number] 2 g DAILY 2 g DAILY (route: intravenou s) Med Classific ation: Anti-Infe ctive Agents cholecalcif neftali (vitamin D3) 50 mcg (2,000 unit) capsule 2- 00:00: 00 Yes [id number] 1 capsule DAILY 1 capsule DAILY (route: oral) Med Classific ation: Electroly te Balance-N utritiona l Products cyanocobala min (vit B-12) 100 mcg tablet - 00:00: 00 Yes [id number] 1 tablet DAILY 1 tablet DAILY (route: oral) Med Classific ation: Electroly te Balance-N utritiona l Products insulin degludec (U-100) 100 unit/mL subcutaneou s solution - 00:00: 00 Yes [id number] 80 unit DAILY 80 unit DAILY (route: subcutaneo us) Med Classific ation: Endocrine lidocaine 5 % topical patch - 00:00: 00 Yes [id number] 1 adhesiv e patch, medicat ed DAILY 1 adhesive patch, medicated DAILY (route: topical) Med Classific ation: Dermatolo gical losartan 50 mg tablet 10-04 00:00: 00 Yes [id number] 1 tablet DAILY 1 tablet DAILY (route: oral) Med Classific ation: Cardiovas cular Therapy Agents metronidazo le 500 mg tablet 10-01 00:00: 00 10-14 23:59 :00 No [id number] 500 mg 2 TIMES DAILY 500 mg 2 TIMES DAILY (route: oral) Med Classific ation: Anti-Infe ctive Agents Multivitami n 50 Plus tablet - 00:00: 00 Yes [id number] 1 tablet DAILY 1 tablet DAILY (route: oral) Med Classific ation: Electroly te Balance-N utritiona l Products Narcan 4 mg/actuatio n nasal spray 2- 00:00: 00 Yes [id number] 1 spray NEEDED 1 spray A S NEEDED (route: nasal) Med Classific ation: Antidotes and other Reversal Agents oxycodone-a cetaminophe n 10 mg-325 mg tablet -10 00:00: 00 10-11 23:59 :00 No [id number] 1 tablet EVERY 6 HOURS 1 tablet EVERY 6 HOURS (route: oral) Med Classific ation: Analgesic , Anti-infl ammatory or Antipyret ic vancomycin 1.25 gram intravenous solution 10-01 00:00: 00 10-15 23:59 :00 No [id number] 1.25 g 2 TIMES DAILY 1.25 g 2 TIMES DAILY (route: intravenou s) Med Classific ation: Anti-Infe ctive Agents Xarelto 20 mg tablet 10-04 00:00: 00 10-27 23:59 :00 No [id number] 1 tablet EVERY PM 1 tablet EVERY PM (route: oral) Med Classific ation: Hematolog ical Agents Normal Saline Flush 0.9 % injection syringe 10-04 00:00: 00 Yes [id number] 10 mL DIRECTED 10 mL DIRECTED (route: injection) Med Classific ation: Electroly te Balance-N utritiona l Products heparin lock flush (porcine) 10 unit/mL intravenous solution 10-04 00:00: 00 Yes [id number] 5 mL DIRECTED 5 mL DIRECTED (route: intravenou s) Med Classific ation: Hematolog ical Agents Betadine 10 % topical solution 10-12 00:00: 00 Yes [id number] Per instruc tions DIRECTED Per instructio ns DIRECTED (route: topical) Med Classific ation: Dermatolo gical vancomycin 1.75 gram intravenous solution 10-15 00:00: 00 Yes [id number] 1.75 g EVERY 12 HOURS 1.75 g [...] FOR HOME HEALTH.] Future Scheduled Test [facility] MAY ACCEPT ORDERS FROM THE FOLLOWING PHYSICIANS: PODIATRY: DR. ABEL STRATEGY EXECUTION CONSULTANT/TREATING PROVIDERS [code = HOME HEALTH AGENCY MAY ACCEPT ORDERS FROM THE FOLLOWING PHYSICIANS: PODIATRY: DR. ABEL STRATEGY EXECUTION CONSULTANT/TREATING PROVIDERS] Future Scheduled Test SKILLED NU [...] AND REPORT TO PHYSICIAN NUPUR TELLO AT [phone] AND [phone]. [code = SKILLED NURSE TO OBTAIN BLOOD SPECIMEN VIA PICC OR VENIPUNCTURE USING ASEPTIC TECHNIQUE: WEEKLY ON MONDAYS: CBC, CMP BIWEEKLY (FRIDAY AND FRIDAY OR FRIDAY): BMP AND VANCO TROUGH. OBTAIN LAB RESULTS AND REPORT TO PHYSICIAN NUPUR HICKSI AT [phone] AND [phone].] Future Scheduled Test SKILLED NU RSE FOR [...] MAINTAIN SITUATIONAL AWARENESS AND WILL NOTIFY CLINICAL FLOOR REFINISHER AND PHYSICIAN/PROVIDER WITH ANY CHANGE IN CONDITION. [code = SKILLED NURSE TO PERFORM ENVIRONMENTAL SAFETY RISK ASSESSMENT AND FALL RISK ASSESSMENT AND PROVIDE INSTRUCTION TO IMPLEMENT ENVIRONMENTAL SAFETY AND FALL PREVENTION STRATEGIES THROUGHOUT THE CERTIFICATION PERIOD. SKILLED NURSE WILL MAINTAIN SITUATIONAL AWARENESS AND WILL NOTIFY CLINICAL FLOOR REFINISHER AND PHYSICIAN/PROVIDER WITH ANY CHANGE IN CONDITION.] [...] CARE WILL BE ESTABLISHED THAT MEETS PATIENT'S PRISON NEEDS AND INCLUDES PATIENT GOAL FOR HOME [...] PATIENT AOX4, PLESANT AND COOPERATIVE. LABS AT [facility] PRIOR TO START OF VANCOMYCIN. WOUND CARE [...] End Date/Time Encounter Type Admission Type Attending [facility] Care Department Encounter ID Discharge Date Discharge Status Discharge Condition Discharge Reason Percent Goals Met 2024-10-04 00:00:00 2024-12-02 00:00:00 Outpatient NEW ADMISSION [facility] [id number] 94.29
--- OUTSIDE RECORDS SUMMARY | 2024-11-04 13:59 | XMS_ITS | Continuity of Care Document ---
Author Organization [facility] Address [address] [place] [address] Phone Care Team Providers Care Cofounder Name Role Phone Administrative, Provider Unavailable Unavail [...] Date Provider Providers Copied on Encounter [facility], [address] [place] [address], [id number], tel:[phone] [facility] No Information 8 Administrati ve Provider. [address] [place] [address], [id number], . tel:[phone] [facility], [address] [place] [address], [id number], tel:[phone] [facility] No Information 8 Administrati ve Provider. [address] [place] [address], [id number], [place]. tel:[phone] [facility], [address] [place] [address], [id number], [place] tel:[phone] [facility] No Information 6 Administrati ve Provider. [address] [place] [address], [id number], [place]. tel:[phone] Office/outpa tient visit,est, mod [facility], [address] [place] [address], [id number], tel:[phone] [facility] lumbar (chief complaint) Other intervertebral disc degeneration, lumbar region 6 Abeln Hallie. [address] [facility], [place] [address], [place], [place], [id number], [place]. tel:[phone] No Show Legal Established Patient [facility], [address] [address], [place], [place], [id number], [place] tel:[phone] [facility] No Information 6 Lissett Thompson. [address] [address], [place], [place], [id number], [place]. tel:[phone] Office/outpa tient visit,est, mod [facility], [address] [address], [place], [place], [id number], [place] tel:[phone] [facility] lumbar spine (chief complaint) Other intervertebral disc degeneration, lumbar region 6 Abeln Hallie. [address], [id number], [place]. tel:[phone] Independent Medical Examination ARGELIA [facility], [address] [address], [place], [place], [id number], [place] tel:[phone] [facility] Pain in right knee 6 Nogalski Franky. [address], [id number], [place]. tel:[phone] Office/outpa tient visit,est, mod [facility], [address], [id number], [place] tel:[phone] [facility] Other intervertebral disc displacement, lumbar region 6 Lissett Thompson. [address], [id number], [place]. tel:[phone] [facility], [address], [id number], [place] tel:[phone] [facility] No Information 6 Lissett Thompson. [address] [place], [id number], [place]. tel:[phone] Office/outpa tient visit,est, [facility], [address] [address], [place], [place], [id number], [place] tel:[phone] [facility] Other intervertebral disc degeneration, lumbar regionOther intervertebral disc displacement, lumbar region 5 6 Abeln Hallie. [address] [address], [place], [place], [id number], [place]. tel:[phone] [facility], [address] [address], [place], [place], [id number], [place] tel:[phone] [facility] No Information 6 Administrati ve Provider. [address], [id number], [place]. tel:[phone] Office/outpa tient visit,est, [employer] [facility], [address] [address], [place], [place], [id number], [place] tel:[phone] [facility] Other intervertebral disc degeneration, lumbar region 6 Lissett Jay. [address] [address], [place], [place], [id number], [place]. tel:[phone] Office/outpa tient visit,est, [employer] [facility], [address] [address], [place], [place], [id number], [place] tel:[phone] [facility] [employer] Other intervertebral disc displacement, lumbar region 5 Abeln Hallie. [address] [address], [place], [place], [id number], [place]. tel:[phone] Office/outpa tient visit,est, [facility], [address], [id number], [place] tel:[phone] [facility] [employer] Other intervertebral disc displacement, lumbar region 8 5 Abeln Hallie. [address], [address], [id number], [place]. tel:[phone] No Show Legal Established Patient [facility], [facility] [address], [id number], tel:[phone] [facility] No Information 1 5 Ankit Sterling. [address] [place] [address], [address], [id number], [place]. tel:[phone] Office/outpa tient visit,new, [facility], [address], [id number], tel:[phone] [facility] Other intervertebral disc degeneration, lumbar region 0- 5 Lissett Jay. [address] [place] [address], [address], [id number], . tel:[phone] No Show Legal Established Patient [facility], [address], [id number], tel:[phone] [facility] No Information 5 Lsisett Thompson. [address] [place] [address], [id number], [place]. tel:[phone] Family History Family Member Type Diagnosis Age At Onset No Information Immunizations Vaccine Date Status Comments Flu (split) (3 yrs or older) administered Source: Other Provider Payers Payer name Insurance type Covered republican ID Authoriza tion(s) No Information Social History [...]
--- OUTSIDE RECORDS SUMMARY | 2024-11-04 13:59 | XMS_ITS | Encounter Summary ---
Author Organization [facility] Address [facility] [place] [address] Care Team Providers Care Hydrologic Engineer Name Role Phone Ngozi Collier NP Primary Care Provider [phone] Reason for Visit * Reason Comments Lab (SCAN) Encounter Details Date Type Department Care Team (Latest Contact Info) Description 10/28/2024 Scan [facility] Scanned, [...] from your doctor or pharmacy? Never 09/23/2024 [facility] Utilities Answer Date Recorded In the past 12 months has [facility] [employer], [employer], oil, or water [email or web address] threatened to shut off services in your [...] any clubs o r organizations such as yazidi groups, unions, fraternal or athletic groups, or [...] Recorded Patient Health Questionnaire-2 Score 0 10/19/2024 [facility] - Occupational Stress Questionnaire Answer Date [...] Sex Assigned at Male 09/23/2024 1:10 AM [facility] Legal Sex Male 8:29 PM CDT Gender [...] Date Author Status No 10/01/2024 1:31 PM [facility] Mamta Lyn RN Active documented in this encounter Plan of Treatment Upcoming Encounters Date Type Department Care Team (Late st Contact Info) Description 11/17/2024 10:40 AM CDT Office Visit [facility] Multispecialty Care - [facility] [address] [facility] [place] [address] Negin Adkins NP [address] [facility]. [address] [place] [address] documented as of this encounter Goals Goal Patient Goal Type Associated Problems Recent Progress Patient-Stated? Author Health - patient able to perform ADLs independently Lifestyle No 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 RN documented as of this encounter Procedures Procedure Name Priority Date/Time Associated Diagnosis Comments OUTSIDE LAB (SCAN ORDER) 10/28/2024 documented in this encounter Results * OUTSIDE LAB (SCAN ORDER) (10/28/2024) 10/28/2024 [facility] Scanned SCANNING Final Resu lt documented in this encounter Visit Diagnoses Not on filedocumented in this encounter Additional Health Concerns Assessment Noted Time PHQ-9 Depression Total Score: 0 10/19/19 25 11:33 AM [facility] documented as of this encounter Care Teams Hydrologic Engineer Relationship Specialty Start Date End Date Ngozi Collier NP [address] [place] [address] PCP - General 02/13/18 documented as of this encounter
--- OUTSIDE RECORDS SUMMARY | 2024-11-04 13:59 | XMS_ITS | Clinical Summary ---
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 Pulse 92 02/09/2018 11:36 AM CDT Temperature 36.8 C (98.2 F) 02/09/2018 11:36 AM CDT Respiratory Rate 20 01/26/2018 3:00 PM CDT Oxygen Saturation 98% 02/09/2018 11:36 AM CDT Inhaled Oxygen Concentration - - Weight 113.4 kg (250 lb) 09/04/2018 11:39 AM SPECIAL MACHINE OPERATOR Height 185.4 cm (6' 1 ) 09/04/2018 11:39 AM SPECIAL MACHINE OPERATOR Body Mass Index 32.98 09/04/2018 11:39 AM SPECIAL MACHINE OPERATOR Plan of Treatment Health Maintenance Due Date [...] (#1) 2024 Medical Devices Implanted Type Area Cloth 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
== END 2024-11-04 12:25 | disposition home or self-care (01) ==
LOC: CHSLAB 12:33
DX: M86.172 Other acute osteomyelitis, left ankle and foot (principal); Z45.2 Encounter for adjustment and management of vascular access device; Z47.81 Encounter for orthopedic aftercare following surgical amputation
CPT/HCPCS: 36415; 80048; 80202